=== PATIENT | female | born 1940 | race Caucasian/White ===

== ENCOUNTER 2017-03-13 16:21 | Inpatient (IN) | payer MEDICARE, BC ==
[2017-03-13] MEDS ORDERED: SODIUM CHLORIDE 0.9% 500 ML IV STA (16:31)
[2017-03-13] MEDS ORDERED: RX INFO: IV CONTRAST WAS GIVEN 1 EACH MISC MISCELLANE PRN (16:31)
[2017-03-13] MEDS ORDERED: SODIUM CHLORIDE 0.9% 1,000 ML IV STA (16:31)
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
[2017-03-13 16:36] LABS: Glucose,Whole Blood 175 mg/dL (75-99)
[2017-03-13 16:42] LABS: Basophils % (A) 0 %; CH 30.9; Eosinophils # (A) 0.1 k/uL (0-0.7); Eosinophils % (A) 2 %; HCT 43.1 % (34.0-46.0); HDW 2.54; HGB 14.5 gm/dL (11.4-16.0); Luc % (Auto) 3; Lymphocytes # (A) 1.8 k/uL (1.0-4.8); Lymphocytes % (A) 26 %; MCH 31.7 pg (25.0-35.0); MCHC 33.8 g/dL (31.0-37.0); Mean Platelet Volume 8.7; Monocytes # (A) 0.4 k/uL (0-1.0); Monocytes % (A) 5 %; Neutrophils # (A) 4.5 k/uL (1.3-7.7); Neutrophils % (A) 64 %; RBC 4.59 m/uL (3.80-5.40); RDW 14.1 % (11.5-15.5); WBC 6.9 k/uL (3.8-10.6); WBC (Perox) 7.11
[2017-03-13 16:56] LABS: Calcium 9.4 mg/dL (8.4-10.2); Potassium 4.1 mmol/L (3.5-5.1); Total Bilirubin 0.5 mg/dL (0.2-1.3); Total Protein 7.4 g/dL (6.3-8.2)
--- NOTE | 2017-03-13 16:57 | CT ---
EXAMINATION TYPE: CT brain wo con for TPA DATE OF EXAM: 03/13/2017 HISTORY: Sudden onset confusion today. Neural deficits per order. CT DLP: 1029.9 mGycm. Automated Exposure Control for Dose Reduction was Utilized. TECHNIQUE: CT scan of the head is performed without contrast. COMPARISON: CT brain October 17, 2014. FINDINGS: There is no acute intracranial hemorrhage or midline shift identified. There is diffuse v entricular and sulcal prominence consistent with diffuse age-related cerebral atrophy. There is low- attenuation in the periventricular white matter consistent with chronic small vessel ischemic change. Bilateral basal ganglia calcifications are redemonstrated. Some vascular calcification distal internal medicine doctor al carotid arteries bilaterally is redemonstrated. Soft tissue density left external auditory canal c onsistent with cerumen is again seen. The globes are intact and the visualized sinuses are clear. IMPRESSION: No acute intracranial hemorrhage or midline shift. There is mild to moderate diffuse ag e-related cerebral atrophy and chronic small vessel ischemic change redemonstrated. No significant ch marie from prior study is seen.
[2017-03-13 17:06] LABS: Creatine Kinase 233 U/L (30-135)
[2017-03-13 17:14] LABS: INR 1.8 (<1.2); Partial Thromboplastin Time 30.2 sec (22.0-30.0); Prothrombin Time 17.7 sec (9.0-12.0)
[2017-03-13 17:18] LABS: Troponin I <0.012 ng/mL (0.000-0.034)
[2017-03-13 17:19] LABS: Creatine Kinase MB 3.1 ng/mL (0.0-2.4)
--- NOTE | 2017-03-13 17:19 | CT ---
EXAMINATION TYPE: CT angio head neck DATE OF EXAM: 03/13/2017 HISTORY: sudden onset confusion COMPARISON: NONE CT DLP: 374.6 mGycm. Automated Exposure Control for Dose Reduction was Utilized. TECHNIQUE: CTA scan of the neck is performed with IV Contrast, patient injected with 65 mL of Omnipa que 350, axial images are obtained, coronal and sagittal reformatted images are reviewed. Three-D rec onstructed images are created on an independent workstation and reviewed. FINDINGS: There is mild atheromatous change in the aortic arch. The left carotid artery has origin from the inn ominate artery. There is 50% stenosis at the origin of the left internal carotid artery. This is due to atherosclerot ic plaque formation. There is bilateral plaque formation at the carotid artery bifurcations. There is approximate 30% stenosis origin of the right internal carotid artery. There is bilateral arterial flow in the vertebral arteries. There is patency of the vertebrobasilar artery system. There is arterial flow in the anterior middle and posterior cerebral arteries. The anterior cerebral arteries appear to fill from the right side th rough the anterior communicating artery. There is patency of the left posterior communicating artery. I see no evidence of aneurysm or neovascularity. There is no mass effect. There is normal contrast opacification of the venous sinuses. There is some mucosal thickening in the maxillary sinuses. IMPRESSION: There is atherosclerotic plaque at the carotid artery bifurcations. There is 50% stenosis at the origin left internal carotid artery. There is 30% stenosis origin right internal carotid rajani ry. The anterior cerebral arteries fill from the right side. 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 There is probably 40% stenosis origin of the left external carotid artery.
[2017-03-13] MEDS ORDERED: ASPIRIN 325 MG TAB PO STA (18:01)
[2017-03-13] MEDS: SODIUM CHLORIDE 0.9% 1,000 ML IV SCH (19:59)
--- NOTE | 2017-03-13 20:51 | US ---
EXAMINATION TYPE: US carotid duplex BILAT DATE OF EXAM: 03/13/2017 COMPARISON: CLINICAL HISTORY: Stenosis. Patient states passing out EXAM MEASUREMENTS: RIGHT: Peak Systolic Velocity (PSV) cm/sec ----- Right CCA: 60.1 ----- Right ICA: 64.5 ----- Right ECA: 105.6 ICA/CCA ratio: 1.1 RIGHT: End Diastole cm/sec ----- Right CCA: 19.1 ----- Right ICA: 23.2 ----- Right ECA: 9.8 LEFT: Peak Systolic Velocity (PSV) cm/sec ----- Left CCA: 45.4 ----- Left ICA: 71.4 ----- Left ECA: 106.5 ICA/CCA ratio: 1.6 LEFT: End Diastole cm/sec ----- Left CCA: 11.5 ----- Left ICA: 20.2 ----- Left ECA: 20.2 VERTEBRALS (direction of flow): Right Vertebral: Antegrade Left Vertebral: Antegrade Rhythm: Arrhythmia Bilateral wall thickening. No elevated velocities. No significant stenosis. Plaque seen in bilateral bulbs, with plaque extending into left ICA. IMPRESSION: There is antegrade flow in the vertebral arteries. The images and measurements suggest 2 5% stenosis in both internal carotid arteries. Criteria for Assigning % of Stenosis / Diameter reduction (Estimation based on the indirect measurements of the internal carotid artery velocities (ICA PSV). 1. Normal (no stenosis)=ICA PSV < 125 cm/s: ratio < 2.0: ICA EDV<40 cm/s. 2. Less than 50% stenosis=ICA PSV < 125 cm/s: ratio < 2.0: ICA EDV<40 cm/s. 3. 50 to 69% stenosis=ICA PSV of 125 to 230 cm/s: ration 2.0 ? 4.0: ICA EDV 40-100 cm/s. 4. Greater than 70% stenosis to near occlusion= ICA PSV > 230 cm/s: ratio > 4.0: ICA EDV > 100 cm/s. 5. Near occlusion= ICA PSV velocities may be low or undetectable: variable ratio and ICA EDV. 6. Total occlusion=unable to detect flow.
[2017-03-13] MEDS ORDERED: INFLUENZA VACCINE (6 MOS+) 60 MCG/0.5 ML SYRINGE IM ONE (20:52)
[2017-03-13] MEDS: WARFARIN 7.5 MG TAB PO SCH (22:05)
[2017-03-13] MEDS: METOPROLOL SUCCINATE (ER) 50 MG TAB.ER.24H PO SCH (22:05)
[2017-03-14 04:31] LABS: Cholesterol 214 mg/dL (<200); HDL Cholesterol 36 mg/dL (40-60)
[2017-03-14] MEDS: SODIUM CHLORIDE 0.9% 1,000 ML IV SCH ×2 (06:39→17:03)
[2017-03-14] MEDS: METOPROLOL SUCCINATE (ER) 50 MG TAB.ER.24H PO SCH ×2 (08:50→20:21)
[2017-03-14] MEDS: ASPIRIN 325 MG TAB PO SCH (08:51)
--- NOTE | 2017-03-14 14:20 | ECHOF ---
Referral Reason:Thrombus MEASUREMENTS -------- HEIGHT: 165.1 cm WEIGHT: 81.6 kg BP: 167/79 RVIDd: 3.3 cm (< 3.3) IVSd: 1.3 cm (0.6 - 1.1) LVIDd: 3.9 cm (3.9 - 5.3) LVPWd: 1.2 cm (0.6 - 1.1) IVSs: 1.7 cm LVIDs: 2.7 cm LVPWs: 1.1 cm LA Diam: 4.6 cm (2.7 - 3.8) LAESV Index (A-L): 66.21 ml/m Ao Diam: 3.1 cm (2.0 - 3.7) MV EXCURSION: 22.495 mm (> 18.000) MV EF SLOPE: 125 mm/s (70 - 150) EPSS: 0.3 cm MV E Edd: 1.62 m/s MV DecT: 124 ms MV A Edd: 0.90 m/s MV E/A Ratio: 1.79 AV maxP.89 mmHg AV meanP.60 mmHg RAP: 5.00 mmHg RVSP: 51.98 mmHg FINDINGS -------- Paced rhythm. This was a technically adequate study. The left ventricular size is normal. There is moderate concentric left ventricular hypertrophy. Overall left ventricular systolic function is normal with, an EF between 55 - 60 %. The right ventricle is normal in size. LA is severely dilated >40 ml/m2 The right atrial size is normal. There is moderate aortic valve sclerosis. Moderate aortic stenosis with peak/mean pressure gradient of 40.89mmHg / 24.60mmHg, the aortic valve area by continuity equation is 1.2cm. Peak/mean gradient across the Aortic Valve is 40.89mmHg / 24.60mmHg. Mild mitral annular calcification present. Moderate mitral regurgitation is present. Mild tricuspid regurgitation present. There is moderate pulmonary hypertension. The right ventricular systolic pressure, as measured by Doppler, is 51.98mmHg. Trace/mild (physiologic) pulmonic regurgitation. The aortic root size is normal. There is no pericardial effusion. CONCLUSIONS -------- 1. There is moderate concentric left ventricular hypertrophy. 2. There is moderate pulmonary hypertension. 3. Trace/mild (physiologic) pulmonic regurgitation. 4. The aortic root size is normal. 5. There is no pericardial effusion. 6. Overall left ventricular systolic function is normal with, an EF between 55 - 60 %. 7. LA is severely dilated >40 ml/m2 8. There is moderate aortic valve sclerosis. 9. Moderate aortic stenosis with peak/mean pressure gradient of 40.89mmHg / 24.60mmHg, the aortic valve area by continuity equation is 1.2cm. 10. Peak/mean gradient across the Aortic Valve is 40.89mmHg / 24.60mmHg. 11. Mild mitral annular calcification present. 12. Moderate mitral regurgitation is present. 13. Mild tricuspid regurgitation present. NOUGAT CANDY MAKER HELPER: Kelle Ledezma RDCS
[2017-03-14] MEDS ORDERED: ALPRAZolam 0.25 MG TAB PO PRN (17:00)
[2017-03-14] MEDS ORDERED: HYDROcodone/APAP 5-325MG 1 EACH TAB PO PRN (17:00)
--- NOTE | 2017-03-14 17:27 | XR ---
EXAMINATION TYPE: XR chest 1V portable DATE OF EXAM: 03/14/2017 COMPARISON: October 22, 2014 HISTORY: Chest pain TECHNIQUE: Single frontal view of the chest is obtained. FINDINGS: Single upright portable view the chest was obtained. An implantable cardiac device with 2 leads is again noted. Lungs are clear. No pneumothorax or pleura l effusion is identified. The cardiac silhouette is enlarged and stable. Calcifications are identifie d in the aortic arch. IMPRESSION: No change in appearance of the chest.
[2017-03-14] MEDS ORDERED: WARFARIN 5 MG TAB PO SCH (18:00)
--- NOTE | 2017-03-14 19:46 | HP ---
HISTORY AND PHYSICAL DATE OF SERVICE: 03/14/2017 CHIEF COMPLAINT: Change in mental status. HISTORY OF PRESENT ILLNESS: This 76-year-old woman with a past medical history of multiple medical problems, including syncope, history of pacemaker, hypertension, hyperlipidemia, history of atrial fibrillation, was noted to have a syncopal episode. The patient was weak and the patient is confused and patient also noted to have right-sided weakness. The patient came to [facility], admitted for evaluation and treatment. Currently the patient is still confused, unable to provide any history. Most of the history is from my discussion with staff as well as review of chart at this time. The patient had a neurovascular work up after admission. A CT scan of the brain was done on admission which showed mild to moderate diffuse age-related changes, but no acute changes , and the CT angiography was also done which showed atherosclerotic plaque at the carotid bifurcation, 50% stenosis at the origin of the left internal carotid artery, 30% stenosis in the right internal carotid artery, 40% of the left external carotid artery was also noted and the carotid Doppler was also noted. PAST MEDICAL HISTORY: History of atrial fibrillation, hypertension, hyperlipidemia, history of syncope. MEDICATIONS PRIOR TO ADMISSION: Home medications are: 1. Coumadin 7 5 mg p.o. Thursday, Thursday, Thursday, , Thursday, 5 mg to Thursday, Thursday. 2. Multivitamins 1 p.o. daily. 3. Metoprolol 50 mg daily. 4. Tylenol 650 b.i.d. p.r.n. ALLERGIES: None. FAMILY HISTORY: History of myocardial infarction in the family. SOCIAL HISTORY: No history of smoking. No history of alcohol. REVIEW OF SYSTEMS: ENT: No diminished hearing or diminished vision. CARDIOVASCULAR: No angina. RESPIRATORY: No cough. GI: No nausea. : No dysuria. NERVOUS: As mentioned earlier. ALLERGY/IMMUNOLOGY: No asthma or hay fever. MUSCULOSKELETAL: As mentioned earlier. HEMATOLOGY/ONCOLOGY: No history of anemia. ENDOCRINE: No history of diabetes, hypothyroidism. CONSTITUTIONAL: As mentioned earlier. DERMATOLOGY: Negative. RHEUMATOLOGY: Negative. PSYCHIATRY: As mentioned earlier. PHYSICAL EXAMINATION: Patient is alert, oriented x2. Pulse is 81, blood pressure 170/80, respirations 16, temperature 97.8, pulse ox 97% room air. HEENT: Conjunctivae normal. Oral mucosa moist. NECK: No jugular venous distention. No carotid bruits. No lymph node enlargement. CARDIOVASCULAR: S1, S2 are regular. No S3. No S4. Ejection systolic murmur present. RESPIRATORY: Breath sounds diminished in the bases. A few scattered rhonchi. No crackles. ABDOMEN: Soft, nontender. No mass palpable. LEGS: No edema. No swelling. NERVOUS SYSTEM: Higher functions as mentioned earlier. Moves all 4 limbs. No focal motor or sensory deficits. LYMPHATIC: No lymphadenopathy in neck or axillae. SKIN: No ulcer, rash or bleeding. LAB STUDIES: CBC within normal limits. INR is 1.8. Sodium 140, potassium 4.1 and CK-MB is 3.1. Troponins are negative. Cholesterol level is high. ASSESSMENT: 1. Change in mental status, possible acute transient ischemic attack. 2. Chronic atrial fibrillation, persistent. 3. Increased creatinine with possible chronic kidney disease stage 3. 4. Hyperlipidemia. 5. Hypertension. 6. History of syncope. 7. History of degenerative joint disease. 8. History of dehydration. 9. Moderate aortic stenosis. 10.Moderate mitral regurgitation. We will continue to monitor and prognosis is guarded because of multiple complex medical issues. Further recommendations to follow. Neurology, cardiology consultations. MMODL / IJN: [id number] / MTDCara
[2017-03-14] MEDS: MULTIVITAMINS, THERA 1 EACH TAB PO SCH (20:21)
[2017-03-14] MEDS: MELATONIN 3 MG TABLET PO SCH (20:21)
[2017-03-14] MEDS: ATORVASTATIN 40 MG TAB PO SCH (20:21)
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
[2017-03-15 01:07] LABS: Appearance,Urine Clear (Clear); Bilirubin,Urine Negative (Negative); Glucose,Urine (UA) Negative (Negative); Ketones,Urine Negative (Negative); Leukocyte Esterase,Urine Negative (Negative); Nitrite,Urine Negative (Negative); PH, Urine 5.5 (5.0-8.0); Protein,Urine Negative (Negative); Specific Gravity,Urine 1.011 (1.001-1.035); UA Billing (MACRO vs. MICRO) CHEM; Urobilinogen,Urine <2.0 mg/dL (<2.0)
[2017-03-15] MEDS: SODIUM CHLORIDE 0.9% 1,000 ML IV SCH ×3 (03:33→11:39)
[2017-03-15 06:20] LABS: Basophils % (A) 1 %; CH 32.1; CHCM 33.7; Eosinophils # (A) 0.1 k/uL (0-0.7); Eosinophils % (A) 3 %; HCT 38.9 % (34.0-46.0); HDW 2.58; HGB 12.7 gm/dL (11.4-16.0); Luc # (Auto) 0.14; Luc % (Auto) 3; Lymphocytes # (A) 1.2 k/uL (1.0-4.8); Lymphocytes % (A) 24 %; MCH 31.2 pg (25.0-35.0); MCHC 32.6 g/dL (31.0-37.0); MCV 95.8 fL (80.0-100.0); Mean Platelet Volume 9.1; Monocytes # (A) 0.4 k/uL (0-1.0); Monocytes % (A) 7 %; Neutrophils # (A) 3.2 k/uL (1.3-7.7); Neutrophils % (A) 63 %; RBC 4.06 m/uL (3.80-5.40); RDW 15.1 % (11.5-15.5); WBC 5.1 k/uL (3.8-10.6); WBC (Perox) 5.37
[2017-03-15 06:28] LABS: INR 2.3 (<1.2); Prothrombin Time 22.2 sec (9.0-12.0)
[2017-03-15 06:31] LABS: Anion Gap 7 mmol/L; Blood Urea Nitrogen 14 mg/dL (7-17); Calcium 8.6 mg/dL (8.4-10.2); Carbon Dioxide 25 mmol/L (22-30); Chloride 109 mmol/L (98-107); Glucose 102 mg/dL (74-99); Non-African American GFR(MDRD) >60 (>60 ml/min/1.73 sqM); Potassium 3.9 mmol/L (3.5-5.1); Sodium 141 mmol/L (137-145)
[2017-03-15] MEDS: PANTOPRAZOLE 40 MG TABLET PO SCH (06:38)
[2017-03-15] MEDS: ASPIRIN 325 MG TAB PO SCH (07:53)
[2017-03-15] MEDS: METOPROLOL SUCCINATE (ER) 50 MG TAB.ER.24H PO SCH ×2 (07:53→20:50)
--- NOTE | 2017-03-15 08:36 | CT ---
EXAMINATION TYPE: CT brain wo con DATE OF EXAM: 03/15/2017 COMPARISON: Previous study dated 03/13/2017. HISTORY: Follow up to CVA CT DLP: 945.5 mGycm Automated exposure control for dose reduction was used. FINDINGS: Central structures are midline. There is no evidence of hydrocephalus. No acute focal lesion, mass ef fect or midline shift is seen. I do not see evidence of intracranial blood. There is generalized sulc al prominence and ventriculomegaly compatible with atrophic change. There is diffuse periventricular white matter lucency, compatible with chronic ischemic change. There is mucosal thickening involving the ethmoid air cells bilaterally. There is a very small amount of fluid in the right mastoid air cells. IMPRESSION: 1. NO ACUTE INTRACRANIAL ABNORMALITY. 2. ATROPHIC CHANGE. 3. CHRONIC WHITE MATTER ISCHEMIC CHANGE. 4. CHRONIC SINUS MUCOSAL DISEASE. 5. MINIMAL FLUID IN THE RIGHT MASTOID AIR CELLS MAY REPRESENT ACUTE MASTOIDITIS.
--- NOTE | 2017-03-15 10:29 | CONS ---
CONSULTATION Mrs Keenan is a 76-year-old female with a known history of chronic atrial fibrillation. History of permanent pacemaker implantation. Has been followed on a regular basis by Dr. Craig who presented yesterday with possible syncopal episode, although it is not clear if she had a full syncope or presyncopal. Cardiology consultation was requested. The patient, according to her, was visiting her sister and watching a movie at the [employer] when she thinks she had a syncopal episode. She did not have any associated chest discomfort. No dizziness. No palpitation. No postictal symptoms. No localized weakness. She has no history of PND, orthopnea, or peripheral edema. Her level of activity is relatively stable from the cardiac standpoint. Her echocardiogram in 2014 revealed a preserved left ventricular size and systolic function. She was diagnosed with chronic atrial fibrillation, has a permanent pacemaker implanted. She follows with Dr. Craig on a regular basis. She has been anticoagulated. She has no history of obstructive coronary artery disease according to her and has underwent stress test, although full details of that are not available. The patient had a syncopal episode in October of 2014 and at that time she was in sinus mechanism. It appears that she had paroxysmal atrial fibrillation and episode of ventricular tachyarrhythmia in the past. It was felt at that time should she had sick sinus syndrome on presentation. She had an echocardiogram during this admission done yesterday and that revealed a preserved ventricular size and systolic function with moderate aortic stenosis and dilated left atrium with moderate mitral regurgitation. Her coronary risk factors are positive for hypertension. She is nondiabetic, nonsmoker. She is hyperlipidemic. MEDICATIONS: Her medication at home include: 1. Coumadin. 2. Metoprolol succinate 50 mg twice a day. 3. Vitamins. She was evaluated by Dr. Craig on Thursday of last week and her pacemaker was interrogated and there was no evidence of malignant arrhythmia. REVIEW OF SYSTEMS: RESPIRATORY SYSTEM: She has no recent wheezing. No cough. No history of obstructive lung disease. GI system: No recent GI bleeding. No peptic ulcer disease. system: No dysuria, hematuria. Nervous system: No history of documented stroke or seizure. PHYSICAL EXAMINATION: 76-year-old female, alert, oriented, in no apparent distress. Blood pressure 158/80 with a heart rate in the 70s. Her blood pressure was higher earlier. HEAD: Normocephalic. Eyes sclerae anicteric. Neck no bruit. LUNGS: Clear to auscultation. Heart irregular regular S1, S2. No S3 with systolic murmur heard at the base. No diastolic murmur. ABDOMEN: Soft, nontender. Positive bowel sounds. No organomegaly. Extremities is no edema. Intact pulses. LAB DATA: BUN creatinine 14 and 0.7. On presentation, 23 and 1.3. Her troponin less than 0.012 for 3 samples. Cholesterol 214, LDL of 140, hemoglobin of 12.7. Her INR of 2.38, it was 1.8, on presentation. Her carotid duplex scan revealed no evidence of high-grade stenosis. Her EKG revealed atrial fibrillation with nonspecific ST-T wave changes. On the monitor, there was no evidence of ventricular tachyarrhythmia. IMPRESSION: 1. Possible syncopal episode. No clear evidence to suggest a cerebrovascular accident. 2. Chronic atrial fibrillation, anticoagulated. 3. Status post permanent pacemaker implantation. 4. Hypertension. 5. Hyperlipidemia. 6. Moderate aortic stenosis. RECOMMENDATION: From the cardiac standpoint, the fact that her BUN and creatinine were mildly elevated, may represent a mild dehydration at this time. She is stable hemodynamically. I will stop the aspirin. Since she is on the Coumadin there is no clear indication for aspirin at this point. I will follow her blood pressure. If her blood pressure is elevated, then the amlodipine can be added to her regimen. From the cardiac standpoint, she may be able to be discharged home and followed as an outpatient with Dr. Craig. Thank you for this consult. We will follow with you. MMODL / IJN: [id number] /
--- NOTE | 2017-03-15 15:26 | P.PN ---
Subjective Progress Note Date: 03/15/17 Principal diagnosis: syncope Interval Update: March 15, 2017 Neurology is following on a 76-year-old female for TIA versus syncope. patient is known to have chronic atrial fibrillation. Patient's for CT of the brain was negative for acute process. Patient did have repeat CT of the brain this morning and no new changes were noted. Patient's carotid Doppler was noncontributory. CT angiogram was also performed which was noncontributory. Patient reports being back to baseline with no remaining deficits. today, the patient was alert and oriented 3, high Fowlers in bed, resting in no acute distress. Objective - Vital Signs Vital signs: Vital Signs Temp 97.5 F L 03/15/17 07:45 Pulse 73 03/15/17 11:58 Resp 16 03/15/17 11:58 BP 172/88 03/15/17 11:08 Pulse Ox 95 03/15/17 11:08 Intake & Output 03/14/17 03/15/17 03/15/17 18:59 06:59 18:59 Intake Total 652 720 180 Output Total 400 Balance 652 720 -220 Weight 84.4 kg Intake: Intake, IV Titration 600 Amount Sodium Chloride 0.9% 1, 600 000 ml @ 100 mls/hr IV . Q10H [facility] Rx#:[id number] Oral 652 120 180 Output: Urine 400 Other: Voiding Method Toilet Toilet # Voids 2 1 - Exam Constitutional: AOx3, cooperative HEENT: NC/AT, no facial asymmetry is seen. 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 Neurological: CN II-XII in tact, patient was AOx3, speech and language are normal, no unilateralizing weakness, no seizure activity note on physical exam. Sensation was normal. Integementary: no rash, no erythema Psychiatric: mood and affect appropriate - Labs CBC & Chem 7: 03/15/17 05:55 03/15/17 05:55 Labs: Abnormal Lab Results - Last 24 Hours (Table) 03/15/17 03/15/17 03/15/17 Range/Units 05:55 05:55 05:55 Plt Count 139 L (150-450) k/uL PT 22.2 H (9.0-12.0) sec INR 2.3 H (<1.2) Chloride 109 H (98-107) mmol/L Glucose 102 H (74-99) mg/dL Assessment and Plan (1) Syncope and collapse Status: Acute Plan: At this time the patient's condition appears related to cardiac etiology. Based on patient's repeat CT of the brain and resolution to baseline, patient can be cleared from a neurological standpoint for discharge. Status: neurology will clear the patient for discharge from a neurological standpoint. I discussed the patient's pertinent medical information with Dr. Beck. He agrees with the plan of care as implemented.
--- NOTE | 2017-03-15 16:34 | PN ---
PROGRESS NOTE DATE OF SERVICE: 03/15/2017 This 76-year-old woman who was admitted with syncope had a possible TIA. Patient also had change in mental status. No chest pain. No palpitations. No fever. EXAM: Alert, oriented x3. Pulse is 73, blood pressure 172/92, respiration 16, temperature 97.2, pulse ox 94% room air. HEENT: Conjunctivae normal. NECK: No jugular venous distention. CARDIOVASCULAR: S1, S2. RESPIRATORY: Breath sounds diminished in the bases. No rhonchi, no crackles. ABDOMEN: Soft, nontender. No mass palpable. LEGS: No edema. No swelling. NERVOUS SYSTEM: Higher functions as mentioned. Moves all four limbs. No focal deficits. LYMPHATICS: No lymphadenopathy in the neck, axillae or groin. SKIN: No rash, ulcer or bleeding. LAB STUDIES: At this time shows platelets 139, INR is 2.3, was noted. ASSESSMENT: 1. Syncope and change in mental status, possible acute transient ischemic attack. 2. Chronic atrial fibrillation persistent. 3. Increased creatinine, possibly kidney disease state. 4. Hyperlipidemia. 5. Hypertension. RECOMMENDATIONS AND DISCUSSION: I recommend to continue current management. Continue with antiplatelet agents. Continue with Lipitor. Continue the antihyperlipidemic agents. Closely follow. Neurology and Cardiology. Telemetry. Guarded prognosis. Further recommendations to follow. MMODL / IJN: [id number] / MTDD
[2017-03-15] MEDS: WARFARIN 7.5 MG TAB PO SCH (17:56)
[2017-03-15] MEDS: ATORVASTATIN 40 MG TAB PO SCH (20:50)
[2017-03-15] MEDS: amLODIPine 5 MG TAB PO SCH (20:50)
[2017-03-15] MEDS: MELATONIN 3 MG TABLET PO SCH (20:50)
[2017-03-15] MEDS: MULTIVITAMINS, THERA 1 EACH TAB PO SCH (20:50)
[2017-03-16 06:27] LABS: INR 2.2 (<1.2); Prothrombin Time 21.2 sec (9.0-12.0)
[2017-03-16 06:31] LABS: Basophils % (A) 1 %; CH 31.3; CHCM 33.2; Eosinophils # (A) 0.1 k/uL (0-0.7); Eosinophils % (A) 3 %; HDW 2.57; Luc # (Auto) 0.14; Luc % (Auto) 3; Lymphocytes # (A) 1.1 k/uL (1.0-4.8); Lymphocytes % (A) 24 %; MCH 31.6 pg (25.0-35.0); MCHC 33.4 g/dL (31.0-37.0); MCV 94.7 fL (80.0-100.0); Mean Platelet Volume 8.1; Monocytes # (A) 0.4 k/uL (0-1.0); Monocytes % (A) 8 %; Neutrophils # (A) 2.9 k/uL (1.3-7.7); Neutrophils % (A) 62 %; RBC 4.12 m/uL (3.80-5.40); RDW 13.9 % (11.5-15.5); WBC 4.7 k/uL (3.8-10.6); WBC (Perox) 4.97
[2017-03-16] MEDS: PANTOPRAZOLE 40 MG TABLET PO SCH (06:37)
[2017-03-16 06:39] LABS: Anion Gap 9 mmol/L; Blood Urea Nitrogen 16 mg/dL (7-17); Calcium 8.9 mg/dL (8.4-10.2); Carbon Dioxide 27 mmol/L (22-30); Chloride 106 mmol/L (98-107); Glucose 97 mg/dL (74-99); Non-African American GFR(MDRD) >60 (>60 ml/min/1.73 sqM); Potassium 3.8 mmol/L (3.5-5.1); Sodium 142 mmol/L (137-145)
[2017-03-16] MEDS: amLODIPine 5 MG TAB PO SCH (08:37)
[2017-03-16] MEDS: METOPROLOL SUCCINATE (ER) 50 MG TAB.ER.24H PO SCH (08:37)
[2017-03-16 08:45] VITALS: RESP 18; TEMP 96.7
--- NOTE | 2017-03-16 11:43 | P.DS ---
Providers Date of admission: 03/13/17 18:01 Attending physician: Maximus Ashley Consults: 03/13/17 18:01 Consult Physician Routine Consulting Provider: Sofiya Beck Consult Reason/Comments: cva Do you want consulting provider notified?: Yes 03/14/17 16:59 Consult Physician Routine Consulting Provider: Sam Cevallos Consult Reason/Comments: syncope, as Do you want consulting provider notified?: Yes Primary care physician: Stated None Hospital Course: This 76-year-old woman with a past medical history multiple medical problems was admitted change with the change in mental status as well as syncope. Possible TIA was considered. Patient was monitored closely. Patient also to chronic atrial fibrillation. Patient was seen by neurology. Patient be discharged in a stable condition with guarded prognosis with further plans to follow-up with the primary physician, neurologist, cardiology in the outpatient setting. On exam vitals stable. Cardio S1 and S2 normal. Abdomen soft nontender. No system no focal lucent. Final diagnosis 1. Syncope and change in mental status possible acute TIA. 2. Chronic atrial fibrillation persistent. 3. Increased creatinine possibly chronic kidney disease stage III. 34. Hypertension. 5. Hyperlipidemia. Patient Condition at Discharge: Serious Plan - Discharge Summary New Discharge Prescriptions: New amLODIPine [Norvasc] 5 mg PO BID #60 tab Atorvastatin [Lipitor] 40 mg PO HS #30 tab Continue Multivitamins, Thera [Multivitamin (formulary)] 1 tab PO HS Warfarin [Coumadin] 5 mg PO TUSA Warfarin [Coumadin] 7.5 mg PO SUMOWETHFR Acetaminophen [Tylenol] 650 mg PO BID PRN PRN Reason: Pain Metoprolol Succinate (ER) [Toprol XL] 50 mg PO BID Discharge Medication List Multivitamins, Thera [Multivitamin (formulary)] 1 tab PO HS 10/17/14 [History] Acetaminophen [Tylenol] 650 mg PO BID PRN 03/13/17 [History] Metoprolol Succinate (ER) [Toprol XL] 50 mg PO BID 03/13/17 [History] Warfarin [Coumadin] 5 mg PO TUSA 03/13/17 [History] Warfarin [Coumadin] 7.5 mg PO SUMOWETHFR 03/13/17 [History] Atorvastatin [Lipitor] 40 mg PO HS #30 tab 03/16/17 [Rx] amLODIPine [Norvasc] 5 mg PO BID #60 tab 03/16/17 [Rx] Follow up Appointment(s)/Referral(s): Lonnie Raymundo MD [REFERRING] - 03/24/17 9:30 am () Sofiya Beck MD [STAFF PHYSICIAN] - 2 Weeks (OFFICE WILL CALL WITH APPOINTMENT TIME) Ambulatory/Diagnostic Orders: Prothrombin Time INR [LAB.AMB] Time Frame: 03/19/17, Location: Determined By Patient Activity/Diet/Wound Care/Special Instructions: Confirm Cardiology F/U apts. prior to dc. No aSA as per Cardiology, on coumadin. Diet: Cardiac Activity: Limited TIll F?U
--- NOTE | 2017-03-16 12:14 | P.PN ---
Subjective Progress Note Date: 03/16/17 Principal diagnosis: syncope This is a pleasant 76-year-old female with a history of chronic atrial fibrillation, permanent pacemaker implantation and hypertension. She follows with Dr. Craig in the office. She presented with possible syncopal episode although it is not clear whether she truly had a full syncopal episode. She was watching a movie when she thinks she had a syncopal episode. She did not have any associated chest discomfort, dizziness, palpitations, post ictal symptoms, localized weakness. She's had no complaints of PND, orthopnea or peripheral edema. Neurology has seen the patient and cleared her no significant evidence of CVA. She underwent echocardiogram that showed ejection fraction of 55-60% with reticulocyte stenosis, moderate mitral regurgitation, mild tricuspid regurgitation and moderate pulmonary hypertension. Upon examination this morning, patient is resting comfortably in bed. She denies complaints plate of further syncopal episodes. She's had no chest discomfort, palpitations, shortness of breath or dizziness. Objective - Vital Signs Vital signs: Vital Signs Temp 96.7 F L 03/16/17 08:00 Pulse 71 03/16/17 08:00 Resp 18 03/16/17 08:00 BP 148/71 03/16/17 08:00 Pulse Ox 96 03/16/17 08:00 Intake & Output 03/15/17 03/16/17 03/16/17 18:59 06:59 18:59 Intake Total 400 160 240 Output Total 400 300 Balance 0 160 -60 Weight 82.9 kg Intake: Intake, IV Titration 160 Amount Sodium Chloride 0.9% 1, 160 000 ml @ 20 mls/hr IV . Q24H [facility] Rx#:[id number] Oral 400 240 Output: Urine 400 300 Other: Voiding Method Toilet # Voids 2 1 1 - Exam PHYSICAL EXAMINATION: HEENT: Head is atraumatic, normocephalic. Pupils equal, round. Neck is supple. There is no elevated jugular venous pressure. HEART EXAMINATION: Heart sounds irregularly irregular, S1 and S2 systolic murmur at the base. CHEST EXAMINATION: Lungs are clear to auscultation and precussion. No chest wall tenderness is noted on palpation or with deep breathing. ABDOMEN: Soft, nontender. Bowel sounds are heard. No organomegaly noted. EXTREMITIES: 2+ peripheral pulses with no evidence of peripheral edema and no calf tenderness noted. NEUROLOGIC patient is awake, alert and oriented x3. . - Labs CBC & Chem 7: 03/16/17 06:02 03/16/17 06:02 Labs: Abnormal Lab Results - Last 24 Hours (Table) 03/16/17 03/16/17 Range/Units 06:02 06:02 Plt Count 148 L (150-450) k/uL PT 21.2 H (9.0-12.0) sec INR 2.2 H (<1.2) Assessment and Plan Plan: Assessment and plan 1 possible syncopal episode, no clear evidence to suggest CVA #2 chronic atrial fibrillation, anticoagulated 3 status post permanent pacemaker implantation #4 hypertension #5 hyperlipidemia #6 moderate aortic stenosis From cardiology's perspective, the case was reviewed we will continue the same. Patient's renal function has improved. Her INR is therapeutic. From our perspective, patient may be discharged home and follow-up with Dr. Craig in the office. DIRECTOR FAMILY note has been reviewed, I agree with a documented findings and plan of care. Patient was seen and examined.
[2017-03-16] MEDS: SODIUM CHLORIDE 0.9% 1,000 ML IV SCH (12:23)
[2017-03-16 12:27] VITALS: BP 160/75; PULSE 75
== END 2017-03-16 13:37 | disposition home health service (06) | DRG 69 ==
LOC: EC 16:21 → 6SEL 18:01
PROVIDERS: ADMIT Hospitalist; ATTEND Hospitalist
DX: G45.9 Transient cerebral ischemic attack, unspecified (principal); I48.1 Persistent atrial fibrillation; I27.20 Pulmonary hypertension, unspecified; N18.3 Chronic kidney disease, stage 3 (moderate); I08.3 Combined rheumatic disorders of mitral, aortic and tricuspid valves; E78.5 Hyperlipidemia, unspecified; I48.2 Chronic atrial fibrillation; I65.23 Occlusion and stenosis of bilateral carotid arteries; I83.93 Asymptomatic varicose veins of bilateral lower extremities; M19.90 Unspecified osteoarthritis, unspecified site; I12.9 Hypertensive chronic kidney disease with stage 1 through stage 4 chronic kidney disease, or unspecified chronic kidney disease; Z79.01 Long term (current) use of anticoagulants; Z79.899 Other long term (current) drug therapy; Z96.641 Presence of right artificial hip joint; Z95.0 Presence of cardiac pacemaker; Z82.49 Family history of ischemic heart disease and other diseases of the circulatory system
CPT/HCPCS: 36415; 70450; 70496; 70498; 71010; 80048; 80053; 80061; 80306; 81003; 82550; 82553; 83090; 84484; 85025; 85610; 85730; 90686; 93005; 93306; 93880; 96360; 96361; 99291

== ENCOUNTER 2018-11-03 11:28 | Inpatient (IN) | payer MEDICARE, BC ==
[2018-11-03 11:34] LABS: Glucose,Whole Blood 129 mg/dL (75-99)
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
[2018-11-03 12:00] LABS: Appearance,Urine Cloudy (Clear); Bacteria,Urine Many /hpf; Bilirubin,Urine Negative (Negative); Blood,Urine Negative (Negative); Color,Urine Dark Yellow; Glucose,Urine (UA) Negative (Negative); Hyaline Casts,Urine 29 /lpf (0-2); Ketones,Urine Negative (Negative); Leukocyte Esterase,Urine Trace (Negative); Mucus,Urine Many /hpf; Nitrite,Urine Positive (Negative); Protein,Urine 1+ (Negative); Specific Gravity,Urine 1.023 (1.001-1.035); Squamous Epithelial Cell,Urine 2 /hpf (0-4); Urobilinogen,Urine <2.0 mg/dL (<2.0); WBC,Urine 4 /hpf (0-5)
--- NOTE | 2018-11-03 12:03 | XR ---
EXAMINATION TYPE: XR chest 1V portable DATE OF EXAM: 11/03/2018 COMPARISON: 06/14/2016 INDICATION: Acute mental status change TECHNIQUE: Single frontal view of the chest is obtained. FINDINGS: The heart size is moderately enlarged. The pulmonary vasculature is normal. The lungs are clear. Pacemaker overlies left chest. IMPRESSION: 1. Moderate cardiomegaly
[2018-11-03 12:06] LABS: Basophils % (A) 0 %; Eosinophils # (A) 0.1 k/uL (0-0.7); Eosinophils % (A) 2 %; HCT 42.1 % (34.0-46.0); HGB 13.7 gm/dL (11.4-16.0); Lymphocytes # (A) 1.7 k/uL (1.0-4.8); Lymphocytes % (A) 24 %; MCH 29.1 pg (25.0-35.0); MCHC 32.4 g/dL (31.0-37.0); MCV 89.6 fL (80.0-100.0); Mean Platelet Volume 8.9; Monocytes # (A) 0.5 k/uL (0-1.0); Monocytes % (A) 6 %; Neutrophils # (A) 4.8 k/uL (1.3-7.7); Neutrophils % (A) 66 %; Platelet Count 159 k/uL (150-450); RDW 14.9 % (11.5-15.5); WBC 7.2 k/uL (3.8-10.6)
--- NOTE | 2018-11-03 12:10 | CT ---
EXAMINATION TYPE: CT brain wo con DATE OF EXAM: 11/03/2018 COMPARISON: 03/15/2017 INDICATION: Altered mental status changes DLP: 1099.4 mGycm, Automated exposure control for dose reduction was used. CONTRAST: None CT of the brain is performed utilizing 3 mm thick sections through the posterior fossa and 3 mm thick sections through the remaining calvarium. Study is performed within 24 hours of arrival to the hosp ital. No abnormal hyperdensity is present to suggest an acute intracranial hemorrhage. No mass lesion is evident. Physiologic basal ganglion calcifications present bilaterally No acute infarcts are evident. Periventricular white matter ischemic type changes are present, stable from comparison Ventricles and sulci are appropriate for the patient age. Paranasal sinuses and mastoid air cells within the [id number] are clear. IMPRESSIONS: 1. Chronic appearing periventricular white matter ischemic changes. 2. No acute intracranial process.
[2018-11-03 12:14] LABS: INR 2.6 (<1.2); Partial Thromboplastin Time 31.4 sec (22.0-30.0); Prothrombin Time 25.1 sec (9.0-12.0)
[2018-11-03 12:37] LABS: Albumin 4.2 g/dL (3.5-5.0); Calcium 9.3 mg/dL (8.4-10.2); Potassium 4.6 mmol/L (3.5-5.1); Total Bilirubin 0.6 mg/dL (0.2-1.3); Total Protein 7.2 g/dL (6.3-8.2)
[2018-11-03] MEDS ORDERED: ASPIRIN 325 MG TAB PO STA (13:09)
[2018-11-03] MEDS: SODIUM CHLORIDE 0.9% 1,000 ML IV SCH (14:40)
--- NOTE | 2018-11-03 16:25 | ECHOF ---
Referral Reason:Thrombus MEASUREMENTS -------- HEIGHT: 175.3 cm WEIGHT: 81.6 kg BP: 163/84 RVIDd: 3.6 cm (< 3.3) IVSd: 1.3 cm (0.6 - 1.1) LVIDd: 4.4 cm (3.9 - 5.3) LVPWd: 1.2 cm (0.6 - 1.1) IVSs: 2.0 cm LVIDs: 3.0 cm LVPWs: 2.0 cm LA Diam: 4.0 cm (2.7 - 3.8) LAESV Index (A-L): 53.86 ml/m Ao Diam: 3.6 cm (2.0 - 3.7) AV Cusp: 0.9 cm (1.5 - 2.6) MV EXCURSION: 18.395 mm (> 18.000) MV EF SLOPE: 130 mm/s (70 - 150) EPSS: 0.4 cm AV maxP.54 mmHg AV meanP.65 mmHg RAP: 5.00 mmHg RVSP: 41.78 mmHg FINDINGS -------- Atrial fibrillation. AICD This was a technically adequate study. The left ventricular size is normal. There is mild concentric left ventricular hypertrophy. Overa ll left ventricular systolic function is normal with, an EF between 55 - 60 %. The right ventricle is mildly enlarged. LA is moderately dilated 34-39 ml/m2 The right atrium is normal in size. Interatrial and interventricular septum intact. There is moderate to severe aortic valve sclerosis. Trace to mild aortic regurgitation. There is moderate aortic stenosis present. Peak/mean gradient across the Aortic Valve is 42.54mmHg / 24.65mm Hg. The mitral valve leaflets are moderately thickened. Moderate mitral annular calcification present. There is trace to mild mitral regurgitation. Jqjz-iq-polfuxlu tricuspid regurgitation present. There is mild pulmonary hypertension. The right ventricular systolic pressure, as measured by Doppler, is 41.78mmHg. Trace/mild (physiologic) pulmonic regurgitation. The aortic root size is normal. Normal inferior vena cava with normal inspiratory collapse consistent with estimated right atrial pre ssure of 5 mmHg. There is a small pericardial effusion located near the left ventricle. CONCLUSIONS -------- 1. Atrial fibrillation. 2. AICD 3. This was a technically adequate study. 4. The left ventricular size is normal. 5. There is mild concentric left ventricular hypertrophy. 6. Overall left ventricular systolic function is normal with, an EF between 55 - 60 %. 7. The right ventricle is mildly enlarged. 8. LA is moderately dilated 34-39 ml/m2 9. The right atrium is normal in size. 10. Interatrial and interventricular septum intact. 11. There is moderate to severe aortic valve sclerosis. 12. Trace to mild aortic regurgitation. 13. There is moderate aortic stenosis present. 14. Peak/mean gradient across the Aortic Valve is 42.54mmHg / 24.65mmHg. 15. The mitral valve leaflets are moderately thickened. 16. Moderate mitral annular calcification present. 17. There is trace to mild mitral regurgitation. 18. Qgwx-vl-ybxrqdyi tricuspid regurgitation present. 19. There is mild pulmonary hypertension. 20. The right ventricular systolic pressure, as measured by Doppler, is 41.78mmHg. 21. Trace/mild (physiologic) pulmonic regurgitation. 22. The aortic root size is normal. 23. Normal inferior vena cava with normal inspiratory collapse consistent with estimated right atrial pressure of 5 mmHg. 24. There is a small pericardial effusion located near the left ventricle. L[employer] MANAGER: Aziza Dawkins RDCS
[2018-11-03] MEDS ORDERED: ACETAMINOPHEN TAB 325 MG TAB PO PRN (18:39)
[2018-11-03] MEDS ORDERED: NALOXONE 0.4 MG/ML 1 ML VIAL IV PRN (18:39)
[2018-11-03] MEDS ORDERED: MELATONIN 3 MG TABLET PO PRN (18:39)
[2018-11-03] MEDS ORDERED: HYDROcodone/APAP 5-325MG 1 EACH TAB PO PRN (18:39)
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
[2018-11-03] MEDS: METOPROLOL SUCCINATE (ER) 50 MG TAB.ER.24H PO SCH (21:49)
--- NOTE | 2018-11-03 22:40 | US ---
EXAMINATION TYPE: US carotid duplex BILAT DATE OF EXAM: 11/03/2018 COMPARISON: NONE CLINICAL HISTORY: Stenosis. AMS EXAM MEASUREMENTS: RIGHT: Peak Systolic Velocity (PSV) cm/sec ----- Right CCA: 52.2 ----- Right ICA: 71.1 ----- Right ECA: 91.5 ICA/CCA ratio: 1.4 RIGHT: End Diastole cm/sec ----- Right CCA: 12.9 ----- Right ICA: 26.0 ----- Right ECA: 10.0 LEFT: Peak Systolic Velocity (PSV) cm/sec ----- Left CCA: 76.9 ----- Left ICA: 90.0 ----- Left ECA: 85.6 ICA/CCA ratio: 1.2 LEFT: End Diastole cm/sec ----- Left CCA: 14.4 ----- Left ICA: 17.3 ----- Left ECA: 24.6 VERTEBRALS (direction of flow): Right Vertebral: Antegrade Left Vertebral: Antegrade Rhythm: Normal IMPRESSION: No significant stenosis.
[2018-11-03 23:24] LABS: Amphetamine Screen,Urine Not Detected (NotDetected); Barbiturate Screen,Urine Not Detected (NotDetected); Benzodiazepines Screen,Urine Not Detected (NotDetected); Cocaine Screen,Urine Not Detected (NotDetected); Methadone Screen, Urine Not Detected (NotDetected); Opiate Screen,Urine Not Detected (NotDetected); Oxycodone Screen, Urine Not Detected (NotDetected); Phencyclidine Screen,Urine Not Detected (NotDetected); Tricyclic Antidepressant,Urine Not Detected (NotDetected); Urn Cannabinoid Scrn Not Detected (NotDetected)
[2018-11-04] MEDS: SODIUM CHLORIDE 0.9% 1,000 ML IV SCH ×3 (06:21→17:14)
[2018-11-04 06:58] LABS: INR 2.5 (<1.2); Prothrombin Time 23.9 sec (9.0-12.0)
[2018-11-04 07:17] LABS: Calcium 8.7 mg/dL (8.4-10.2); Potassium 3.9 mmol/L (3.5-5.1)
[2018-11-04] MEDS: METOPROLOL SUCCINATE (ER) 50 MG TAB.ER.24H PO SCH ×2 (08:40→20:48)
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
[2018-11-04] MEDS ORDERED: WARFARIN 7.5 MG TAB PO SCH (09:00)
--- NOTE | 2018-11-04 10:54 | P.PN ---
Subjective Progress Note Date: 11/04/18 Principal diagnosis: unresponsive event Patient is a 78-year-old female past medical history of hypertension, and dyslipidemia, arthritis, A. fib on chronic Coumadin, multiple syncopal episodes-all of which have been determined to be cardiac in etiology, patient has had a pacemaker placed approximately 3 years ago who presented to the ER due to an unresponsive episode. She had been visiting her niece and they noticed she was sleeping in a chair however when they went to wake her, they could not arouse her and she was subsequently brought to the ER. On arrival to the ER she was hypertensive with blood pressure 170/40, her creatinine was slightly elevated at 1, INR therapeutic at 2.6. She underwent a head CT which showed chronic white matter changes but no acute process, chest x-ray showed cardiomegaly, echocardiogram was performed which showed an ejection fraction of 55-60% with moderate aortic stenosis. EKG is reviewed by myself reveals atrial fibrillation rate controlled with no significant ST-T wave changes. She was given a dose of aspirin and started on IV fluids. She became lucid again in the ER and returned back to baseline.seen by neurology. EEG pending. Patient seen and examined at bedside. She denies any chest pain, shortness breath, nausea, vomiting, or diarrhea. States she is feeling back to baseline. Objective - Vital Signs Vital signs: Vital Signs Temp 98.0 F 11/04/18 04:00 Pulse 81 11/04/18 04:00 Resp 18 11/04/18 04:00 BP 146/91 11/04/18 04:00 Pulse Ox 97 11/04/18 04:00 Intake & Output 11/03/18 11/04/18 11/04/18 18:59 06:59 18:59 Intake Total 1480 360 Balance 1480 360 Weight 81.647 kg 84.6 kg Intake: Intake, IV Titration 1000 Amount Sodium Chloride 0.9% 1, 1000 000 ml @ 100 mls/hr IV . Q10H [facility] Rx#:[id number] Oral 480 360 Other: Voiding Method Toilet # Voids 2 - Exam General: non toxic, no distress, appears at stated age Derm:erythema, perioral with scale and crust, warm, dry Head: atraumatic, normocephalic, symmetric Eyes: EOMI, no lid lag, anicteric sclera Mouth: no lip lesion, mucus membranes moist Cardiovascular: S1S2 reg with systoic murmur, positive posterior tibial pulse bilateral, Lungs: CTA bilateral, no rhonchi, no rales , no accessory muscle use Abdominal: soft, nontender to palpation, no guarding, no appreciable organomegaly Ext: no gross muscle atrophy, no edema, no contractures Neuro: CN II-XI grossly intact, no focal neuro deficits Psych: Alert, oriented, appropriate affect - Labs CBC & Chem 7: 11/03/18 11:46 11/04/18 06:17 Labs: Abnormal Lab Results - Last 24 Hours (Table) 11/03/18 11/03/18 11/03/18 Range/Units 11:33 11:40 11:46 PT (9.0-12.0) sec INR (<1.2) APTT (22.0-30.0) sec Chloride (98-107) mmol/L BUN 26 H (7-17) mg/dL Creatinine 1.07 H (0.52-1.04) mg/dL Glucose 121 H (74-99) mg/dL POC Glucose (mg/dL) 129 H (75-99) mg/dL AST 51 H (14-36) U/L Triglycerides (<150) mg/dL LDL Cholesterol, Calc (0-99) mg/dL HDL Cholesterol (40-60) mg/dL Urine Appearance Cloudy H (Clear) Urine Protein 1+ H (Negative) Urine Nitrite Positive H (Negative) Ur Leukocyte Esterase Trace H (Negative) Urine Bacteria Many H (None) /hpf Hyaline Casts 29 H (0-2) /lpf Urine Mucus Many H (None) /hpf 11/03/18 11/04/18 11/04/18 Range/Units 11:46 06:17 06:17 PT 25.1 H 23.9 H (9.0-12.0) sec INR 2.6 H 2.5 H (<1.2) APTT 31.4 H (22.0-30.0) sec Chloride 108 H (98-107) mmol/L BUN 19 H (7-17) mg/dL Creatinine (0.52-1.04) mg/dL Glucose 103 H (74-99) mg/dL POC Glucose (mg/dL) (75-99) mg/dL AST (14-36) U/L Triglycerides 182 H (<150) mg/dL LDL Cholesterol, Calc 125 H (0-99) mg/dL HDL Cholesterol 35 L (40-60) mg/dL Urine Appearance (Clear) Urine Protein (Negative) Urine Nitrite (Negative) Ur Leukocyte Esterase (Negative) Urine Bacteria (None) /hpf Hyaline Casts (0-2) /lpf Urine Mucus (None) /hpf Assessment and Plan Assessment: Unresponsive episode, seizure versus syncope -Neuro checks, seizure precautions, neuro recs appreciated -Telemetry, interrogate pacer, cardio recs -Echocardiogram with moderate aortic stenosis -Carotid Dopplers no significant stenosis -EEG pending -ortho statics pending Aortic stenosis - cardio recs Hypertension, urgency on arrival -Continue toprolol - monitor BP HLD - LDL borderline at 125 dietary modification - recheck in 6 months Restless leg syndrome -Continue Requip Paroxysmal A. fib with therapeutic Coumadin -Telemetry -Continue metoprolol -Continue Coumadin, pharmacy to dose Acute kidney injury likely secondary to dehydration, improved DVT prophylaxis: Coumadin Discussed with: Patient, Cardio, Family Anticipated discharge date: 48-[address]: home with home health A total of 35 minutes was spent on the care of this complex patient more than 50% of the time was spent in counseling and care coordination.
[2018-11-04] MEDS ORDERED: ASPIRIN 325 MG TAB PO SCH (13:10)
--- NOTE | 2018-11-04 14:39 | EEG ---
ELECTROENCEPHALOGRAM REPORT DATE OF SERVICE: 11/04/2018. PREAMBLE: This is a 78-year-old female who had an episode of unresponsiveness while she was taking a nap. This study is performed to evaluate for any epileptiform activity. CURRENT MEDICATIONS: Requip, Coumadin, metoprolol, melatonin, aspirin. EEG FINDINGS: Routine 21 channel awake digital EEG recording was accomplished utilizing the 10/20 international system with bipolar and referential montages. The background consists of well developed, well regulated, moderate amplitude activity in the 10-11 hertz alpha. The background is posterior dominant and reactive to eye opening and closing. Photic driving response was seen in some flash frequencies. Different stages of sleep were not seen. No focal or generalized epileptiform activity was seen. EKG rhythm leads revealed no obvious arrhythmia. IMPRESSION: This is a normal awake EEG. No focal lateralized or epileptiform activity was seen. MMODL / IJN: [id number] /
[2018-11-04] MEDS: WARFARIN 7.5 MG TAB PO SCH (17:15)
[2018-11-05 00:21] LABS: Magnesium 2.1 mg/dL (1.6-2.3); Potassium 4.4 mmol/L (3.5-5.1)
[2018-11-05] MEDS: SODIUM CHLORIDE 0.9% 1,000 ML IV SCH ×2 (04:53→17:06)
[2018-11-05 07:23] LABS: INR 2.5 (<1.2); Prothrombin Time 23.8 sec (9.0-12.0)
[2018-11-05] MEDS ORDERED: fentaNYL (PF) 50 MCG/ML 2 ML AMP ONE (11:23)
[2018-11-05] MEDS ORDERED: IV FLUID CONTINUATION 275 ML IV ONE (11:45)
[2018-11-05] MEDS: BENZOCAINE SPRAY 1 CAN TOPICAL ONE ×2 (11:47→12:01)
[2018-11-05] MEDS ORDERED: MIDAZOLAM (PF) 2 MG/2 ML VIAL IVP ONE (12:02)
[2018-11-05] MEDS ORDERED: fentaNYL (PF) 50 MCG/ML 2 ML AMP IVP ONE (12:02)
[2018-11-05] MEDS: METOPROLOL SUCCINATE (ER) 50 MG TAB.ER.24H PO SCH ×2 (12:55→20:59)
--- NOTE | 2018-11-05 13:09 | ECHOT ---
TRANSESOPHAGEAL ECHOCARDIOGRAM Mrs. Keenan is a 78-year-old female who was admitted with the symptoms of syncope. Patient has an ejection systolic murmur suggestive of severe aortic stenosis. In view of that, the patient was advised transesophageal echocardiogram to assess the severity of the aortic stenosis. The patient was given intravenous sedation with Versed and fentanyl and transesophageal echocardiogram was performed without any complications. Left ventricular chamber is normal in size with evidence of left ventricular hypertrophy and normal left ventricular systolic function. The aortic valve is calcified with a diminished aortic leaflet opening. The aortic valve area calculated is about 0.4 cm2 Left atrium is moderately enlarged. There is evidence of smoke in the left atrium. There is no evidence of thrombus in the left atrial appendage. Tricuspid valve morphology is normal. The left atrium as well as the right atrium are enlarged. Intra-atrial septum is intact. There is evidence of small PFO with minimal fhun-if-lriob shunt saline contrast study did not show any evidence of psjhu-ei-txdy shunt. The descending thoracic aorta has a diffuse arthrosclerotic plaque noted. FINAL IMPRESSION: 1. This study reveals a calcified aortic valve with diminished aortic leaflet opening. Aortic valve area is calculated in the range of 0.4 cm2 suggestive of severe critical aortic stenosis. 2. Left ventricular systolic function is normal. There is only mild mitral regurgitation noted. 3. Biatrial enlargement is noted. There is evidence of smoke in the left atrium without any evidence of thrombus in left atrial appendage. 4. There is a small patent foramen ovale without any exspa-zr-aqwy shunt by saline contrast study. There is diffuse arthrosclerotic plaque noted in the descending thoracic aorta. MMODL / IJN: [id number] /
[2018-11-05] MEDS: WARFARIN 7.5 MG TAB PO SCH (17:22)
--- NOTE | 2018-11-05 18:09 | CONS ---
CONSULTATION This patient is admitted with syncope. Patient has chronic atrial fibrillation and a pacemaker. Patient underwent transesophageal echocardiogram which shows evidence of severe critical stenosis patient's monitor strips reviewed. This appears to be the paced rhythm and not the ventricular tachycardia. We will discuss with the patient regarding further evaluation. Patient possibly will be considered for TAVR and she may need cardiac catheterization. LESLIE / VENESSAN: [id number] /
--- NOTE | 2018-11-05 18:17 | P.PN ---
Subjective Progress Note Date: 11/04/18 Patient offers no new complaints. Denies headache or any new focal symptoms. Objective - Vital Signs Vital signs: Vital Signs Temp 97.8 F 11/04/18 12:00 Pulse 81 11/04/18 15:56 Resp 14 11/04/18 15:56 BP 136/70 11/04/18 15:53 Pulse Ox 96 11/04/18 12:00 Intake & Output 11/03/18 11/04/18 11/04/18 18:59 06:59 18:59 Intake Total 1480 720 Balance 1480 720 Weight 81.647 kg 84.6 kg Intake: Intake, IV Titration 1000 Amount Sodium Chloride 0.9% 1, 1000 000 ml @ 100 mls/hr IV . Q10H MADIHA Rx#:[id number] Oral 480 720 Other: Voiding Method Toilet Toilet # Voids 2 2 - Exam Patient is laying comfortably in the bed. Offers no new complaints. Examination is nonfocal. - Labs CBC & Chem 7: 11/03/18 11:46 11/04/18 23:54 Labs: Abnormal Lab Results - Last 24 Hours (Table) 11/04/18 11/04/18 Range/Units 06:17 06:17 PT 23.9 H (9.0-12.0) sec INR 2.5 H (<1.2) Chloride 108 H (98-107) mmol/L BUN 19 H (7-17) mg/dL Glucose 103 H (74-99) mg/dL Triglycerides 182 H (<150) mg/dL LDL Cholesterol, Calc 125 H (0-99) mg/dL HDL Cholesterol 35 L (40-60) mg/dL Microbiology - Last 24 Hours (Table) 11/03/18 11:40 Urine Culture - Preliminary Urine,Voided Assessment and Plan Assessment: * 78-year-old female with episode of prolonged unresponsiveness during napping in the chair. Exact cause is uncertain. Doubt CVA, as patient is on Coumadin with therapeutic INR. Seizure unlikely, with normal EEG. Rule out cardiac ca use. Patient has atrial fibrillation, pacemaker. Patient takes Requip, therefore sleep attack related to dopamine agonist is also a possibility. * Atrial fibrillation, on anticoagulation. Plan: * EEG was performed today, and is normal. No epileptiform activity seen. * Carotid Doppler showed no significant stenosis. Antegrade flow in both vertebral arteries. * 2-D echo, showed EF 55-60%. Left atrium is moderately dilated. There is moderate aortic stenosis and mild aortic regurgitation. Moderate to severe aortic valve sclerosis. Interatrial septum was intact. Cardiology following for abnormal echo results. May need SOL. * B12, folate levels pending, ammonia level <9, cholesterol is 196, LDL 125. TSH is normal 2.54.
--- NOTE | 2018-11-05 19:45 | P.PN ---
Subjective Progress Note Date: 11/05/18 (delayed charting patient seen at 1530) Principal diagnosis: unresponsive event Patient is a 78-year-old female past medical history of hypertension, and dyslipidemia, arthritis, A. fib on chronic Coumadin, multiple syncopal episodes-all of which have been determined to be cardiac in etiology, patient has had a pacemaker placed approximately 3 years ago who presented to the ER due to an unresponsive episode. She had been visiting her niece and they noticed she was sleeping in a chair however when they went to wake her, they could not arouse her and she was subsequently brought to the ER. On arrival to the ER she was hypertensive with blood pressure 170/40, her creatinine was slightly elevated at 1, INR therapeutic at 2.6. She underwent a head CT which showed chronic white matter changes but no acute process, chest x-ray showed cardiomegaly, echocardiogram was performed which showed an ejection fraction of 55-60% with moderate aortic stenosis. EKG is reviewed by myself reveals atrial fibrillation rate controlled with no significant ST-T wave changes. She was given a dose of aspirin and started on IV fluids. She became lucid again in the ER and returned back to baseline. Neurology was consulted and she underwent an EEG which was normal. Seen by cardio who recommended SOL which was completed on 11/05 and showed critical aortic stenosis with a valve area of 0.4 cm. Patient seen and examined at bedside. Patient denies any chest pain, shortness of breath, nausea, vomiting, diarrhea, or constipation. Had a bowel movement today. Feeling well after SOL. Discussed with patient results of her SOL showing significant valvular disease that may have led to her syncopal episode. She was aware that she had some aortic stenosis prior to this. She states that she has good functional capacity at home. She is independent in all ADLs and helps care for her brother. She would want to continue workup for possible surgical intervention if needed. She is aware that she will talk to cardiology tomorrow along with her niece. Objective - Vital Signs Vital signs: Vital Signs Temp 97.9 F 11/05/18 16:00 Pulse 68 11/05/18 16:00 Resp 16 11/05/18 16:00 BP 185/88 11/05/18 16:00 Pulse Ox 96 11/05/18 16:00 Intake & Output 11/05/18 11/05/18 11/06/18 06:59 18:59 06:59 Intake Total 400 1700 Balance 400 1700 Weight 85 kg Intake: IV 150 Intake, IV Titration 400 350 Amount Sodium Chloride 0.9% 1, 400 350 000 ml @ 100 mls/hr IV . Q10H MADIHA Rx#:[id number] Oral 1200 Other: Voiding Method Toilet Toilet # Voids 1 - Exam General: non toxic, no distress, appears at stated age Derm: perioral erythema with scale and crust, warm, dry Head: atraumatic, normocephalic, symmetric Eyes: EOMI, no lid lag, anicteric sclera Mouth: no lip lesion, mucus membranes moist Cardiovascular: S1S2 reg with systoic murmur, positive posterior tibial pulse bilateral, Lungs: CTA bilateral, no rhonchi, no rales , no accessory muscle use Abdominal: soft, nontender to palpation, no guarding, no appreciable organomegaly Ext: no gross muscle atrophy, no edema, no contractures Neuro: CN II-XI grossly intact, no focal neuro deficits Psych: Alert, oriented, appropriate affect - Labs CBC & Chem 7: 11/03/18 11:46 11/04/18 23:54 Labs: Abnormal Lab Results - Last 24 Hours (Table) 11/05/18 Range/Units 06:49 PT 23.8 H (9.0-12.0) sec INR 2.5 H (<1.2) Microbiology - Last 24 Hours (Table) 11/03/18 11:40 Urine Culture - Preliminary Urine,Voided Gram Neg Bacilli Assessment and Plan Assessment: Syncope -Neuro checks complete, neuro recs appreciated -Telemetry- wide complex noted likely related to pacer - interrogate pacer - cardio recs appreciated - Echocardiogram with moderate aortic stenosis - Carotid Dopplers no significant stenosis - EEG negative -ortho statics negative Critical Aortic stenosis - D/W cardio, Cath on Thursday and then CT surgery evaluation - Valve area 0.4 CM - Cardio to update family in AM - left message for Lilibeth X 1, called back X 2 Hypertension, urgency on arrival -Continue metoprolol - monitor BP HLD - LDL borderline at 125 dietary modification unless CAD noted and then statin - recheck in 6 months Restless leg syndrome -Continue Requip Paroxysmal A. fib with therapeutic Coumadin -Telemetry -Continue metoprolol -Continue Coumadin, pharmacy to dose Acute kidney injury likely secondary to dehydration, improved DVT prophylaxis: Coumadin Discussed with: Patient, Cardio Anticipated discharge date: 4-[address]: home A total of 35 minutes was spent on the care of this complex patient more than 50% of the time was spent in counseling and care coordination.
[2018-11-05 20:05] LABS: Folate, Serum 19.4 ng/mL
[2018-11-05] MEDS ORDERED: amLODIPine 10 MG TAB PO STA (23:10)
[2018-11-06 07:15] LABS: INR 2.4 (<1.2); Prothrombin Time 22.9 sec (9.0-12.0)
[2018-11-06] MEDS: METOPROLOL SUCCINATE (ER) 50 MG TAB.ER.24H PO SCH ×2 (08:08→19:52)
--- NOTE | 2018-11-06 10:13 | P.PN ---
Subjective Progress Note Date: 11/06/18 Principal diagnosis: unresponsive event Patient is a 78-year-old female past medical history of hypertension, and dyslipidemia, arthritis, A. fib on chronic Coumadin, multiple syncopal episodes-all of which have been determined to be cardiac in etiology, patient has had a pacemaker placed approximately 3 years ago who presented to the ER due to an unresponsive episode. She had been visiting her niece and they noticed she was sleeping in a chair however when they went to wake her, they could not arouse her and she was subsequently brought to the ER. On arrival to the ER she was hypertensive with blood pressure 170/40, her creatinine was slightly elevated at 1, INR therapeutic at 2.6. She underwent a head CT which showed chronic white matter changes but no acute process, chest x-ray showed cardiomegaly, echocardiogram was performed which showed an ejection fraction of 55-60% with moderate aortic stenosis. EKG is reviewed by myself reveals atrial fibrillation rate controlled with no significant ST-T wave changes. She was given a dose of aspirin and started on IV fluids. She became lucid again in the ER and returned back to baseline. Neurology was consulted and she underwent an EEG which was normal. Seen by cardio who recommended SOL which was completed on 11/05 and showed critical aortic stenosis with a valve area of 0.4 cm. BP elevating received 1 time dose of norvasc 11/05. Patient seen and examined at bedside. No chest pain, SOB, nausea, or vomiting. Feeling well. e. Objective - Vital Signs Vital signs: Vital Signs Temp 97.8 F 11/06/18 07:38 Pulse 79 11/06/18 07:38 Resp 16 11/06/18 07:38 BP 172/88 11/06/18 07:38 Pulse Ox 96 11/06/18 07:38 Intake & Output 11/05/18 11/06/18 11/06/18 18:59 06:59 18:59 Intake Total 1700 120 240 Balance 1700 120 240 Weight 84.5 kg Intake: IV 150 Intake, IV Titration 350 Amount Sodium Chloride 0.9% 1, 350 000 ml @ 100 mls/hr IV . Q10H MADIHA Rx#:[id number] Oral 1200 120 240 Other: Voiding Method Toilet Toilet # Voids 0 - Exam General: non toxic, no distress, appears at stated age Derm: perioral erythema with scale and crust, warm, dry Head: atraumatic, normocephalic, symmetric Eyes: EOMI, no lid lag, anicteric sclera Mouth: no lip lesion, mucus membranes moist Cardiovascular: S1S2 reg with systoic murmur, positive posterior tibial pulse bilateral, Lungs: CTA bilateral, no rhonchi, no rales , no accessory muscle use Abdominal: soft, nontender to palpation, no guarding, no appreciable organomegaly Ext: no gross muscle atrophy, no edema, no contractures Neuro: CN II-XI grossly intact, no focal neuro deficits Psych: Alert, oriented, appropriate affect - Labs CBC & Chem 7: 11/03/18 11:46 11/04/18 23:54 Labs: Abnormal Lab Results - Last 24 Hours (Table) 11/06/18 Range/Units 06:41 PT 22.9 H (9.0-12.0) sec INR 2.4 H (<1.2) Microbiology - Last 24 Hours (Table) 11/03/18 11:40 Urine Culture - Final Urine,Voided Escherichia coli Assessment and Plan Assessment: Syncope - Neuro checks complete, neuro recs appreciated - Telemetry- wide complex noted likely related to pacer - PPM interrogated - cardio recs appreciated - Carotid Dopplers no significant stenosis - EEG negative - ortho statics negative Critical Aortic stenosis - D/W cardio, Cath on Thursday and then CT surgery evaluation - Valve area 0.4 CM - Cardio to update family Hypertension, urgency on arrival -Continue metoprolol - monitor BP HLD - LDL borderline at 125 dietary modification unless CAD noted and then statin - recheck in 6 months Restless leg syndrome -Continue Requip Paroxysmal A. fib with therapeutic Coumadin -Telemetry -Continue metoprolol -Continue Coumadin, pharmacy to dose Acute kidney injury likely secondary to dehydration, improved DVT prophylaxis: Coumadin Discussed with: Patient, Cardio Anticipated discharge date: 3-[address]: home A total of 35 minutes was spent on the care of this complex patient more than 50% of the time was spent in counseling and care coordination.
--- NOTE | 2018-11-06 14:42 | PN ---
PROGRESS NOTE HISTORY: This patient was admitted with syncope. The patient underwent a transesophageal echocardiogram. The patient had evidence of severe aortic stenosis with aortic valve area in the range of 0.4 to 0.5 sq cm. The patient's pacemaker was interrogated and intermittent episodes of the wide QRS complex tachycardia were noted. I discussed with the rep and it is suggestive of slow ventricular tachycardia. We will request Dr. Craig to see the patient in consultation. Discussed with the family members and advised further evaluation with a cardiac catheterization to rule out any underlying significant coronary artery disease. We will discontinue the Coumadin and patient will undergo tomorrow. MMODL / IJN: [id number] /
--- NOTE | 2018-11-06 19:14 | P.PN ---
Subjective Progress Note Date: 11/06/18 Patient offers no new complaints. Denies headache or any new focal symptoms. Objective - Vital Signs Vital signs: Vital Signs Temp 97.8 F 11/06/18 07:38 Pulse 82 11/06/18 15:30 Resp 16 11/06/18 15:30 BP 139/73 11/06/18 15:30 Pulse Ox 96 11/06/18 15:30 Intake & Output 11/06/18 11/06/18 11/07/18 06:59 18:59 06:59 Intake Total 120 720 Balance 120 720 Weight 84.5 kg Intake: Oral 120 720 Other: Voiding Method Toilet # Voids 0 2 - Exam Patient is laying comfortably in the bed. Offers no new complaints. Examination is nonfocal. - Labs CBC & Chem 7: 11/03/18 11:46 11/04/18 23:54 Labs: Abnormal Lab Results - Last 24 Hours (Table) 11/06/18 Range/Units 06:41 PT 22.9 H (9.0-12.0) sec INR 2.4 H (<1.2) Microbiology - Last 24 Hours (Table) 11/03/18 11:40 Urine Culture - Final Urine,Voided Escherichia coli Assessment and Plan Assessment: * 78-year-old female with episode of prolonged unresponsiveness during napping in the chair. Probable arrhythmia. * Severe aortic valve stenosis * Atrial fibrillation, on anticoagulation. * Pacemaker Plan: * EEG was normal. No epileptiform activity seen. * Carotid Doppler showed no significant stenosis. Antegrade flow in both vertebral arteries. * 2-D echo, showed EF 55-60%. Left atrium is moderately dilated. There is moderate aortic stenosis and mild aortic regurgitation. Moderate to severe aortic valve sclerosis. Interatrial septum was intact. Cardiology following for abnormal echo results. SOL confirmed severe aortic stenosis. * Patient also has arrhythmia documented on pacemaker interrogation. Patient to see Dr. Craig * B12 503, folate 19.4, ammonia level <9, cholesterol is 196, LDL 125. TSH is normal 2.54. * As there is no active neurological issue, we will sign off.
[2018-11-07 07:26] LABS: INR 2.1 (<1.2); Prothrombin Time 20.6 sec (9.0-12.0)
[2018-11-07] MEDS: METOPROLOL SUCCINATE (ER) 50 MG TAB.ER.24H PO SCH ×2 (08:17→20:37)
--- NOTE | 2018-11-07 11:11 | P.PN ---
Subjective Progress Note Date: 11/07/18 Principal diagnosis: unresponsive event Patient is a 78-year-old female past medical history of hypertension, and dyslipidemia, arthritis, A. fib on chronic Coumadin, multiple syncopal episodes-all of which have been determined to be cardiac in etiology, patient has had a pacemaker placed approximately 3 years ago who presented to the ER due to an unresponsive episode. She had been visiting her niece and they noticed she was sleeping in a chair however when they went to wake her, they could not arouse her and she was subsequently brought to the ER. On arrival to the ER she was hypertensive with blood pressure 170/40, her creatinine was slightly elevated at 1, INR therapeutic at 2.6. She underwent a head CT which showed chronic white matter changes but no acute process, chest x-ray showed cardiomegaly, echocardiogram was performed which showed an ejection fraction of 55-60% with moderate aortic stenosis. EKG is reviewed by myself reveals atrial fibrillation rate controlled with no significant ST-T wave changes. She was given a dose of aspirin and started on IV fluids. She became lucid again in the ER and returned back to baseline. Neurology was consulted and she underwent an EEG which was normal. Seen by cardio who recommended SOL which was completed on 11/05 and showed critical aortic stenosis with a valve area of 0.4 cm. BP elevating received 1 time dose of norvasc 11/05. Wide complex tachycardia noted and pacer interrogated, concern for slow VT and EP consulted. Patient seen and examined at bedside. Doing okay, no chest pain, SOB, nausea, or vomiting, feeling slightly anxious. e. Objective - Vital Signs Vital signs: Vital Signs Temp 97.0 F L 11/07/18 07:37 Pulse 74 11/07/18 07:37 Resp 16 11/07/18 07:37 BP 144/75 11/07/18 07:37 Pulse Ox 96 11/07/18 07:37 Intake & Output 11/06/18 11/07/18 11/07/18 18:59 06:59 18:59 Intake Total 720 980 240 Balance 720 980 240 Weight 84.1 kg Intake: IV 20 Invasive Line 3 20 Oral 720 960 240 Other: Voiding Method Toilet # Voids 2 2 - Exam General: non toxic, no distress, appears at stated age Derm: perioral erythema with scale and crust, warm, dry Head: atraumatic, normocephalic, symmetric Eyes: EOMI, no lid lag, anicteric sclera Mouth: no lip lesion, mucus membranes moist Cardiovascular: S1S2 reg with systoic murmur, positive posterior tibial pulse bilateral, Lungs: decreased bs bilateral, no rhonchi, no rales , no accessory muscle use Abdominal: soft, nontender to palpation, no guarding, no appreciable organomegaly Ext: no gross muscle atrophy, no edema, no contractures Neuro: CN II-XI grossly intact, no focal neuro deficits Psych: Alert, oriented, appropriate affect - Labs CBC & Chem 7: 11/03/18 11:46 11/04/18 23:54 Labs: Abnormal Lab Results - Last 24 Hours (Table) 11/07/18 Range/Units 06:30 PT 20.6 H (9.0-12.0) sec INR 2.1 H (<1.2) Microbiology - Last 24 Hours (Table) 11/03/18 11:40 Urine Culture - Final Urine,Voided Escherichia coli Assessment and Plan Assessment: Syncope - Neuro checks complete, neuro recs appreciated - cardio recs appreciated, due to aortic stenosis, plan is for cath 11/08. - Carotid Dopplers no significant stenosis - EEG negative: neuro signed off - ortho statics negative Possible V-tach - awaiting EP evaluation - PPM interrogated Critical Aortic stenosis - D/W cardio, Cath on Thursday and then CT surgery evaluation - Valve area 0.4 CM Hypertension, urgency on arrival -Continue metoprolol - monitor BP HLD - LDL borderline at 125 dietary modification unless CAD noted and then statin - recheck in 6 months Restless leg syndrome -Continue Requip Paroxysmal A. fib with therapeutic Coumadin -Telemetry -Continue metoprolol -Continue Coumadin, pharmacy to dose Acute kidney injury likely secondary to dehydration, improved DVT prophylaxis: Coumadin Discussed with: Patient Anticipated discharge date: 2-[address]: home A total of 25 minutes was spent on the care of this complex patient more than 50% of the time was spent in counseling and care coordination.
--- NOTE | 2018-11-07 12:02 | P.PN ---
Subjective Progress Note Date: 11/07/18 This is a pleasant 78-year-old female with history of chronic atrial fibrillation, hypertension, hyperlipidemia, prior pacemaker implantation who follows regularly with Dr. Craig in the office. She was brought to the hospital by EMS after experiencing a syncopal episode. According to the pat ient, she was visiting with her niece, sitting up in a chair at the table, and she passed out. The niece and her daughter tried to shake the patient to wake her up and were unable to, she apparently was out for more than 10 minutes according to what the niece had told the patient. She did not lose bowel or bladder function, she was alert and oriented on wakening, the niece did state that she was clammy but her color was normal. Patient denies any recent dizziness or lightheadedness, no palpitations, no chest discomfort. She does state that she has had 2 episodes of syncope in the past. The most recent appears to be in 2017, for which she was admitted to the hospital at that time. Her EKG on arrival here showed atrial fibrillation with a controlled ventricular response. CAT scan of the brain showed chronic appearing. Periventricular white matter ischemic changes with no acute intracranial process. Chest x-ray was performed which did not reveal any acute change. Carotid Doppler study was performed which did not reveal any significant stenosis. Echocardiogram with Doppler study was performed which revealed an ejection fraction of 55-60%. Moderate to severe aortic valve sclerosis with moderate aortic stenosis mild to moderate TR. Blood pressure on arrival here 170/40 with a heart rate in the 60s to 70s, afebrile. Blood pressure this morning 140/90 with a heart rate in 80s. White blood cell count 7.2, hemoglobin 13.7, platelet count 159. Pro time 23.9 with an INR of 2.5. Sodium 141, potassium 3.9, BUN 19 and creatinine 0.8. Cholesterol 196, LDL 125, HDL 35, TSH 2.5, triglycerides 182. At the time of my examination this morning, patient is sitting up in bed, she feels well overall with no complaints. 11/07/2018 Patient was admitted with syncope and underwent a transesophageal echocardiogram by Dr. Benson which showed evidence of severe aortic stenosis with aortic valve area measuring 0.4-0.5 cm. Pacemaker was also interrogated and did show intermittent episodes of wide QRS complex tachycardia. The wrap spoke with Dr. VC Benson and suggested that it was possible slow ventricular tachycardia for this reason we have asked Dr. Velarde to see the patient in consultation. Overall the patient is doing well today, scheduled for cardiac catheterization tomorrow with Dr. Benson. I pressure 144/70 with a heart rate in the 70s. Objective - Vital Signs Vital signs: Vital Signs Temp 97.0 F L 11/07/18 07:37 Pulse 40 L 11/07/18 11:56 Resp 16 11/07/18 11:56 BP 166/90 11/07/18 11:56 Pulse Ox 97 11/07/18 11:56 Intake & Output 11/06/18 11/07/18 11/07/18 18:59 06:59 18:59 Intake Total 720 980 240 Balance 720 980 240 Weight 84.1 kg Intake: IV 20 Invasive Line 3 20 Oral 720 960 240 Other: Voiding Method Toilet # Voids 2 2 - Exam PHYSICAL EXAMINATION: GENERAL: 78-year-old female in no acute distress at the time of my examination HEENT: Head is atraumatic, normocephalic. Pupils equal, round. Sclera anicteric. Conjunctiva are clear. Mucous membranes of the mouth are moist. Neck is supple. There is no elevated jugular venous pressure. No carotid brui t is heard. HEART EXAMINATION: Heart S1 and S2 irregularly irregular a systolic murmur is heard CHEST EXAMINATION: Lungs are clear to auscultation and precussion. No chest wall tenderness is noted on palpation or with deep breathing. ABDOMEN: Soft, nontender. Bowel sounds are heard. No organomegaly noted. EXTREMITIES: 2+ peripheral pulses with trace evidence of peripheral edema and no calf tenderness noted. There are evidence of bilateral scratches on her lower extremities. NEUROLOGIC patient is awake, alert and oriented 3. - Labs CBC & Chem 7: 11/03/18 11:46 11/04/18 23:54 Labs: Abnormal Lab Results - Last 24 Hours (Table) 11/07/18 Range/Units 06:30 PT 20.6 H (9.0-12.0) sec INR 2.1 H (<1.2) Microbiology - Last 24 Hours (Table) 11/03/18 11:40 Urine Culture - Final Urine,Voided Escherichia coli Assessment and Plan Plan: Assessment and plan #1 syncope, evidence of severe aortic stenosis by SOL. #2 chronic persistent atrial fibrillation #3 history of prior pacemaker implantation #4 hypertension #5 hyperlipidemia #6 moderate aortic stenosis #7 wide-complex tachycardia Plan Patient is scheduled morning undergo cardiac catheterization with Dr. Benson. The risks and the benefits were explained to her in detail. We also consulted Dr. Craig for wide-complex tachycardia. DNP note has been reviewed, I agree with a documented findings and plan of care. Patient was seen and examined.
[2018-11-08 06:58] LABS: Basophils % (A) 0 %; Eosinophils # (A) 0.1 k/uL (0-0.7); Eosinophils % (A) 2 %; HCT 49.6 % (34.0-46.0); HGB 15.7 gm/dL (11.4-16.0); Lymphocytes # (A) 2.4 k/uL (1.0-4.8); Lymphocytes % (A) 33 %; MCH 28.9 pg (25.0-35.0); MCHC 31.6 g/dL (31.0-37.0); MCV 91.4 fL (80.0-100.0); Mean Platelet Volume 8.4; Monocytes # (A) 0.4 k/uL (0-1.0); Monocytes % (A) 6 %; Neutrophils # (A) 4.1 k/uL (1.3-7.7); Neutrophils % (A) 56 %; Platelet Count 200 k/uL (150-450); RBC 5.43 m/uL (3.80-5.40); RDW 14.1 % (11.5-15.5); WBC 7.2 k/uL (3.8-10.6)
[2018-11-08 07:06] LABS: Calcium 9.4 mg/dL (8.4-10.2); Potassium 4.3 mmol/L (3.5-5.1)
[2018-11-08 07:30] LABS: INR 1.4 (<1.2); Prothrombin Time 14.1 sec (9.0-12.0)
[2018-11-08] MEDS: METOPROLOL SUCCINATE (ER) 50 MG TAB.ER.24H PO SCH ×2 (08:07→19:59)
[2018-11-08] MEDS ORDERED: ATORVASTATIN 80 MG TAB PO STA (08:41)
[2018-11-08] MEDS ORDERED: SODIUM CHLORIDE 0.9% 1,000 ML in EMPTY BAG 1 BAG IV ONE (08:41)
[2018-11-08] MEDS ORDERED: ALPRAZolam 0.25 MG TAB PO PRN (08:41)
[2018-11-08] MEDS ORDERED: NITROGLYCERIN SL TABS 0.4 MG TAB SUBLINGUAL PRN (08:41)
[2018-11-08] MEDS ORDERED: ALPRAZolam 0.5 MG TAB PO PRN (08:41)
[2018-11-08] MEDS ORDERED: ASPIRIN 325 MG TAB PO STA (08:41)
--- NOTE | 2018-11-08 16:26 | P.PN ---
Subjective Progress Note Date: 11/08/18 Principal diagnosis: Patient is a 78-year-old female past medical history of hypertension, and dyslipidemia, arthritis, A. fib on chronic Coumadin, multiple syncopal epis odes-all of which have been determined to be cardiac in etiology, patient has had a pacemaker placed approximately 3 years ago who presented to the ER due to an unresponsive episode. She had been visiting her niece and they noticed she was sleeping in a chair however when they went to wake her, they could not arouse her and she was subsequently brought to the ER. On arrival to the ER she was hypertensive with blood pressure 170/40, her creatinine was slightly elevated at 1, INR therapeutic at 2.6. She underwent a head CT which showed chronic white matter changes but no acute process, chest x-ray showed cardiomegaly, echocardiogram was performed which showed an ejection fraction of 55-60% with moderate aortic stenosis. EKG is reviewed by myself reveals atrial fibrillation rate controlled with no significant ST-T wave changes. She was given a dose of aspirin and started on IV fluids. She became lucid again in the ER and returned back to baseline. Neurology was consulted and she underwent an EEG which was normal. Seen by cardio who recommended SOL which was completed on 11/05 and showed critical aortic stenosis with a valve area of 0.4 cm. BP elevating received 1 time dose of norvasc 11/05. Wide complex tachycardia noted and pacer interrogated, concern for slow VT and EP consulted. The patient seen and examined at bedside is doing well today has no complaints sitting in recliner, denying any chest pain or shortness of breath, denied any syncopal episodes feels slightly anxious today, As noted previous SOL showing severe aortic stenosisaortic valve area measuring 0.4-0.5 cm. Pacemaker interrogated also showing wide complex tachycardia. Less patient scheduled for cardiac catheterization later today with plans for Dr. Craig EP consultation Objective - Vital Signs Vital signs: Vital Signs Temp 97.3 F L 11/08/18 08:41 Pulse 77 11/08/18 16:00 Resp 16 11/08/18 16:00 BP 173/95 11/08/18 16:00 Pulse Ox 97 11/08/18 16:00 Intake & Output 11/07/18 11/08/18 11/08/18 18:59 06:59 18:59 Intake Total 656 180 Balance 656 180 Weight 83.7 kg Intake: IV 10 Invasive Line 4 10 Intake, IV Titration 170 Amount Sodium Chloride 0.9% 1, 170 000 ml In Empty Bag 1 bag @ 1 ML/KG/HR 83.7 mls/hr IV .[id number] ONE Rx#: [id number] Oral 656 Other: Voiding Method Toilet # Voids 1 1 - Exam Constitutional: No acute distress, conversant, pleasant Eyes: Anicteric sclerae, moist conjunctiva, no lid-lag, PERRLA ENMT: NC/AT,Oropharynx clear, no erythema, exudates Neck:Supple, FROM, no masses, or JVD, No carotid bruits; No thyromegaly Lungs: Clear to auscultation, Clear to percussion, Normal respiratory effort, no accessory muscle use Cardiovascular: Heart regular in rate and rhythm, No murmurs, gallops, or rubs no peripheral edema Abdominal: Soft Nontender, nom distended, no guarding, no rebound or rigidity, Normoactive bowel sounds No hepatomegaly, No splenomegaly, No palpable mass No abdominal wall hernia noted Skin: Normal temperature, tone, texture, turgor, No induration No subcutaneous nodules, No rash, lesions, No ulcers Extremities:No digital cyanosis No clubbing, Pedal pulses intact and symmetrical Radial pulses intact and symmetrical Normal gait and station, No calf tenderness Psychiatric: Alert and oriented to person, place and time, Appropriate affect Intact judgement Neuro: Muscles Strength 5/5 in all 4 extremities, Sensation to light touch grossly present throughout, Cranial nerves II-XII grossly intact. No focal sensory deficits - Labs CBC & Chem 7: 11/08/18 06:27 11/08/18 06:27 Labs: Abnormal Lab Results - Last 24 Hours (Table) 11/08/18 11/08/18 11/08/18 Range/Units 06:27 06:27 06:27 RBC 5.43 H (3.80-5.40) m/uL Hct 49.6 H (34.0-46.0) % PT 14.1 H (9.0-12.0) sec INR 1.4 H (<1.2) Carbon Dioxide 32 H (22-30) mmol/L BUN 25 H (7-17) mg/dL Glucose 107 H (74-99) mg/dL Assessment and Plan Plan: Syncope - Neuro checks complete, neuro recs appreciated - cardio recs appreciated, due to aortic stenosis, plan is for cath today - Carotid Dopplers no significant stenosis - EEG negative: neuro signed off - ortho statics negative Possible V-tach - awaiting EP evaluation - PPM interrogated Critical Aortic stenosis - D/W cardio, Cath on Thursday and then CT surgery evaluation - Valve area 0.4 CM Hypertension, urgency on arrival -Continue metoprolol - monitor BP HLD - LDL borderline at 125 dietary modification unless CAD noted and then statin - recheck in 6 months Restless leg syndrome -Continue Requip Paroxysmal A. fib with therapeutic Coumadin -Telemetry -Continue metoprolol -Continue Coumadin, pharmacy to dose Acute kidney injury likely secondary to dehydration, improved DVT prophylaxis: Coumadin Discussed with: Patient Anticipated discharge date: 2-[address]: home A total of 25 minutes was spent on the care of this complex patient more than 50% of the time was spent in counseling and care coordination.
[2018-11-09] MEDS ORDERED: ATORVASTATIN 80 MG TAB PO STA (08:00)
[2018-11-09] MEDS ORDERED: ASPIRIN 325 MG TAB PO STA (08:00)
[2018-11-09] MEDS: METOPROLOL SUCCINATE (ER) 50 MG TAB.ER.24H PO SCH ×2 (08:31→19:50)
--- NOTE | 2018-11-09 11:25 | P.PN ---
Subjective Progress Note Date: 11/09/18 Principal diagnosis: Patient is a 78-year-old female past medical history of hypertension, and dyslipidemia, arthritis, A. fib on chronic Coumadin, multiple syncopal epis odes-all of which have been determined to be cardiac in etiology, patient has had a pacemaker placed approximately 3 years ago who presented to the ER due to an unresponsive episode. She had been visiting her niece and they noticed she was sleeping in a chair however when they went to wake her, they could not arouse her and she was subsequently brought to the ER. On arrival to the ER she was hypertensive with blood pressure 170/40, her creatinine was slightly elevated at 1, INR therapeutic at 2.6. She underwent a head CT which showed chronic white matter changes but no acute process, chest x-ray showed cardiomegaly, echocardiogram was performed which showed an ejection fraction of 55-60% with moderate aortic stenosis. EKG is reviewed by myself reveals atrial fibrillation rate controlled with no significant ST-T wave changes. She was given a dose of aspirin and started on IV fluids. She became lucid again in the ER and returned back to baseline. Neurology was consulted and she underwent an EEG which was normal. Seen by cardio who recommended SOL which was completed on 11/05 and showed critical aortic stenosis with a valve area of 0.4 cm. BP elevating received 1 time dose of norvasc 11/05. Wide complex tachycardia noted and pacer interrogated, concern for slow VT and EP consulted. The patient seen and examined at bedside is doing well today has no complaints sitting in recliner, denying any chest pain or shortness of breath, denied any syncopal episodes feels slightly anxious today, nursing attempting to place IV access. As noted previous SOL showing severe aortic stenosisaortic valve area measuring 0.4-0.5 cm. Pacemaker interrogated also showing wide complex tach ycardia. patient scheduled for cardiac catheterization later today with plans for Dr. Craig EP consultation Objective - Vital Signs Vital signs: Vital Signs Temp 97.6 F 11/09/18 07:55 Pulse 71 11/09/18 07:55 Resp 16 11/09/18 07:55 BP 168/92 11/09/18 07:55 Pulse Ox 99 11/09/18 07:55 Intake & Output 11/08/18 11/09/18 11/09/18 18:59 06:59 18:59 Intake Total 420 680 Balance 420 680 Weight 85 kg Intake: IV 10 Invasive Line 4 10 Intake, IV Titration 170 680 Amount Sodium Chloride 0.9% 1, 170 680 000 ml In Empty Bag 1 bag @ 1 ML/KG/HR 83.7 mls/hr IV .[id number] ONE Rx#: [id number] Oral 240 Other: Voiding Method Toilet # Voids 1 - Exam Constitutional: No acute distress, conversant, pleasant Eyes: Anicteric sclerae, moist conjunctiva, no lid-lag, PERRLA ENMT: NC/AT,Oropharynx clear, no erythema, exudates Neck:Supple, FROM, no masses, or JVD, No carotid bruits; No thyromegaly Lungs: Clear to auscultation, Clear to percussion, Normal respiratory effort, no accessory muscle use Cardiovascular: Heart regular in rate and rhythm, No murmurs, gallops, or rubs no peripheral edema Abdominal: Soft Nontender, nom distended, no guarding, no rebound or rigidity, Normoactive bowel sounds No hepatomegaly, No splenomegaly, No palpable mass No abdominal wall hernia noted Skin: Normal temperature, tone, texture, turgor, No induration No subcutaneous nodules, No rash, lesions, No ulcers Extremities:No digital cyanosis No clubbing, Pedal pulses intact and symmetrical Radial pulses intact and symmetrical Normal gait and station, No calf tenderness Psychiatric: Alert and oriented to person, place and time, Appropriate affect Intact judgement Neuro: Muscles Strength 5/5 in all 4 extremities, Sensation to light touch grossly present throughout, Cranial nerves II-XII grossly intact. No focal sensory deficits - Labs CBC & Chem 7: 11/08/18 06:27 11/08/18 06:27 Assessment and Plan Plan: Syncope - Neuro checks complete, neuro recs appreciated - cardio recs appreciated, due to aortic stenosis, plan is for cath today - Carotid Dopplers no significant stenosis - EEG negative: neuro signed off - ortho statics negative Possible V-tach - awaiting EP evaluation - PPM interrogated Critical Aortic stenosis - D/W cardio, Cath on Thursday and then CT surgery evaluation - Valve area 0.4 CM Hypertension, urgency on arrival -Continue metoprolol - monitor BP HLD - LDL borderline at 125 dietary modification unless CAD noted and then statin - recheck in 6 months Restless leg syndrome -Continue Requip Paroxysmal A. fib with therapeutic Coumadin -Telemetry -Continue metoprolol -Continue Coumadin, pharmacy to dose Acute kidney injury likely secondary to dehydration, improved DVT prophylaxis: Coumadin Discussed with: Patient Anticipated discharge date: 2-[address]: home A total of 25 minutes was spent on the care of this complex patient more than 50% of the time was spent in counseling and care coordination.
[2018-11-09] MEDS ORDERED: LIDOCAINE 1% INJ 10MG/ML (20 ML MDV) ONE (12:04)
[2018-11-09] MEDS ORDERED: VERAPAMIL 2.5 MG/ML 2 ML AMP ONE (12:04)
[2018-11-09] MEDS ORDERED: HEPARIN SODIUM 1,000 UN/ML (10ML VL) ONE (12:04)
[2018-11-09] MEDS ORDERED: MIDAZOLAM (PF) 2 MG/2 ML VIAL IV ONE (12:07)
[2018-11-09] MEDS ORDERED: LIDOCAINE 1% INJ 10MG/ML (20 ML MDV) SQ ONE (12:10)
[2018-11-09] MEDS: VERAPAMIL SYRINGE (5 MG/10 ML) INTRAARTER ONE ×2 (12:11→12:21)
[2018-11-09] MEDS ORDERED: HEPARIN SODIUM 1,000 UN/ML (10ML VL) IV ONE (12:12)
[2018-11-09] MEDS ORDERED: IV FLUID CONTINUATION 1,000 ML IV ONE (12:13)
[2018-11-09] MEDS ORDERED: IOPAMIDOL-370 100ML BTL INJ ONE (12:20)
--- NOTE | 2018-11-09 18:20 | CC ---
CARDIAC CATHETERIZATION REPORT DATE OF SERVICE: 11/09/2018. PROCEDURE: Coronary angiography PERFORMED BY: Dr. Jose Alberto Solorio Moderate conscious sedation time was 15 minutes. CLINICAL INFORMATION: Mrs. Marya Keenan is a 78-year-old lady, a patient of Drs. Craig and Colin Benson. She was admitted to the hospital with episode of shortness of breath. She was found to have significant aortic stenosis. She was advised coronary angiography to rule out obstructive CAD. Cath was originally scheduled for yesterday, but because of emergencies it was postponed to today. I met the patient this morning, reviewed with her the rationale, risks, benefits and options. She understood all details and wished to proceed with the procedure. PROCEDURE NOTE: Under local anesthesia and strict aseptic precautions, a 6-Yi introducer was placed in the right radial artery. Using an Ultimate 1 catheter, I performed selective coronary angiography of both coronary arteries. Using a pigtail, I tried to cross the aortic valve, but it was difficult. Patient has aortic stenosis and chronic atrial fibrillation. So aortic valve was not crossed. The sheath was taken out and TR band applied as per protocol. Saturation in the fingers of the right hand was 96%. The patient tolerated the procedure well without complication. Findings were discussed with the patient and family. No significant CAD was noted. CORONARY ANGIOGRAPHY FINDINGS: RIGHT CORONARY ARTERY: Technically a dominant vessel, it has no significant disease in the proximal and mid portions. Distally it bifurcates into what seems to be a large PDA, a smaller PLV; minor irregularities. No significant disease. LEFT MAIN CORONARY ARTERY: Short, patent, disease-free vessel that bifurcates into LAD and circumflex. LEFT ANTERIOR DESCENDING CORONARY ARTERY: Good-caliber vessel gives off a large diagonal branch, several small septal branches. It runs all the way to the apex and curves over the apex to supply the inferoapical portion of the left ventricle. The LAD and diagonal are free of significant disease. The septal branches also do not have any significant disease. LEFT POSTERIOR CIRCUMFLEX CORONARY ARTERY: Nondominant vessel gives off a single large obtuse marginal that is tortuous, runs laterally, gives 2 additional branches, has no significant disease. The AV groove branch is small in caliber and distribution. No significant disease in the nondominant circumflex. Left ventriculogram was not performed. FINAL IMPRESSION: This patient has no significant obstructive CAD. LV pressures were not obtained. Aortic valve was not crossed. She has a right-dominant system and no significant CAD. Results were discussed with the patient and family. Customer Service Sales Consultant's note: No primary care physician listed in [facility]. MMODL / IJN: [id number] /
[2018-11-10 05:39] VITALS: RESP 16
[2018-11-10 07:08] LABS: Basophils % (A) 0 %; Eosinophils # (A) 0.1 k/uL (0-0.7); Eosinophils % (A) 2 %; HCT 42.8 % (34.0-46.0); HGB 14.1 gm/dL (11.4-16.0); Lymphocytes # (A) 1.1 k/uL (1.0-4.8); Lymphocytes % (A) 19 %; MCH 29.8 pg (25.0-35.0); MCHC 32.9 g/dL (31.0-37.0); MCV 90.7 fL (80.0-100.0); Mean Platelet Volume 8.4; Monocytes # (A) 0.4 k/uL (0-1.0); Monocytes % (A) 7 %; Neutrophils # (A) 3.9 k/uL (1.3-7.7); Neutrophils % (A) 70 %; Platelet Count 164 k/uL (150-450); RBC 4.72 m/uL (3.80-5.40); RDW 14.8 % (11.5-15.5); WBC 5.6 k/uL (3.8-10.6)
[2018-11-10 07:23] LABS: Calcium 9.1 mg/dL (8.4-10.2); Potassium 4.2 mmol/L (3.5-5.1); Total Bilirubin 0.9 mg/dL (0.2-1.3); Total Protein 6.9 g/dL (6.3-8.2)
[2018-11-10] MEDS: METOPROLOL SUCCINATE (ER) 50 MG TAB.ER.24H PO SCH (09:35)
--- NOTE | 2018-11-10 09:58 | P.PN ---
Subjective Progress Note Date: 11/10/18 Principal diagnosis: Patient is a 78-year-old female past medical history of hypertension, and dyslipidemia, arthritis, A. fib on chronic Coumadin, multiple syncopal epis odes-all of which have been determined to be cardiac in etiology, patient has had a pacemaker placed approximately 3 years ago who presented to the ER due to an unresponsive episode. She had been visiting her niece and they noticed she was sleeping in a chair however when they went to wake her, they could not arouse her and she was subsequently brought to the ER. On arrival to the ER she was hypertensive with blood pressure 170/40, her creatinine was slightly elevated at 1, INR therapeutic at 2.6. She underwent a head CT which showed chronic white matter changes but no acute process, chest x-ray showed cardiomegaly, echocardiogram was performed which showed an ejection fraction of 55-60% with moderate aortic stenosis. EKG is reviewed by myself reveals atrial fibrillation rate controlled with no significant ST-T wave changes. She was given a dose of aspirin and started on IV fluids. She became lucid again in the ER and returned back to baseline. Neurology was consulted and she underwent an EEG which was normal. Seen by cardio who recommended SOL which was completed on 11/05 and showed critical aortic stenosis with a valve area of 0.4 cm. BP elevating received 1 time dose of norvasc 11/05. Wide complex tachycardia noted and pacer interrogated, concern for slow VT and EP consulted. 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 As noted previous SOL showing severe aortic stenosisaortic valve area measuring 0.4-0.5 cm. Pacemaker interrogated also showing wide complex tachycardia. Heart cath showing right dominant circulation with nonobstructive coronary disease. No acute events overnight Objective - Vital Signs Vital signs: Vital Signs Temp 98.3 F 11/10/18 04:00 Pulse 62 11/10/18 04:00 Resp 16 11/10/18 04:00 BP 144/75 11/10/18 04:00 Pulse Ox 96 11/10/18 04:00 Intake & Output 11/09/18 11/10/18 11/10/18 18:59 06:59 18:59 Intake Total 512 Output Total 600 Balance -88 Weight 84.5 kg Intake: IV 50 Oral 462 Output: Urine 600 Other: Voiding Method Toilet # Voids 1 - Exam Constitutional: No acute distress, conversant, pleasant Eyes: Anicteric sclerae, moist conjunctiva, no lid-lag, PERRLA ENMT: NC/AT,Oropharynx clear, no erythema, exudates Neck:Supple, FROM, no masses, or JVD, No carotid bruits; No thyromegaly Lungs: Clear to auscultation, Clear to percussion, Normal respiratory effort, no accessory muscle use Cardiovascular: Heart regular in rate and rhythm, systolic ejection murmur, gallops, or rubs no peripheral edema Abdominal: Soft Nontender, nom distended, no guarding, no rebound or rigidity, Normoactive bowel sounds No hepatomegaly, No splenomegaly, No palpable mass No abdominal wall hernia noted Skin: Normal temperature, tone, texture, turgor, No induration No subcutaneous nodules, No rash, lesions, No ulcers Extremities:No digital cyanosis No clubbing, Pedal pulses intact and symmetrical Radial pulses intact and symmetrical Normal gait and station, No calf tenderness Psychiatric: Alert and oriented to person, place and time, Appropriate affect Intact judgement Neuro: Muscles Strength 5/5 in all 4 extremities, Sensation to light touch grossly present throughout, Cranial nerves II-XII grossly intact. No focal sensory deficits - Labs CBC & Chem 7: 11/10/18 06:31 11/10/18 06:31 Labs: Abnormal Lab Results - Last 24 Hours (Table) 11/10/18 Range/Units 06:31 Carbon Dioxide 31 H (22-30) mmol/L BUN 21 H (7-17) mg/dL AST 37 H (14-36) U/L Assessment and Plan Plan: Syncope - Neuro checks complete, neuro recs appreciated - cardio recs appreciated, due to aortic stenosis, plan is for cath today - Carotid Dopplers no significant stenosis - EEG negative: neuro signed off - ortho statics negative Possible V-tach - awaiting EP evaluation - PPM interrogated Critical Aortic stenosis - D/W cardio, left heart cath showing nonobstructive CAD, plan for CT surgery evaluation for possible TAVR procedure - Valve area 0.4 CM Hypertension, urgency on arrival -Continue metoprolol - monitor BP HLD - LDL borderline at 125 dietary modification unless CAD noted and then statin - recheck in 6 months Restless leg syndrome -Continue Requip Paroxysmal A. fib with therapeutic Coumadin -Telemetry -Continue metoprolol -Continue Coumadin, pharmacy to dose Acute kidney injury likely secondary to dehydration, improved DVT prophylaxis: Coumadin Discussed with: Patient Anticipated discharge date: 2-[address]: home A total of 25 minutes was spent on the care of this complex patient more than 50% of the time was spent in counseling and care coordination.
[2018-11-10 10:21] VITALS: BMI 27.5
[2018-11-10 14:10] VITALS: BP 182/84; PULSE 75; TEMP 97.2
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
[2018-11-10 16:42] LABS: INR 1.1 (<1.2); Prothrombin Time 11.7 sec (9.0-12.0)
[2018-11-10] MEDS ORDERED: WARFARIN 7.5 MG TAB PO SCH (18:00)
--- NOTE | 2018-11-10 19:03 | PN ---
PROGRESS NOTE This patient was admitted with syncope. Patient's transesophageal echocardiogram shows evidence of severe degree of aortic stenosis with aortic valve area calculated in the range of 1.5 The patient underwent a cardiac catheterization which did not show any significant coronary artery disease. Patient needs to be further evaluated with a transcutaneous aortic valve replacement. The patient's family member wishes to go to [facility]. The patient will be discharged home and follow up with Dr. Craig as an outpatient and we will try to make arrangements for her to be evaluated at [facility] for possible aortic valve replacement in view of the history of syncope and severe aortic stenosis. MMODL / IJN: [id number] /
== END 2018-11-10 17:57 | disposition home or self-care (01) | DRG 287 ==
LOC: EC 11:28 → 3SCARD 13:10 → INTOOBSV 13:10 → 3SCARD 16:37 → OBSVTOIN 11-04 18:52
PROVIDERS: ADMIT Family Medicine; ATTEND Family Medicine
PROC: B246ZZ4 Ultrasonography of Right and Left Heart, Transesophageal (ICD-10-PCS; 2018-11-05)
PROC: B2111ZZ Fluoroscopy of Multiple Coronary Arteries using Low Osmolar Contrast (ICD-10-PCS; 2018-11-09)
PROC: 4A023N7 Measurement of Cardiac Sampling and Pressure, Left Heart, Percutaneous Approach (ICD-10-PCS; principal; 2018-11-09 11:45)
DX: I35.0 Nonrheumatic aortic (valve) stenosis (principal); I48.1 Persistent atrial fibrillation; N17.9 Acute kidney failure, unspecified; Q21.1 Atrial septal defect; I48.2 Chronic atrial fibrillation; Z66 Do not resuscitate; G25.81 Restless legs syndrome; I10 Essential (primary) hypertension; E86.0 Dehydration; E78.5 Hyperlipidemia, unspecified; Z79.01 Long term (current) use of anticoagulants; Z82.49 Family history of ischemic heart disease and other diseases of the circulatory system; Z95.0 Presence of cardiac pacemaker; Z96.641 Presence of right artificial hip joint; H26.9 Unspecified cataract; R55 Syncope and collapse; I83.93 Asymptomatic varicose veins of bilateral lower extremities; Z79.899 Other long term (current) drug therapy; M19.90 Unspecified osteoarthritis, unspecified site
CPT/HCPCS: 36415; 70450; 71045; 80048; 80053; 80061; 80306; 81001; 82140; 82607; 82746; 83735; 84132; 84443; 84484; 85025; 85610; 85730; 87077; 87086; 87186; 93005; 93306; 93312; 93320; 93325; 93454; 93880; 95819; 99285

== ENCOUNTER 2019-11-06 20:37 | Inpatient (IN) | payer MEDICARE, BC ==
[2019-11-06] MEDS: SODIUM CHLORIDE 0.9% 1,000 ML IV SCH (21:13)
[2019-11-06 21:29] LABS: HCT 37.5 % (34.0-46.0); HGB 12.8 gm/dL (11.4-16.0); MCH 31.6 pg (25.0-35.0); MCV 92.9 fL (80.0-100.0); RBC 4.04 m/uL (3.80-5.40); RDW 14.4 % (11.5-15.5); WBC 19.5 k/uL (3.8-10.6)
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
[2019-11-06 21:35] LABS: ALT 394 U/L (4-34); AST 411 U/L (14-36); Acetaminophen <10.0 ug/mL; African American GFR (CKD) 27 (>60 ml/min/1.73 sqM); Alkaline Phosphatase 232 U/L (38-126); Anion Gap 13 mmol/L; Bilirubin, Conjugated 3.4 mg/dL (0.0-0.3); Bilirubin,Unconjugated 1.6 mg/dL (0.0-1.1); Blood Urea Nitrogen 40 mg/dL (7-17); Calcium 7.3 mg/dL (8.4-10.2); Carbon Dioxide 19 mmol/L (22-30); Chloride 105 mmol/L (98-107); Glucose 132 mg/dL (74-99); Non-African American GFR(CKD) 24 (>60 ml/min/1.73 sqM); Potassium 3.8 mmol/L (3.5-5.1); Salicylate 1.1 mg/dL; Sodium 137 mmol/L (137-145); Total Protein 5.8 g/dL (6.3-8.2)
--- NOTE | 2019-11-06 21:53 | US ---
EXAMINATION TYPE: US abdomen limited DATE OF EXAM: 11/06/2019 COMPARISON: CLINICAL HISTORY: right upper quadrant. Poor historian EXAM MEASUREMENTS: Liver Length: 14.8 cm Gallbladder Wall: 0.5 cm CBD: 0.5 cm Right Kidney: 10.5 x 5.5 x 4.6 cm Pancreas: Echogenic. Tail obscured by overlying bowel gas Liver: wnl Gallbladder: Visual internal echoes visualized. Patient unable to turn LLD for additional imaging. Wall appears thickened. Evidence for sonographic Russell's sign: neg CBD: wnl Right Kidney: No hydronephrosis or masses seen. Prominent pyramids visualized. IMPRESSION: Dilated gallbladder with echogenic bile. dilation consistent with cholecystitis. No dilated ducts.
[2019-11-06 22:03] LABS: Lactic Acid, Venous 3.1 mmol/L (0.7-2.0)
[2019-11-06] MEDS ORDERED: ACETAMINOPHEN TAB 325 MG TAB PO PRN (22:18)
[2019-11-06] MEDS ORDERED: NALOXONE 0.4 MG/ML 1 ML VIAL IV PRN (22:18)
[2019-11-06] MEDS ORDERED: IBUPROFEN 400 MG TAB PO PRN (22:18)
[2019-11-06 22:38] LABS: Band Neutrophils % 10 %; Lymphocytes # (M) 1.17 k/uL (1.0-4.8); Metamyelocytes # (M) 1.17 k/uL (0); Metamyelocytes % 6 %; Monocytes # (M) 0.39 k/uL (0-1.0); Myelocytes # (M) 1.76 k/uL (0); Myelocytes % 9 %; Neutrophils % (M) 69 %; Nucleated Red Blood Cells 0 /100 WBC (0-0); Platelet Count 80 k/uL (150-450); Total Cells Counted 200; Toxic Vacuolation Present
[2019-11-06] MEDS ORDERED: PIPERACILLIN-TAZOBACTAM 3.375 GM in SODIUM CHLORIDE 0.9% 100 ML IVPB ONE (23:00)
[2019-11-07 06:21] LABS: HCT 35.9 % (34.0-46.0); HGB 12.4 gm/dL (11.4-16.0); MCH 32.2 pg (25.0-35.0); MCHC 34.4 g/dL (31.0-37.0); MCV 93.5 fL (80.0-100.0); Mean Platelet Volume 11.4; Platelet Count 75 k/uL (150-450); RBC 3.84 m/uL (3.80-5.40); RDW 14.6 % (11.5-15.5); WBC 17.9 k/uL (3.8-10.6)
[2019-11-07 06:27] LABS: Albumin 2.7 g/dL (3.5-5.0); Total Protein 5.5 g/dL (6.3-8.2)
[2019-11-07 06:43] LABS: Band Neutrophils % 29 %; Lymphocytes # (M) 0.72 k/uL (1.0-4.8); Monocytes # (M) 0.18 k/uL (0-1.0); Neutrophils % (M) 66 %; Nucleated Red Blood Cells 0 /100 WBC (0-0); Total Cells Counted 200; Toxic Granulation Present
[2019-11-07 06:44] LABS: Toxic Vacuolation Present
[2019-11-07] MEDS ORDERED: PIPERACILLIN-TAZOBACTAM 3.375 GM in SODIUM CHLORIDE 0.9% 100 ML IVPB SCH (08:00)
[2019-11-07] MEDS: SODIUM CHLORIDE 0.9% 1,000 ML IV SCH (08:39)
[2019-11-07] MEDS: METOPROLOL SUCCINATE (ER) 100 MG TAB.ER.24H PO SCH (09:05)
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
[2019-11-07] MEDS: LACTATED RINGERS 1,000 ML IV SCH ×2 (14:41→20:59)
[2019-11-07] MEDS: ENOXAPARIN 80 MG/0.8 ML SYRINGE SQ SCH ×2 (14:42→20:58)
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
[2019-11-07] MEDS: ATORVASTATIN 80 MG TAB PO SCH (20:57)
[2019-11-07] MEDS: METOPROLOL SUCCINATE (ER) 50 MG TAB.ER.24H PO SCH (20:57)
[2019-11-07] MEDS: PIPERACILLIN-TAZOBACTAM 3.375 GM in SODIUM CHLORIDE 0.9% 100 ML IVPB SCH (20:58)
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
[2019-11-08] MEDS: LACTATED RINGERS 1,000 ML IV SCH ×2 (05:49→13:02)
[2019-11-08 06:26] LABS: HCT 36.8 % (34.0-46.0); HGB 11.8 gm/dL (11.4-16.0); MCH 29.9 pg (25.0-35.0); MCHC 32.2 g/dL (31.0-37.0); MCV 92.9 fL (80.0-100.0); Mean Platelet Volume 12.2; Platelet Count 82 k/uL (150-450); RBC 3.96 m/uL (3.80-5.40); RDW 14.4 % (11.5-15.5); WBC 15.8 k/uL (3.8-10.6)
[2019-11-08 07:20] LABS: Albumin 2.8 g/dL (3.5-5.0); Calcium 7.4 mg/dL (8.4-10.2); Potassium 3.7 mmol/L (3.5-5.1); Total Bilirubin 2.7 mg/dL (0.2-1.3); Total Protein 5.4 g/dL (6.3-8.2)
--- NOTE | 2019-11-08 08:52 | P.PN ---
Subjective Progress Note Date: 11/08/19 The patient is seen on rounds. She is feeling much better today. Some mild achiness in her abdomen. No nausea or vomiting. Objective - Vital Signs Vital signs: Vital Signs Temp 97.7 F 11/08/19 04:00 Pulse 102 H 11/08/19 04:00 Resp 18 11/08/19 04:00 BP 118/59 11/08/19 04:00 Pulse Ox 93 L 11/08/19 04:00 Intake & Output 11/07/19 11/08/19 11/08/19 18:59 06:59 18:59 Intake Total 600 1000 Balance 600 1000 Weight 66.5 kg Intake: Intake, IV Titration 1000 Amount Lactated Ringers 1,000 ml 1000 @ 125 mls/hr IV .Q8H [facility] Rx#:[id number] Oral 600 Other: Voiding Method Diaper Toilet Incontinent # Voids 1 2 # Bowel Movements 1 2 - Constitutional General appearance: Present: cooperative, no acute distress - Gastrointestinal General gastrointestinal: Present: soft, tenderness (Mild right upper quadrant tenderness) - Labs CBC & Chem 7: 11/08/19 05:55 11/08/19 05:55 Labs: Abnormal Lab Results - Last 24 Hours (Table) 11/08/19 11/08/19 Range/Units 05:55 05:55 WBC 15.8 H (3.8-10.6) k/uL Plt Count 82 L (150-450) k/uL Chloride 108 H (98-107) mmol/L Carbon Dioxide 18 L (22-30) mmol/L BUN 61 H (7-17) mg/dL Creatinine 3.51 H (0.52-1.04) mg/dL Calcium 7.4 L (8.4-10.2) mg/dL Total Bilirubin 2.7 H (0.2-1.3) mg/dL AST 185 H (14-36) U/L ALT 233 H (4-34) U/L Alkaline Phosphatase 233 H (38-126) U/L Total Protein 5.4 L (6.3-8.2) g/dL Albumin 2.8 L (3.5-5.0) g/dL Assessment and Plan (1) STEFANIE (acute kidney injury) Current Visit: Yes Status: Acute Code(s): N17.9 - ACUTE KIDNEY FAILURE, UNS PECIFIED SNOMED Code(s): 14751645 (2) Acute cholecystitis Current Visit: Yes Status: Acute Code(s): K81.0 - ACUTE CHOLECYSTITIS SNOMED Code(s): 61538247 (3) Afib Current Visit: Yes Status: Acute Code(s): I48.91 - UNSPECIFIED ATRIAL FIBRILLATION SNOMED Code(s): 48159623 (4) Syncope and collapse Current Visit: No Status: Acute Code(s): R55 - SYNCOPE AND COLLAPSE SNOMED Code(s): 829843715 Plan: The patient is feeling better today. Her white count is slightly improved. We'll take her for laparoscopic cholecystectomy, possible open tomorrow. The procedure risk and complications were discussed. Questions were encouraged and answered.
[2019-11-08 09:22] LABS: INR 1.1 (<1.2); Partial Thromboplastin Time 36.4 sec (22.0-30.0); Prothrombin Time 11.6 sec (9.0-12.0)
[2019-11-08] MEDS: METOPROLOL SUCCINATE (ER) 100 MG TAB.ER.24H PO SCH (09:23)
[2019-11-08] MEDS: PIPERACILLIN-TAZOBACTAM 3.375 GM in SODIUM CHLORIDE 0.9% 100 ML IVPB SCH ×2 (09:24→20:04)
[2019-11-08] MEDS ORDERED: LIDOCAINE 1% (10MG/ML) FOR IV START INTRADERMA PRN (12:38)
[2019-11-08] MEDS ORDERED: HYDROmorphone 0.5 MG/0.5 ML SYRINGE IVP PRN (12:38)
[2019-11-08] MEDS ORDERED: LACTATED RINGERS 1,000 ML IV SCH (12:38)
[2019-11-08] MEDS ORDERED: DEXAMETHASONE SOD PHOSPHATE 10 MG/ML 1 ML VIAL IV ONE (12:38)
[2019-11-08] MEDS ORDERED: ONDANSETRON 4 MG/2 ML VIAL IVP ONE (12:38)
[2019-11-08] MEDS: ENOXAPARIN 80 MG/0.8 ML SYRINGE SQ SCH (13:03)
--- NOTE | 2019-11-08 17:10 | P.PN ---
Subjective Progress Note Date: 11/08/19 Patient denies any focal symptoms, no further syncopal spells, seizures, headache. Laying comfortably in the bed. Objective - Vital Signs Vital signs: Vital Signs Temp 98.3 F 11/08/19 16:00 Pulse 66 11/08/19 16:00 Resp 20 11/08/19 16:00 BP 165/96 11/08/19 16:00 Pulse Ox 93 L 11/08/19 16:00 Intake & Output 11/07/19 11/08/19 11/08/19 18:59 06:59 18:59 Intake Total 600 1000 240 Balance 600 1000 240 Weight 66.5 kg Intake: Intake, IV Titration 1000 Amount Lactated Ringers 1,000 ml 1000 @ 125 mls/hr IV .Q8H [facility] Rx#:[id number] Oral 600 240 Other: Voiding Method Diaper Toilet Toilet Incontinent # Voids 1 2 2 # Bowel Movements 1 2 1 - Exam Patient is comfortably laying in the bed. Exam nonfocal. - Labs CBC & Chem 7: 11/08/19 05:55 11/08/19 05:55 Labs: Abnormal Lab Results - Last 24 Hours (Table) 11/08/19 11/08/19 11/08/19 Range/Units 05:55 05:55 08:58 WBC 15.8 H (3.8-10.6) k/uL Plt Count 82 L (150-450) k/uL APTT 36.4 H (22.0-30.0) sec Chloride 108 H (98-107) mmol/L Carbon Dioxide 18 L (22-30) mmol/L BUN 61 H (7-17) mg/dL Creatinine 3.51 H (0.52-1.04) mg/dL Calcium 7.4 L (8.4-10.2) mg/dL Total Bilirubin 2.7 H (0.2-1.3) mg/dL AST 185 H (14-36) U/L ALT 233 H (4-34) U/L Alkaline Phosphatase 233 H (38-126) U/L Total Protein 5.4 L (6.3-8.2) g/dL Albumin 2.8 L (3.5-5.0) g/dL Assessment and Plan Assessment: * 79-year-old female admitted with transient encephalopathy, with some focal symptoms (aphasia and right-sided weakness). Patient's altered mentation and focal symptoms have now completely resolved. Rule out TIA, rule out metabolic encephalopathy. * Atrial fibrillation, on anticoagulation with Eliquis 5 mg twice a day * Acute cholecystitis * Acute kidney injury. Plan: * Continue anticoagulation for stroke prevention related to atrial fibrillation. Patient's dose of Lovenox has been decreased to 70 mg daily. Her platelet count is slightly decreased. Apixaban has been held. Surgery has seen the patient has recommending laparoscopic cholecystectomy perhaps tomorrow. * Continue Lipitor 80 mg daily. LFTs improved, with AST 185 and ALT 233 (was 343 and 202 respectively yesterday). Continue to monitor LFTs. * Patient at present is back to baseline. No other neurological workup indicated.
--- NOTE | 2019-11-08 19:43 | P.PN ---
Subjective Progress Note Date: 11/08/19 Principal diagnosis: Acute cholecystitis, elevated liver enzymes Patient is seen lying in bed today denying any abdominal pain. She is tolerating her diet. No nausea or vomiting. Objective - Vital Signs Vital signs: Vital Signs Temp 98.1 F 11/08/19 12:05 Pulse 78 11/08/19 12:05 Resp 17 11/08/19 12:05 BP 135/94 11/08/19 12:05 Pulse Ox 97 11/08/19 12:05 Intake & Output 11/07/19 11/08/19 11/08/19 18:59 06:59 18:59 Intake Total 600 1000 240 Balance 600 1000 240 Weight 66.5 kg Intake: Intake, IV Titration 1000 Amount Lactated Ringers 1,000 ml 1000 @ 125 mls/hr IV .Q8H [facility] Rx#:[id number] Oral 600 240 Other: Voiding Method Diaper Toilet Toilet Incontinent # Voids 1 2 2 # Bowel Movements 1 2 1 - Exam On physical examination, patient appears comfortable in no apparent distress. HEAD: Normocephalic, atraumatic. EYES: No scleral icterus. No conjunctival injection. MOUTH: No lesions, tongue midline. NECK: Trachea midline, no gross abnormalities. ABDOMEN: Soft, obese. Bowel sounds are positive. No organomegaly. No guarding or rigidity. EXTREMITIES: No pedal edema. SKIN: No rashes, no jaundice. NEUROLOGIC: Alert and oriented x3. No focal deficits. - Labs CBC & Chem 7: 11/08/19 05:55 11/08/19 05:55 Labs: Abnormal Lab Results - Last 24 Hours (Table) 11/08/19 11/08/19 11/08/19 Range/Units 05:55 05:55 08:58 WBC 15.8 H (3.8-10.6) k/uL Plt Count 82 L (150-450) k/uL APTT 36.4 H (22.0-30.0) sec Chloride 108 H (98-107) mmol/L Carbon Dioxide 18 L (22-30) mmol/L BUN 61 H (7-17) mg/dL Creatinine 3.51 H (0.52-1.04) mg/dL Calcium 7.4 L (8.4-10.2) mg/dL Total Bilirubin 2.7 H (0.2-1.3) mg/dL AST 185 H (14-36) U/L ALT 233 H (4-34) U/L Alkaline Phosphatase 233 H (38-126) U/L Total Protein 5.4 L (6.3-8.2) g/dL Albumin 2.8 L (3.5-5.0) g/dL Assessment and Plan (1) Acute cholecystitis Narrative/Plan: 79-year-old female with multiple medical comorbidities transferred from outside facility due to altered mental status. Diagnosed with acute cholecystitis with ultrasound significant for dilated gallbladder with a normal CBD and no definitive filling defect noted. Liver enzymes have been elevated in predominantly a cholestatic pattern with total bilirubin 5, upon phosphatase 202, AST 328 and ALTs 343 yesterday, these were improved today trending down. Currently surgical service is following the patient. We'll continue to monitor liver enzymes, with plan for cholecystectomy tomorrow with the surgical service. Current Visit: Yes Status: Acute Code(s): K81.0 - ACUTE CHOLECYSTITIS SNOMED Code(s): 90679427 (2) Altered mental status Current Visit: Yes Status: Acute Code(s): R41.82 - ALTERED MENTAL STATUS, UNSPECIFIED SNOMED Code(s): 654853094 (3) Elevated bilirubin Current Visit: Yes Status: Acute Code(s): R17 - UNSPECIFIED JAUNDICE SNOMED Code(s): 58811953 Plan: Supportive care Okay for diet as tolerated Continue broad-spectrum antibiotic therapy Continue to monitor CBC, BMP, LFTs Liver enzymes improved today, will hold off on MRCP Surgical service following with plan for cholecystectomy tomorrow Thank you for allowing us to participate in the care of the patient
[2019-11-08] MEDS: METOPROLOL SUCCINATE (ER) 50 MG TAB.ER.24H PO SCH (20:03)
[2019-11-08] MEDS: ATORVASTATIN 80 MG TAB PO SCH (20:03)
--- NOTE | 2019-11-08 23:06 | P.PN ---
Progress Note - Text Progress Note Date: 11/08/19 Chief Complaint: Lethargic History of presenting complaint: This is a pleasant 79-year-old patient of Dr. ca. Chronic stable medical conditions include atrial fibrillation, hypertension, hyperlipidemia, arthritis varicose veins restless leg syndrome. Patient was transferred here from [facility]. Patient niece who is also the DP OA went to check on the patient and found her unresponsive on the ground. Patient was last known to be well on Thursday. She put her up in a chair. EMS was called. Workup at [facility] revealed that patient had had sepsis from acute cholecystitis. Patient is given IV Zosyn and IV Flagyl IV fluids and transferred here for further care. Patient's computed tomography scan of the brain showed chronic changes. Patient states that she has been having some abdominal pain for close to about a week. Having nausea and maybe vomited once or twice. Feeling tired and rundown. When I saw the patient this morning she is able to give me and able to communicate to me. EMS at [facility] that stated there was some right-sided weakness. Other the computed tomography scan came back to be negative. Patient currently has no focal symptoms of weakness. No change in speech or vision. Admitted with acute cholecystitis causing sepsis leading to delirium metabolic encephalopathy. Started on IV Zosyn. IV fluids. Today-sitting up in a chair. Some abdominal pain is present. Had been on clear liquids. Review of systems: Was done for constitutional, cardiovascular, GI, pulmonary. relevant finding as above Active Medications Acetaminophen (Tylenol Tab) 650 mg PO Q6HR PRN PRN Reason: Mild Pain or Fever > 100.5 Atorvastatin Calcium (Lipitor) 80 mg PO HS [facility] Last Admin: 11/08/19 20:03 Dose: 80 mg Documented by: Enoxaparin Sodium (Lovenox) 70 mg SQ DAILY [facility] Hydromorphone HCl (Dilaudid) 0.5 mg IVP Q5M PRN PRN Reason: Pain Control Stop: 11/09/19 12:39 Piperacillin Sod/Tazobactam (Sod 3.375 gm/ Sodium Chloride) 100 mls @ 25 mls/hr IVPB Q12HR [facility] Last Admin: 11/08/19 20:04 Dose: 25 mls/hr Documented by: Lactated Ringer's (Lactated Ringers) 1,000 mls @ 125 mls/hr IV .Q8H [facility] Last Admin: 11/08/19 13:02 Dose: Not Given Documented by: Lactated Ringer's (Lactated Ringers) 1,000 mls @ 20 mls/hr IV .Q24H [facility] Ibuprofen (Motrin) 400 mg PO Q6HR PRN PRN Reason: Mild Pain or Fever > 100.5 Lidocaine HCl (.Xylocaine 1% Inj (10mg/Ml) For Iv Start) 0.1 ml INTRADERMA PER PROTOCOL PRN PRN Reason: IV Start Metoprolol Succinate (Toprol Xl) 50 mg PO HS [facility] Last Admin: 11/08/19 20:03 Dose: 50 mg Documented by: Metoprolol Succinate (Toprol Xl) 100 mg PO DAILY [facility] Last Admin: 11/08/19 09:23 Dose: 100 mg Documented by: Naloxone HCl (Narcan) 0.2 mg IV Q2M PRN PRN Reason: Opioid Reversal Physical examination: VITAL SIGNS: 98.1, 78, 17, 135/94, 97% on room air GENERAL: BMI 28.3, sitting on a chair, not in distress EYES: Pupils equal. Conjunctiva normal. HEENT: External appearance of nose and ears normal, oral cavity dry. NECK: JVD not raised; masses not palpable. HEART: First and second heart sounds are normal; no edema. LUNGS: Respiratory rate normal; clear to auscultation. ABDOMEN: Soft, upper right quadrant tenderness no guarding or rigidity, liver spleen not palpable, no masses palpable. PSYCH: Patient is able to answer questionsl. MUSCULOSKELETAL: Evidence of OA especially in the hands INVESTIGATIONS, reviewed in the clinical context: White count 15.8 hemoglobin 11.8 potassium 3.7 bun 61 creatinine 3.51 AST 185 ALT 233 Labs on presentation: White count 19.5 hemoglobin 12.8 potassium 3.8 bun 40 creatinine 2.60 lactic acid 3.1 albumin 3 Investigations from [facility]: White count 27 hemoglobin 13.2 L 11 potassium 3.7 bun 37 creatinine 2.3 glucose 140 serum acetaminophen less than 10 UA negative lactic acid 6.6 AST 446 ALT 402 alkaline phosphatase 310 INR 1.55 pro calcitonin 169 EKG shows atrial fibrillation Computed tomography scan of the brain showed atrophic and chronic changes, chest x-ray showed cardiomegaly no infiltrates, computed tomography scan of the abdomen showed dilated gallbladder fecal impaction and colonic diverticulosis Assessment: -Acute cholecystitis causing sepsis, POA -Acute metabolic encephalopathy with delirium from sepsis, causing patient's initial presentation at [facility] -Persistent atrial fibrillation -Hyperlipidemia -Essential hypertension -Primary osteoarthritis -Acute kidney injury a combination of prerenal and ATN.-Worsening -Possibly Ischemic hepatitis, Plan: Continue with IV fluids. Repeat labs in the morning. Get a nephrology consultation. Dr. Mejia planning for a cholecystectomy tomorrow.
[2019-11-09 06:45] LABS: HCT 37.8 % (34.0-46.0); HGB 12.2 gm/dL (11.4-16.0); MCH 31.2 pg (25.0-35.0); MCHC 32.2 g/dL (31.0-37.0); MCV 96.8 fL (80.0-100.0); Mean Platelet Volume 12.1; Platelet Count 94 k/uL (150-450); RBC 3.91 m/uL (3.80-5.40); RDW 14.9 % (11.5-15.5); WBC 10.4 k/uL (3.8-10.6)
[2019-11-09] MEDS: LACTATED RINGERS 1,000 ML IV SCH ×4 (06:45→08:08)
[2019-11-09 06:55] LABS: Albumin 2.8 g/dL (3.5-5.0); Calcium 7.6 mg/dL (8.4-10.2); Potassium 3.6 mmol/L (3.5-5.1); Total Bilirubin 1.8 mg/dL (0.2-1.3); Total Protein 5.6 g/dL (6.3-8.2)
[2019-11-09] MEDS ORDERED: PROPOFOL 10 MG/ML 20 ML VIAL IV ONE (08:03)
[2019-11-09] MEDS ORDERED: NEOSTIGMINE 1 MG/ML 10 ML VIAL ONE (08:03)
[2019-11-09] MEDS ORDERED: PHENYLEPHRINE-0.9% NACL SYG 1 MG/10 ML SYRINGE ONE (08:03)
[2019-11-09] MEDS ORDERED: fentaNYL (PF) 50 MCG/ML 2 ML AMP ONE (08:03)
[2019-11-09] MEDS ORDERED: LIDOCAINE 1% INJ 10MG/ML (20 ML MDV) ONE (08:03)
[2019-11-09] MEDS ORDERED: GLYCOPYRROLATE 0.2 MG/ML 2 ML VIAL ONE (08:03)
[2019-11-09] MEDS ORDERED: SUCCINYLCHOLINE CHLORIDE 100 MG/5 ML SYR IV ONE (08:03)
[2019-11-09] MEDS ORDERED: ONDANSETRON 4 MG/2 ML VIAL IVP ONE (08:03)
[2019-11-09] MEDS ORDERED: ONDANSETRON 4 MG/2 ML VIAL ONE (08:03)
[2019-11-09] MEDS ORDERED: ROCURONIUM BROMIDE 10 MG/ML 5 ML VIAL IV ONE (08:03)
--- NOTE | 2019-11-09 08:10 | P.PN ---
Progress Note - Text Progress Note Date: 11/09/19 The patient feels a little better today. Wants to proceed with surgery. No questions. No CODE STATUS will be changed for the operative procedure only and then return back afterwards.
[2019-11-09] MEDS ORDERED: LIDOCAINE 1%-EPI 1:100,000 20 ML VIAL SQ ONE ×2 (08:16→08:26)
--- NOTE | 2019-11-09 09:11 | P.OP ---
Date of Procedure: 11/09/19 Preoperative Diagnosis: Acute cholecystitis Postoperative Diagnosis: Acute cholecystitis Procedure(s) Performed: Laparoscopic appendectomy Anesthesia: ROBERT Surgeon: Tracey Mejia Estimated Blood Loss (ml): 10 Pathology: other Condition: stable Disposition: PACU Indications for Procedure: The patient presented with acute sepsis and findings of acute cholecystitis Description of Procedure: The patient is taken to the operative suite where she is prepped and draped in the usual sterile manner under a general endotracheal anesthetic. An infraumbilical incision was made. A Veress needle was placed into the abdominal cavity and pneumoperitoneum was established with CO2 gas. Sites are chosen for accessory trochars and these are placed through small skin incisions. The gallbladder is edematous and enlarged. There are filmy adhesions which are taken down either bluntly or sharply. The fundus of the gallbladder is then retracted severely. Smith's pouch is then identified, its grasped and retracted laterally. The cystic artery and cystic duct are dissected free. The cystic duct is fairly short so after it was triply clipped and cut, it was secured with 0 PDS Endoloop. The gallbladder is then dissected free from the liver bed using cautery. The gallbladder is removed through the umbilical port site. The liver bed is reexamined and noted to be hemostatic. The excess irrigant is suctioned out. The pneumoperitoneum was released. The trochars were removed. The fascia at the umbilicus was closed with 0 Vicryl. The skin incisions were closed with 4-0 Vicryl in a subcuticular manner. Steri-Strips and dressings were applied. She tolerated the procedure without difficulty and was taken recovery room in satisfactory condition. According to or personnel, all counts were correct.
[2019-11-09] MEDS ORDERED: LABETALOL SYRINGE 5 MG/ML IVP ONE (09:35)
[2019-11-09] MEDS: ENOXAPARIN 80 MG/0.8 ML SYRINGE SQ SCH (11:09)
[2019-11-09] MEDS: METOPROLOL SUCCINATE (ER) 100 MG TAB.ER.24H PO SCH (11:09)
[2019-11-09] MEDS: PIPERACILLIN-TAZOBACTAM 3.375 GM in SODIUM CHLORIDE 0.9% 100 ML IVPB SCH ×2 (11:11→20:27)
[2019-11-09] MEDS: traMADol 50 MG TAB PO PRN ×2 (13:12→18:43)
--- NOTE | 2019-11-09 16:44 | P.PN ---
Subjective Progress Note Date: 11/09/19 Patient denies any focal symptoms, no further syncopal spells, seizures, headache. Laying comfortably in the bed. Patient had undergone laparoscopic cholecystectomy today. Objective - Vital Signs Vital signs: Vital Signs Temp 98.0 F 11/09/19 11:15 Pulse 72 11/09/19 13:00 Resp 24 11/09/19 13:00 BP 144/86 11/09/19 13:00 Pulse Ox 96 11/09/19 13:00 Intake & Output 11/08/19 11/09/19 11/09/19 18:59 06:59 18:59 Intake Total 820 700 Output Total 251 255 Balance 820 -251 445 Weight 80.5 kg Intake: IV 700 Oral 820 0 Output: Urine 251 250 Estimated Blood Loss 5 Other: Voiding Method Toilet Toilet Toilet # Voids 2 1 1 # Bowel Movements 1 1 1 - Exam Patient is comfortably laying in the bed. Patient's mental status, speech and language functions are normal. Patient can name and repeat well. Visual ann are full. Face is symmetric. Muscle strength appears normal. - Labs CBC & Chem 7: 11/09/19 06:15 11/09/19 06:15 Labs: Abnormal Lab Results - Last 24 Hours (Table) 11/09/19 11/09/19 Range/Units 06:15 06:15 Plt Count 94 L (150-450) k/uL Chloride 108 H (98-107) mmol/L Carbon Dioxide 18 L (22-30) mmol/L BUN 61 H (7-17) mg/dL Creatinine 3.84 H (0.52-1.04) mg/dL Glucose 105 H (74-99) mg/dL Calcium 7.6 L (8.4-10.2) mg/dL Total Bilirubin 1.8 H (0.2-1.3) mg/dL AST 123 H (14-36) U/L ALT 177 H (4-34) U/L Alkaline Phosphatase 273 H (38-126) U/L Total Protein 5.6 L (6.3-8.2) g/dL Albumin 2.8 L (3.5-5.0) g/dL Assessment and Plan Assessment: * 79-year-old female admitted with transient encephalopathy, with some focal symptoms (aphasia and right-sided weakness). Patient's altered mentation and focal symptoms have now completely resolved. Rule out TIA, rule out metabolic encephalopathy. * Atrial fibrillation, on anticoagulation with Eliquis 5 mg twice a day * Acute cholecystitis * Acute kidney injury. Plan: * Continue anticoagulation for stroke prevention related to atrial fibrillation. Patient's dose of Lovenox has been decreased to 70 mg daily. Her platelet count is slightly decreased. Apixaban has been held. Patient is status post laparoscopic cholecystectomy. Resume Apixaban, when medically and surgically cleared. * Continue Lipitor 80 mg daily. LFTs improved, with AST 123 and ALT 177 (was 343 and 202 respectively yesterday). Continue to monitor LFTs. * Patient at present is back to baseline. No other neurological workup indicated. * Neurology will sign off. Please call neurology if any other concerns.
--- NOTE | 2019-11-09 17:09 | P.PN ---
Progress Note - Text Progress Note Date: 11/09/19 Chief Complaint: Lethargic History of presenting complaint: This is a pleasant 79-year-old patient of Dr. ca. Chronic stable medical conditions include atrial fibrillation, hypertension, hyperlipidemia, arthritis varicose veins restless leg syndrome. Patient was transferred here from [facility]. Patient niece who is also the DP OA went to check on the patient and found her unresponsive on the ground. Patient was last known to be well on Thursday. She put her up in a chair. EMS was called. Workup at [place] revealed that patient had had sepsis from acute cholecystitis. Patient is given IV Zosyn and IV Flagyl IV fluids and transferred here for further care. Patient's computed tomography scan of the brain showed chronic changes. Patient states that she has been having some abdominal pain for close to about a week. Having nausea and maybe vomited once or twice. Feeling tired and rundown. When I saw the patient this morning she is able to give me and able to communicate to me. EMS at [facility] that stated there was some right-sided weakness. Other the computed tomography scan came back to be negative. Patient currently has no focal symptoms of weakness. No change in speech or vision. Admitted with acute cholecystitis causing sepsis leading to delirium metabolic encephalopathy. Started on IV Zosyn. IV fluids. Today-underwent cholecystectomy earlier today. Pain control. No nausea vomiting. Laying in bed. Review of systems: Was done for constitutional, cardiovascular, GI, pulmonary. relevant finding as above Active Medications Acetaminophen (Tylenol Tab) 650 mg PO Q6HR PRN PRN Reason: Mild Pain or Fever > 100.5 Atorvastatin Calcium (Lipitor) 80 mg PO HS [facility] Last Admin: 11/08/19 20:03 Dose: 80 mg Documented by: Enoxaparin Sodium (Lovenox) 70 mg SQ DAILY [facility] Last Admin: 11/09/19 11:09 Dose: 70 mg Documented by: Piperacillin Sod/Tazobactam (Sod 3.375 gm/ Sodium Chloride) 100 mls @ 25 mls/hr IVPB Q12HR [facility] Last Admin: 11/09/19 11:11 Dose: 25 mls/hr Documented by: Lactated Ringer's (Lactated Ringers) 1,000 mls @ 125 mls/hr IV .Q8H [facility] Last Admin: 11/09/19 08:08 Dose: 600 mls Documented by: Lidocaine HCl (.Xylocaine 1% Inj (10mg/Ml) For Iv Start) 0.1 ml INTRADERMA PER PROTOCOL PRN PRN Reason: IV Start Metoprolol Succinate (Toprol Xl) 50 mg PO HS [facility] Last Admin: 11/08/19 20:03 Dose: 50 mg Documented by: Metoprolol Succinate (Toprol Xl) 100 mg PO DAILY [facility] Last Admin: 11/09/19 11:09 Dose: 100 mg Documented by: Naloxone HCl (Narcan) 0.2 mg IV Q2M PRN PRN Reason: Opioid Reversal Tramadol HCl (Ultram) 50 mg PO Q6H PRN PRN Reason: Mild to Moderate Pain Last Admin: 11/09/19 13:12 Dose: 50 mg Documented by: Physical examination: VITAL SIGNS: 98, 88, 20, 159/90, 99% room air GENERAL: Laying in bed, but in distress EYES: Pupils equal. Conjunctiva normal. HEENT: External appearance of nose and ears normal, oral cavity dry. NECK: JVD not raised; masses not palpable. HEART: First and second heart sounds are normal; no edema. LUNGS: Respiratory rate normal; clear to auscultation. ABDOMEN: Soft, mild tenderness, no guarding or rigidity, liver spleen not palpable, no masses palpable. Dressing over the incision site PSYCH: Patient is able to answer questionsl. MUSCULOSKELETAL: Evidence of OA especially in the hands INVESTIGATIONS, reviewed in the clinical context: White count 10.4 hemoglobin 12.2 potassium 3.6 crit and 3.84 AST 123 ALT 177 albumin 2.8 Labs on presentation: White count 19.5 hemoglobin 12.8 potassium 3.8 bun 40 creatinine 2.60 lactic acid 3.1 albumin 3 Investigations from [facility]: White count 27 hemoglobin 13.2 L 11 potassium 3.7 bun 37 creatinine 2.3 glucose 140 serum acetaminophen less than 10 UA negative lactic acid 6.6 AST 446 ALT 402 alkaline phosphatase 310 INR 1.55 pro calcitonin 169 EKG shows atrial fibrillation Computed tomography scan of the brain showed atrophic and chronic changes, chest x-ray showed cardiomegaly no infiltrates, computed tomography scan of the a bdomen showed dilated gallbladder fecal impaction and colonic diverticulosis Assessment: -Acute cholecystitis causing sepsis, POA-with laparoscopic cholecystectomy on November 08 -Acute metabolic encephalopathy with delirium from sepsis, causing patient's initial presentation at [facility] -Persistent atrial fibrillation -Hyperlipidemia -Essential hypertension -Primary osteoarthritis -Acute kidney injury a combination of prerenal and ATN.-Continues to worsen. -Possibly Ischemic hepatitis, Plan: Continue with IV fluids. Kidney function is worsening. Status post cholecystectomy today. Remains on IV Zosyn. We'll do strict I's and O's. Follow with nephrology.
[2019-11-09 19:07] LABS: Appearance,Urine Cloudy (Clear); Bilirubin,Urine Negative (Negative); Blood,Urine Small (Negative); Budding Yeast,Urine Few /hpf; Color,Urine Yellow; Glucose,Urine (UA) Negative (Negative); Hyaline Casts,Urine 3 /lpf (0-2); Ketones,Urine Negative (Negative); Leukocyte Esterase,Urine Negative (Negative); Nitrite,Urine Negative (Negative); PH, Urine 5.5 (5.0-8.0); Protein,Urine 1+ (Negative); RBC,Urine 3 /hpf (0-5); Specific Gravity,Urine 1.017 (1.001-1.035); Squamous Epithelial Cell,Urine 8 /hpf (0-4); Urobilinogen,Urine <2.0 mg/dL (<2.0); WBC,Urine 5 /hpf (0-5)
[2019-11-09] MEDS: ATORVASTATIN 80 MG TAB PO SCH (20:27)
[2019-11-09] MEDS: METOPROLOL SUCCINATE (ER) 50 MG TAB.ER.24H PO SCH (20:27)
--- NOTE | 2019-11-09 21:18 | P.PN ---
Subjective Progress Note Date: 11/09/19 Principal diagnosis: Acute cholecystitis, elevated liver enzymes Patient is seen lying in bed today denying any abdominal pain. She is tolerating her diet. No nausea or vomiting. Patient is seen lying in bed status post laparoscopic cholecystectomy. No acute complaints. Objective - Vital Signs Vital signs: Vital Signs Temp 97.0 F L 11/09/19 09:18 Pulse 99 11/09/19 10:30 Resp 22 11/09/19 10:30 BP 133/74 11/09/19 10:30 Pulse Ox 91 L 11/09/19 10:30 Intake & Output 11/08/19 11/09/19 11/09/19 18:59 06:59 18:59 Intake Total 820 700 Output Total 251 255 Balance 820 -251 445 Weight 80.5 kg Intake: IV 700 Oral 820 0 Output: Urine 251 250 Estimated Blood Loss 5 Other: Voiding Method Toilet Toilet Toilet # Voids 2 1 0 # Bowel Movements 1 1 0 - Exam On physical examination, patient appears comfortable in no apparent distress. HEAD: Normocephalic, atraumatic. EYES: No scleral icterus. No conjunctival injection. MOUTH: No lesions, tongue midline. NECK: Trachea midline, no gross abnormalities. ABDOMEN: Soft, appropriately tender. Bowel sounds are positive. No organomegaly. No guarding or rigidity. EXTREMITIES: No pedal edema. SKIN: No rashes, no jaundice. NEUROLOGIC: Alert and oriented. No focal deficits. - Labs CBC & Chem 7: 11/09/19 06:15 11/09/19 06:15 Labs: Abnormal Lab Results - Last 24 Hours (Table) 11/09/19 11/09/19 Range/Units 06:15 06:15 Plt Count 94 L (150-450) k/uL Chloride 108 H (98-107) mmol/L Carbon Dioxide 18 L (22-30) mmol/L BUN 61 H (7-17) mg/dL Creatinine 3.84 H (0.52-1.04) mg/dL Glucose 105 H (74-99) mg/dL Calcium 7.6 L (8.4-10.2) mg/dL Total Bilirubin 1.8 H (0.2-1.3) mg/dL AST 123 H (14-36) U/L ALT 177 H (4-34) U/L Alkaline Phosphatase 273 H (38-126) U/L Total Protein 5.6 L (6.3-8.2) g/dL Albumin 2.8 L (3.5-5.0) g/dL Assessment and Plan (1) Acute cholecystitis Narrative/Plan: 79-year-old female with multiple medical comorbidities transferred from outside facility due to altered mental status. Diagnosed with acute cholecystitis with ultrasound significant for dilated gallbladder with a normal CBD and no definitive filling defect noted. Liver enzymes have been elevated in predominantly a cholestatic pattern with total bilirubin 5, upon phosphatase 202, AST 328 and ALTs 343 yesterday, these were improved today trending down. Currently surgical service is following the patient who underwent laparoscopic cholecystectomy today. Current Visit: Yes Status: Acute Code(s): K81.0 - ACUTE CHOLECYSTITIS SNOMED Code(s): 14311234 (2) Altered mental status Current Visit: Yes Status: Acute Code(s): R41.82 - ALTERED MENTAL STATUS, UNSPECIFIED SNOMED Code(s): 119415054 (3) Elevated bilirubin Current Visit: Yes Status: Acute Code(s): R17 - UNSPECIFIED JAUNDICE SNOMED Code(s): 67754169 Plan: Supportive care Okay for diet as per surgical service Continue broad-spectrum antibiotic therapy Continue to monitor CBC, BMP, LFTs Liver enzymes improved, will hold off on MRCP Thank you for allowing us to participate in the care of the patient
[2019-11-10] MEDS: traMADol 50 MG TAB PO PRN ×2 (00:43→12:19)
[2019-11-10 07:57] LABS: Calcium 7.7 mg/dL (8.4-10.2); Potassium 4.4 mmol/L (3.5-5.1)
[2019-11-10] MEDS: PIPERACILLIN-TAZOBACTAM 3.375 GM in SODIUM CHLORIDE 0.9% 100 ML IVPB SCH ×2 (09:17→20:21)
[2019-11-10] MEDS: METOPROLOL SUCCINATE (ER) 100 MG TAB.ER.24H PO SCH (09:18)
--- NOTE | 2019-11-10 11:07 | CONS ---
CONSULTATION REASON FOR CONSULT: Renal failure. HISTORY OF PRESENT ILLNESS: The patient is an 79-year-old female who was initially admitted to the hospital on 11/06/2019 with complaints of weakness, not feeling well. Patient was actually transferred from [facility]. She was found unresponsive at home. CT of the brain was negative for any acute event. Patient was found to have acute cholecystitis and did have laparoscopic appendectomy on 11/09/2019. Patient's serum creatinine was 1.96 on admission and has progressively increased to 4.01 today. Prior creatinine was 0.92 on 11/10/2018. Patient denies any prior history of kidney diseases. UA shows 1+ protein, small blood. Patient has not received any IV contrast. Ultrasound of the abdomen done initially did not show any evidence of hydronephrosis in the right kidney as it was an ultrasound for the liver. No comment on the left kidney. Patient's blood pressure has been on the lower side, only recently. Otherwise, not significantly low. We did have a systolic of 91 on 11/06/2019. At home, patient was not on any MELODY inhibitors or nonsteroidal anti-inflammatory agents. PAST MEDICAL HISTORY: Significant for hypertension, atrial fibrillation, previous history of syncope, hyperlipidemia. PAST SURGICAL HISTORY: Breast surgery, breast biopsies, carpal tunnel release, hip arthroplasty. SOCIAL HISTORY: Negative for smoking, drug abuse or alcohol abuse. MEDICATIONS: At home prior to admission included Toprol, Lipitor, Eliquis. ALLERGIES: None. PHYSICAL EXAMINATION: Patient is comfortable, awake, not in any acute distress. Alert, oriented x3. Blood pressure was 98/64, heart rate 94 per minute, patient is afebrile. Examination of the heart S1, S2. Examination of the lungs, bilateral breath sounds are heard. Abdomen is soft, nontender. Minimal tenderness noted in the lower abdomen. INSULATION CUPOLA CHARGER exam grossly intact. LABS: Show sodium 137, potassium 4.4, chloride 107, CO2 is 21, BUN 64, creatinine 4.01. UA shows 1+ protein, blood small. ASSESSMENT: 1. Acute kidney injury appears to be ATN, currently nonoliguric. Need to rule out urine retention. I will continue with IV fluids. Patient has not received any nephrotoxic agents. Her blood pressure has been on the lower side, most likely contributed to the ATN. I will obtain an ultrasound of the kidneys. Right kidney did not show any hydronephrosis on the abdominal ultrasound. No comment on the left kidney or the bladder. We need to avoid hypotension and check accurate Is and Os. 2. Metabolic acidosis associated with renal failure, currently improved. 3. Appendicitis status post laparoscopic appendectomy. 4. Metabolic encephalopathy, most likely from sepsis, now improved. 5. Chronic persistent atrial fibrillation. PLAN: Continue IV fluids, check postvoid residual. Check ultrasound of the kidneys. Check accurate Is and Os . Avoid hypotension. Repeat labs in a.m. Thank you for this consultation. Will continue to follow the patient with you during her hospitalization. MMODL / IJN: [id number] /
[2019-11-10 11:29] LABS: Total Bilirubin 1.4 mg/dL (0.2-1.3)
[2019-11-10] MEDS: LACTATED RINGERS 1,000 ML IV SCH ×2 (12:06→20:13)
[2019-11-10] MEDS: ENOXAPARIN 80 MG/0.8 ML SYRINGE SQ SCH (12:11)
--- NOTE | 2019-11-10 13:17 | P.PN ---
Subjective Progress Note Date: 11/10/19 Principal diagnosis: Acute cholecystitis with sepsis The patient is seen on rounds. She is postoperative day 1 laparoscopic cholecystectomy. Doing well. Denies any pain, nausea or vomiting. Tolerating a diet. Objective - Vital Signs Vital signs: Vital Signs Temp 98.7 F 11/10/19 08:00 Pulse 98 11/10/19 12:00 Resp 18 11/10/19 12:00 BP 143/77 11/10/19 12:00 Pulse Ox 96 11/10/19 12:00 Intake & Output 11/09/19 11/10/19 11/10/19 18:59 06:59 18:59 Intake Total 820 590 Output Total 505 500 245 Balance 315 -500 345 Weight 82.5 kg Intake: IV 700 Oral 120 590 Output: Urine 500 500 200 Post Void Residual 45 Estimated Blood Loss 5 Other: Voiding Method Toilet Toilet Toilet # Voids 0 1 # Bowel Movements 0 - Constitutional General appearance: Present: cooperative, no acute distress - Respiratory Respiratory: bilateral: CTA - Gastrointestinal General gastrointestinal: Present: soft - Labs CBC & Chem 7: 11/09/19 06:15 11/10/19 07:16 Labs: Abnormal Lab Results - Last 24 Hours (Table) 11/09/19 11/10/19 11/10/19 Range/Units 18:30 07:16 07:16 Carbon Dioxide 21 L (22-30) mmol/L BUN 64 H (7-17) mg/dL Creatinine 4.01 H (0.52-1.04) mg/dL Glucose 113 H (74-99) mg/dL Calcium 7.7 L (8.4-10.2) mg/dL Total Bilirubin 1.4 H (0.2-1.3) mg/dL AST 99 H (14-36) U/L ALT 144 H (4-34) U/L Alkaline Phosphatase 284 H (38-126) U/L Urine Appearance Cloudy H (Clear) Urine Protein 1+ H (Negative) Urine Blood Small H (Negative) Ur Squamous Epith Cells 8 H (0-4) /hpf Hyaline Casts 3 H (0-2) /lpf Urine Yeast (Budding) Few H (None) /hpf Microbiology - Last 24 Hours (Table) 11/08/19 19:21 Blood Culture - Preliminary Blood No Growth after 24 hours Assessment and Plan (1) STEFANIE (acute kidney injury) Current Visit: Yes Status: Acute Code(s): N17.9 - ACUTE KIDNEY FAILURE, UNSP ECIFIED SNOMED Code(s): 06910439 (2) Acute cholecystitis Current Visit: Yes Status: Acute Code(s): K81.0 - ACUTE CHOLECYSTITIS SNOMED Code(s): 65315925 (3) Afib Current Visit: Yes Status: Acute Code(s): I48.91 - UNSPECIFIED ATRIAL FIBRILLATION SNOMED Code(s): 55891436 (4) Syncope and collapse Current Visit: No Status: Acute Code(s): R55 - SYNCOPE AND COLLAPSE SNOMED Code(s): 005980379 Plan: The patient is doing well from a surgical standpoint. Discharge when medically stable with follow-up in the office in 2 weeks.
--- NOTE | 2019-11-10 14:44 | US ---
EXAMINATION TYPE: US kidneys/renal and bladder DATE OF EXAM: 11/10/2019 COMPARISON: 11/06/2019 CLINICAL HISTORY: rf. Renal failure EXAM MEASUREMENTS: Right Kidney: 11.3 x 4.9 x 4.5 cm Left Kidney: 11.9 x 5.4 x 5.7 cm Right Kidney: no hydronephrosis or masses seen Left Kidney: no hydronephrosis or masses seen Bladder: wnl Bilateral Jets seen: no There is no evidence for hydronephrosis at this point in time. No nephrolithiasis is seen. No nadia s are identified. The urinary bladder is anechoic. Bilateral ureteral jets are seen. IMPRESSION: No hydronephrosis or nephrolithiasis.
[2019-11-10 16:47] LABS: Appearance,Urine Cloudy (Clear); Bilirubin,Urine Negative (Negative); Blood,Urine Trace (Negative); Color,Urine Yellow; Glucose,Urine (UA) Negative (Negative); Ketones,Urine Negative (Negative); Leukocyte Esterase,Urine Negative (Negative); Nitrite,Urine Negative (Negative); PH, Urine 5.5 (5.0-8.0); Protein,Urine 1+ (Negative); RBC,Urine 2 /hpf (0-5); Specific Gravity,Urine 1.017 (1.001-1.035); Squamous Epithelial Cell,Urine 2 /hpf (0-4); Urobilinogen,Urine <2.0 mg/dL (<2.0); WBC,Urine 2 /hpf (0-5)
--- NOTE | 2019-11-10 20:05 | P.PN ---
Progress Note - Text Progress Note Date: 11/10/19 Chief Complaint: Lethargic History of presenting complaint: This is a pleasant 79-year-old patient of Dr. ca. Chronic stable medical conditions include atrial fibrillation, hypertension, hyperlipidemia, arthritis varicose veins restless leg syndrome. Patient was transferred here from [facility]. Patient niece who is also the DP OA went to check on the patient and found her unresponsive on the ground. Patient was last known to be well on Thursday. She put her up in a chair. EMS was called. Workup at [place] revealed that patient had had sepsis from acute cholecystitis. Patient is given IV Zosyn and IV Flagyl IV fluids and transferred here for further care. Patient's computed tomography scan of the brain showed chronic changes. Patient states that she has been having some abdominal pain for close to about a week. Having nausea and maybe vomited once or twice. Feeling tired and rundown. When I saw the patient this morning she is able to give me and able to communicate to me. EMS at [facility] that stated there was some right-sided weakness. Other the computed tomography scan came back to be negative. Patient currently has no focal symptoms of weakness. No change in speech or vision. Admitted with acute cholecystitis causing sepsis leading to delirium metabolic encephalopathy. Started on IV Zosyn. IV fluids. Laparoscopic cholecystectomy on November 08. Patient's renal function is gradually been worsening. Today-patient getting IV fluids. Renal function has been worsening. Abdominal pain well controlled. No nausea vomiting. Review of systems: Was done for constitutional, cardiovascular, GI, pulmonary. relevant finding as above Active Medications Acetaminophen (Tylenol Tab) 650 mg PO Q6HR PRN PRN Reason: Mild Pain or Fever > 100.5 Atorvastatin Calcium (Lipitor) 80 mg PO HS [facility] Last Admin: 11/09/19 20:27 Dose: 80 mg Documented by: Enoxaparin Sodium (Lovenox) 80 mg SQ DAILY [facility] Piperacillin Sod/Tazobactam (Sod 3.375 gm/ Sodium Chloride) 100 mls @ 25 mls/hr IVPB Q12HR [facility] Last Admin: 11/10/19 09:17 Dose: 25 mls/hr Documented by: Lactated Ringer's (Lactated Ringers) 1,000 mls @ 100 mls/hr IV .Q10H [facility] Last Admin: 11/10/19 12:06 Dose: 100 mls/hr Documented by: Lidocaine HCl (.Xylocaine 1% Inj (10mg/Ml) For Iv Start) 0.1 ml INTRADERMA PER PROTOCOL PRN PRN Reason: IV Start Metoprolol Succinate (Toprol Xl) 50 mg PO HS [facility] Last Admin: 11/09/19 20:27 Dose: 50 mg Documented by: Metoprolol Succinate (Toprol Xl) 100 mg PO DAILY [facility] Last Admin: 11/10/19 09:18 Dose: 100 mg Documented by: Naloxone HCl (Narcan) 0.2 mg IV Q2M PRN PRN Reason: Opioid Reversal Tramadol HCl (Ultram) 50 mg PO Q6H PRN PRN Reason: Mild to Moderate Pain Last Admin: 11/10/19 12:19 Dose: 50 mg Documented by: Physical examination: VITAL SIGNS: 98.7, 94, 16, 98/64, 94% room air GENERAL: Sitting up in a chair, comfortable EYES: Pupils equal. Conjunctiva normal. HEENT: External appearance of nose and ears normal, oral cavity dry. NECK: JVD not raised; masses not palpable. HEART: First and second heart sounds are normal; no edema. LUNGS: Respiratory rate normal; clear to auscultation. ABDOMEN: Soft, mild tenderness, no guarding or rigidity, liver spleen not palpable, no masses palpable. Dressing over the incision site PSYCH: Patient is able to answer questionsl. MUSCULOSKELETAL: Evidence of OA especially in the hands INVESTIGATIONS, reviewed in the clinical context: Potassium 4.4 bun 64 creatinine 4.01 AST 99 ALT 284 total bilirubins 1.4 Labs on presentation: White count 19.5 hemoglobin 12.8 potassium 3.8 bun 40 creatinine 2.60 lactic acid 3.1 albumin 3 Investigations from [facility]: White count 27 hemoglobin 13.2 L 11 potassium 3.7 bun 37 creatinine 2.3 glucose 140 serum acetaminophen less than 10 UA negative lactic acid 6.6 AST 446 ALT 402 alkaline phosphatase 310 INR 1.55 pro calcitonin 169 EKG shows atrial fibrillation Computed tomography scan of the brain showed atrophic and chronic changes, chest x-ray showed cardiomegaly no infiltrates, computed tomography scan of the abdomen showed dilated gallbladder fecal impaction and colonic diverticulosis Assessment: -Acute cholecystitis causing sepsis, POA-with laparoscopic cholecystectomy on November 08 -Acute metabolic encephalopathy with delirium from sepsis, causing patient's initial presentation at [facility]-improved -Persistent atrial fibrillation -Hyperlipidemia -Essential hypertension -Primary osteoarthritis -Acute kidney injury a combination of prerenal and ATN.-Worsening. -Possibly Ischemic hepatitis, Plan: Continue with IV fluids. IV antibiotics. Follow renal function. Discussed with the patient.
[2019-11-10] MEDS: METOPROLOL SUCCINATE (ER) 50 MG TAB.ER.24H PO SCH (20:21)
[2019-11-10] MEDS: ATORVASTATIN 80 MG TAB PO SCH (20:21)
[2019-11-11] MEDS: LACTATED RINGERS 1,000 ML IV SCH ×2 (00:47→16:46)
[2019-11-11] MEDS: METOPROLOL SUCCINATE (ER) 100 MG TAB.ER.24H PO SCH (08:23)
[2019-11-11] MEDS: ENOXAPARIN 80 MG/0.8 ML SYRINGE SQ SCH (08:24)
[2019-11-11] MEDS: PIPERACILLIN-TAZOBACTAM 3.375 GM in SODIUM CHLORIDE 0.9% 100 ML IVPB SCH ×2 (08:24→20:32)
[2019-11-11 10:04] LABS: Potassium 4.5 mmol/L (3.5-5.1)
[2019-11-11] MEDS: traMADol 50 MG TAB PO PRN (13:27)
--- NOTE | 2019-11-11 16:11 | PN ---
PROGRESS NOTE Patient is seen for followup for acute kidney injury. The patient is status post laparoscopic appendectomy on 11/09/2019. She was admitted with abdominal pain. Patient's serum creatinine increased progressively from 1.9 to 4.0 yesterday. Blood pressure was noted to be low yesterday. However, mostly it was above 100 mmHg systolic. Patient had been on MELODY inhibitors, which are now discontinued. She was also started on IV fluids, and her serum creatinine is slightly better at 3.9 from 4.0 yesterday. Patient has had good urine output. Overall, she states she is feeling better. PHYSICAL EXAMINATION: On examination today, blood pressure was 139/94, heart rate 85 per minute. She is afebrile. EXAMINATION OF THE HEART: S1 and S2. EXAMINATION OF LUNGS: Decreased breath sounds at bases. ABDOMEN: Soft. Mild tenderness noted. Examination of lower extremities shows no evidence of edema. [employer] exam is grossly intact. LABS: Labs show sodium 135, potassium 4.5, chloride 106, BUN 64, serum creatinine 3.97. UA shows 1+ protein. No cells are seen. Trace blood noted. ASSESSMENT: 1. Acute kidney injury, acute tubular necrosis, associated with volume depletion and perhaps some degree of hypoperfusion. Seems to be improving. Currently nonoliguric. UA shows small amount of proteinuria. This will need to be followed again as outpatient. 2. Status post laparoscopic appendectomy. 3. Metabolic acidosis associated with renal failure, now improving. 4. Chronic persistent atrial fibrillation. 5. Possible chronic kidney disease; however, previous creatinine has been ranging between 1.0 and 0.8 mg/dL. Etiology likely nephrosclerosis. No history of diabetes. Patient will need workup and quantification of proteinuria if persistent. PLAN: Continue with IV fluids. Avoid hypotension. Repeat labs in a.m. MMODL / IJN: [id number] /
--- NOTE | 2019-11-11 16:50 | P.PN ---
Progress Note - Text Progress Note Date: 11/11/19 Chief Complaint: Lethargic History of presenting complaint: This is a pleasant 79-year-old patient of Dr. ca. Chronic stable medical conditions include atrial fibrillation, hypertension, hyperlipidemia, arthritis varicose veins restless leg syndrome. Patient was transferred here from [facility]. Patient niece who is also the DP OA went to check on the patient and found her unresponsive on the ground. Patient was last known to be well on Thursday. She put her up in a chair. EMS was called. Workup at [place] revealed that patient had had sepsis from acute cholecystitis. Patient is given IV Zosyn and IV Flagyl IV fluids and transferred here for further care. Patient's computed tomography scan of the brain showed chronic changes. Patient states that she has been having some abdominal pain for close to about a week. Having nausea and maybe vomited once or twice. Feeling tired and rundown. When I saw the patient this morning she is able to give me and able to communicate to me. EMS at [facility] that stated there was some right-sided weakness. Other the computed tomography scan came back to be negative. Patient currently has no focal symptoms of weakness. No change in speech or vision. Admitted with acute cholecystitis causing sepsis leading to delirium metabolic encephalopathy. Started on IV Zosyn. IV fluids. Laparoscopic cholecystectomy on November 08. Patient's renal function is gradually been worsening.-[place] to be from hypoperfusion. Today-getting IV fluids. Eating some. Not much of an appetite. Sitting up in the chair. Review of systems: Was done for constitutional, cardiovascular, GI, pulmonary. relevant finding as above Physical examination: VITAL SIGNS: 97, 85, 18, 139/94, 96% GENERAL: Sitting up in a chair, comfortable EYES: Pupils equal. Conjunctiva normal. HEENT: External appearance of nose and ears normal, oral cavity dry. NECK: JVD not raised; masses not palpable. HEART: First and second heart sounds are normal; no edema. LUNGS: Respiratory rate normal; clear to auscultation. ABDOMEN: Soft, mild tenderness, no guarding or rigidity, liver spleen not palpable, no masses palpable. Dressing over the incision site PSYCH: Patient is able to answer questionsl. MUSCULOSKELETAL: Evidence of OA especially in the hands INVESTIGATIONS, reviewed in the clinical context: Potassium 4.5 bun 64 creatinine 3.97 Labs on presentation: White count 19.5 hemoglobin 12.8 potassium 3.8 bun 40 creatinine 2.60 lactic acid 3.1 albumin 3 Investigations from [facility]: White count 27 hemoglobin 13.2 L 11 potassium 3.7 bun 37 creatinine 2.3 glucose 140 serum acetaminophen less than 10 UA negative lactic acid 6.6 AST 446 ALT 402 alkaline phosphatase 310 INR 1.55 pro calcitonin 169 EKG shows atrial fibrillation Computed tomography scan of the brain showed atrophic and chronic changes, chest x-ray showed cardiomegaly no infiltrates, computed tomography scan of the abdomen showed dilated gallbladder fecal impaction and colonic diverticulosis Assessment: -Acute cholecystitis causing sepsis, POA-with laparoscopic cholecystectomy on November 08 -Acute metabolic encephalopathy with delirium from sepsis, causing patient's initial presentation at [facility]-improved -Persistent atrial fibrillation -Hyperlipidemia -Essential hypertension -Primary osteoarthritis -Acute kidney injury a combination of prerenal and ATN.-Possibly from hypoperfusion. Renal function now leveling off -Possibly Ischemic hepatitis, -Anticoagulation with Lovenox therapeutic dose Plan: -Patient continues to get IV Zosyn. Dilaudid 100 mL an hour. Other medications to continue. Follow labs closely. Discussed with the patient.
[2019-11-11] MEDS: METOPROLOL SUCCINATE (ER) 50 MG TAB.ER.24H PO SCH (20:31)
[2019-11-11] MEDS: ATORVASTATIN 80 MG TAB PO SCH (20:32)
[2019-11-12] MEDS: LACTATED RINGERS 1,000 ML IV SCH ×3 (03:14→15:28)
[2019-11-12 07:27] LABS: Calcium 8.1 mg/dL (8.4-10.2); Potassium 4.6 mmol/L (3.5-5.1); Total Bilirubin 1.4 mg/dL (0.2-1.3)
[2019-11-12] MEDS: ENOXAPARIN 80 MG/0.8 ML SYRINGE SQ SCH (09:43)
[2019-11-12] MEDS: PIPERACILLIN-TAZOBACTAM 3.375 GM in SODIUM CHLORIDE 0.9% 100 ML IVPB SCH ×2 (09:43→21:21)
[2019-11-12] MEDS: METOPROLOL SUCCINATE (ER) 100 MG TAB.ER.24H PO SCH (09:43)
--- NOTE | 2019-11-12 14:25 | P.PN ---
Subjective Progress Note Date: 11/12/19 Principal diagnosis: Visit 79-year-old female followed up with acute kidney injury status post laparoscopic appendectomy on 11/09/2019 Continues to have some abdominal discomfort. The nausea vomiting fair appetite no chest pain shortness of breath fever chills. She does complain of some pain in her right hand fingers which is a chronic problem Moving her bowels with no diarrhea and nausea vomiting. Her creatinine has peaked at 4 as of 11/10/2019 and is at 4.03 as of this morning Objective - Vital Signs Vital signs: Vital Signs Temp 97.6 F 11/12/19 08:00 Pulse 90 11/12/19 12:05 Resp 19 11/12/19 12:05 BP 190/104 11/12/19 12:05 Pulse Ox 96 11/12/19 12:05 Intake & Output 11/11/19 11/12/19 11/12/19 18:59 06:59 18:59 Intake Total 590 300 480 Output Total 800 800 800 Balance -210 -500 -320 Weight 82.1 kg Intake: Intake, IV Titration 300 Amount Lactated Ringers 1,000 ml 300 @ 100 mls/hr IV .Q10H [facility] Rx#:[id number] Oral 590 480 Output: Urine 800 800 800 Other: Voiding Method Toilet Toilet # Voids 1 1 Exam general awake alert oriented. HEENT exam no JVP neck is supple no facial asymmetry Lungs are clear to auscultation with good air entry bilaterally Heart sounds are unremarkable for any murmur or gallop Abdomen slightly tender as there is some suprapubic fullness Some bruising over the abdominal wall from surgery Extremity exam was trace edema Neurologically awake alert oriented - Labs CBC & Chem 7: 11/09/19 06:15 11/12/19 06:36 Labs: Abnormal Lab Results - Last 24 Hours (Table) 11/12/19 Range/Units 06:36 Carbon Dioxide 20 L (22-30) mmol/L BUN 64 H (7-17) mg/dL Creatinine 4.03 H (0.52-1.04) mg/dL Glucose 122 H (74-99) mg/dL Calcium 8.1 L (8.4-10.2) mg/dL Total Bilirubin 1.4 H (0.2-1.3) mg/dL AST 80 H (14-36) U/L ALT 115 H (4-34) U/L Alkaline Phosphatase 270 H (38-126) U/L Total Protein 6.0 L (6.3-8.2) g/dL Albumin 3.0 L (3.5-5.0) g/dL Microbiology - Last 24 Hours (Table) 11/08/19 19:21 Blood Culture - Preliminary Blood No Growth after 72 hours Assessment and Plan Assessment: Impression 1 acute kidney injury from postop laparoscopic appendectomy. ATN is stable. Creatinine at 4 for the last 3 days. 2. Chronic kidney disease stage III with creatinine clearance of 60 mL pulmonary 252 mL per minute as of November 2018 creatinine baseline is about 1.03-0.9 dated 11/10/1989 year ago. UA this admission shows 1+ proteinuria 3 mild degree of non-gap acidosis from acute kidney injury bicarb is 20 4. Status post laparoscopic appendectomy 11/09/2019 5. Pressure slightly about target Recommendation 1. Check postvoid residual 2. Because the high blood pressure will add amlodipine 2.5 mg daily 3. Expect ATN to improve
[2019-11-12] MEDS ORDERED: amLODIPine 2.5 MG TAB PO SCH (14:30)
--- NOTE | 2019-11-12 19:19 | P.PN ---
Progress Note - Text Progress Note Date: 11/12/19 Chief Complaint: Lethargic History of presenting complaint: This is a pleasant 79-year-old patient of Dr. ca. Chronic stable medical conditions include atrial fibrillation, hypertension, hyperlipidemia, arthritis varicose veins restless leg syndrome. Patient was transferred here from [facility]. Patient niece who is also the DP OA went to check on the patient and found her unresponsive on the ground. Patient was last known to be well on Thursday. She put her up in a chair. EMS was called. Workup at [place] revealed that patient had had sepsis from acute cholecystitis. Patient is given IV Zosyn and IV Flagyl IV fluids and transferred here for further care. Patient's computed tomography scan of the brain showed chronic changes. Patient states that she has been having some abdominal pain for close to about a week. Having nausea and maybe vomited once or twice. Feeling tired and rundown. When I saw the patient this morning she is able to give me and able to communicate to me. EMS at [facility] that stated there was some right-sided weakness. Other the computed tomography scan came back to be negative. Patient currently has no focal symptoms of weakness. No change in speech or vision. Admitted with acute cholecystitis causing sepsis leading to delirium metabolic encephalopathy. Started on IV Zosyn. IV fluids. Laparoscopic cholecystectomy on November 08. Patient's renal function is gradually been worsening.-[place] to be from hypoperfusion. Today-oral intake very well. Getting IV fluids. No abdominal pain. Sitting up in a chair. Review of systems: Was done for constitutional, cardiovascular, GI, pulmonary. relevant finding as above Active Medications Acetaminophen (Tylenol Tab) 650 mg PO Q6HR PRN PRN Reason: Mild Pain or Fever > 100.5 Amlodipine Besylate (Norvasc) 2.5 mg PO DAILY [facility] Last Admin: 11/12/19 15:26 Dose: 2.5 mg Documented by: Atorvastatin Calcium (Lipitor) 80 mg PO HS [facility] Last Admin: 11/11/19 20:32 Dose: 80 mg Documented by: Enoxaparin Sodium (Lovenox) 80 mg SQ DAILY [facility] Last Admin: 11/12/19 09:43 Dose: 80 mg Documented by: Piperacillin Sod/Tazobactam (Sod 3.375 gm/ Sodium Chloride) 100 mls @ 25 mls/hr IVPB Q12HR [facility] Last Admin: 11/12/19 09:43 Dose: 25 mls/hr Documented by: Lactated Ringer's (Lactated Ringers) 1,000 mls @ 100 mls/hr IV .Q10H [facility] Last Admin: 11/12/19 15:28 Dose: 100 mls/hr Documented by: Lidocaine HCl (.Xylocaine 1% Inj (10mg/Ml) For Iv Start) 0.1 ml INTRADERMA PER PROTOCOL PRN PRN Reason: IV Start Metoprolol Succinate (Toprol Xl) 50 mg PO HS [facility] Last Admin: 11/11/19 20:31 Dose: 50 mg Documented by: Metoprolol Succinate (Toprol Xl) 100 mg PO DAILY [facility] Last Admin: 11/12/19 09:43 Dose: 100 mg Documented by: Naloxone HCl (Narcan) 0.2 mg IV Q2M PRN PRN Reason: Opioid Reversal Tramadol HCl (Ultram) 50 mg PO Q6H PRN PRN Reason: Mild to Moderate Pain Last Admin: 11/11/19 13:27 Dose: 50 mg Documented by: Physical examination: VITAL SIGNS: 97.8, 87, 17, 170-108, 97% on room air GENERAL: Sitting up in a chair, comfortable EYES: Pupils equal. Conjunctiva normal. HEENT: External appearance of nose and ears normal, oral cavity dry. NECK: JVD not raised; masses not palpable. HEART: First and second heart sounds are normal; no edema. LUNGS: Respiratory rate normal; clear to auscultation. ABDOMEN: Soft, mild tenderness, no guarding or rigidity, liver spleen not palpable, no masses palpable. Dressing over the incision site PSYCH: Patient is able to answer questionsl. MUSCULOSKELETAL: Evidence of OA especially in the hands INVESTIGATIONS, reviewed in the clinical context: Potassium 4.6 creatinine 4.03 AST 18 ALT 115 albumin 3 Labs on presentation: White count 19.5 hemoglobin 12.8 potassium 3.8 bun 40 creatinine 2.60 lactic acid 3.1 albumin 3 Investigations from [facility]: White count 27 hemoglobin 13.2 L 11 potassium 3.7 bun 37 creatinine 2.3 glucose 140 serum acetaminophen less than 10 UA negative lactic acid 6.6 AST 446 ALT 402 alkaline phosphatase 310 INR 1.55 pro calcitonin 169 EKG shows atrial fibrillation Computed tomography scan of the brain showed atrophic and chronic changes, chest x-ray showed cardiomegaly no infiltrates, computed tomography scan of the abdomen showed dilated gallbladder fecal impaction and colonic diverticulosis Assessment: -Acute cholecystitis causing sepsis, POA-with laparoscopic cholecystectomy on November 08 -Acute metabolic encephalopathy with delirium from sepsis, causing patient's initial presentation at [facility]-improved -Persistent atrial fibrillation -Hyperlipidemia -Essential hypertension-uncontrolled -Primary osteoarthritis -Acute kidney injury a combination of prerenal and ATN.-Possibly from hypoperfusion. Renal function-not improving -Possibly Ischemic hepatitis, -Anticoagulation with Lovenox therapeutic dose Plan: -On IV Zosyn. Amlodipine 2.5 mg added for blood pressure. Cut back on IV fluids to 50 mL an hour.. Discussed with patient follow with nephrology.
[2019-11-12] MEDS ORDERED: LACTATED RINGERS 1,000 ML IV SCH (19:30)
[2019-11-12] MEDS: SODIUM BICARBONATE TAB 650 MG TAB PO SCH (21:21)
[2019-11-12] MEDS: METOPROLOL SUCCINATE (ER) 50 MG TAB.ER.24H PO SCH (21:21)
[2019-11-12] MEDS: ATORVASTATIN 80 MG TAB PO SCH (21:22)
[2019-11-12] MEDS ORDERED: amLODIPine 5 MG TAB PO STA (22:20)
[2019-11-12] MEDS ORDERED: cloNIDine HCL 0.1 MG TAB PO STA (22:21)
[2019-11-12] MEDS: traMADol 50 MG TAB PO PRN (22:56)
[2019-11-13] MEDS: ENOXAPARIN 80 MG/0.8 ML SYRINGE SQ SCH (09:37)
[2019-11-13] MEDS: SODIUM BICARBONATE TAB 650 MG TAB PO SCH ×3 (09:37→20:03)
[2019-11-13] MEDS: METOPROLOL SUCCINATE (ER) 100 MG TAB.ER.24H PO SCH (09:37)
[2019-11-13] MEDS: amLODIPine 5 MG TAB PO SCH (09:38)
[2019-11-13] MEDS: PIPERACILLIN-TAZOBACTAM 3.375 GM in SODIUM CHLORIDE 0.9% 100 ML IVPB SCH ×3 (09:38→20:56)
--- NOTE | 2019-11-13 12:52 | P.PN ---
Subjective Progress Note Date: 11/13/19 Principal diagnosis: This is a 79-year-old female followed up with acute kidney injury status post laparoscopic cholecystectomy on 11/09/2019 Her urine output is 4850 with an intake of 1800 mL for the last 2-4 hours. Blood pressure is slightly higher than target at 165 systolic to 196/106, heart rate in the 80s to 90s Her abdominal pain has resolved this morning she is eating fairly well denies any cough fevers chills shortness of breath No diarrhea. Labs show no improvement in her creatinine yet creatinine was 4, then 3.97 and then 4 She is known with atrial fibrillation, hyperlipidemia and hypertension. She was admitted with syncopal episode and found to have cholecystitis Objective - Vital Signs Vital signs: Vital Signs Temp 98.2 F 11/13/19 07:00 Pulse 87 11/13/19 11:48 Resp 18 11/13/19 11:48 BP 165/89 11/13/19 11:48 Pulse Ox 98 11/13/19 11:48 Intake & Output 11/12/19 11/13/19 11/13/19 18:59 06:59 18:59 Intake Total 720 1080 240 Output Total 1400 3450 Balance -680 -2370 240 Weight 80.9 kg Intake: Oral 720 1080 240 Output: Urine 1400 3450 Other: Voiding Method Toilet # Voids 1 1 # Bowel Movements 1 On examination she is awake alert oriented comfortable not in any pain HEENT exam no JVP neck is supple no facial asymmetry Lungs clear to auscultation good air entry bilaterally Heart sounds unremarkable for any murmur rub gallop Abdomen soft nontender Extremity exam was cold extremities and some bluish discoloration with mild edema Neurologically awake alert oriented. - Labs CBC & Chem 7: 11/09/19 06:15 11/12/19 06:36 Labs: Microbiology - Last 24 Hours (Table) 11/08/19 19:21 Blood Culture - Preliminary Blood No Growth after 96 hours Assessment and Plan Assessment: Impression 1 acute kidney injury from postop laparoscopic cholecystectomy ( there is an error in the or report as it states appendectomy under procedure performed but in the body of the report is his cholecystectomy). ATN is stable. Creatinine at 4 for the last 3 days. 2. Chronic kidney disease stage III with creatinine clearance of 60 mL pulmonary 252 mL per minute as of November 2018 creatinine baseline is about 1.03-0.9 dated 11/10/1989 year ago. UA this admission shows 1+ proteinuria 3 mild degree of non-gap acidosis from acute kidney injury bicarb is 20 4. Status post laparoscopic appendectomy 11/09/2019 5. Pressure slightly about target Recommendation 1. As her blood pressure is somewhat high and she has edema will discontinue IV fluids. Watch I's and O's and O's closely 2. Amlodipine 5 mg a day 3. Give her 1 dose of Lasix 20 4. Watch blood pressure and call me if necessary 5. Expect ATN to improve
[2019-11-13] MEDS ORDERED: FUROSEMIDE 20 MG TAB PO STA (12:53)
[2019-11-13 15:21] VITALS: BMI 28.8
[2019-11-13] MEDS: METOPROLOL SUCCINATE (ER) 50 MG TAB.ER.24H PO SCH (20:03)
[2019-11-13] MEDS: ATORVASTATIN 80 MG TAB PO SCH (20:03)
--- NOTE | 2019-11-13 20:33 | P.PN ---
Progress Note - Text Progress Note Date: 11/13/19 Chief Complaint: Lethargic History of presenting complaint: This is a pleasant 79-year-old patient of Dr. ca. Chronic stable medical conditions include atrial fibrillation, hypertension, hyperlipidemia, arthritis varicose veins restless leg syndrome. Patient was transferred here from [facility]. Patient niece who is also the DP OA went to check on the patient and found her unresponsive on the ground. Patient was last known to be well on Thursday. She put her up in a chair. EMS was called. Workup at [place] revealed that patient had had sepsis from acute cholecystitis. Patient is given IV Zosyn and IV Flagyl IV fluids and transferred here for further care. Patient's computed tomography scan of the brain showed chronic changes. Patient states that she has been having some abdominal pain for close to about a week. Having nausea and maybe vomited once or twice. Feeling tired and rundown. When I saw the patient this morning she is able to give me and able to communicate to me. EMS at [facility] that stated there was some right-sided weakness. Other the computed tomography scan came back to be negative. Patient currently has no focal symptoms of weakness. No change in speech or vision. Admitted with acute cholecystitis causing sepsis leading to delirium metabolic encephalopathy. Started on IV Zosyn. IV fluids. Laparoscopic cholecystectomy on November 08. Patient's renal function is gradually been worsening.-[place] to be from hypoperfusion. Today-eating well. Had a bowel movement. No abdominal pain. Overall feeling better. Blood pressure had been running high. Amlodipine was added by nephrology.. Review of systems: Was done for constitutional, cardiovascular, GI, pulmonary. relevant finding as above Active Medications Acetaminophen (Tylenol Tab) 650 mg PO Q6HR PRN PRN Reason: Mild Pain or Fever > 100.5 Amlodipine Besylate (Norvasc) 5 mg PO DAILY [facility] Last Admin: 11/13/19 09:38 Dose: 5 mg Documented by: Atorvastatin Calcium (Lipitor) 80 mg PO HS [facility] Last Admin: 11/13/19 20:03 Dose: 80 mg Documented by: Enoxaparin Sodium (Lovenox) 80 mg SQ DAILY [facility] Last Admin: 11/13/19 09:37 Dose: 80 mg Documented by: Piperacillin Sod/Tazobactam (Sod 3.375 gm/ Sodium Chloride) 100 mls @ 25 mls/hr IVPB Q12HR [facility] Last Admin: 11/13/19 09:38 Dose: 25 mls/hr Documented by: Lidocaine HCl (.Xylocaine 1% Inj (10mg/Ml) For Iv Start) 0.1 ml INTRADERMA PER PROTOCOL PRN PRN Reason: IV Start Metoprolol Succinate (Toprol Xl) 50 mg PO HS [facility] Last Admin: 11/13/19 20:03 Dose: 50 mg Documented by: Metoprolol Succinate (Toprol Xl) 100 mg PO DAILY [facility] Last Admin: 11/13/19 09:37 Dose: 100 mg Documented by: Naloxone HCl (Narcan) 0.2 mg IV Q2M PRN PRN Reason: Opioid Reversal Sodium Bicarbonate (Sodium Bicarbonate Tab) 650 mg PO TID [facility] Last Admin: 11/13/19 20:03 Dose: 650 mg Documented by: Tramadol HCl (Ultram) 50 mg PO Q6H PRN PRN Reason: Mild to Moderate Pain Last Admin: 11/12/19 22:56 Dose: 50 mg Documented by: Physical examination: VITAL SIGNS: 97.7, 109, 18, 152/84, 98% room air GENERAL: Sitting up in a chair, comfortable EYES: Pupils equal. Conjunctiva normal. HEENT: External appearance of nose and ears normal, oral cavity dry. NECK: JVD not raised; masses not palpable. HEART: First and second heart sounds are normal; no edema. LUNGS: Respiratory rate normal; clear to auscultation. ABDOMEN: Soft, no tenderness, no guarding or rigidity, liver spleen not palpable, no masses palpable. Dressing over the incision site PSYCH: Patient is able to answer questionsl. MUSCULOSKELETAL: Evidence of OA especially in the hands INVESTIGATIONS, reviewed in the clinical context: Potassium 4.6 creatinine 4.03 total bilirubin 1.4 AST 18 ALT 115 albumin 3 Labs on presentation: White count 19.5 hemoglobin 12.8 potassium 3.8 bun 40 creatinine 2.60 lactic acid 3.1 albumin 3 Investigations from [facility]: White count 27 hemoglobin 13.2 L 11 potassium 3.7 bun 37 creatinine 2.3 glucose 140 serum acetaminophen less than 10 UA negative lactic acid 6.6 AST 446 ALT 402 alkaline phosphatase 310 INR 1.55 pro calcitonin 169 EKG shows atrial fibrillation Computed tomography scan of the brain showed atrophic and chronic changes, chest x-ray showed cardiomegaly no infiltrates, computed tomography scan of the abdomen showed dilated gallbladder fecal impaction and colonic diverticulosis Assessment: -Acute cholecystitis causing sepsis, POA-with laparoscopic cholecystectomy on November 08 -Acute metabolic encephalopathy with delirium from sepsis, causing patient's initial presentation at [facility]-improved -Persistent atrial fibrillation -Hyperlipidemia -Essential better controlled -Primary osteoarthritis -Acute kidney injury a combination of prerenal and ATN.-Possibly from hypoperfusion. Renal function-not improving -Possibly Ischemic hepatitis, -Anticoagulation with Lovenox therapeutic dose Plan: -On IV Zosyn. Amlodipine increased to 5 mg daily. IV fluids to be discontinued. Given a small dose of Lasix by nephrology. Repeat labs in the morning..
[2019-11-14 06:33] LABS: Calcium 8.7 mg/dL (8.4-10.2)
[2019-11-14] MEDS: amLODIPine 5 MG TAB PO SCH (08:59)
[2019-11-14] MEDS: METOPROLOL SUCCINATE (ER) 100 MG TAB.ER.24H PO SCH (08:59)
[2019-11-14] MEDS: SODIUM BICARBONATE TAB 650 MG TAB PO SCH (08:59)
[2019-11-14] MEDS: PIPERACILLIN-TAZOBACTAM 3.375 GM in SODIUM CHLORIDE 0.9% 100 ML IVPB SCH ×2 (09:00→23:12)
[2019-11-14] MEDS: ENOXAPARIN 80 MG/0.8 ML SYRINGE SQ SCH (09:00)
--- NOTE | 2019-11-14 10:25 | P.PN ---
Subjective Patient seen in follow-up for acute kidney injury. Creatinine peaked at 4.03 this admission and is 3.32 today. She admits to good urine output. Oral intake is good. No vomiting or diarrhea. Vital signs are stable. General: The patient appeared well nourished and normally developed. HEENT: Head exam is unremarkable. Neck is without jugular venous distension. LUNGS: Lungs are clear to auscultation and percussion. Breath sounds decreased. HEART: Rate and Rhythm are regular. ABDOMEN: Soft, nontender. EXTREMITITES: No edema. Objective - Vital Signs Vital signs: Vital Signs Temp 97.7 F 11/13/19 23:00 Pulse 85 11/14/19 08:00 Resp 18 11/14/19 08:00 BP 121/94 11/13/19 23:00 Pulse Ox 98 11/13/19 23:00 Intake & Output 11/13/19 11/14/19 11/14/19 18:59 06:59 18:59 Intake Total 720 200 240 Output Total 600 750 400 Balance 120 -550 -160 Weight 80.9 kg 79.6 kg Intake: Oral 720 200 240 Output: Urine 600 750 400 Other: Voiding Method Toilet # Voids 1 1 1 # Bowel Movements 1 - Labs CBC & Chem 7: 11/09/19 06:15 11/14/19 05:39 Labs: Abnormal Lab Results - Last 24 Hours (Table) 11/14/19 Range/Units 05:39 BUN 60 H (7-17) mg/dL Creatinine 3.32 H (0.52-1.04) mg/dL Glucose 105 H (74-99) mg/dL Microbiology - Last 24 Hours (Table) 11/08/19 19:21 Blood Culture - Preliminary Blood No Growth after 120 hours Assessment and Plan Plan: Assessment: 1. Acute kidney injury secondary to ATN. Creatinine peaked at 4.03 this a dmission. It is 3.32 today. Baseline creatinine near 1 in November 2018. No hydronephrosis noted on kidney ultrasound. 2. Chronic kidney disease stage II with baseline creatinine near 1 from November 2018. 3. Metabolic acidosis secondary to acute kidney injury and IV fluids. Resolved. 4. Status post laparoscopic cholecystectomy on 11/09/2019. 5. Hypertension with chronic kidney disease. Stable. Plan: Encouraged oral intake. Avoid nephrotoxins. Status post 1 dose of Lasix on November 12. Hold off today. Strict I's and O's. Continue to monitor renal function and urine output. Discontinue oral bicarb.
[2019-11-14] MEDS: traMADol 50 MG TAB PO PRN (15:15)
--- NOTE | 2019-11-14 16:36 | P.PN ---
Progress Note - Text Progress Note Date: 11/14/19 Chief Complaint: Lethargic History of presenting complaint: This is a pleasant 79-year-old patient of Dr. ca. Chronic stable medical conditions include atrial fibrillation, hypertension, hyperlipidemia, arthritis varicose veins restless leg syndrome. Patient was transferred here from [facility]. Patient niece who is also the DP OA went to check on the patient and found her unresponsive on the ground. Patient was last known to be well on Thursday. She put her up in a chair. EMS was called. Workup at [place] revealed that patient had had sepsis from acute cholecystitis. Patient is given IV Zosyn and IV Flagyl IV fluids and transferred here for further care. Patient's computed tomography scan of the brain showed chronic changes. Patient states that she has been having some abdominal pain for close to about a week. Having nausea and maybe vomited once or twice. Feeling tired and rundown. When I saw the patient this morning she is able to give me and able to communicate to me. EMS at [facility] that stated there was some right-sided weakness. Other the computed tomography scan came back to be negative. Patient currently has no focal symptoms of weakness. No change in speech or vision. Admitted with acute cholecystitis causing sepsis leading to delirium metabolic encephalopathy. Started on IV Zosyn. IV fluids. Laparoscopic cholecystectomy on November 08. Patient's renal function is gradually been worsening.-[place] to be from hypoperfusion. Today-eating fairly well. No abdominal pain. Did have a bowel movement. No nausea vomiting. Review of systems: Was done for constitutional, cardiovascular, GI, pulmonary. relevant finding as above Active Medications Acetaminophen (Tylenol Tab) 650 mg PO Q6HR PRN PRN Reason: Mild Pain or Fever > 100.5 Amlodipine Besylate (Norvasc) 5 mg PO DAILY [facility] Last Admin: 11/14/19 08:59 Dose: 5 mg Documented by: Atorvastatin Calcium (Lipitor) 80 mg PO HS [facility] Last Admin: 11/13/19 20:03 Dose: 80 mg Documented by: Enoxaparin Sodium (Lovenox) 80 mg SQ DAILY [facility] Last Admin: 11/14/19 09:00 Dose: 80 mg Documented by: Piperacillin Sod/Tazobactam (Sod 3.375 gm/ Sodium Chloride) 100 mls @ 25 mls/hr IVPB Q12HR [facility] Last Admin: 11/14/19 09:00 Dose: 25 mls/hr Documented by: Lidocaine HCl (.Xylocaine 1% Inj (10mg/Ml) For Iv Start) 0.1 ml INTRADERMA PER PROTOCOL PRN PRN Reason: IV Start Metoprolol Succinate (Toprol Xl) 50 mg PO HS [facility] Last Admin: 11/13/19 20:03 Dose: 50 mg Documented by: Metoprolol Succinate (Toprol Xl) 100 mg PO DAILY [facility] Last Admin: 11/14/19 08:59 Dose: 100 mg Documented by: Naloxone HCl (Narcan) 0.2 mg IV Q2M PRN PRN Reason: Opioid Reversal Tramadol HCl (Ultram) 50 mg PO Q6H PRN PRN Reason: Mild to Moderate Pain Last Admin: 11/14/19 15:15 Dose: 50 mg Documented by: Physical examination: VITAL SIGNS: 97.7, 85, 18, 121/94, 98% room air GENERAL: Sitting up in a chair, comfortable EYES: Pupils equal. Conjunctiva normal. HEENT: External appearance of nose and ears normal, oral cavity dry. NECK: JVD not raised; masses not palpable. HEART: First and second heart sounds are normal; no edema. LUNGS: Respiratory rate normal; clear to auscultation. ABDOMEN: Soft, no tenderness, no guarding or rigidity, liver spleen not palpable, no masses palpable. Dressing over the incision site PSYCH: Patient is able to answer questionsl. MUSCULOSKELETAL: Evidence of OA especially in the hands INVESTIGATIONS, reviewed in the clinical context: Potassium 4 bun 60 creatinine 3.3 to Labs on presentation: White count 19.5 hemoglobin 12.8 potassium 3.8 bun 40 creatinine 2.60 lactic acid 3.1 albumin 3 Investigations from [facility]: White count 27 hemoglobin 13.2 L 11 potassium 3.7 bun 37 creatinine 2.3 glucose 140 serum acetaminophen less than 10 UA negative lactic acid 6.6 AST 446 ALT 402 alkaline phosphatase 310 INR 1.55 pro calcitonin 169 EKG shows atrial fibrillation Computed tomography scan of the brain showed atrophic and chronic changes, chest x-ray showed cardiomegaly no infiltrates, computed tomography scan of the abdomen showed dilated gallbladder fecal impaction and colonic diverticulosis Assessment: -Acute cholecystitis causing sepsis, POA-with laparoscopic cholecystectomy on November 08 -Acute metabolic encephalopathy with delirium from sepsis, causing patient's initial presentation at [facility]-improved -Persistent atrial fibrillation -Hyperlipidemia -Essential better controlled -Primary osteoarthritis -Acute kidney injury a combination of prerenal and ATN.-Possibly from hypoperfusion. Renal function slowly improving -Possibly Ischemic hepatitis, -Anticoagulation with Lovenox therapeutic dose Plan: -On IV Zosyn. Blood pressure better controlled. Creatinine started to come down. Discussed with the patient. Follow with nephrology.
[2019-11-14] MEDS: METOPROLOL SUCCINATE (ER) 50 MG TAB.ER.24H PO SCH (21:16)
[2019-11-14] MEDS: ATORVASTATIN 80 MG TAB PO SCH (21:16)
[2019-11-15] MEDS: ENOXAPARIN 80 MG/0.8 ML SYRINGE SQ SCH (07:46)
[2019-11-15] MEDS: METOPROLOL SUCCINATE (ER) 100 MG TAB.ER.24H PO SCH (07:47)
[2019-11-15] MEDS: amLODIPine 5 MG TAB PO SCH (07:47)
[2019-11-15 08:30] VITALS: BP 135/82; PULSE 92; RESP 16; TEMP 98.3
[2019-11-15 08:53] LABS: Magnesium 1.7 mg/dL (1.6-2.3); Potassium 3.7 mmol/L (3.5-5.1)
[2019-11-15] MEDS ORDERED: FUROSEMIDE 10 MG/ML 2 ML VIAL IV ONE (11:11)
--- NOTE | 2019-11-15 11:12 | P.PN ---
Subjective Patient seen in follow-up for acute kidney injury. Creatinine peaked at 4.03 this admission and is 2.76 today. She admits to good urine output. Oral intake is good. No vomiting or diarrhea. Vital signs are stable. General: The patient appeared well nourished and normally developed. HEENT: Head exam is unremarkable. Neck is without jugular venous distension. LUNGS: Lungs are clear to auscultation and percussion. Breath sounds decreased. HEART: Rate and Rhythm are regular. ABDOMEN: Soft, nontender. EXTREMITITES: Trace edema. Objective - Vital Signs Vital signs: Vital Signs Temp 98.3 F 11/15/19 07:00 Pulse 92 11/15/19 07:46 Resp 16 11/15/19 07:46 BP 135/82 11/15/19 07:00 Pulse Ox 97 11/15/19 07:00 Intake & Output 11/14/19 11/15/19 11/15/19 18:59 06:59 18:59 Intake Total 720 120 Output Total 900 Balance -180 120 Intake: Intake, IV Titration 100 Amount Piperacillin-Tazobactam 3 100 .375 gm In Sodium Chloride 0.9% 100 ml @ 25 mls/hr IVPB Q12HR [facility] Rx #:[id number] Oral 720 20 Output: Urine 900 Other: Voiding Method Toilet Toilet # Voids 1 - Labs CBC & Chem 7: 11/09/19 06:15 11/15/19 08:07 Labs: Abnormal Lab Results - Last 24 Hours (Table) 11/15/19 Range/Units 08:07 BUN 50 H (7-17) mg/dL Creatinine 2.76 H (0.52-1.04) mg/dL Glucose 156 H (74-99) mg/dL Calcium 8.0 L (8.4-10.2) mg/dL Microbiology - Last 24 Hours (Table) 11/08/19 19:21 Blood Culture - Final Blood No Growth after 144 hours Assessment and Plan Plan: Assessment: 1. Acute kidney injury secondary to ATN. Creatinine peaked at 4.03 this admission. It is 2.76 today. Baseline creatinine near 1 in November 2018. No hydronephrosis noted on kidney ultrasound. 2. Chronic kidney disease stage II with baseline creatinine near 1 from November 2018. 3. Metabolic acidosis secondary to acute kidney injury and IV fluids. Resolved. 4. Status post laparoscopic cholecystectomy on 11/09/2019. 5. Hypertension with chronic kidney disease. Stable. 6. Lower extremity edema. Plan: Encouraged oral intake. Avoid nephrotoxins. Lasix 20 mg IV once today. Strict I's and O's. Continue to monitor renal function and urine output. Discontinued oral bicarb. Anticipate discharge soon. Repeat BMP and magnesium level 2-3 days postdischarge. Follow up outpatient in 1-2 weeks.
--- NOTE | 2019-11-15 22:18 | P.DS ---
Providers Date of admission: 11/06/19 22:18 Expected date of discharge: 11/15/19 Attending physician: Arvin Travis Consults: 11/06/19 22:20 Consult Physician Urgent Consulting Provider: Tracey Mejia Consult Reason/Comments: acute cholecystitis Do you want consulting provider notified?: Already Contacted 11/07/19 12:31 Consult Physician Routine Consulting Provider: Rafi Hernandez Consult Reason/Comments: decrese responsiveness on prersentation Do you want consulting provider notified?: Yes 11/08/19 23:01 Consult Physician Routine Consulting Provider: Angie Oro Consult Reason/Comments: Renal failure Do you want consulting provider notified?: Yes [facility] care [facility]: Chief Complaint: Lethargic History of presenting complaint: This is a pleasant 79-year-old patient of Dr. jacques. Chronic stable medical conditions include atrial fibrillation, hypertension, hyperlipidemia, arthritis varicose veins restless leg syndrome. Patient was transferred here from [facility]. Patient niece who is also the DP OA went to check on the patient and found her unresponsive on the ground. Patient was last known to be well on Thursday. She put her up in a chair. EMS was called. Workup at [facility] revealed that patient had had sepsis from acute cholecystitis. Patient is given IV Zosyn and IV Flagyl IV fluids and transferred here for further care. Patient's computed tomography scan of the brain showed chronic changes. Patient states that she has been having some abdominal pain for close to about a week. Having nausea and maybe vomited once or twice. Feeling tired and rundown. When I saw the patient this morning she is able to give me and able to communicate to me. EMS at [facility] that stated there was some right-sided weakness. Other the computed tomography scan came back to be negative. Patient currently has no focal symptoms of weakness. No change in speech or vision. Admitted with acute cholecystitis causing sepsis leading to delirium metabolic encephalopathy. Started on IV Zosyn. IV fluids. Laparoscopic cholecystectomy on November 08. Patient's renal function is gradually been worsening.-[place] to be from hypoperfusion. Creatinine went up from 1.96 up to 4.01. With hydration did come down to 2.76. Switched back from Lovenox to eliquis. Today-eating fairly well. No abdominal pain. Discussed with Dr. Olvera from nephrology. Okay to DC the patient. We'll follow up with renal function as an outpatient. Discussed with the patient. Surgical orders. Discussion and discharge planning more than 35 minutes Consultation: Dr. Olvera in particular from nephrology Dr. Mejia from general surgery Dr. Briseno from neurology Physical examination: VITAL SIGNS: 97.7, 85, 18, 121/94, 98% room air GENERAL: Sitting up in a chair, comfortable EYES: Pupils equal. Conjunctiva normal. HEENT: External appearance of nose and ears normal, oral cavity dry. NECK: JVD not raised; masses not palpable. HEART: First and second heart sounds are normal; no edema. LUNGS: Respiratory rate normal; clear to auscultation. ABDOMEN: Soft, no tenderness, no guarding or rigidity, liver spleen not palpable, no masses palpable. Dressing over the incision site PSYCH: Patient is able to answer questionsl. MUSCULOSKELETAL: Evidence of OA especially in the hands INVESTIGATIONS, reviewed in the clinical context: Potassium 4 bun 60 creatinine 3.3 to Labs on presentation: White count 19.5 hemoglobin 12.8 potassium 3.8 bun 40 creatinine 2.60 lactic acid 3.1 albumin 3 Investigations from [facility]: White count 27 hemoglobin 13.2 L 11 potassium 3.7 bun 37 creatinine 2.3 glucose 140 serum acetaminophen less than 10 UA negative lactic acid 6.6 AST 446 ALT 402 alkaline phosphatase 310 INR 1.55 pro calcitonin 169 EKG shows atrial fibrillation Computed tomography scan of the brain showed atrophic and chronic changes, chest x-ray showed cardiomegaly no infiltrates, computed tomography scan of the abdomen showed dilated gallbladder fecal impaction and colonic diverticulosis Assessment: -Acute cholecystitis causing sepsis, POA-with laparoscopic cholecystectomy on November 08 -Acute metabolic encephalopathy with delirium from sepsis, causing patient's initial presentation at [facility]-improved -Persistent atrial fibrillation -Hyperlipidemia -Essential better controlled -Primary osteoarthritis -Acute kidney injury a combination of prerenal and ATN.-Possibly from hypoperfusion. Renal function slowly improving -Possibly Ischemic hepatitis, - Disposition: Home Patient Condition at Discharge: Stable Plan - Discharge Summary Discharge Rx Participant: No New Discharge Prescriptions: New amLODIPine [Norvasc] 5 mg PO DAILY tab Acetaminophen Tab [Tylenol] 650 mg PO Q6HR PRN tab PRN Reason: Mild Pain Or Fever > 100.5 Continue Metoprolol Succinate [Toprol XL] 50 mg PO HS Atorvastatin [Lipitor] 80 mg PO DAILY Apixaban [Eliquis] 5 mg PO BID Metoprolol Succinate [Toprol XL] 100 mg PO DAILY Discharge Medication List Apixaban [Eliquis] 5 mg PO BID 11/06/19 [History] Atorvastatin [Lipitor] 80 mg PO DAILY 11/06/19 [History] Metoprolol Succinate [Toprol XL] 50 mg PO HS 11/06/19 [History] Metoprolol Succinate [Toprol XL] 100 mg PO DAILY 11/06/19 [History] Acetaminophen Tab [Tylenol] 650 mg PO Q6HR PRN tab 11/15/19 [Rx] amLODIPine [Norvasc] 5 mg PO DAILY tab 11/15/19 [Rx] Follow up Appointment(s)/Referral(s): Tracey Mejia DO [Doctor of Osteopathic Medicine] - 12/01/19 9:30 am [facility], [NON-STAFF] - Alejandro Jacques MD [Primary Care Provider] - 11/17/19 10:45 am () Vijay Olvera DO [STAFF PHYSICIAN] - 11/22/19 8:00 am (THis will be telephone call) Patient Instructions/Handouts: Acute Kidney Injury (DC), Low Fat Diet (DC), Laparoscopic Cholecystectomy (DC) Activity/Diet/Wound Care/Special Instructions: Please make sure PCP appt is made. Home care cannot see patient until pat ient is seen by Dr. Jacques (Per Dr. Jacques). -May shower starting Thursday. No tub baths for 1 week. Expect some bruising by the belly button incision. Follow a low-fat diet. Call if you develop fever, chills, nausea or vomiting, concerns of wound infection - [place] on [phone] [facility] 1-B: [phone] Meals on Wheels: [phone] bmp - 5 days Discharge Disposition: HOME WITH HOME HEALTH SERVICES
== END 2019-11-15 17:32 | disposition home health service (06) | DRG 853 ==
LOC: EC 20:37 → 3SCARD 22:18 → 4SSUR 11-14 19:40
PROVIDERS: ADMIT Hospitalist; ATTEND Hospitalist
PROC: 0DTJ4ZZ Resection of Appendix, Percutaneous Endoscopic Approach (ICD-10-PCS; principal; 2019-11-09 08:00)
DX: A41.9 Sepsis, unspecified organism (principal); G93.41 Metabolic encephalopathy; N17.0 Acute kidney failure with tubular necrosis; I48.19 Other persistent atrial fibrillation; F05 Delirium due to known physiological condition; K81.0 Acute cholecystitis; E87.2 Acidosis; D69.6 Thrombocytopenia, unspecified; K75.89 Other specified inflammatory liver diseases; N18.3 Chronic kidney disease, stage 3 (moderate); I12.9 Hypertensive chronic kidney disease with stage 1 through stage 4 chronic kidney disease, or unspecified chronic kidney disease; Z66 Do not resuscitate; R65.20 Severe sepsis without septic shock; Z11.59 Encounter for screening for other viral diseases; I35.2 Nonrheumatic aortic (valve) stenosis with insufficiency; E78.5 Hyperlipidemia, unspecified; I83.90 Asymptomatic varicose veins of unspecified lower extremity; I83.93 Asymptomatic varicose veins of bilateral lower extremities; J32.9 Chronic sinusitis, unspecified; M79.641 Pain in right hand; E86.9 Volume depletion, unspecified; R32 Unspecified urinary incontinence; G25.81 Restless legs syndrome; H26.9 Unspecified cataract; Z79.01 Long term (current) use of anticoagulants; Z79.899 Other long term (current) drug therapy; Z96.641 Presence of right artificial hip joint; M19.91 Primary osteoarthritis, unspecified site; Z87.81 Personal history of (healed) traumatic fracture; Z82.49 Family history of ischemic heart disease and other diseases of the circulatory system; Z83.79 Family history of other diseases of the digestive system
CPT/HCPCS: 36415; 76705; 76770; 80048; 80053; 80329; 81001; 82140; 82247; 82248; 83520; 83605; 83690; 83735; 84075; 84300; 84450; 84460; 85025; 85027; 85610; 85730; 87040; 87205; 87324; 88304; 93005; 96365; 99285

== ENCOUNTER 2019-11-17 18:43 | Inpatient (IN) | payer MEDICARE, BC ==
[2019-11-17] MEDS ORDERED: SODIUM CHLORIDE 0.9% 1,000 ML IV ONE (19:27)
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
[2019-11-17] MEDS: METOPROLOL SUCCINATE (ER) 50 MG TAB.ER.24H PO SCH (22:13)
--- NOTE | 2019-11-18 00:21 | CT ---
EXAMINATION TYPE: CT abdomen pelvis wo con DATE OF EXAM: 11/17/2019 COMPARISON: 11/06/2019 HISTORY: ABDOMINAL PAIN, R/O INTRA-ABDOMINAL BLEED CT DLP: 584.8 mGycm Automated exposure control for dose reduction was used. Images were obtained from the diaphragm to the floor the pelvis without contrast. There is pre-existi ng IV contrast in the kidneys. Heart is enlarged. There is no pericardial effusion. There is small left pleural effusion. There are clips from cholecystectomy. Bile ducts are not dilated. Spleen is intact. There are calcified small g ranulomata in the liver and spleen. There is no evidence of pancreatic mass. Stomach has normal size. There is moderate amount of free fluid in the abdomen. The density is 47 which suggests hemorrhagic f luid. Source of the apparent bleeding is not identified. There is no adrenal mass. Kidneys have normal size and contour. There is no hydronephrosis. Ureters a re not dilated. There is no retroperitoneal adenopathy. There is contrast in the urinary bladder. The re is right hip prosthesis. I see no bony destructive process. There is no lumbar compression fracture. There is mild lumbar levo scoliosis. The bony pelvis is intact. There is multilevel lumbar hypertrophic facet arthropathy. There is no evidence of free air. There is no evidence of a bowel obstruction. The right colon is dif ficult to evaluate because of the high attenuation ascites fluid and the lack of any contrast. There is lack of any significant air in the right colon. Therefore right colonic mass is possible.: There i s 6 cm area of increased density right side of the abdomen that could be potential large bowel mass. Impression There is moderate amount of high attenuation ascites fluid in the abdomen and pelvis that is consiste nt with hemorrhagic ascites. There is potential hemorrhagic mass in the right side of the abdomen yvonne t could be involving large bowel. These abnormalities are a change compared to recent exam of 11/06/19 20. No free air. No bowel obstruction. Moderate cardiomegaly. Old granulomatous disease. Exam limited by lack of any oral contrast.
[2019-11-18 03:01] LABS: Anisocytosis Slight; Basophils % (A) 0 %; Eosinophils % (A) 0 %; HCT 21.1 % (34.0-46.0); Hypochromasia Slight; Lymphocytes # (A) 1.1 k/uL (1.0-4.8); Lymphocytes % (A) 10 %; MCH 31.8 pg (25.0-35.0); MCHC 33.2 g/dL (31.0-37.0); MCV 95.8 fL (80.0-100.0); Mean Platelet Volume 10.3; Monocytes # (A) 0.6 k/uL (0-1.0); Monocytes % (A) 5 %; Neutrophils # (A) 9.7 k/uL (1.3-7.7); Neutrophils % (A) 83 %; RDW 16.4 % (11.5-15.5); WBC 11.8 k/uL (3.8-10.6)
[2019-11-18 03:36] LABS: Platelet Count 183 k/uL (150-450)
[2019-11-18 07:25] LABS: Glucose,Whole Blood 108 mg/dL (75-99)
[2019-11-18 08:28] LABS: Anisocytosis Slight; Basophils % (A) 0 %; Eosinophils # (A) 0.1 k/uL (0-0.7); Eosinophils % (A) 1 %; HCT 20.4 % (34.0-46.0); Hypochromasia Slight; Lymphocytes # (A) 1.1 k/uL (1.0-4.8); Lymphocytes % (A) 10 %; MCH 32.2 pg (25.0-35.0); MCHC 33.5 g/dL (31.0-37.0); Macrocytosis Slight; Mean Platelet Volume 9.3; Monocytes # (A) 0.5 k/uL (0-1.0); Monocytes % (A) 5 %; Neutrophils # (A) 9.4 k/uL (1.3-7.7); Neutrophils % (A) 83 %; Platelet Count 182 k/uL (150-450); RBC 2.13 m/uL (3.80-5.40); RDW 16.9 % (11.5-15.5); WBC 11.3 k/uL (3.8-10.6)
[2019-11-18 08:36] LABS: Calcium 7.7 mg/dL (8.4-10.2); INR 1.2 (<1.2); Potassium 3.7 mmol/L (3.5-5.1); Prothrombin Time 11.7 sec (9.0-12.0); Total Bilirubin 1.1 mg/dL (0.2-1.3); Total Protein 6.1 g/dL (6.3-8.2)
[2019-11-18 08:43] LABS: HGB 6.8 gm/dL (11.4-16.0)
[2019-11-18] MEDS: ATORVASTATIN 80 MG TAB PO SCH (09:07)
[2019-11-18] MEDS: METOPROLOL SUCCINATE (ER) 100 MG TAB.ER.24H PO SCH (09:07)
[2019-11-18 11:40] LABS: Glucose,Whole Blood 102 mg/dL (75-99)
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
[2019-11-18 18:48] LABS: Anisocytosis Slight; HCT 26.1 % (34.0-46.0); Hypochromasia Slight; MCHC 33.6 g/dL (31.0-37.0); MCV 95.1 fL (80.0-100.0); Mean Platelet Volume 9.5; Platelet Count 208 k/uL (150-450); RBC 2.74 m/uL (3.80-5.40); RDW 16.4 % (11.5-15.5); WBC 12.5 k/uL (3.8-10.6)
[2019-11-18 19:02] LABS: HGB 8.8 gm/dL (11.4-16.0)
[2019-11-18] MEDS: METOPROLOL SUCCINATE (ER) 50 MG TAB.ER.24H PO SCH (21:08)
--- NOTE | 2019-11-18 22:14 | CONS ---
CONSULTATION DATE OF DICTATION: 11/18/2019 REASON FOR CONSULTATION: Anemia, questionable GI bleed. HISTORY OF PRESENT ILLNESS: The patient is an 79-year-old pleasant white female who underwent laparoscopic cholecystectomy for acute cholecystitis 10 days ago. She was just discharged home 5 days ago. Apparently she went to the emergency room at [facility] yesterday because of her abdominal pain, weakness and dark-colored stool. She was noted to have anemia with a hemoglobin of 7 g/dL and hence was transferred to [facility] for possible GI bleed. After arrival in the emergency room here, she did have a CT of the abdomen and pelvis done that showed a moderate amount of ascites, moderate amount of free fluid in the abdomen with a high density suggestive hemorrhagic ascites. Also questionable right colonic mass was mentioned, but the study was done without any contrast. The patient was evaluated by Dr. Mejia and the plan was to observe her closely. Since being in the hospital, as per the nursing staff, there was no evidence of active bleeding. She had one dark-colored stool this morning but no melena. She reports no abdominal pain. No nausea, vomiting. PAST MEDICAL HISTORY: Her past medical history is significant for hypertension, atrial fibrillation, on Eliquis, degenerative joint disease, restless legs syndrome, varicose veins. PAST SURGICAL HISTORY: Recent cholecystectomy 10 days ago, bilateral cataract surgery. SOCIAL HISTORY: No smoking. No alcohol use. FAMILY HISTORY: Unremarkable. MEDICATIONS: Medications at home include Eliquis, Lipitor, Toprol. ALLERGIES: NONE. REVIEW OF SYSTEMS: CARDIOPULMONARY: No chest pain or shortness of breath. GENITOURINARY: No dysuria or hematuria. MUSCULOSKELETAL: Unremarkable. SKIN: Unremarkable. ENDOCRINE: Unremarkable. PSYCHIATRIC: Unremarkable. NEUROLOGY: Unremarkable. ENT/VISION: Unremarkable. CONSTITUTIONAL: No recent weight loss. No fever, chills, night sweats. PHYSICAL EXAMINATION: Blood pressure 148/78, pulse rate 102, temperature 98.4. HEENT examination unremarkable. Conjunctivae pink. Sclerae anicteric. Oral cavity no lesions. NECK: No JVD or lymph node enlargement. CHEST: Clear to auscultation. HEART: Regular rate and rhythm. ABDOMEN: Soft. It was slightly distended but it was benign. Bowel sounds are positive. No organomegaly. EXTREMITIES: No pedal edema. Right wrist: Significant swelling noted. SKIN: No rashes. NEUROLOGIC: Alert and oriented x3. No focal deficits. LABS: Labs from today: Hemoglobin was 7, dropped to 6.8; receiving one unit of blood transfusion. WBC 11.3, platelets normal. Basic metabolic panel: INR is 1.2. AST and ALT are 71 and 68, respectively. Alkaline phosphatase is 137. IMPRESSION: 1. Severe symptomatic anemia and recent CT scan showing hemorrhagic ascites. Dr. Mejia has been consulted, who recommended observation at this time. 2. Hemoccult-positive stool, but clinically no evidence of active gastrointestinal bleed. 3. Acute kidney injury. 4. Atrial fibrillation, on anticoagulation with Eliquis, currently on hold. RECOMMENDATIONS: 1. No need for any endoscopic intervention at the present time. 2. Monitor CBC on a daily basis and transfuse if the hemoglobin is less than 7. 3. Continue with Protonix 40 mg daily. 4. Repeat labs in the morning, and will follow with you closely. Thank you for this consultation. LESLIE / VENESSAN: [id number] /
[2019-11-19 07:55] LABS: Anisocytosis Slight; Basophils % (A) 0 %; Eosinophils # (A) 0.1 k/uL (0-0.7); Eosinophils % (A) 1 %; HCT 25.6 % (34.0-46.0); HGB 8.5 gm/dL (11.4-16.0); Hypochromasia Slight; Lymphocytes % (A) 9 %; MCH 32.1 pg (25.0-35.0); MCHC 33.2 g/dL (31.0-37.0); MCV 96.8 fL (80.0-100.0); Macrocytosis Slight; Mean Platelet Volume 8.9; Monocytes # (A) 0.5 k/uL (0-1.0); Monocytes % (A) 5 %; Neutrophils % (A) 84 %; Platelet Count 214 k/uL (150-450); RBC 2.64 m/uL (3.80-5.40); RDW 16.4 % (11.5-15.5); WBC 10.8 k/uL (3.8-10.6)
[2019-11-19] MEDS: METOPROLOL SUCCINATE (ER) 100 MG TAB.ER.24H PO SCH (08:56)
[2019-11-19] MEDS: ATORVASTATIN 80 MG TAB PO SCH (08:56)
--- NOTE | 2019-11-19 09:17 | P.PN ---
Subjective Progress Note Date: 11/19/19 Principal diagnosis: GI bleeding The patient says she feels better. She would like to go home. Denies any abdominal pain, nausea or vomiting. She doesn't think she's had any bloody bowel movements. Nursing reports a normal bowel movement this morning with no blood Objective - Vital Signs Vital signs: Vital Signs Temp 97.5 F L 11/19/19 07:00 Pulse 87 11/19/19 07:00 Resp 16 11/19/19 07:00 BP 163/78 11/19/19 07:00 Pulse Ox 98 11/19/19 07:00 Intake & Output 11/18/19 11/19/19 11/19/19 18:59 06:59 18:59 Intake Total 1390 600 Balance 1390 600 Intake: Intake, IV Titration 600 Amount Sodium Chloride 0.9% 1, 600 000 ml @ 75 mls/hr IV . [id number] ONE Rx#:[id number] Oral 1080 Blood Product 310 Rc As-1 Unit 310 [id number] Other: Voiding Method Toilet Toilet Bedpan Bedpan # Voids 3 1 # Bowel Movements 1 1 - Constitutional General appearance: Present: cooperative, no acute distress - Gastrointestinal General gastrointestinal: Present: normal bowel sounds, soft. Absent: tenderness Localized gastrointestinal: surgical scar: diffuse (Incisions healing without cellulitis. Some mild bruising) - Labs CBC & Chem 7: 11/19/19 07:27 11/18/19 08:07 Labs: Abnormal Lab Results - Last 24 Hours (Table) 11/18/19 11/18/19 11/18/19 Range/Units 09:14 11:38 17:57 WBC 12.5 H (3.8-10.6) k/uL RBC 2.74 L (3.80-5.40) m/uL Hgb 8.8 L D (11.4-16.0) gm/dL Hct 26.1 L (34.0-46.0) % RDW 16.4 H (11.5-15.5) % Neutrophils # (1.3-7.7) k/uL POC Glucose (mg/dL) 102 H (75-99) mg/dL Crossmatch See Detail 11/19/19 Range/Units 07:27 WBC 10.8 H (3.8-10.6) k/uL RBC 2.64 L (3.80-5.40) m/uL Hgb 8.5 L (11.4-16.0) gm/dL Hct 25.6 L (34.0-46.0) % RDW 16.4 H (11.5-15.5) % Neutrophils # 9.0 H (1.3-7.7) k/uL POC Glucose (mg/dL) (75-99) mg/dL Crossmatch Assessment and Plan (1) Anemia Current Visit: Yes Status: Acute Code(s): D64.9 - ANEMIA, UNSPECIFIED SNOMED Code(s): 876508325 (2) GI bleed Current Visit: Yes Status: Acute Code(s): K92.2 - GASTROINTESTINAL HEMORRHAGE, UNSPECIFIED SNOMED Code(s): 64551657 (3) STEFANIE (acute kidney injury) Current Visit: No Status: Acute Code(s): N17.9 - ACUTE KIDNEY FAILURE, UNSPECIFIED SNOMED Code(s): 22544555 Plan: Patient is surgically stable with no signs of ongoing bleeding. Recommend holding Eliquis.Follow-up as needed
[2019-11-19 10:44] LABS: Poikilocytosis (M) Present; Polychromasia Present
--- NOTE | 2019-11-19 16:37 | PN ---
PROGRESS NOTE DATE OF SERVICE: 11/19/2019 Patient is an 79-year-old pleasant white female admitted to the hospital with fatigue and weakness. She is status post laparoscopic cholecystectomy 10 days ago, currently on Eliquis. She was admitted to the hospital with abdominal distention and severe anemia. CT showed ( ) ascites. Patient is doing well today. She reports no abdominal pain. No nausea, vomiting. Overall she feels much better. Had one bowel movement yesterday that was brown in color. PHYSICAL EXAMINATION: Appears comfortable. VITAL SIGNS: Stable. Blood pressure 163/78, pulse rate 87, temperature 97.5. HEENT examination unremarkable. Conjunctivae pink. Sclerae anicteric. Oral cavity, no lesions. NECK: No JVD or lymph node enlargement. CHEST: Clear to auscultation. HEART: Regular rate and rhythm. ABDOMEN: Soft. It was slightly distended but it was nontender. Bowel sounds are positive. No organomegaly. EXTREMITIES: No pedal edema. SKIN; No rashes. NEUROLOGIC: Alert and oriented x3. No focal deficits. LABS: From today hemoglobin 8.5, WBC 10.8, platelets normal. IMPRESSION: 1. Symptomatic anemia status post 2 units of PRBC transfusion. Presently hemoglobin stable at 8.5 g/dL. 2. Abdominal distention, possible hemorrhagic ascites on CT scan of the abdomen. However, she remains clinically stable. Dr. Mejia following the patient closely. She is status post laparoscopic cholecystectomy 10 days ago for acute cholecystitis. 3. Acute kidney injury, improving BUN and creatinine. 4. Atrial fibrillation on Eliquis, currently on hold. RECOMMENDATIONS: 1. Continue to hold Eliquis. 2. Monitor CBC daily. 3. Clinically no evidence of active GI bleed and hence no endoscopic intervention. 4. We will follow with you closely. Thank you for this consultation. MMODL / IJN: [id number] /
--- NOTE | 2019-11-19 17:46 | P.PN ---
Progress Note - Text Progress Note Date: 11/19/19 Chief Complaint: Decreased hemoglobin History of presenting complaint: This is a pleasant 79-year-old patient of Dr. ca. Chronic stable medical conditions include atrial fibrillation, hypertension, hyperlipidemia, arthritis varicose veins restless leg syndrome. Patient was just in hospital from November 05 through November 14.Admitted with acute cholecystitis causing sepsis leading to delirium metabolic encephalopathy. Started on IV Zosyn. IV fluids. Laparoscopic cholecystectomy on November 08. ATN/AKA.-[place] to be from hypoperfusion. Creatinine went up from 1.96 up to 4.01. With hydration did come down to 2.76 before discharge.. Switched back from Lovenox to eliquis. Patient's hemoglobin was 12.2 on November 08. Patient presented to the ER. From [facility]. She had gone there for decreased responsiveness according to family. Patient is found to [facility] that was severely anemic and she was therefore transferred here. Dr. Mejia was consulted from the ER . Computed tomography scan of the abdomen did show a possible intra-abdominal bleed. Patient has been on eliquis. Patient only does describe slight abdominal discomfort no pain. Patient's stool was noted to be guaiac positive with no overt signs of bleeding otherwise. Blood was ordered this morning. patient admitted with acute intra-abdominal bleed following cholecystectomy that was done on November 08. Patient received a unit of blood. Today-laying bed. That was discussed by surgery. Abdominal pain. Had a bowel movement. No nausea vomiting. Review of systems: Was done for constitutional, cardiovascular, GI, pulmonary. relevant finding as above Active Medications Atorvastatin Calcium (Lipitor) 80 mg PO DAILY [facility] Last Admin: 11/19/19 08:56 Dose: 80 mg Documented by: Metoprolol Succinate (Toprol Xl) 50 mg PO HS [facility] Last Admin: 11/18/19 21:08 Dose: 50 mg Documented by: Metoprolol Succinate (Toprol Xl) 100 mg PO DAILY [facility] Last Admin: 11/19/19 08:56 Dose: 100 mg Documented by: Physical examination: VITAL SIGNS:97.5, 87, 16, 160s to 78, 98% room air GENERAL:negative but, comfortable EYES: Pupils equal. Conjunctiva pale HEENT: External appearance of nose and ears normal, oral cavity dry. NECK: JVD not raised; masses not palpable. HEART: First and second heart sounds are normal; no edema. LUNGS: Respiratory rate normal; clear to auscultation. ABDOMEN: Soft,no tenderness no guarding or rigidity, liver spleen not palpable, no masses palpable. PSYCH: Patient is able to answer questionsl. MUSCULOSKELETAL: Evidence of OA especially in the hands INVESTIGATIONS, reviewed in the clinical context: White count 10.8 hemoglobin 8.5 Previous testing White count 11.8 hemoglobin 7 potassium 3.7 bun 51 creatinine 2.66 Computed tomography scan of the abdomen-moderate amount of free fluid in the abdomen. Density suggestive of hemorrhagic fluid. Question about a hemorrhagic mass on the right of the abdomen about 6 cm reported. No free air. Assessment: -Patient on November 08 underwent laparoscopic cholecystectomy by Dr. Mejia. Patient's hemoglobin was 10 around 12. Has talked 5 units of blood. Computed tomography scan of the abdomen does confirm what appears to be hemorrhagic fluid. Possibly leaking from that area. Patient has some abdominal discomfort but no pain as such. May be noted that patient also had been on eliquis. -Acute kidney injury from ATN from hypoperfusion from recent admission. Crit wa s 2.76 -Persistent atrial fibrillation -Hyperlipidemia -Essential better controlled -Primary osteoarthritis -Acute intra-abdominal blood loss anemia. Patient received a unit of blood. - Plan: patient is feeling better. No abdominal pain. Hemoglobinstable,. Diet was advanced by surgery. Patient keen to go home.repeat hemoglobin in the morning.
[2019-11-19] MEDS: METOPROLOL SUCCINATE (ER) 50 MG TAB.ER.24H PO SCH (21:39)
[2019-11-20 07:47] VITALS: RESP 18; TEMP 97.6
[2019-11-20] MEDS: METOPROLOL SUCCINATE (ER) 100 MG TAB.ER.24H PO SCH (07:50)
[2019-11-20] MEDS: ATORVASTATIN 80 MG TAB PO SCH (07:50)
[2019-11-20 08:24] LABS: Anisocytosis Slight; HCT 29.4 % (34.0-46.0); HGB 9.3 gm/dL (11.4-16.0); Hypochromasia Slight; MCH 30.6 pg (25.0-35.0); MCHC 31.6 g/dL (31.0-37.0); MCV 96.9 fL (80.0-100.0); Macrocytosis Slight; Mean Platelet Volume 9.3; Platelet Count 218 k/uL (150-450); RBC 3.04 m/uL (3.80-5.40); RDW 16.5 % (11.5-15.5); WBC 12.3 k/uL (3.8-10.6)
[2019-11-20 09:02] VITALS: BP 165/82; PULSE 90
--- NOTE | 2019-11-20 13:35 | P.PN ---
Progress Note - Text Progress Note Date: 11/20/19 Hemoglobin 9.3. No sign of ongoing bleeding. Will follow up as needed
--- NOTE | 2019-11-20 16:09 | PN ---
PROGRESS NOTE The patient is an 79-year-old pleasant white female who underwent laparoscopic cholecystectomy 10 days ago and presented to the hospital with severe anemia and abdominal distention. CT showed hemorrhagic ascites. She was on Eliquis, which is on hold. She is doing well. She has no nausea, vomiting. No abdominal pain. Had one bowel movement this morning, was brown in color. Overall feeling well. She received 2 units of PRBC transfusion since being in the hospital. PHYSICAL EXAMINATION: Appears comfortable in no apparent distress. Vital signs stable. Blood pressure 195/88, pulse rate 88. Temperature 97.6. HEENT examination unremarkable. Conjunctivae pink. Sclerae anicteric. Oral cavity no lesions. NECK no JVD or lymph node enlargement. CHEST: Clear to auscultation. HEART: Regular rate and rhythm. ABDOMEN: Soft, bowel sounds are positive. No organomegaly. EXTREMITIES: No pedal edema. SKIN no rashes. NEUROLOGIC: Alert and oriented x3. No focal deficits. LABS: Today hemoglobin is 9.3, WBC and platelets are within normal limits. IMPRESSION: 1. Severe anemia with a hemoglobin of 6.8, but no evidence of active gastrointestinal bleed. She was on Eliquis which is currently on hold. Hemoglobin stable. 2. Possible hemorrhagic ascites as per the CT scan of the abdomen. Patient status post lap aaron [address] Mejia for acute cholecystitis. Denies any abdominal pain. RECOMMENDATIONS: 1. Advance diet as tolerated. 2. Monitor hemoglobin closely. 3. She can be discharged home today. 4. Follow up in office as needed. Thank you for this consultation. MMODL / IJN: [id number] /
--- NOTE | 2019-11-20 18:14 | P.DS ---
Providers Date of admission: 11/17/19 19:27 Expected date of discharge: 11/20/19 Attending physician: Arvin Travis Consults: 11/17/19 19:27 Consult Physician Urgent Consulting Provider: Marizol Mayen Consult Reason/Comments: GI bleed Do you want consulting provider notified?: Yes 11/17/19 20:53 Consult Physician Urgent Consulting Provider: Tracey Farley Consult Reason/Comments: Postop Do you want consulting provider notified?: Yes Primary care physician: [facility] Course: Chief Complaint: Decreased hemoglobin History of presenting complaint: This is a pleasant 79-year-old patient of Dr. ca. Chronic stable medical conditions include atrial fibrillation, hypertension, hyperlipidemia, arthritis varicose veins restless leg syndrome. Patient was just in hospital from November 05 through November 14.Admitted with acute cholecystitis causing sepsis leading to delirium metabolic encephalopathy. Started on IV Zosyn. IV fluids. [place] roscopic cholecystectomy on November 08. ATN/AKA.-[place] to be from hypoperfusion. Creatinine went up from 1.96 up to 4.01. With hydration did come down to 2.76 before discharge.. Switched back from Lovenox to eliquis. Patient's hemoglobin was 12.2 on November 08. Patient presented to the ER. From [facility]. She had gone there for decreased responsiveness according to family. Patient is found to hemoglobin that was severely anemic and she was therefore transferred here. Dr. Farley was consulted from the ER . Computed tomography scan of the abdomen did show a possible intra-abdominal bleed. Patient has been on eliquis. Patient only does describe slight abdominal discomfort no pain. Patient's stool was noted to be guaiac positive with no overt signs of bleeding otherwise. Blood was ordered this morning. patient admitted with acute intra-abdominal bleed following cholecystectomy that was done on November 08. Patient received a unit of blood. Eliquis was discontinued. Hemoglobin remained stable. Today-. Doing well, cheerful. Excited to go home. No abdominal pain. Did tolerate her diet. Did have a bowel movement. Eliquis will be resumed when okay with Dr. Farley. It will be at a reduced dose of 2.5 twice a day because of renal function. Cleared by surgery Consultation: Dr. Farley from surgery Physical examination: VITAL SIGNS: 97.6, 88, 18, 165/82, 99% room air GENERAL: Sitting upon a chair, comfortable EYES: Pupils equal. Conjunctiva pale HEENT: External appearance of nose and ears normal, oral cavity dry. NECK: JVD not raised; masses not palpable. HEART: First and second heart sounds are normal; no edema. LUNGS: Respiratory rate normal; clear to auscultation. ABDOMEN: Soft,no tenderness no guarding or rigidity, liver spleen not palpable, no masses palpable. PSYCH: Patient is able to answer questionsl. MUSCULOSKELETAL: Evidence of OA especially in the hands INVESTIGATIONS, reviewed in the clinical context: Hemoglobin 9.3 Previous testing White count 11.8 hemoglobin 7 potassium 3.7 bun 51 creatinine 2.66 Computed tomography scan of the abdomen-moderate amount of free fluid in the abdomen. Density suggestive of hemorrhagic fluid. Question about a hemorrhagic mass on the right of the abdomen about 6 cm reported. No free air. Assessment: -Patient on November 08 underwent laparoscopic cholecystectomy by Dr. Farley. Patient's hemoglobin was 10 around 12. Has talked 5 units of blood. Computed tomography scan of the abdomen does confirm what appears to be hemorrhagic fluid. Possibly leaking from that area. Patient has some abdominal discomfort but no pain as such. May be noted that patient also had been on eliquis. -Acute kidney injury from ATN from hypoperfusion from recent admission. Crit was 2.76 -Persistent atrial fibrillation -Hyperlipidemia -Essential better controlled -Primary osteoarthritis -Acute intra-abdominal blood loss anemia. Patient received a unit of blood. - Disposition: Home Patient Condition at Discharge: Stable Plan - Discharge Summary Discharge Rx Participant: No New Discharge Prescriptions: Continue Metoprolol Succinate [Toprol XL] 50 mg PO HS Atorvastatin [Lipitor] 80 mg PO DAILY Metoprolol Succinate [Toprol XL] 100 mg PO DAILY Changed Apixaban [Eliquis] 2.5 mg PO BID #0 Discharge Medication List Atorvastatin [Lipitor] 80 mg PO DAILY 11/06/19 [History] Metoprolol Succinate [Toprol XL] 50 mg PO HS 11/06/19 [History] Metoprolol Succinate [Toprol XL] 100 mg PO DAILY 11/06/19 [History] Apixaban [Eliquis] 2.5 mg PO BID #0 11/20/19 [Rx] Follow up Appointment(s)/Referral(s): Tracey Farley DO [Doctor of Osteopathic Medicine] - 3 Days [facility], [NON-STAFF] - Bao Griggs MD [Primary Care Provider] - 1-2 Days Patient Instructions/Handouts: Gastrointestinal Bleeding (DC), Anemia (DC) Activity/Diet/Wound Care/Special Instructions: resume eliquis at 2.5 mg po bid when ok with dr farley cbc - 5 days
== END 2019-11-20 15:05 | disposition home health service (06) | DRG 919 ==
LOC: EC 18:43 → 4SSUR 19:27
PROVIDERS: ADMIT Hospitalist; ATTEND Hospitalist
PROC: 30233N1 Transfusion of Nonautologous Red Blood Cells into Peripheral Vein, Percutaneous Approach (ICD-10-PCS; principal; 2019-11-18)
DX: K91.840 Postprocedural hemorrhage of a digestive system organ or structure following a digestive system procedure (principal); N17.0 Acute kidney failure with tubular necrosis; R18.8 Other ascites; I48.19 Other persistent atrial fibrillation; D62 Acute posthemorrhagic anemia; E78.5 Hyperlipidemia, unspecified; G25.81 Restless legs syndrome; Z11.59 Encounter for screening for other viral diseases; I10 Essential (primary) hypertension; J32.9 Chronic sinusitis, unspecified; I83.93 Asymptomatic varicose veins of bilateral lower extremities; M19.91 Primary osteoarthritis, unspecified site; R19.5 Other fecal abnormalities; H26.9 Unspecified cataract; Z79.01 Long term (current) use of anticoagulants; Z79.899 Other long term (current) drug therapy; Z96.641 Presence of right artificial hip joint; Z87.81 Personal history of (healed) traumatic fracture; Z98.890 Other specified postprocedural states; Z90.49 Acquired absence of other specified parts of digestive tract; Y83.6 Removal of other organ (partial) (total) as the cause of abnormal reaction of the patient, or of later complication, without mention of misadventure at the time of the procedure; Z82.49 Family history of ischemic heart disease and other diseases of the circulatory system; Z83.79 Family history of other diseases of the digestive system
CPT/HCPCS: 74176; 80053; 85025; 85027; 85610; 86850; 86900; 86901; 86920; 99285

== ENCOUNTER 2020-05-19 15:39 | Emergency (ER) | payer MEDICARE, BC ==
[2020-05-19 15:48] VITALS: RESP 16
[2020-05-19] MEDS ORDERED: SODIUM CHLORIDE 0.9% 500 ML 500 ML IV STA (15:59)
[2020-05-19 16:08] LABS: Glucose,Whole Blood 142 mg/dL (75-99)
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
[2020-05-19 16:25] LABS: HCT 40.5 % (34.0-46.0); HGB 13.9 gm/dL (11.4-16.0); MCH 31.6 pg (25.0-35.0); MCHC 34.3 g/dL (31.0-37.0); MCV 92.2 fL (80.0-100.0); Platelet Count 117 k/uL (150-450); RBC 4.39 m/uL (3.80-5.40); RDW 13.4 % (11.5-15.5); WBC 12.1 k/uL (3.8-10.6)
--- NOTE | 2020-05-19 16:35 | CT ---
EXAMINATION TYPE: CT brain wo con for TPA DATE OF EXAM: 05/19/2020 COMPARISON: 11/06/2019. HISTORY: Syncope episode, witnessed TIA by EMS. No hx of stroke. CT DLP: 1102.8 mGycm Automated exposure control for dose reduction was used. FINDINGS: There is no acute intracranial hemorrhage, midline shift or hydrocephalus. There is stable mild white matter disease. The paranasal sinuses and mastoid air cells are adequately aerated. Calvarium is int act. IMPRESSION: NO ACUTE INTRACRANIAL ABNORMALITY.
[2020-05-19 16:44] LABS: Band Neutrophils % 10 %; Lymphocytes # (M) 0.24 k/uL (1.0-4.8); Monocytes # (M) 0.12 k/uL (0-1.0); Neutrophils % (M) 87 %; Nucleated Red Blood Cells 0 /100 WBC (0-0); Total Cells Counted 100
[2020-05-19 16:45] LABS: Toxic Granulation Present
[2020-05-19 16:49] LABS: INR 1.3 (<1.2); Partial Thromboplastin Time 25.8 sec (22.0-30.0); Prothrombin Time 12.7 sec (9.0-12.0)
--- NOTE | 2020-05-19 16:52 | CT ---
EXAMINATION TYPE: CT angio head neck DATE OF EXAM: 05/19/2020 HISTORY: Syncope episode, witnessed TIA by EMS. No hx of stroke. COMPARISON: 03/13/2017. CT DLP: 440.9 mGycm. Automated Exposure Control for Dose Reduction was Utilized. TECHNIQUE: CTA scan of the neck is performed with IV Contrast, patient injected with 65 mL of Isovue 370, axial images are obtained, coronal and sagittal reformatted images are reviewed. Three-D recons tructed images are created on an independent workstation and reviewed. FINDINGS: Carotid/Vascular Structures: There is moderate 50-60% stenosis of the right proximal ICA and greater than 70% stenosis of the left proximal ICA. Otherwise the carotid arteries patent elsewhere. The vert ebral and cerebral arteries are grossly patent without significant stenosis. No evidence of aneurysm or dissection. The visualized major dural sinuses are patent. Other: Aortic valve replacement noted. IMPRESSION: No acute abnormality of the CTA head/neck. Severe left and moderate right proximal ICA stenosis.
--- NOTE | 2020-05-19 16:53 | XR ---
EXAMINATION TYPE: XR chest 1V portable DATE OF EXAM: 05/19/2020 COMPARISON: 11/06/2019. HISTORY: Syncope. TECHNIQUE: Single frontal view of the chest is obtained. FINDINGS: There is no focal air space opacity, pleural effusion, or pneumothorax seen. Cardiomegaly and aortic valve replacement noted. The osseous structures are intact. IMPRESSION: No acute process.
[2020-05-19 17:08] LABS: Albumin 3.7 g/dL (3.5-5.0); Calcium 9.3 mg/dL (8.4-10.2); Magnesium 1.7 mg/dL (1.6-2.3); Potassium 3.1 mmol/L (3.5-5.1); Total Bilirubin 5.9 mg/dL (0.2-1.3); Total Protein 6.9 g/dL (6.3-8.2)
[2020-05-19] MEDS ORDERED: ASPIRIN 81 MG PO STA (17:11)
[2020-05-19] MEDS ORDERED: SODIUM CHLORIDE 0.9% 1,000 ML IV ONE (17:22)
--- NOTE | 2020-05-19 18:29 | US ---
EXAMINATION TYPE: US gallbladder DATE OF EXAM: 05/19/2020 COMPARISON: CT & US 2019 CLINICAL HISTORY: elevated LFT's. Elevated LFT's EXAM MEASUREMENTS: Liver Length: 18.0 cm CBD: 1.0 cm Right Kidney: 10.6 x 4.3 x 4.7 cm Pancreas: visualized portions wnl, limited by overlying midline bowel gas Liver: Mildly enlarged without focal lesion seen. Gallbladder: surgically absent Evidence for sonographic Russell's sign: no CBD: Dilated and may represent postsurgical change. Right Kidney: wnl IMPRESSION: No sonographic evidence for acute abnormality. Chronic findings as above.
[2020-05-19] MEDS ORDERED: PIPERACILLIN-TAZOBACTAM 3.375 GM in SODIUM CHLORIDE 0.9% 100 ML IVPB STA (18:36)
[2020-05-19 19:33] LABS: Acetaminophen <10.0 ug/mL; Alcohol <10 mg/dL
[2020-05-19 20:06] VITALS: BP 113/59; PULSE 83; TEMP 97.9
[2020-05-19 20:06] LABS: Amorphous Sediment,Urine Rare /hpf; Appearance,Urine Turbid (Clear); Bacteria,Urine Rare /hpf; Bilirubin,Urine 2+ (Negative); Blood,Urine Large (Negative); Color,Urine Dark Yellow; Glucose,Urine (UA) Negative (Negative); Ketones,Urine Negative (Negative); Leukocyte Esterase,Urine Negative (Negative); Mucus,Urine Occasional /hpf; Nitrite,Urine Negative (Negative); Protein,Urine 3+ (Negative); RBC,Urine 14 /hpf (0-5); Specific Gravity,Urine 1.044 (1.001-1.035); Squamous Epithelial Cell,Urine 1 /hpf (0-4); WBC,Urine 13 /hpf (0-5)
[2020-05-20 11:18] LABS: Hepatitis A Antibody IgM Non-Reactive (Non-Reactive); Hepatitis B Core IgM Non-Reactive (Non-Reactive); Hepatitis B Surface Antigen Non-Reactive (Non-Reactive); Hepatitis C IgG Antibody Non-Reactive (Non-Reactive)
== END 2020-05-19 20:05 | disposition other institution (70) ==
LOC: EC 15:39
DX: Z03.818 Encounter for observation for suspected exposure to other biological agents ruled out (principal); R55 Syncope and collapse; I48.91 Unspecified atrial fibrillation; R41.82 Altered mental status, unspecified; R77.8 Other specified abnormalities of plasma proteins; R79.89 Other specified abnormal findings of blood chemistry; G81.94 Hemiplegia, unspecified affecting left nondominant side; I10 Essential (primary) hypertension; E78.5 Hyperlipidemia, unspecified; R74.02 Elevation of levels of lactic acid dehydrogenase [LDH]; Z79.899 Other long term (current) drug therapy; Z96.641 Presence of right artificial hip joint; Z86.73 Personal history of transient ischemic attack (TIA), and cerebral infarction without residual deficits; Z66 Do not resuscitate
CPT/HCPCS: 99285; 96365; 96361 ×4; 36415; 83880; 80053; 80074; 82140; 82550; 83605; 83735; 84484; 85025; 85610; 85730; 81001; 87040; 87086; 87077; 87186; 71045; 76705; 70496; 70450; 70498; G0480 ×2; U0003; J2543; Q9967; 80320; 80329; 93005

== ENCOUNTER 2020-11-27 12:21 | Inpatient (IN) | payer MEDICARE, BC ==
[2020-11-27] MEDS ORDERED: NALOXONE 0.4 MG/ML 1 ML VIAL IV PRN (12:34)
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
[2020-11-27] MEDS ORDERED: ACETAMINOPHEN TAB 325 MG TAB PO PRN (13:57)
[2020-11-27] MEDS ORDERED: DILTIAZEM 5 MG/ML 5 ML VIAL IVP PRN (13:57)
[2020-11-27] MEDS ORDERED: MELATONIN 3 MG TABLET PO PRN (13:57)
[2020-11-27] MEDS: MAGNESIUM SULFATE-D5W PMX 1 GM in DEXTROSE/WATER 1 100ML.BAG IVPB SCH ×2 (14:25→15:45)
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
--- NOTE | 2020-11-27 14:54 | XR ---
EXAMINATION TYPE: XR chest 1V portable DATE OF EXAM: 11/27/2020 COMPARISON: Chest x-ray 05/27/2020, 11/27/2020 HISTORY: Palpitations, Patient A. fib RVR presenting with weakness TECHNIQUE: Single frontal view of the chest is obtained. FINDINGS: The heart is enlarged as on prior exams. Aorta is dense. There is no evident pneumothorax or pleural effusion. Difficult to exclude retrocardiac density. Generators present in left pectoral r egion, there are leads in the right atrium and ventricle, patient is status post TAVR procedure. IMPRESSION: Stable cardiomegaly. Difficult to exclude abnormal retrocardiac density, follow-up as in dicated
[2020-11-27] MEDS: SODIUM CHLORIDE 0.9% 1,000 ML IV SCH (15:45)
[2020-11-27] MEDS: APIXABAN 2.5 MG TABLET PO SCH (15:47)
[2020-11-27] MEDS: FERROUS SULFATE 325 MG TAB PO SCH (15:47)
[2020-11-27] MEDS: polyethylene glycoL 3350 17 GM POWD.PACK PO SCH (15:47)
[2020-11-27] MEDS: ATORVASTATIN 80 MG TAB PO SCH (21:56)
[2020-11-27] MEDS: PANTOPRAZOLE 40 MG TABLET PO SCH (21:56)
[2020-11-28] MEDS ORDERED: METOPROLOL SUCCINATE (ER) 50 MG TAB.ER.24H PO SCH (07:00)
--- NOTE | 2020-11-28 07:48 | ECHOF ---
Referral Reason:A. fib RVR MEASUREMENTS -------- HEIGHT: 172.7 cm WEIGHT: 84.4 kg BP: RVIDd: 2.8 cm (< 3.3) IVSd: 1.4 cm (0.6 - 1.1) LVIDd: 3.2 cm (3.9 - 5.3) LVPWd: 1.4 cm (0.6 - 1.1) IVSs: 1.9 cm LVIDs: 2.1 cm LVPWs: 1.9 cm LAESV Index (A-L): 94.47 ml/m Ao Diam: 2.5 cm (2.0 - 3.7) AV Cusp: 1.2 cm (1.5 - 2.6) LA Diam: 4.6 cm (2.7 - 3.8) MV EXCURSION: 12.973 mm (> 18.000) MV EF SLOPE: 137 mm/s (70 - 150) EPSS: 1.1 cm AV maxP.10 mmHg AV meanP.15 mmHg RAP: 5.00 mmHg RVSP: 45.40 mmHg FINDINGS -------- Atrial fibrillation. Paced rhythm. Pacerwire seen in RV and RA. This was a technically good study. The left ventricular size is normal. There is moderate concentric left ventricular hypertrophy. O verall left ventricular systolic function is normal with, an EF between 55 - 60 %. Left ventricular fillimg pressure cannot be estimated due to Atrial fibrillation. The right ventricle is normal in size. LA is severely dilated >40 ml/m2 The right atrial size is normal. There is mild aortic stenosis present. Peak/mean gradient across the Aortic Valve is 19.10mmHg / 10 .15mmHg. TAVR The mitral valve is normal. The mitral valve leaflets are moderately thickened. Mild mitral annul ar calcification present. Moderate mitral regurgitation is present. The tricuspid valve appears structurally normal. Moderate to severe tricuspid regurgitation present . There is mild pulmonary hypertension. The right ventricular systolic pressure, as measured by Cara flaherty, is 45.40mmHg. Trace/mild (physiologic) pulmonic regurgitation. The aortic root size is normal. Normal inferior vena cava with normal inspiratory collapse consistent with estimated right atrial pre ssure of 5 mmHg. There is a trivial pericardial effusion present. CONCLUSIONS -------- 1. Atrial fibrillation. 2. Paced rhythm. 3. Pacerwire seen in RV and RA. 4. The left ventricular size is normal. 5. There is moderate concentric left ventricular hypertrophy. 6. Overall left ventricular systolic function is normal with, an EF between 55 - 60 %. 7. Left ventricular fillimg pressure cannot be estimated due to Atrial fibrillation. 8. LA is severely dilated >40 ml/m2 9. There is mild aortic stenosis present. 10. Peak/mean gradient across the Aortic Valve is 19.10mmHg / 10.15mmHg. 11. TAVR 12. The mitral valve leaflets are moderately thickened. 13. Mild mitral annular calcification present. 14. Moderate mitral regurgitation is present. 15. Moderate to severe tricuspid regurgitation present. 16. There is mild pulmonary hypertension. 17. The right ventricular systolic pressure, as measured by Doppler, is 45.40mmHg. 18. Trace/mild (physiologic) pulmonic regurgitation. 19. There is a trivial pericardial effusion present. SUSTAINABLE AGRICULTURE SPECIALIST: Tiffanie Hammer RDCS
[2020-11-28] MEDS: METOPROLOL SUCCINATE (ER) 50 MG TAB.ER.24H PO SCH (08:40)
[2020-11-28] MEDS: ASPIRIN 81 MG PO SCH (08:41)
[2020-11-28] MEDS: FERROUS SULFATE 325 MG TAB PO SCH ×3 (08:42→16:24)
[2020-11-28] MEDS: FUROSEMIDE 20 MG TAB PO SCH (08:42)
[2020-11-28] MEDS: LOSARTAN 25 MG TAB PO SCH (08:42)
[2020-11-28] MEDS: APIXABAN 2.5 MG TABLET PO SCH ×2 (08:42→16:24)
[2020-11-28 09:18] LABS: Basophils # (A) 0.03 X 10*3/uL (0.00-0.10); Basophils % (A) 0.3 %; Eosinophils % (A) 1.2 %; HCT 29.9 % (37.2-46.3); HGB 9.4 g/dL (12.0-15.0); Lymphocytes # (A) 1.31 X 10*3/uL (0.90-5.00); Lymphocytes % (A) 15.1 %; MCH 28.6 pg (27.0-32.0); MCHC 31.4 g/dL (32.0-37.0); MCV 90.9 fL (80.0-97.0); Mean Platelet Volume 11.1 fL (9.5-12.2); Monocytes # (A) 0.69 X 10*3/uL (0.20-1.00); Neutrophils # (A) 6.43 X 10*3/uL (1.80-7.70); Neutrophils % (A) 74.4 %; Platelet Count 262 X 10*3/uL (140-440); RBC 3.29 X 10*6/uL (4.10-5.20); RDW 16.5 % (11.5-14.5); WBC 8.65 X 10*3/uL (4.50-10.00)
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
[2020-11-28] MEDS: SODIUM CHLORIDE 0.9% 1,000 ML IV SCH (12:18)
--- NOTE | 2020-11-28 13:02 | P.PN ---
Subjective Progress Note Date: 11/28/20 Patient is doing fairly well today. She does not have any complaint or concerns. Heart rate better controlled. Dose of metoprolol has been increased. Objective - Vital Signs Vital signs: Vital Signs Temp 97.4 F L 11/28/20 07:00 Pulse 76 11/28/20 07:00 Resp 17 11/28/20 07:00 BP 157/81 11/28/20 07:00 Pulse Ox 99 11/28/20 07:00 Intake & Output 11/27/20 11/28/20 11/28/20 18:59 06:59 18:59 Intake Total 240 450 Output Total 1200 450 Balance 240 -1200 0 Weight 84.368 kg Intake: Oral 240 450 Output: Urine 1200 450 Other: Voiding Method External Catheter External Catheter External Catheter - Exam General: The patient is awake and alert, in no distress Eye: there is normal conjunctiva bilaterally. Neck: The neck is supple, there is no JVD. Cardiovascular: Normal S1-S2, no S3-S4, no murmurs. Respiratory: Lungs clear to auscultation bilaterally Gastrointestinal: Abdomen is soft, nontender Musculoskeletal: There is no pedal edema. Neurological:. Speech is normal. Skin: Skin is warm and dry - Labs CBC & Chem 7: 11/28/20 04:48 Labs: Abnormal Lab Results - Last 24 Hours (Table) 11/28/20 Range/Units 04:48 RBC 3.29 L (4.10-5.20) X 10*6/uL Hgb 9.4 L (12.0-15.0) g/dL Hct 29.9 L (37.2-46.3) % MCHC 31.4 L (32.0-37.0) g/dL RDW 16.5 H (11.5-14.5) % Immature Gran # 0.09 H (0.00-0.04) X 10*3/uL Assessment and Plan Assessment: This is a 80-year-old female with past medical history noted below who presented to the emergency room as a transfer from [facility]. Patient was evaluated in the ER and admitted to the hospital for further management of her medical problems noted below. 1. Atrial fibrillation with rapid ventricular response, heart rate better controlled. Home dose of metoprolol XL increased to 75 mg daily. On a nticoagulation with Eliquis twice daily. Cardiology consulted for further evaluation. Echocardiogram showed preserved ejection fraction with no significant valvular abnormalities. Stable TAVR 2. Urinary tract infection, started on IV ceftriaxone. Culture results requested from [facility]. We will transition to oral antibiotic tomorrow. 3. Hypomagnesemia, replaced. Awaiting repeat lab work 4. Chronic medical problems: Essential hypertension, hyperlipidemia
[2020-11-28 13:58] LABS: African American GFR (CKD) 94.2 (60.0-200.0); Albumin 2.8 g/dL (3.80-4.90); Albumin/Globulin Ratio 0.9 (1.60-3.17); Anion Gap 7.6 mmol/L (4.00-12.00); BUN/Creat Ratio 22.86 Ratio (12.00-20.00); Calcium 8.2 mg/dL (8.7-10.3); Carbon Dioxide 24.4 mmol/L (21.6-31.8); Globulin 3.1 g/dL (1.6-3.3); Non-African American GFR(CKD) 81.3 (60.0-200.0); Potassium 4.6 mmol/L (3.5-5.5); Total Bilirubin 0.6 mg/dL (0.2-1.2); Total Protein 5.9 g/dL (6.2-8.2)
[2020-11-28] MEDS: polyethylene glycoL 3350 17 GM POWD.PACK PO SCH (16:24)
[2020-11-28] MEDS: PANTOPRAZOLE 40 MG TABLET PO SCH (20:10)
[2020-11-28] MEDS: ATORVASTATIN 80 MG TAB PO SCH (20:10)
[2020-11-29] MEDS: FERROUS SULFATE 325 MG TAB PO SCH ×3 (08:42→17:51)
[2020-11-29] MEDS: ASPIRIN 81 MG PO SCH (08:42)
[2020-11-29] MEDS: FUROSEMIDE 20 MG TAB PO SCH (08:43)
[2020-11-29] MEDS: METOPROLOL SUCCINATE (ER) 50 MG TAB.ER.24H PO SCH (08:43)
[2020-11-29] MEDS: LOSARTAN 25 MG TAB PO SCH (08:45)
[2020-11-29] MEDS: APIXABAN 2.5 MG TABLET PO SCH ×2 (08:45→17:51)
--- NOTE | 2020-11-29 10:08 | CDI ---
Documentation Clarification Form Date: 11/29/2020 09:51:45 AM From: Blanca Blum RN CCDS Admit Date: 11/28/2020 01:26:00 PM Patient Name: Marya Keenan Visit Number: [id number] Discharge Date: ATTENTION: The Clinical Documentation Specialists (CDI) and [facility] Coding Staff appreciate your assistance in clarifying documentation. Please respond to the clarification below the line at the bottom and electronically sign. The CDI & [facility] Coding staff will review the response and follow-up if needed. Please note: Queries are made part of the Legal Health Record. If you have any questions, please contact the author of this message via ITS. Dr. Talha Alva Your patient has the documented diagnosis of unspecified CHF 11/27, H&P. Additional information regarding the type of CHF is requested. History/Risk Factors: 80-year-old female presents to the ED via EMS as a transfer from [facility] with Atrial Fibrillation RVR and UTI. Medical History: Atrial Fibrillation; HTN; and CHF. 11/27 H&P Clinical Indicators: Congestive heart failure Patient with chronic CHF on daily medication regimen with Lasix 20mg daily. 11/27 H&P. VS/Pulse OX: B/P 118/64; HR 112; Temp 98.8 F Oral; RR 20; SpO2 96% ra BNP: ProBNP 2620. H&P 11/27 Echocardiogram Results: 11/27: EF 55-60%. Moderate mitral regurgitation. Moderate to severe tricuspid regurgitation. Mild pulmonary HTN. Trace/mild Pulmonic regurgitation. Chest X Ray: 11/27: Stable cardiomegaly. Treatment: 11/28 Lasix 20mg PO Daily to current; 11/28 Toprol XL 75mg PO Daily to current. In your professional opinion, can you please clarify the [acuity and type] of CHF if known? [ X ] Chronic Diastolic Heart Failure (preserved EF) [ ] Other, please specify [ ] Unable to determine (Template Last Revised: July 2020) MTDD
--- NOTE | 2020-11-29 10:27 | P.PN ---
Subjective This is a pleasant 80-year-old female past medical history significant for chronic persistent atrial fibrillation on long-term anticoagulation with Eliquis, permanent pacemaker implantation, TAVR 2019, dyslipidemia and hypertension. She follows in the office with Dr. Craig. She is seen and examined sitting up in no acute distress. She denies symptoms of chest pain, shortness of breath, dizziness or palpitations. Telemetry tracings reviewed, heart rate has been maintained in the 80-90s, blood pressure 174/75. Currently maintained on Toprol 75 mg daily, Eliquis 2.5 mg twice a day, aspirin 81 mg daily, atorvastatin 80 mg daily, Lasix 20 mg daily and losartan 25 mg daily. Echocardiogram obtained on this admission reveals preserved LV systolic function with ejection fraction 55-60%, severely dilated left atrium, mild aortic stenosis with a mean gradient of 10 mmHg, moderate MR, moderate to severe TR and mild pulmonary pretension with an RVSP of 45 mmHg. GENERAL: Well-appearing, well-nourished and in no acute distress. NECK: Supple without JVD or thyromegaly. LUNGS: Breath sounds clear to auscultation bilaterally. Respiration equal and unlabored. No wheezes, rales or rhonchi. HEART: Irregular rate and rhythm with systolic ejection murmur at the base with radiation to the neck bilaterally, no rubs or gallops. S1 and S2 heard. EXTREMITIES: Normal range of motion, no edema. No clubbing or cyanosis. Peripheral pulses intact. ASSESSMENT Urinary tract infection Chronic persistent atrial fibrillation with rapid ventricular rate, improved Valvular heart disease status post TAVR Permanent pacemaker implantation Hypertension Dyslipidemia PLAN Stable on current medical regimen. Follow up with Dr. Craig upon discharge. We will follow along as needed, please call with further questions or concerns. Nurse Practitioner note has been reviewed, I agree with a documented findings and plan of care. Patient was seen and examined. Objective - Vital Signs Vital signs: Vital Signs Temp 97.5 F L 11/29/20 07:00 Pulse 90 11/29/20 07:00 Resp 17 11/29/20 07:00 BP 174/75 11/29/20 07:00 Pulse Ox 98 11/29/20 07:00 Intake & Output 11/28/20 11/29/20 11/29/20 18:59 06:59 18:59 Intake Total 450 198 Output Total 1200 500 Balance -750 -500 198 Intake: Oral 450 198 Output: Urine 1200 500 Other: Voiding Method External Catheter External Catheter External Catheter # Voids 2 # Bowel Movements 1 1 - Labs CBC & Chem 7: 11/28/20 04:48 11/28/20 04:48 Labs: Abnormal Lab Results - Last 24 Hours (Table) 11/28/20 Range/Units 04:48 BUN/Creatinine Ratio 22.86 H (12.00-20.00) Ratio Calcium 8.2 L (8.7-10.3) mg/dL AST 36 H (13-35) U/L Alkaline Phosphatase 147 H (41-126) U/L Total Protein 5.9 L (6.2-8.2) g/dL Albumin 2.80 L (3.80-4.90) g/dL Albumin/Globulin Ratio 0.90 L (1.60-3.17) g/dL
--- NOTE | 2020-11-29 10:50 | CDI ---
Documentation Clarification Form Date: 11/29/2020 10:10:08 AM From: Blanca Blum RN CCDS Admit Date: 11/28/2020 01:26:00 PM Patient Name: Marya Keenan Visit Number: [id number] Discharge Date: ATTENTION: The Clinical Documentation Specialists (CDI) and [facility] Coding Staff appreciate your assistance in clarifying documentation. Please respond to the clarification below the line at the bottom and electronically sign. The CDI & [facility] Coding staff will review the response and follow-up if needed. Please note: Queries are made part of the Legal Health Record. If you have any questions, please contact the author of this message via ITS. Dr. Talha Alva There is documentation of gram-negative bacteremia documented 11/28, in Medicine Progress Note. Bacteremia is considered a lab finding. Additional clarification regarding bacteremia is requested. History/Risk Factors: 80-year-old female presents to the ED via EMS as a transfer from [facility] with Atrial Fibrillation RVR and UTI. Medical History: Atrial Fibrillation; HTN; and CHF. 11/27 H&P Clinical Indicators: VSS: B/P 118/64; HR 112; Temp 98.8 Oral F; RR 20; SpO2 96% ra. 11/27, Bari Florian. Gram-negative bacteremia. 11/28 Medicine Progress Note. CBC revealed leukocytosis with a WBC count of 16.33 with left shift as well as normocytic normochromic anemia with Hemoglobin of 10.5. 11/27 H&P Blood Culture: [facility] Gram negative bacteremia. 11/28 Medicine Progress Note. Treatment: 11/28 Repeat blood culture pending. Antibiotics: 11/28 Ceftriaxone Sodium 1gm IVPB Q24HR changed 11/28 to 2gm IVPB Q24HR to current. Please provide additional clarification regarding the etiology/cause and/or clinical significance of the bacteremia: [ X ] Bacteremia is related to sepsis [ ] Bacteremia is not clinically significant [ ] Other, please specify [ ] Unable to determine (Template Last Revised: August 2020) MTDD
--- NOTE | 2020-11-29 12:58 | P.PN ---
Subjective Progress Note Date: 11/29/20 Patient is doing fairly well today. She does not have any complaint or concerns. Heart rate better controlled. Objective - Vital Signs Vital signs: Vital Signs Temp 97.5 F L 11/29/20 07:00 Pulse 90 11/29/20 07:00 Resp 17 11/29/20 07:00 BP 174/75 11/29/20 07:00 Pulse Ox 98 11/29/20 07:00 Intake & Output 11/28/20 11/29/20 11/29/20 18:59 06:59 18:59 Intake Total 450 198 Output Total 1200 500 Balance -750 -500 198 Intake: Oral 450 198 Output: Urine 1200 500 Other: Voiding Method External Catheter External Catheter External Catheter # Voids 2 # Bowel Movements 1 1 - Exam General: The patient is awake and alert, in no distress Eye: there is normal conjunctiva bilaterally. Neck: The neck is supple, there is no JVD. Cardiovascular: Normal S1-S2, no S3-S4, no murmurs. Respiratory: Lungs clear to auscultation bilaterally Gastrointestinal: Abdomen is soft, nontender Musculoskeletal: There is no pedal edema. Neurological:. Speech is normal. Skin: Skin is warm and dry - Labs CBC & Chem 7: 11/28/20 04:48 11/28/20 04:48 Labs: Abnormal Lab Results - Last 24 Hours (Table) 11/28/20 Range/Units 04:48 BUN/Creatinine Ratio 22.86 H (12.00-20.00) Ratio Calcium 8.2 L (8.7-10.3) mg/dL AST 36 H (13-35) U/L Alkaline Phosphatase 147 H (41-126) U/L Total Protein 5.9 L (6.2-8.2) g/dL Albumin 2.80 L (3.80-4.90) g/dL Albumin/Globulin Ratio 0.90 L (1.60-3.17) g/dL Assessment and Plan Assessment: This is a 80-year-old female with past medical history noted below who presented to the emergency room as a transfer from [facility]. Patient was evaluated in the ER and admitted to the hospital for further management of her medical problems noted below. 1. Atrial fibrillation with rapid ventricular response, heart rate better controlled. Home dose of metoprolol XL increased to 75 mg daily. On anticoagulation with Eliquis twice daily. Cardiology consulted for further evaluation. Echocardiogram showed preserved ejection fraction with no significant valvular abnormalities. Stable TAVR 2. Gram-negative bacteremia with sepsis on presentation secondary to underlying Urinary tract infection, started on IV ceftriaxone. Awaiting final culture report from [facility]. Repeat blood culture yesterday pending 3. Hypomagnesemia, replaced. 4. Chronic medical problems: Essential hypertension, hyperlipidemia Anticipate discharge back to [facility] tomorrow
[2020-11-29] MEDS: polyethylene glycoL 3350 17 GM POWD.PACK PO SCH (17:54)
[2020-11-29] MEDS: ATORVASTATIN 80 MG TAB PO SCH (19:29)
[2020-11-29] MEDS: PANTOPRAZOLE 40 MG TABLET PO SCH (19:30)
[2020-11-29] MEDS: SODIUM CHLORIDE 0.9% 1,000 ML IV SCH (19:30)
[2020-11-30 07:17] VITALS: RESP 18
[2020-11-30] MEDS: FERROUS SULFATE 325 MG TAB PO SCH ×2 (08:20→13:39)
[2020-11-30] MEDS: ASPIRIN 81 MG PO SCH (08:20)
[2020-11-30] MEDS: FUROSEMIDE 20 MG TAB PO SCH (08:20)
[2020-11-30] MEDS: APIXABAN 2.5 MG TABLET PO SCH (08:21)
[2020-11-30] MEDS: METOPROLOL SUCCINATE (ER) 50 MG TAB.ER.24H PO SCH (08:21)
[2020-11-30] MEDS: LOSARTAN 25 MG TAB PO SCH (08:21)
--- NOTE | 2020-11-30 13:22 | P.DS ---
Providers Date of admission: 11/28/20 13:26 Expected date of discharge: 11/30/20 Attending physician: Talha Alva Consults: 11/27/20 12:36 Consult Physician Routine Consulting Provider: Neto Craig Consult Reason/Comments: afib rvr Do you want consulting provider notified?: Yes Primary care physician: Alejandro Jacques MD Hospital Course: This is a 80-year-old female with past medical history noted below who presented to the emergency room as a transfer from [facility]. Patient was evaluated in the ER and admitted to the hospital for further management of her medical problems noted below. 1. Atrial fibrillation with rapid ventricular response, heart rate better controlled. Home dose of metoprolol XL increased to 75 mg daily. On anticoagulation with Eliquis twice daily. Cardiology consulted for further evaluation. Echocardiogram showed preserved ejection fraction with no significant valvular abnormalities. Stable TAVR 2. Klebsiella pneumonia bacteremia with sepsis on presentation secondary to underlying Urinary tract infection, started on IV ceftriaxone. Blood culture from outside hospital reviewed and susceptibility. No evidence of ESBL. He'll finish 10 days course of Keflex 500 mg every 6 hours. Repeat blood culture here in the hospital negative 3. Hypomagnesemia, replaced. 4. Chronic medical problems: Essential hypertension, hyperlipidemia Patient will be discharged back to [facility] in a stable condition. For further details about this hospitalization please refer to the electronic chart. Patient Condition at Discharge: Fair Plan - Discharge Summary Discharge Rx Participant: No New Discharge Prescriptions: New Cephalexin [Keflex] 500 mg PO Q6HR 10 Days #40 cap Melatonin 3 mg PO HS PRN tablet PRN Reason: Insomnia Metoprolol Succinate (ER) [Toprol XL] 75 mg PO DAILY@0700 tab.er.24h Continue Atorvastatin [Lipitor] 80 mg PO HS Ferrous Sulfate [Iron (65 MG Elemental)] 325 mg PO TID@0700,1200,1700 Acetaminophen [Tylenol 8 Hour] 650 mg PO Q4H PRN PRN Reason: General Discomfort Apixaban [Eliquis] 2.5 mg PO BID@0700,1700 Aspirin EC [Ecotrin Low Dose] 81 mg PO DAILY@0700 Magnesium Hydroxide [Milk of Magnesia] 2,400 mg PO Q48H PRN PRN Reason: Constipation Omeprazole Magnesium [PriLOSEC OTC] 20 mg PO HS Furosemide [Lasix] 20 mg PO DAILY@0700 Losartan [Cozaar] 25 mg PO DAILY@0700 polyethylene glycoL 3350 [Miralax] 17 gm PO DAILY@1700 Discontinued bisacodyL [Bisacodyl] 10 mg RECTAL Q72H PRN PRN Reason: Constipation Metoprolol Succinate (ER) [Toprol Xl] 50 mg PO DAILY@0700 Discharge Medication List Atorvastatin [Lipitor] 80 mg PO HS 11/06/19 [History] Ferrous Sulfate [Iron (65 MG Elemental)] 325 mg PO TID@0700,1200,1700 05/19/20 [History] Acetaminophen [Tylenol 8 Hour] 650 mg PO Q4H PRN 11/27/20 [History] Apixaban [Eliquis] 2.5 mg PO BID@0700,1700 11/27/20 [History] Aspirin EC [Ecotrin Low Dose] 81 mg PO DAILY@0700 11/27/20 [History] Furosemide [Lasix] 20 mg PO DAILY@0700 11/27/20 [History] Losartan [Cozaar] 25 mg PO DAILY@0700 11/27/20 [History] Magnesium Hydroxide [Milk of Magnesia] 2,400 mg PO Q48H PRN 11/27/20 [History] Omeprazole Magnesium [PriLOSEC OTC] 20 mg PO HS 11/27/20 [History] polyethylene glycoL 3350 [Miralax] 17 gm PO DAILY@1700 11/27/20 [History] Cephalexin [Keflex] 500 mg PO Q6HR 10 Days #40 cap 11/30/20 [Rx] Melatonin 3 mg PO HS PRN tablet 11/30/20 [Rx] Metoprolol Succinate (ER) [Toprol XL] 75 mg PO DAILY@0700 tab.er.24h 11/30/20 [Rx] Follow up Appointment(s)/Referral(s): Neto Craig MD [STAFF PHYSICIAN] - 2 Weeks Alejandro Jacques MD [Primary Care Provider] - 1-2 days Discharge Disposition: TRANSFER TO SNF/ECF
[2020-11-30] MEDS: SODIUM CHLORIDE 0.9% 1,000 ML IV SCH (13:39)
[2020-11-30 14:43] VITALS: BP 138/69; PULSE 82; TEMP 98.3
== END 2020-11-30 16:10 | DRG 872 ==
LOC: EC 12:21 → 6NMEDSUR 12:49 → OBSVTOIN 11-28 13:26
PROVIDERS: ADMIT Internal Medicine; ATTEND Internal Medicine
DX: A41.59 Other Gram-negative sepsis (principal); I48.21 Permanent atrial fibrillation; N39.0 Urinary tract infection, site not specified; I50.32 Chronic diastolic (congestive) heart failure; D64.9 Anemia, unspecified; I11.0 Hypertensive heart disease with heart failure; E78.5 Hyperlipidemia, unspecified; E83.42 Hypomagnesemia; R00.0 Tachycardia, unspecified; G25.81 Restless legs syndrome; R39.15 Urgency of urination; R35.0 Frequency of micturition; I27.20 Pulmonary hypertension, unspecified; M19.90 Unspecified osteoarthritis, unspecified site; I83.93 Asymptomatic varicose veins of bilateral lower extremities; I08.3 Combined rheumatic disorders of mitral, aortic and tricuspid valves; R53.1 Weakness; Z79.01 Long term (current) use of anticoagulants; Z20.822 Contact with and (suspected) exposure to COVID-19; Z79.82 Long term (current) use of aspirin; Z79.899 Other long term (current) drug therapy; Z86.73 Personal history of transient ischemic attack (TIA), and cerebral infarction without residual deficits; Z95.0 Presence of cardiac pacemaker; Z95.2 Presence of prosthetic heart valve; Z98.42 Cataract extraction status, left eye; Z98.41 Cataract extraction status, right eye; Z86.79 Personal history of other diseases of the circulatory system
CPT/HCPCS: 71045; 80053; 83735; 85025; 87040; 93306; 99285

== ENCOUNTER → 2023-04-16 | Day surgery (SDC) | payer MEDICARE, BC ==
[~2023-04-16] MED LIST: SIMETHICONE 40 MG/0.6 ML DROPS 2,000 MG/30 ML BOTTLE PO ONE
== END ==
LOC: ORWHC2ENDO 06:29
PROVIDERS: ATTEND Internal Medicine Gastroenterology
DX: D64.9 Anemia, unspecified (principal)
CPT/HCPCS: 91110

== ENCOUNTER 2023-07-01 13:55 | Inpatient (IN) | payer MEDICARE, BC ==
[2023-07-01] MEDS ORDERED: SODIUM CHLORIDE 0.9% 1,000 ML IV ONE (15:29)
--- NOTE | 2023-07-01 15:39 | ED ---
General Adult HPI - General Chief complaint: Recheck/Abnormal Lab/Rx Stated complaint: Abd Pain, AMS Time Seen by Provider: 07/01/23 15:20 Source: patient, EMS, RN notes reviewed, old records reviewed Mode of arrival: EMS - History of Present Illness Initial comments: Patient is a 82-year-old female who presents emergency department complaining of increased altered mental status over weeks. A recent CT showed right-sided hydronephrosis. Per PCP at the nursing facility, patient apparently was having right-sided eye gaze and eye twitching. Has a history of CVA and stroke. Patient is DNR. Has a history of A-fib. Patient has baseline dementia. Patient appears to be on blood thinners. Has no other acute complaints at this time. Currently is alert and oriented only to person. Appears to be her baseline but we will attempt to confirm. - Related Data Home Medications Medication Instructions Recorded Confirmed Atorvastatin [Lipitor] 80 mg PO HS 11/06/19 07/01/23 Ferrous Sulfate [Iron (65 MG 325 mg PO DAILY 05/19/20 07/01/23 Elemental)] Apixaban [Eliquis] 5 mg PO BID 11/27/20 07/01/23 Omeprazole Magnesium [PriLOSEC OTC] 20 mg PO DAILY 11/27/20 07/01/23 polyethylene glycoL 3350 [Miralax] 17 gm PO DAILY 11/27/20 07/01/23 Cholecalciferol [Vitamin D3 (25 25 mcg PO DAILY 04/15/23 07/01/23 Mcg = 1000 Iu)] Mag Hydrox/Aluminum Hyd/Simeth 30 ml PO Q4H PRN 04/15/23 07/01/23 [Mylanta Maximum Strength Liq] Metoprolol Tartrate [Lopressor] 50 mg PO BID 04/15/23 07/01/23 Vit C/E/Zn/Coppr/Lutein/Zeaxan 1 cap PO DAILY 04/15/23 07/01/23 [Preservision Areds 2 Softgel] hydroCHLOROthiazide [Hydrodiuril] 25 mg PO DAILY 04/15/23 07/01/23 Acetaminophen [Tylenol] 650 mg PO Q4H PRN 07/01/23 07/01/23 Acetaminophen [Tylenol] 650 mg PO TID 07/01/23 07/01/23 Estradiol Cream [Estrace Cream 1 mg VAGINAL DIRECTED 07/01/23 07/01/23 0.01%] Estradiol Cream [Estrace Cream 2 mg VAGINAL HS 07/01/23 07/01/23 0.01%] Losartan Potassium [Cozaar] 100 mg PO DAILY 07/01/23 07/01/23 Magnesium Hydroxide [Milk of 7,200 mg PO DAILY PRN 07/01/23 07/01/23 Magnesia Concentrate] Melatonin 5 mg PO HS 07/01/23 07/01/23 Muscle Rub Ultra Strength Cream 1 applic TOPICAL Q8H PRN 07/01/23 07/01/23 4-10-30% Na Phos,M-B/Na Phos,Di-Ba [Fleet 133 ml RECTAL Q72H PRN 07/01/23 07/01/23 Adult] Ondansetron [Zofran] 4 mg PO Q6H PRN 07/01/23 07/01/23 Simethicone [Gas-X] 125 mg PO PCHS 07/01/23 07/01/23 Allergies Allergy/AdvReac Type Severity Reaction Status Date / Time acetaminophen [From [place]] Allergy Itching Verified 07/01/23 15:55 hydrocodone [From [place]] Allergy Itching Verified 07/01/23 15:55 hydromorphone [From Dilaudid] Allergy Itching Verified 07/01/23 15:55 Review of Systems ROS Statement: Those systems with pertinent positive or pertinent negative responses have been documented in the HPI. ROS Other: All systems not noted in ROS Statement are negative. Past Medical History Past Medical History: Atrial Fibrillation, CVA/TIA, Dementia, Hyperlipidemia, Hypertension, Renal Disease, Syncope Additional Past Medical History / Comment(s): anemia, w/c but able to stand with 1 asst to transfer,continent,hx DJD, arthiritis, varicose veins bilateral legs, bilateral cataracts, chronic sinusitis, restless leg syndrome,jonathan macular degeneration,mild vascular dementia,stg 4 kidney disease,history of falls History of Any Multi-Drug Resistant Organisms: None Reported Past Surgical History: Breast Surgery, Cholecystectomy, Joint Replacement, Orthopedic Surgery, Pacemaker Additional Past Surgical History / Comment(s): R breast biopsies x 5 all benign, 2007 R hip replacement due to fx, carpal tunnel release R wrist, R hand surgery with metal plate and screws 2006. Past Anesthesia/Blood Transfusion Reactions: Postoperative Nausea & Vomiting (PONV) Additional Past Anesthesia/Blood Transfusion Reaction / Comment(s): Pt has never recieved blood. Type of Cardiac Device: Unknown Device Placement Date:: unkown Past Psychological History: No Psychological Hx Reported Smoking Status: Never smoker - Past Family History Father Family Medical History: Myocardial Infarction (ND) Additional Family Medical History / Comment(s): Father lived to be 79yrs old. Mother Family Medical History: Coronary Artery Disease (CAD) Additional Family Medical History / Comment(s): Mother at age 70 yrs. She had a ruptured appendix and surgery. Sr. History Unknown: Yes Additional Family Medical History / Comment(s): Heart disease General Exam - General Exam Comments Initial Comments: General: Appears in no acute distress. HEAD: Normal with no signs of head trauma. EYES: PERRLA, EOMI, conjunctiva normal, no discharge. Pupils are 3 mm and equal bilaterally. ENT: Hearing grossly intact, normal oropharynx. RESPIRATORY: Clear breath sounds bilaterally. No wheezes, rales, or rhonchi. C/V: Regular rate and rhythm. S1 and S2 auscultated, no edema, peripheral pulses 2+ and intact throughout ABD: Abd is soft, nontender, nondistended EXT: Normal range of motion, no obvious deformity SKIN: No rashes or lesions observed on exposed skin. Appears to have feces over her left hand. Patient is covered in feces on her back and bottom. Appears to be dark, somewhat tarry appearing. Occult sent. NEURO: Alert and oriented x 1. Cranial nerves II-XII intact. No focal sensory or strength deficits. NIH appears to be 0 at this time. No evidence of the eye twitching or deviated gaze that has been seen at the nursing facility for the last few weeks. Course Vital Signs 07/01/23 07/01/23 07/01/23 13:57 16:55 18:15 Temperature 97.6 F 98.0 F Pulse Rate 55 L 96 102 H Respiratory 17 17 17 Rate Blood Pressure 130/77 136/71 143/93 O2 Sat by Pulse 95 97 100 Oximetry 07/01/23 19:45 Temperature Pulse Rate 89 Respiratory 18 Rate Blood Pressure 147/64 O2 Sat by Pulse 98 Oximetry Medical Decision Making - Medical Decision Making Was pt. sent in by a medical professional or institution (DEMAR Mccall, SPEECH AND LANGUAGE SPECIALIST, urgent care, hospital, or alf...) When possible be specific @ -[facility] facility sent the patient for further evaluation. Did you speak to anyone other than the patient for history (EMS, parent, family, police, friend...)? What history was obtained from this source @ -Spoke with patient's neice who is her guardian who provided patient's history. Did you review nursing and triage notes (agree or disagree)? Why? @ -I reviewed and agree with nursing and triage notes Were old charts reviewed (outside hosp., previous admission, EMS record, old EKG, old radiological studies, urgent care reports/EKG's, alf records)? Report findings @ -Old charts reviewed Differential Diagnosis (chest pain, altered mental status, abdominal pain women, abdominal pain men, vaginal bleeding, weakness, fever, dyspnea, syncope, headache, dizziness, GI bleed, back pain, seizure, CVA, palpatations, mental health, musculoskeletal)? @ -Differential Altered Mental Status: Hypoglycemia, DKA, hypercapnia, ETOH, overdose, CO poisoning, trauma, myxedema coma, HTN encephalopathy, infection, encephalitis, psychosis, intercranial hemorrhage, hepatic encephalopathy, meningitis, CVA, this is not meant to be an all-inclusive list EKG interpreted by me (3pts min.). @ -As above X-rays interpreted by me (1pt min.). @ -Chest x-ray shows no obvious acute cardiopulmonary process. CT interpreted by me (1pt min.). @ -CT brain shows a age-indeterminate left temporal lobe injury. Patient CT abdomen pelvis reveals right-sided hydronephrosis with no obvious calculi. U/S interpreted by me (1pt. min.). @ -None done What testing was considered but not performed or refused? (CT, X-rays, U/S, labs)? Why? @ -None What meds were considered but not given or refused? Why? @ -None Did you discuss the management of the patient with other professionals (professionals i.e. DEMAR Mccall, SPEECH AND LANGUAGE SPECIALIST, lab, RT, psych nurse, social media marketing manager, chemist water purification, teacher, targeting acquisition officer, immigration case manager)? Give summary @ -I spoke with the admitting team, ALEX Lowry of [facility] who accepted the admission. Was smoking cessation discussed for >3mins.? @ -No Was critical care preformed (if so, how long)? @ -No Were there social determinants of health that impacted care today? How? (Homelessness, low income, unemployed, alcoholism, drug addiction, transportation, low edu. Level, literacy, decrease access to med. care, half-way, rehab)? @ -No Was there de-escalation of care discussed even if they declined (Discuss DNR or withdrawal of care, Hospice)? DNR status @ -Paperwork from [facility] states that patient is a DNR. Confirmed with POA What co-morbidities impacted this encounter? (DM, HTN, Smoking, COPD, CAD, Cancer, CVA, ARF, Chemo, Hep., AIDS, mental health diagnosis, sleep apnea, morbid obesity)? @ -None Was patient admitted / discharged? Hospital course, mention meds given and route, prescriptions, significant lab abnormalities, going to OR and other pertinent info. @ -Based on the patient's presentation and physical exam, was transferred from her nursing facility, [facility], for reevaluation. Apparently patient has been having increased altered mental status over the last few weeks but has a history of dementia as well as prior strokes. Is still on blood thinners. They also found possible hydronephrosis on CT imaging from last week. Patient currently has no acute complaints at this time with no obvious neurological deficits other than decreased orientation. This appears to be her baseline. Will reach out to her power of employee benefits attorney, however obtain basic altered mental status workup. They were in agreement this plan. Vital signs are within acceptable limits. Patient's laboratory studies remarkable for a what appears to be stable h emoglobin for the patient at 10.1. Occult blood is positive. Patient has an STEFANIE with a BUN of 67 and creatinine of 2.17. Lactic acid within normal limits. Troponin determinate. Urinalysis remarkable for bloody urine with an elevated white blood cell count and many bacteria. Patient's CT brain shows a age- indeterminate left temporal lobe injury. Patient CT abdomen pelvis reveals right-sided hydronephrosis with no obvious calculi. Chest x-ray shows no obvious acute cardiopulmonary process. EKG shows no signs of acute ischemia. On reevaluation, patient remains unchanged. Remains hemodynamically stable. I contacted the guardian over the phone. She confirms that the patient is no cod e. We discussed her workup. Patient apparently has a chronic somewhat GI bleed symptoms for which no intervention has been done in the past. I will hold her blood thinner at this time but hemoglobin appears to be stable and will be monitored. Patient's guardian, her niece is in agreement to admit the patient for urology evaluation as well as neurology evaluation for findings on CT. Patient was started on Rocephin for UTI. Urine culture sent. Neurology and urology consulted. I spoke with the admitting team, ALEX Lowry of [facility] who accepted the admission. Undiagnosed new problem with uncertain prognosis? @ -No Drug Therapy requiring intensive monitoring for toxicity (Heparin, Nitro, In sulin, Cardizem)? @ -No Were any procedures done? @ -No Diagnosis/symptom? @ -Hydronephrosis, confusion, chronic anemia, UTI, STEFANIE Acute, or Chronic, or Acute on Chronic? @ -Acute Uncomplicated (without systemic symptoms) or Complicated (systemic symptoms)? @ -Complicated Side effects of treatment? @ -None Exacerbation, Progression, or Severe Exacerbation] @ -No Poses a threat to life or bodily function? @ -Yes - Lab Data Result diagrams: 07/01/23 16:39 07/01/23 16:39 Lab Results 07/01/23 07/01/23 07/01/23 Range/Units 15:38 15:38 16:17 WBC (3.8-10.6) k/uL RBC (3.80-5.40) m/uL Hgb (11.4-16.0) gm/dL Hct (34.0-46.0) % MCV (80.0-100.0) fL MCH (25.0-35.0) pg MCHC (31.0-37.0) g/dL RDW (11.5-15.5) % Plt Count (150-450) k/uL MPV Neutrophils % % Lymphocytes % % Monocytes % % Eosinophils % % Basophils % % Neutrophils # (1.3-7.7) k/uL Lymphocytes # (1.0-4.8) k/uL Monocytes # (0-1.0) k/uL Eosinophils # (0-0.7) k/uL Basophils # (0-0.2) k/uL Hypochromasia Anisocytosis PT (10.0-12.5) sec INR (<1.2) APTT (22.0-30.0) sec Sodium (137-145) mmol/L Potassium (3.5-5.1) mmol/L Chloride (98-107) mmol/L Carbon Dioxide (22-30) mmol/L Anion Gap mmol/L BUN (7-17) mg/dL Creatinine (0.52-1.04) mg/dL Est GFR (CKD-EPI)AfAm (>60 ml/min/1.73 sqM) Est GFR (CKD-EPI)NonAf (>60 ml/min/1.73 sqM) Glucose (74-99) mg/dL Plasma Lactic Acid Mayo (0.7-2.0) mmol/L Calcium (8.4-10.2) mg/dL Total Bilirubin (0.2-1.3) mg/dL AST (14-36) U/L ALT (4-34) U/L Alkaline Phosphatase (38-126) U/L Ammonia (<30) umol/L Troponin I (0.000-0.034) ng/mL Total Protein (6.3-8.2) g/dL Albumin (3.5-5.0) g/dL Urine Color Red Urine Appearance Bloody H (Clear) Urine RBC >182 H (0-5) /hpf Urine WBC >182 H (0-5) /hpf Urine Bacteria Many H (None) /hpf Urine Mucus Few H (None) /hpf Stool Occult Blood Positive H (Negative) Urine Opiates Screen Not Detected (NotDetected) Ur Oxycodone Screen Not Detected (NotDetected) Urine Methadone Screen Not Detected (NotDetected) Ur Barbiturates Screen Not Detected (NotDetected) U Tricyclic Antidepress Not Detected (NotDetected) Ur Phencyclidine Scrn Not Detected (NotDetected) Ur Amphetamines Screen Not Detected (NotDetected) U Methamphetamines Scrn Not Detected (NotDetected) U Benzodiazepines Scrn Not Detected (NotDetected) Urine Cocaine Screen Not Detected (NotDetected) U Marijuana (THC) Screen Not Detected (NotDetected) Serum Alcohol mg/dL Influenza Type A (PCR) Not Detected (Not Detectd) Influenza Type B (PCR) Not Detected (Not Detectd) RSV (PCR) Not Detected (Not Detectd) SARS-CoV-2 (PCR) Not Detected (Not Detectd) 07/01/23 07/01/23 07/01/23 Range/Units 16:39 16:39 16:39 WBC 9.9 (3.8-10.6) k/uL RBC 3.60 L (3.80-5.40) m/uL Hgb 10.1 L (11.4-16.0) gm/dL Hct 32.8 L (34.0-46.0) % MCV 91.1 (80.0-100.0) fL MCH 28.1 (25.0-35.0) pg MCHC 30.8 L (31.0-37.0) g/dL RDW 17.9 H (11.5-15.5) % Plt Count 228 (150-450) k/uL MPV 8.7 Neutrophils % 83 % Lymphocytes % 11 % Monocytes % 4 % Eosinophils % 0 % Basophils % 0 % Neutrophils # 8.2 H (1.3-7.7) k/uL Lymphocytes # 1.1 (1.0-4.8) k/uL Monocytes # 0.4 (0-1.0) k/uL Eosinophils # 0.0 (0-0.7) k/uL Basophils # 0.0 (0-0.2) k/uL Hypochromasia Marked Anisocytosis Slight PT 11.9 (10.0-12.5) sec INR 1.1 (<1.2) APTT 28.9 (22.0-30.0) sec Sodium 143 (137-145) mmol/L Potassium 5.0 (3.5-5.1) mmol/L Chloride 110 H (98-107) mmol/L Carbon Dioxide 23 (22-30) mmol/L Anion Gap 10 mmol/L BUN 67 H (7-17) mg/dL Creatinine 2.17 H (0.52-1.04) mg/dL Est GFR (CKD-EPI)AfAm 24 (>60 ml/min/1.73 sqM) Est GFR (CKD-EPI)NonAf 20 (>60 ml/min/1.73 sqM) Glucose 109 H (74-99) mg/dL Plasma Lactic Acid Mayo (0.7-2.0) mmol/L Calcium 8.7 (8.4-10.2) mg/dL Total Bilirubin 0.9 (0.2-1.3) mg/dL AST 32 (14-36) U/L ALT 19 (4-34) U/L Alkaline Phosphatase 141 H (38-126) U/L Ammonia (<30) umol/L Troponin I (0.000-0.034) ng/mL Total Protein 7.0 (6.3-8.2) g/dL Albumin 3.7 (3.5-5.0) g/dL Urine Color Urine Appearance (Clear) Urine RBC (0-5) /hpf Urine WBC (0-5) /hpf Urine Bacteria (None) /hpf Urine Mucus (None) /hpf Stool Occult Blood (Negative) Urine Opiates Screen (NotDetected) Ur Oxycodone Screen (NotDetected) Urine Methadone Screen (NotDetected) Ur Barbiturates Screen (NotDetected) U Tricyclic Antidepress (NotDetected) Ur Phencyclidine Scrn (NotDetected) Ur Amphetamines Screen (NotDetected) U Methamphetamines Scrn (NotDetected) U Benzodiazepines Scrn (NotDetected) Urine Cocaine Screen (NotDetected) U Marijuana (THC) Screen (NotDetected) Serum Alcohol <10 mg/dL Influenza Type A (PCR) (Not Detectd) Influenza Type B (PCR) (Not Detectd) RSV (PCR) (Not Detectd) SARS-CoV-2 (PCR) (Not Detectd) 07/01/23 07/01/23 Range/Units 16:39 16:39 WBC (3.8-10.6) k/uL RBC (3.80-5.40) m/uL Hgb (11.4-16.0) gm/dL Hct (34.0-46.0) % MCV (80.0-100.0) fL MCH (25.0-35.0) pg MCHC (31.0-37.0) g/dL RDW (11.5-15.5) % Plt Count (150-450) k/uL MPV Neutrophils % % Lymphocytes % % Monocytes % % Eosinophils % % Basophils % % Neutrophils # (1.3-7.7) k/uL Lymphocytes # (1.0-4.8) k/uL Monocytes # (0-1.0) k/uL Eosinophils # (0-0.7) k/uL Basophils # (0-0.2) k/uL Hypochromasia Anisocytosis PT (10.0-12.5) sec INR (<1.2) APTT (22.0-30.0) sec Sodium (137-145) mmol/L Potassium (3.5-5.1) mmol/L Chloride (98-107) mmol/L Carbon Dioxide (22-30) mmol/L Anion Gap mmol/L BUN (7-17) mg/dL Creatinine (0.52-1.04) mg/dL Est GFR (CKD-EPI)AfAm (>60 ml/min/1.73 sqM) Est GFR (CKD-EPI)NonAf (>60 ml/min/1.73 sqM) Glucose (74-99) mg/dL Plasma Lactic Acid Mayo 1.4 (0.7-2.0) mmol/L Calcium (8.4-10.2) mg/dL Total Bilirubin (0.2-1.3) mg/dL AST (14-36) U/L ALT (4-34) U/L Alkaline Phosphatase (38-126) U/L Ammonia <9 (<30) umol/L Troponin I 0.021 (0.000-0.034) ng/mL Total Protein (6.3-8.2) g/dL Albumin (3.5-5.0) g/dL Urine Color Urine Appearance (Clear) Urine RBC (0-5) /hpf Urine WBC (0-5) /hpf Urine Bacteria (None) /hpf Urine Mucus (None) /hpf Stool Occult Blood (Negative) Urine Opiates Screen (NotDetected) Ur Oxycodone Screen (NotDetected) Urine Methadone Screen (NotDetected) Ur Barbiturates Screen (NotDetected) U Tricyclic Antidepress (NotDetected) Ur Phencyclidine Scrn (NotDetected) Ur Amphetamines Screen (NotDetected) U Methamphetamines Scrn (NotDetected) U Benzodiazepines Scrn (NotDetected) Urine Cocaine Screen (NotDetected) U Marijuana (THC) Screen (NotDetected) Serum Alcohol mg/dL Influenza Type A (PCR) (Not Detectd) Influenza Type B (PCR) (Not Detectd) RSV (PCR) (Not Detectd) SARS-CoV-2 (PCR) (Not Detectd) - EKG Data -: EKG Interpreted by Me EKG Comments: 12-lead Electrocardiogram Interpretation Note EKG was reviewed and interpreted by myself. 12-lead ECG performed at 1615 is interpreted by me as revealing atrial fibrillation at a rate of default value beats per minute. [place] is normal. QRS duration is 95 ms, QTc is 394 ms.. There were no ST or T wave abnormalities to suggest myocardial ischemia or injury. R wave progression across the precordium was satisfactory. By my interpretation this EKG is non-diagnostic for acute ischemia. Disposition Clinical Impression: UTI (urinary tract infection), Hydronephrosis, Confusion, STEFANIE (acute kidney injury), Chronic anemia Disposition: ADMITTED IP TO THIS HOSP Condition: Stable Time of Disposition: 19:00
[2023-07-01 16:36] LABS: Bacteria,Urine Many /hpf; Mucus,Urine Few /hpf; RBC,Urine >182 /hpf (0-5); WBC,Urine >182 /hpf (0-5)
[2023-07-01 16:37] LABS: Appearance,Urine Bloody (Clear)
[2023-07-01 16:38] LABS: Color,Urine Red
[2023-07-01 16:58] LABS: Anisocytosis Slight; Basophils % (A) 0 %; Eosinophils % (A) 0 %; HCT 32.8 % (34.0-46.0); HGB 10.1 gm/dL (11.4-16.0); Hypochromasia Marked; Lymphocytes # (A) 1.1 k/uL (1.0-4.8); Lymphocytes % (A) 11 %; MCH 28.1 pg (25.0-35.0); MCHC 30.8 g/dL (31.0-37.0); MCV 91.1 fL (80.0-100.0); Mean Platelet Volume 8.7; Monocytes # (A) 0.4 k/uL (0-1.0); Monocytes % (A) 4 %; Neutrophils # (A) 8.2 k/uL (1.3-7.7); Neutrophils % (A) 83 %; Platelet Count 228 k/uL (150-450); RDW 17.9 % (11.5-15.5); WBC 9.9 k/uL (3.8-10.6)
[2023-07-01 17:03] LABS: Amphetamine Screen,Urine Not Detected (NotDetected); Barbiturate Screen,Urine Not Detected (NotDetected); Benzodiazepines Screen,Urine Not Detected (NotDetected); Cocaine Screen,Urine Not Detected (NotDetected); Methadone Screen, Urine Not Detected (NotDetected); Opiate Screen,Urine Not Detected (NotDetected); Oxycodone Screen, Urine Not Detected (NotDetected); Phencyclidine Screen,Urine Not Detected (NotDetected); Tricyclic Antidepressant,Urine Not Detected (NotDetected); Urn Cannabinoid Scrn Not Detected (NotDetected)
[2023-07-01 17:04] LABS: ALT 19 U/L (4-34); African American GFR (CKD) 24 (>60 ml/min/1.73 sqM); Albumin 3.7 g/dL (3.5-5.0); Alcohol <10 mg/dL; Anion Gap 10 mmol/L; Blood Urea Nitrogen 67 mg/dL (7-17); Calcium 8.7 mg/dL (8.4-10.2); Carbon Dioxide 23 mmol/L (22-30); Chloride 110 mmol/L (98-107); Glucose 109 mg/dL (74-99); Non-African American GFR(CKD) 20 (>60 ml/min/1.73 sqM); Sodium 143 mmol/L (137-145); Total Bilirubin 0.9 mg/dL (0.2-1.3)
[2023-07-01 17:06] LABS: Lactic Acid, Venous 1.4 mmol/L (0.7-2.0)
--- NOTE | 2023-07-01 17:10 | XR ---
EXAMINATION TYPE: XR chest 2V DATE OF EXAM: 07/01/2023 5:03 PM CLINICAL INDICATION:Female, 82 years old with history of altered mental status; [facility] COMPARISON: Chest radiographs from 11/27/2020. TECHNIQUE: XR chest 2V Frontal and lateral views of the chest. FINDINGS: Lungs/Pleura: There is no evidence of pleural effusion, focal consolidation, or pneumothorax. Pulmonary vascularity: Unremarkable. Heart/mediastinum: Cardiomediastinal silhouette is enlarged and stable. Post aortic valve repair robbin nges. Two lead cardiac conduction device overlying the left hemithorax with lead tips projecting over the right ventricle and right atrium. Musculoskeletal: No acute osseous pathology. IMPRESSION: 1. No acute cardiopulmonary disease/process. 2. Mild cardiomegaly.
[2023-07-01 17:16] LABS: AST 32 U/L (14-36); Alkaline Phosphatase 141 U/L (38-126); INR 1.1 (<1.2); Partial Thromboplastin Time 28.9 sec (22.0-30.0); Prothrombin Time 11.9 sec (10.0-12.5)
--- NOTE | 2023-07-01 18:18 | CT ---
EXAMINATION TYPE: CT brain wo con CT DLP: 1212.4 mGycm, Automated exposure control for dose reduction was used. DATE OF EXAM: 07/01/2023 5:47 PM COMPARISON: 05/19/2020. CLINICAL INDICATION:Female, 82 years old with history of Altered mental status, AMS TECHNIQUE: Brain: Axial CT images of the brain were obtained with coronal and sagittal reformats created and rev iewed. Contrast used: None. Oral contrast used: None. FINDINGS: Brain: Extra-axial spaces: No abnormal extra-axial fluid collections. Ventricular system: Dilatation in proportion to cerebral atrophy. Cerebral parenchyma: Cerebral atrophy. Mineralization of the basal ganglia similar prior. Age-indeter minate but new from 05/19/2020 left temporal lobe injury. No acute intraparenchymal hemorrhage or mas s effect. The calvin-white junction is well differentiated. Scattered hypoattenuating areas are seen w ithin the white matter. Cerebellum: Unremarkable. Mass effect: No evidence of midline shift. Intracranial vasculature: Atherosclerotic calcifications of the intracranial vessels. Soft tissues: Normal. Calvarium/osseous structures: No depressed skull fracture. Paranasal sinuses and mastoid air cells: Mild scattered paranasal sinus disease. Visualized orbits: Bilateral aphakia IMPRESSION: 1. Age-indeterminate injury to the left temporal lobe new from 05/19/2020. Further evaluation MRI rec ommended. 2. Nonspecific white matter changes, likely secondary to chronic small vessel ischemic disease.
--- NOTE | 2023-07-01 18:24 | CT ---
EXAMINATION TYPE: CT abdomen pelvis wo con CT DLP: 973.9 mGycm, Automated exposure control for dose reduction was used. DATE OF EXAM: 07/01/2023 5:47 PM COMPARISON: CT abdomen pelvis most recent from 11/17/2019 CLINICAL INDICATION:Female, 82 years old with history of abd pain; abdominal pain, hydro nephrosis TECHNIQUE: Axial CT abdomen pelvis wo con;Sagittal and coronal reformats were created on a separate workstation. Contrast used: mL of , (none if empty) Oral contrast used: without Oral Contrast (none if empty) FINDINGS: LOWER CHEST: Clinically with aortic valvular repair changes. Cardiac conduction leads terminating in the right atrium and right ventricle. ABDOMEN LIVER: Unremarkable GALLBLADDER AND BILE DUCTS: The gallbladder is surgically absent. PANCREAS: Unremarkable. SPLEEN: Scattered calcified granulomas. ADRENAL GLANDS: Unremarkable. KIDNEYS AND URETERS: Moderate right hydronephrosis. Evaluation of distal ureter is limited secondary to right hip prosthesis. No left posterior renal contrast. PELVIS evaluation due to streak artifact. BLADDER: Poorly visualized REPRODUCTIVE: Visualized portions within normal limits. ABDOMEN & PELVIS STOMACH AND BOWEL: No evidence of bowel obstruction. Scattered colonic diverticula present. Second po rtion duodenal diverticulum. PERITONEUM/RETROPERITONEUM: No evidence of pneumoperitoneum or free fluid. VASCULATURE: Mild atherosclerotic calcifications are present throughout the abdominal aorta and its b ranches. No evidence of aortic aneurysm. MUSCULOSKELETAL: No acute osseous abnormalities. M moderate to severe ild disc degeneration changes a re present throughout the thoracolumbar spine. Right hip arthroplasty changes with streak artifact li miting some the pelvis. Hardware appears intact. LYMPH NODES: No gross evidence for lymphadenopathy. SOFT TISSUE/ABDOMINAL WALL: Unremarkable IMPRESSION: 1. Moderate right hydroureteronephrosis, no obstructing calculus visualized. Distal ureter is select ively evaluated due to streak artifact from hip prostheses. Findings are new from prior exam. Conside r cystoscopy with evaluation of the right ureter orifice 2. Left adrenal 22 mm nodule which is new from prior. Correlate for history of malignancy. 3. Colonic diverticulosis. 4. Mild cardiomegaly.
[2023-07-01] MEDS ORDERED: SODIUM CHLORIDE 0.9% 1,000 ML IV STA (18:35)
[2023-07-01] MEDS ORDERED: ASPIRIN 325 MG TAB PO STA (18:35)
[2023-07-01] MEDS ORDERED: ONDANSETRON 4 MG/2 ML VIAL IVP PRN (19:19)
[2023-07-01] MEDS ORDERED: NALOXONE 0.4 MG/ML 1 ML VIAL IV PRN (19:19)
[2023-07-01] MEDS ORDERED: ONDANSETRON 4 MG TAB PO PRN (19:21)
[2023-07-01] MEDS ORDERED: ACETAMINOPHEN TAB 325 MG TAB PO PRN (19:21)
[2023-07-01] MEDS: METOPROLOL TARTRATE 50 MG TAB PO SCH (20:30)
[2023-07-01] MEDS: ACETAMINOPHEN TAB 325 MG TAB PO SCH (20:30)
[2023-07-01] MEDS: ATORVASTATIN 80 MG TAB PO SCH (20:30)
[2023-07-01] MEDS: MELATONIN 5 MG TABLET PO SCH (20:30)
[2023-07-01] MEDS: SODIUM CHLORIDE 0.9% 1,000 ML IV SCH (21:19)
[2023-07-01] MEDS: SIMETHICONE 80 MG CHEWABLE PO SCH (22:01)
[2023-07-02] MEDS: PANTOPRAZOLE 40 MG TABLET PO SCH (08:08)
[2023-07-02] MEDS: METOPROLOL TARTRATE 50 MG TAB PO SCH ×2 (08:08→20:18)
[2023-07-02] MEDS: FERROUS SULFATE 325 MG TAB PO SCH (08:08)
[2023-07-02] MEDS: ACETAMINOPHEN TAB 325 MG TAB PO SCH ×3 (08:09→20:19)
[2023-07-02] MEDS: SODIUM CHLORIDE 0.9% 1,000 ML IV SCH (08:10)
[2023-07-02] MEDS: SIMETHICONE 80 MG CHEWABLE PO SCH ×4 (08:21→20:19)
[2023-07-02] MEDS: NYSTATIN 100,000 UNIT/GM POWD 15 GM TOPICAL SCH ×2 (08:21→20:19)
[2023-07-02] MEDS ORDERED: hydroCHLOROthiazide 25 MG TAB PO SCH (09:00)
[2023-07-02] MEDS ORDERED: LOSARTAN 50 MG TAB PO SCH (09:00)
[2023-07-02 11:18] LABS: Basophils # (A) 0.02 X 10*3/uL (0.00-0.10); Basophils % (A) 0.2 %; Eosinophils # (A) 0.11 X 10*3/uL (0.04-0.35); Eosinophils % (A) 1.2 %; HCT 29.5 % (37.2-46.3); HGB 8.7 g/dL (12.0-15.0); Lymphocytes # (A) 0.96 X 10*3/uL (0.90-5.00); Lymphocytes % (A) 10.2 %; MCH 27.4 pg (27.0-32.0); MCHC 29.5 g/dL (32.0-37.0); MCV 92.8 FL (80.0-97.0); Mean Platelet Volume 11.1 FL (9.5-12.2); Monocytes # (A) 0.53 X 10*3/uL (0.20-1.00); Monocytes % (A) 5.6 %; NRBC Per 100 WBC 0 X 10*3/uL (0.00-0.01); Neutrophils # (A) 7.76 X 10*3/uL (1.80-7.70); Neutrophils % (A) 82.5 %; Platelet Count 225 X 10*3/uL (140-440); RBC 3.18 X 10*6/uL (4.10-5.20); WBC 9.41 X 10*3/uL (4.50-10.00)
--- NOTE | 2023-07-02 11:40 | US ---
EXAMINATION TYPE: US carotid duplex BILAT DATE OF EXAM: 07/02/2023 COMPARISON: US CLINICAL INDICATION: Female, 82 years old with history of Right-sided eye twitching; AMS TECHNIQUE: Carotid duplex ultrasound examination. Indirect Doppler criteria was utilized. FINDINGS: EXAM MEASUREMENTS: RIGHT: Peak Systolic Velocity (PSV) cm/sec ----- Right CCA: 39.9 ----- Right ICA: 62.7 ----- Right ECA: 80.1 ICA/CCA ratio: 1.6 RIGHT: End Diastole cm/sec ----- Right CCA: 9.3 ----- Right ICA: 19.1 ----- Right ECA: 4.3 LEFT: Peak Systolic Velocity (PSV) cm/sec ----- Left CCA: 29.5 ----- Left ICA: 87.8 ----- Left ECA: 68.0 ICA/CCA ratio: 3.0 LEFT: End Diastole cm/sec ----- Left CCA: 6.0 ----- Left ICA: 15.3 ----- Left ECA: 0.0 VERTEBRALS (direction of flow): Right Vertebral: Antegrade Left Vertebral: Antegrade Rhythm: Arrhythmia INSTRUMENTATION ENGINEER NOTES: Pt altered mental status, difficult to scan Heterogeneous plaque bilaterally, more on left side causing abnormal ratios on left IMPRESSION: Less than 50% stenosis of the bilateral carotid bifurcations. Criteria for Assigning % of Stenosis / Diameter reduction (Estimation based on the indirect measurements of the internal carotid artery velocities (ICA PSV). 1. Normal (no stenosis)=ICA PSV < 125 cm/s: ratio < 2.0: ICA EDV<40 cm/s. 2. Less than 50% stenosis=ICA PSV < 125 cm/s: ratio < 2.0: ICA EDV<40 cm/s. 3. 50 to 69% stenosis=ICA PSV of 125 to 230 cm/s: ration 2.0 ? 4.0: ICA EDV 40-100 cm/s. 4. Greater than 70% stenosis to near occlusion= ICA PSV > 230 cm/s: ratio > 4.0: ICA EDV > 100 cm/s. 5. Near occlusion= ICA PSV velocities may be low or undetectable: variable ratio and ICA EDV. 6. Total occlusion=unable to detect flow.
[2023-07-02 12:08] LABS: BUN/Creat Ratio 32.53 Ratio (12.00-20.00); Blood Urea Nitrogen 55.3 mg/dL (9.0-27.0); Calcium 8.6 mg/dL (8.7-10.3); Chloride 111 mmol/L (96-109); Glucose 101 mg/dL (70-110); Potassium 4.1 mmol/L (3.5-5.5); Sodium 148 mmol/L (135-145)
--- NOTE | 2023-07-02 13:14 | P.HPIM ---
History of Present Illness H&P Date: 07/02/23 History of present illness; patient is 82-year-old lady with past medical histor y significant for dementia, CVA, hypertension who presented to the ER for change in mental status from [facility]. Patient history of baseline dementia. Nursing staff has noted the patient was having a right-sided eye gaze and twitching. No complaint of jerking movements of any extremity. No complain of slurred speech or facial droop. There was no complain of recent fall. Patient history of A. fib and on blood thinners. Because of altered mental status, patient was brought to ER Initial lab work done in the ER showed WBC 9.9, hemoglobin 10.1, platelet count 228, sodium 143, potassium 5, BUN 67, creatinine 2.17, glucose 109, alk phos 141 Urine drug screen not detected UA done showed hematuria WBC is 182, urine WBC 182 Influenza A not detected Influenza B not detected RSV not detected COVID-19 not detected EKG done in the ER showed heart rate of 96, irregular in rhythm, no P wave, no ST segment elevation or depression seen, no T-wave inversions seen. Chest x-ray done in the ER showed no acute cardiopulmonary process CT head done showed age indeterminate injury to left temporal lobe new from 05/19/20 CT abdominal and showed right hydroureteronephrosis, no obstructing calculus generalized. Left adrenal nodule Patient admitted to internal medicine service REVIEW OF SYSTEMS: Review of systems cannot be obtained as patient has baseline dementia, not answering questions Physical examination Alert and oriented to self HEENT: Pupils are round and equally reacting to light. EOMI. No scleral icterus. No conjunctival pallor. Normocephalic, atraumatic. No pharyngeal erythema. No thyromegaly. CARDIOVASCULAR: S1 and S2 present. No murmurs, rubs, or gallops. PULMONARY: Chest is clear to auscultation, no wheezing or crackles. ABDOMEN: Soft, nontender, nondistended, normoactive bowel sounds. No palpable organomegaly. MUSCULOSKELETAL: No joint swelling or deformity. EXTREMITIES: No cyanosis, clubbing, or pedal edema. NEUROLOGICAL: Gross neurological examination did not reveal any focal deficits. Moving all extremities, cranial nerves II through XII intact SKIN: No rashes. Assessment and plan Acute metabolic encephalopathy Strokelike symptoms Acute kidney injury Hematuria UTI Right hydroureteronephrosis Left adrenal nodule Hypertension Hyperlipidemia History of chronic atrial fibrillation Monitor vital signs Monitor CBC Monitor CMP Continue telemetry monitoring Avoid nephrotoxic agents Continue IV fluids Continue IV Rocephin Ordered ultrasound of carotids Ordered EEG Ordered 2-D echo Consult neurology Application Consultant nephrology Consult urology Labs and medication were reviewed.. Continue same treatment. Continue with symptomatic treatment. Resume home medication. Monitor labs and vitals. DVT and GI prophylaxis. Further recommendations as per clinical course of the patient Dictation was produced using [employer] dictation software. please excuse any grammatical, word or spelling errors. Past Medical History Past Medical History: Atrial Fibrillation, CVA/TIA, Dementia, Hyperlipidemia, Hypertension, Renal Disease, Syncope Additional Past Medical History / Comment(s): anemia, w/c but able to stand with 1 asst to transfer,continent,hx DJD, arthiritis, varicose veins bilateral legs, bilateral cataracts, chronic sinusitis, restless leg syndrome,jonathan macular degeneration,mild vascular dementia,stg 4 kidney disease,history of falls History of Any Multi-Drug Resistant Organisms: None Reported Past Surgical History: Breast Surgery, Cholecystectomy, Joint Replacement, Orthopedic Surgery, Pacemaker Additional Past Surgical History / Comment(s): R breast biopsies x 5 all benign, 2007 R hip replacement due to fx, carpal tunnel release R wrist, R hand surgery with metal plate and screws 2006. Past Anesthesia/Blood Transfusion Reactions: Postoperative Nausea & Vomiting (PONV) Additional Past Anesthesia/Blood Transfusion Reaction / Comment(s): Pt has never recieved blood. Type of Cardiac Device: Unknown Device Placement Date:: unkown Smoking Status: Never smoker - Past Family History Father Family Medical History: Myocardial Infarction ([place]) Additional Family Medical History / Comment(s): Father lived to be 79yrs old. Mother Family Medical History: Coronary Artery Disease (CAD) Additional Family Medical History / Comment(s): Mother at age 70 yrs. She had a ruptured appendix and surgery. Sr. History Unknown: Yes Additional Family Medical History / Comment(s): Heart disease Medications and Allergies Home Medications Medication Instructions Recorded Confirmed Type Atorvastatin [Lipitor] 80 mg PO HS 11/06/19 07/01/23 History Ferrous Sulfate [Iron (65 MG 325 mg PO DAILY 05/19/20 07/01/23 History Elemental)] Apixaban [Eliquis] 5 mg PO BID 11/27/20 07/01/23 History Omeprazole Magnesium [PriLOSEC OTC] 20 mg PO DAILY 11/27/20 07/01/23 History polyethylene glycoL 3350 [Miralax] 17 gm PO DAILY 11/27/20 07/01/23 History Cholecalciferol [Vitamin D3 (25 25 mcg PO DAILY 04/15/23 07/01/23 History Mcg = 1000 Iu)] Mag Hydrox/Aluminum Hyd/Simeth 30 ml PO Q4H PRN 04/15/23 07/01/23 History [Mylanta Maximum Strength Liq] Metoprolol Tartrate [Lopressor] 50 mg PO BID 04/15/23 07/01/23 History Vit C/E/Zn/Coppr/Lutein/Zeaxan 1 cap PO DAILY 04/15/23 07/01/23 History [Preservision Areds 2 Softgel] hydroCHLOROthiazide [Hydrodiuril] 25 mg PO DAILY 04/15/23 07/01/23 History Acetaminophen [Tylenol] 650 mg PO Q4H PRN 07/01/23 07/01/23 History Acetaminophen [Tylenol] 650 mg PO TID 07/01/23 07/01/23 History Estradiol Cream [Estrace Cream 1 mg VAGINAL DIRECTED 07/01/23 07/01/23 History 0.01%] Estradiol Cream [Estrace Cream 2 mg VAGINAL HS 07/01/23 07/01/23 History 0.01%] Losartan Potassium [Cozaar] 100 mg PO DAILY 07/01/23 07/01/23 History Magnesium Hydroxide [Milk of 7,200 mg PO DAILY PRN 07/01/23 07/01/23 History Magnesia Concentrate] Melatonin 5 mg PO HS 07/01/23 07/01/23 History Muscle Rub Ultra Strength Cream 1 applic TOPICAL Q8H PRN 07/01/23 07/01/23 History 4-10-30% Na Phos,M-B/Na Phos,Di-Ba [Fleet 133 ml RECTAL Q72H PRN 07/01/23 07/01/23 History Adult] Ondansetron [Zofran] 4 mg PO Q6H PRN 07/01/23 07/01/23 History Simethicone [Gas-X] 125 mg PO PCHS 07/01/23 07/01/23 History Allergies Allergy/AdvReac Type Severity Reaction Status Date / Time acetaminophen [From [place]] Allergy Itching Verified 07/01/23 15:55 hydrocodone [From [place]] Allergy Itching Verified 07/01/23 15:55 hydromorphone [From Dilaud[place]] Allergy Itching Verified 07/01/23 15:55 Physical Exam Vitals: Vital Signs Temp Pulse Resp BP BP Pulse Ox 07/02/23 02:00 98.1 F 18 135/70 96 07/01/23 22:08 78 16 134/75 98 07/01/23 19:45 89 18 147/64 98 07/01/23 18:15 98.0 F 102 H 17 143/93 100 07/01/23 16:55 96 17 136/71 97 07/01/23 13:57 97.6 F 55 L 17 130/77 95 Intake and Output 07/01/23 07/02/23 07/02/23 22:59 06:59 14:59 Other: # Voids 3 Weight 90.718 kg Results CBC & Chem 7: 07/02/23 07:49 07/02/23 07:49 Labs: Abnormal Lab Results - Last 24 Hours (Table) 07/01/23 07/01/23 07/01/23 Range/Units 15:38 16:17 16:39 RBC 3.60 L (3.80-5.40) m/uL Hgb 10.1 L (11.4-16.0) gm/dL Hct 32.8 L (34.0-46.0) % MCHC 30.8 L (31.0-37.0) g/dL RDW 17.9 H (11.5-15.5) % Neutrophils # 8.2 H (1.3-7.7) k/uL Chloride (98-107) mmol/L BUN (7-17) mg/dL Creatinine (0.52-1.04) mg/dL Glucose (74-99) mg/dL Alkaline Phosphatase (38-126) U/L Urine Appearance Bloody H (Clear) Urine RBC >182 H (0-5) /hpf Urine WBC >182 H (0-5) /hpf Urine Bacteria Many H (None) /hpf Urine Mucus Few H (None) /hpf Stool Occult Blood Positive H (Negative) 07/01/23 Range/Units 16:39 RBC (3.80-5.40) m/uL Hgb (11.4-16.0) gm/dL Hct (34.0-46.0) % MCHC (31.0-37.0) g/dL RDW (11.5-15.5) % Neutrophils # (1.3-7.7) k/uL Chloride 110 H (98-107) mmol/L BUN 67 H (7-17) mg/dL Creatinine 2.17 H (0.52-1.04) mg/dL Glucose 109 H (74-99) mg/dL Alkaline Phosphatase 141 H (38-126) U/L Urine Appearance (Clear) Urine RBC (0-5) /hpf Urine WBC (0-5) /hpf Urine Bacteria (None) /hpf Urine Mucus (None) /hpf Stool Occult Blood (Negative)
[2023-07-02] MEDS: SODIUM CHLORIDE 0.45% 1,000 ML IV SCH (13:38)
--- NOTE | 2023-07-02 17:53 | P.GSCN ---
History of Present Illness Consult date: 07/02/23 Reason for Consult: Gross hematuria, right hydronephrosis History of present illness: This is an 82-year-old female presented to the hospital with acute kidney injury and altered mental status. Urologist consulted for right-sided hydronephrosis and gross hematuria. Patient is a poor historian but it was noticed that she has had any gross hematuria. She is also experiencing back and flank pain according to the patient guardian Renae. Her creatinine on presentation was 2.17, which subsequently improved this morning to 1.7. Underwent a CT abdomen/pelvis that showed evidence of right-sided hydronephrosis with dilated ureter down to the bladder, but there was poor evaluation of the distal ureter and the bladder secondary to streak artifact Review of Systems ROS unobtainable: due to mental status Past Medical History Past Medical History: Atrial Fibrillation, CVA/TIA, Dementia, Hyperlipidemia, Hypertension, Renal Disease, Syncope Additional Past Medical History / Comment(s): anemia, w/c but able to stand with 1 asst to transfer,continent,hx DJD, arthiritis, varicose veins bilateral legs, bilateral cataracts, chronic sinusitis, restless leg syndrome,jonathan macular degeneration,mild vascular dementia,stg 4 kidney disease,history of falls History of Any Multi-Drug Resistant Organisms: None Reported Past Surgical History: Breast Surgery, Cholecystectomy, Joint Replacement, Orthopedic Surgery, Pacemaker Additional Past Surgical History / Comment(s): R breast biopsies x 5 all benign, 2007 R hip replacement due to fx, carpal tunnel release R wrist, R hand surgery with metal plate and screws 2006. Past Anesthesia/Blood Transfusion Reactions: Postoperative Nausea & Vomiting (PONV) Additional Past Anesthesia/Blood Transfusion Reaction / Comm: Pt has never recieved blood. Type of Cardiac Device: Unknown Device Placement Date:: unkown Smoking Status: Never smoker - Past Family History Father Family Medical History: Myocardial Infarction ([place]) Additional Family Medical History / Comment(s): Father lived to be 79yrs old. Mother Family Medical History: Coronary Artery Disease (CAD) Additional Family Medical History / Comment(s): Mother at age 70 yrs. She had a ruptured appendix and surgery. Sr. History Unknown: Yes Additional Family Medical History / Comment(s): Heart disease Medications and Allergies Home Medications Medication Instructions Recorded Confirmed Type Atorvastatin [Lipitor] 80 mg PO HS 11/06/19 07/01/23 History Ferrous Sulfate [Iron (65 MG 325 mg PO DAILY 05/19/20 07/01/23 History Elemental)] Apixaban [Eliquis] 5 mg PO BID 11/27/20 07/01/23 History Omeprazole Magnesium [PriLOSEC OTC] 20 mg PO DAILY 11/27/20 07/01/23 History polyethylene glycoL 3350 [Miralax] 17 gm PO DAILY 11/27/20 07/01/23 History Cholecalciferol [Vitamin D3 (25 25 mcg PO DAILY 04/15/23 07/01/23 History Mcg = 1000 Iu)] Mag Hydrox/Aluminum Hyd/Simeth 30 ml PO Q4H PRN 04/15/23 07/01/23 History [Mylanta Maximum Strength Liq] Metoprolol Tartrate [Lopressor] 50 mg PO BID 04/15/23 07/01/23 History Vit C/E/Zn/Coppr/Lutein/Zeaxan 1 cap PO DAILY 04/15/23 07/01/23 History [Preservision Areds 2 Softgel] hydroCHLOROthiazide [Hydrodiuril] 25 mg PO DAILY 04/15/23 07/01/23 History Acetaminophen [Tylenol] 650 mg PO Q4H PRN 07/01/23 07/01/23 History Acetaminophen [Tylenol] 650 mg PO TID 07/01/23 07/01/23 History Estradiol Cream [Estrace Cream 1 mg VAGINAL DIRECTED 07/01/23 07/01/23 History 0.01%] Estradiol Cream [Estrace Cream 2 mg VAGINAL HS 07/01/23 07/01/23 History 0.01%] Losartan Potassium [Cozaar] 100 mg PO DAILY 07/01/23 07/01/23 History Magnesium Hydroxide [Milk of 7,200 mg PO DAILY PRN 07/01/23 07/01/23 History Magnesia Concentrate] Melatonin 5 mg PO HS 07/01/23 07/01/23 History Muscle Rub Ultra Strength Cream 1 applic TOPICAL Q8H PRN 07/01/23 07/01/23 History 4-10-30% Na Phos,M-B/Na Phos,Di-Ba [Fleet 133 ml RECTAL Q72H PRN 07/01/23 07/01/23 History Adult] Ondansetron [Zofran] 4 mg PO Q6H PRN 07/01/23 07/01/23 History Simethicone [Gas-X] 125 mg PO PCHS 07/01/23 07/01/23 History Allergies Allergy/AdvReac Type Severity Reaction Status Date / Time acetaminophen [From [place]] Allergy Itching Verified 07/01/23 15:55 hydrocodone [From [place]] Allergy Itching Verified 07/01/23 15:55 hydromorphone [From Dilaudid] Allergy Itching Verified 07/01/23 15:55 Surgical - Exam Vital Signs Temp Pulse Resp BP Pulse Ox 97.6 F 55 L 17 130/77 95 07/01/23 13:57 07/01/23 13:57 07/01/23 13:57 07/01/23 13:57 07/01/23 13:57 - General no distress, moderate pain - Eyes normal ocular movement, no pale - ENT normal nares, normal mucosa - Respiratory normal expansion, normal respiratory effort - Abdomen Abdomen: soft, non tender, no distended Results - Labs 07/02/23 07:49 07/02/23 07:49 Abnormal Lab Results - Last 24 Hours (Table) 07/02/23 07/02/23 Range/Units 07:49 07:49 RBC 3.18 L (4.10-5.20) X 10*6/uL Hgb 8.7 L (12.0-15.0) g/dL Hct 29.5 L (37.2-46.3) % MCHC 29.5 L (32.0-37.0) g/dL RDW 19.0 H (11.5-14.5) % Neutrophils # 7.76 H (1.80-7.70) X 10*3/uL Sodium 148 H (135-145) mmol/L Chloride 111 H (96-109) mmol/L Anion Gap 14.00 H (4.00-12.00) mmol/L BUN 55.3 H (9.0-27.0) mg/dL Creatinine 1.7 H (0.6-1.5) mg/dL Est GFR (CKD-EPI) 30 L (>=60) BUN/Creatinine Ratio 32.53 H (12.00-20.00) Ratio Calcium 8.6 L (8.7-10.3) mg/dL Diabetes panel 07/02/23 Range/Units 07:49 Sodium 148 H (135-145) mmol/L Potassium 4.1 (3.5-5.5) mmol/L Chloride 111 H (96-109) mmol/L Carbon Dioxide 23.0 (21.6-31.8) mmol/L BUN 55.3 H (9.0-27.0) mg/dL Creatinine 1.7 H (0.6-1.5) mg/dL Glucose 101 (70-110) mg/dL Calcium 8.6 L (8.7-10.3) mg/dL Calcium panel 07/02/23 Range/Units 07:49 Calcium 8.6 L (8.7-10.3) mg/dL Pituitary panel 07/02/23 Range/Units 07:49 Sodium 148 H (135-145) mmol/L Potassium 4.1 (3.5-5.5) mmol/L Chloride 111 H (96-109) mmol/L Carbon Dioxide 23.0 (21.6-31.8) mmol/L BUN 55.3 H (9.0-27.0) mg/dL Creatinine 1.7 H (0.6-1.5) mg/dL Glucose 101 (70-110) mg/dL Calcium 8.6 L (8.7-10.3) mg/dL Adrenal panel 07/02/23 Range/Units 07:49 Sodium 148 H (135-145) mmol/L Potassium 4.1 (3.5-5.5) mmol/L Chloride 111 H (96-109) mmol/L Carbon Dioxide 23.0 (21.6-31.8) mmol/L BUN 55.3 H (9.0-27.0) mg/dL Creatinine 1.7 H (0.6-1.5) mg/dL Glucose 101 (70-110) mg/dL Calcium 8.6 L (8.7-10.3) mg/dL Assessment and Plan Assessment: 82-year-old female with history of gross hematuria and right-sided hydronephrosis, had prolonged discussion with her guardian Renae which indicated patient has been having flank/back pain. Discussed with this potential the hydronephrosis could be contributing to that. At this point she does not wish to proceed with aggressive measures but given the patient's symptoms she indicated if she continues to have pain she was agreeable to proceed with a stent. Risk benefit and rationale of surgery was discussed with her. -Will keep n.p.o. past midnight, will reevaluate tomorrow, if having pain then we will proceed with cystoscopy and right stent insertion
[2023-07-02] MEDS: ATORVASTATIN 80 MG TAB PO SCH (20:18)
[2023-07-02] MEDS: MELATONIN 5 MG TABLET PO SCH (20:18)
--- NOTE | 2023-07-02 21:41 | P.CNNES ---
History of Present Illness Consult date: 07/02/23 Requesting physician: Yoan Fan Reason for Consult: age indeterminate finding on ct, no obvious deficits History of Present Illness: Patient is a 82-year-old female, currently lives in the longterm for last 2 years, was brought to the hospital by ambulance yesterday at 1:55 PM for altered mental status. Patient not able to provide any history. I spoke to patient's niece, who is patient's power of employment law attorney as well. She mentions patient has hypertension, atrial fibrillation, denies diabetes. She has never smoked, never drink alcohol. Patient tells me that she lives by herself and does not use any assistive device. On speaking to patient's niece, mentions that patient has never been , has no children. She has been living in the longterm for last 2 years because she was having bouts of "passing out". She would be unresponsive, cold. Because her brother is also in the longterm, therefore she was placed as well. She has been doing okay, until end of April or early May 2023, when she started having some GI bleed. She already had undergone upper GI, and colonoscopy about 3 years ago. She had small bowel testing and was found to have tiny bleeding spot. She was also seen by hand compositor, and was found to have a polyp. Her symptoms have got further worse about 2 weeks ago, when she started having back pain for which she was placed on [place]. It made her itchy all over. She has developed memory problems. Patient's niece mentions that patient had undergone pacemaker interrogation and they did not find any obvious abnormality. Patient has stopped using walker about 2 weeks ago and is lately relying on the wheelchair. As per EMS flowsheet, they were called for possible strokelike symptoms. Staff member at the longterm mentions that patient has a change in her mental status with an overall decline in her health over the past 2 weeks. Yesterday morning at 8 AM, one of the PA was assessing her and found a new onset of right- sided facial twitch with the right side fixed gaze. [place] assessed her again this morning and found her to have the same right-sided facial twitch and right- sided fixed gaze. Over the past 2 weeks, her mental status has changed and she seems to be less engaged with conversation. She has been confused at times and has been complaining of both abdominal pain and back pain. On 06/26/[address] scan of abdomen, which showed right-sided hydronephrosis from kidney stones. It was noticed by the paramedics that patient was sleeping and is awakened easily by calling her name. She is able to follow all commands. She has normal speech, symmetrical smile, equal sheetrock applicator, negative arm drift and was able to move her legs independently. There was no fixed gaze, nor any facial twitch. She was noted to be in atrial fibrillation. Her oxygen saturation was between 46% to 100% due to her cold hands and poor peripheral perfusion. She was suspected to be dehydrated. Patient became somewhat agitated after IV line was being attempted. She had no neurological deficits noted by the cemetery warden. Her vitals at the scene was blood pressure 132/78, pulse rate 68, saturation 100%, respiration 20, blood glucose 134 up and temperature 37.1. Her blood test shows normal WBC count, with hemoglobin 10.1, platelets 228. PT PTT is normal, electrolytes are normal, BUN 67, creatinine 2.17. Hepatic panel is normal, ammonia negative, urine drug screen negative, influenza screen, RSV and coronavirus PCR negative. Blood alcohol level negative. Stool occult blood is positive. EKG shows atrial fibrillation. Chest x-ray showed no acute cardiopulmonary disease process, mild cardiomegaly. CT head revealed age- indeterminate injury to the left temporal lobe, new from 05/19/2020. Further evaluation MRI recommended. Nonspecific white matter changes, likely secondary to chronic small vessel ischemic disease. Patient admits to having headache, pointing to the frontal region. She then repeats over and over "I got a headache" Patient's niece denies patient having any history of dementia. She has not noticed any slurred speech, facial droop, focal numbness tingling or weakness. Patient's niece mentions that she see her every Thursday and calls her on the phone every Thursday. Review of Systems Review of systems as per description from patient's niece. Patient not cooperating with the review of systems. Constitutional: Denies chills, Denies fever Eyes: denies blurred vision, denies diplopia, denies pain Ears: deny: decreased hearing, earache Ears, nose, mouth and throat: Denies headache, Denies nasal discharge, Denies sore throat Cardiovascular: Denies chest pain, Denies shortness of breath Respiratory: Denies cough, Denies excessive sputum Gastrointestinal: Reports nausea, Denies abdominal pain, Denies diarrhea, Denies vomiting Genitourinary: Reports dysuria, Reports hematuria (last week), Reports mixed incontinence Musculoskeletal: Reports low back pain (severe), Denies myalgias, Denies neck pain Integumentary: Denies pruritus, Denies rash Neurological: Reports as per HPI Psychiatric: Reports depression, Denies anxiety Endocrine: Reports fatigue, Denies weight change Hematologic/Lymphatic: Reports easy bleeding, Reports easy bruising Past Medical History Past Medical History: Atrial Fibrillation, CVA/TIA, Dementia, Hyperlipidemia, Hypertension, Renal Disease, Syncope Additional Past Medical History / Comment(s): anemia, w/c but able to stand with 1 asst to transfer,continent,hx DJD, arthiritis, varicose veins bilateral legs, bilateral cataracts, chronic sinusitis, restless leg syndrome,jonathan macular degeneration,mild vascular dementia,stg 4 kidney disease,history of falls History of Any Multi-Drug Resistant Organisms: None Reported Past Surgical History: Breast Surgery, Cholecystectomy, Joint Replacement, Orthopedic Surgery, Pacemaker Additional Past Surgical History / Comment(s): R breast biopsies x 5 all benign, 2007 R hip replacement due to fx, carpal tunnel release R wrist, R hand surgery with metal plate and screws 2006. Past Anesthesia/Blood Transfusion Reactions: Postoperative Nausea & Vomiting (PONV) Additional Past Anesthesia/Blood Transfusion Reaction / Comment(s): Pt has never recieved blood. Type of Cardiac Device: Unknown Device Placement Date:: unkown Smoking Status: Never smoker - Past Family History Father Family Medical History: Myocardial Infarction ([place]) Additional Family Medical History / Comment(s): Father lived to be 79yrs old. Mother Family Medical History: Coronary Artery Disease (CAD) Additional Family Medical History / Comment(s): Mother at age 70 yrs. She had a ruptured appendix and surgery. Sr. History Unknown: Yes Additional Family Medical History / Comment(s): Heart disease Medications and Allergies Home Medications Medication Instructions Recorded Confirmed Type Atorvastatin [Lipitor] 80 mg PO HS 11/06/19 07/01/23 History Ferrous Sulfate [Iron (65 MG 325 mg PO DAILY 05/19/20 07/01/23 History Elemental)] Apixaban [Eliquis] 5 mg PO BID 11/27/20 07/01/23 History Omeprazole Magnesium [PriLOSEC OTC] 20 mg PO DAILY 11/27/20 07/01/23 History polyethylene glycoL 3350 [Miralax] 17 gm PO DAILY 11/27/20 07/01/23 History Cholecalciferol [Vitamin D3 (25 25 mcg PO DAILY 04/15/23 07/01/23 History Mcg = 1000 Iu)] Mag Hydrox/Aluminum Hyd/Simeth 30 ml PO Q4H PRN 04/15/23 07/01/23 History [Mylanta Maximum Strength Liq] Metoprolol Tartrate [Lopressor] 50 mg PO BID 04/15/23 07/01/23 History Vit C/E/Zn/Coppr/Lutein/Zeaxan 1 cap PO DAILY 04/15/23 07/01/23 History [Preservision Areds 2 Softgel] hydroCHLOROthiazide [Hydrodiuril] 25 mg PO DAILY 04/15/23 07/01/23 History Acetaminophen [Tylenol] 650 mg PO Q4H PRN 07/01/23 07/01/23 History Acetaminophen [Tylenol] 650 mg PO TID 07/01/23 07/01/23 History Estradiol Cream [Estrace Cream 1 mg VAGINAL DIRECTED 07/01/23 07/01/23 History 0.01%] Estradiol Cream [Estrace Cream 2 mg VAGINAL HS 07/01/23 07/01/23 History 0.01%] Losartan Potassium [Cozaar] 100 mg PO DAILY 07/01/23 07/01/23 History Magnesium Hydroxide [Milk of 7,200 mg PO DAILY PRN 07/01/23 07/01/23 History Magnesia Concentrate] Melatonin 5 mg PO HS 07/01/23 07/01/23 History Muscle Rub Ultra Strength Cream 1 applic TOPICAL Q8H PRN 07/01/23 07/01/23 History 4-10-30% Na Phos,M-B/Na Phos,Di-Ba [Fleet 133 ml RECTAL Q72H PRN 07/01/23 07/01/23 History Adult] Ondansetron [Zofran] 4 mg PO Q6H PRN 07/01/23 07/01/23 History Simethicone [Gas-X] 125 mg PO PCHS 07/01/23 07/01/23 History Allergies Allergy/AdvReac Type Severity Reaction Status Date / Time acetaminophen [From [place]] Allergy Itching Verified 07/01/23 15:55 hydrocodone [From [place]] Allergy Itching Verified 07/01/23 15:55 hydromorphone [From Dilaudid] Allergy Itching Verified 07/01/23 15:55 Physical Examination - Vital Signs Vital Signs: Vital Signs Temp Pulse Pulse Resp BP BP Pulse Ox 07/02/23 14:28 97.6 F 70 18 150/76 94 L 07/02/23 08:00 97.7 F 88 20 142/91 91 L 07/02/23 02:00 98.1 F 18 135/70 96 07/01/23 22:08 78 16 134/75 98 07/01/23 19:45 89 18 147/64 98 07/01/23 18:15 98.0 F 102 H 17 143/93 100 Intake and Output 07/02/23 07/02/23 07/02/23 06:59 14:59 22:59 Intake Total 1125 Balance 1125 Intake: Intake, IV Titration 775 Amount Sodium Chloride 0.45% 1, 225 000 ml @ 75 mls/hr IV . [id number] MADIHA Rx#:[id number] Sodium Chloride 0.9% 1, 450 000 ml @ 75 mls/hr IV . [id number] MADIHA Rx#:[id number] cefTRIAXone 2 gm In 100 Sodium Chloride 0.9% 50 ml @ 100 mls/hr IVPB Q24HR MADIHA Rx#:[id number] Oral 350 Other: Voiding Method Diaper Incontinent # Voids 3 2 # Bowel Movements 0 Weight 90.718 kg Patient is an elderly female, who was laying in the bed, was asleep. Patient on waking up appears somewhat confused, keeps her eyes closed. While examination, she does open her eyes fully widely briefly, then prefers keeping it closed. Patient knows her name, and that she states is 79 years old. Cannot tell her date of . Patient knows that she lives in [place] in [place]. She knows that she is in the hospital but does not know the name of the city of the hospital. She could not tell what month or year, although said it was probably January. Patient speech is clear, with no dysarthria. She is able to repeat very well. She can name certain objects like pencil, but for eyeglasses, patient keeps on saying bracelett, or earring. Patient at times speaks more sensible, sometimes goes tangential. For the cell phone, patient says it is "tube ", and then she said for cell phone "you keep your eggs in". Attention, concentration is diminished and fund of knowledge is very limited. On cranial nerve examination, pupils are equal, round and reacting to light, visual ann are full on confrontation, with no neglect on double simultaneous stimulation. Extraocular muscles are intact with no nystagmus. Face is sym metric, tongue protrudes to the midline. Palatal elevation and sensation normal, hearing and shoulder shrug normal, facial sensation normal. On muscle strength testing, there is no pronator drift and the strength is normal in arms and legs distally and proximally, except deltoid, which is about 5-bilaterally. Deep tendon reflexes are symmetric (right/left) very hypoactive, and plantars are flat. Sensory to touch is equal with no neglect on double simultaneous stimulation. Cerebellar function showed no ataxia for uxqcnd-om-ibup testing. Tone and bulk of muscles normal. Gait deferred.. On general examination, there is no carotid bruit or murmur, S1-S2 audible. Chest is clear on consultation. Abdomen is soft nontender. No organomegaly, bowel sounds present. Peripheral pulses are present. No peripheral edema. Results - Laboratory Findings CBC and BMP: 07/02/23 07:49 07/02/23 07:49 Abnormal Lab Findings: Abnormal Labs 07/01/23 07/01/23 07/01/23 15:38 16:17 16:39 RBC 3.60 L Hgb 10.1 L Hct 32.8 L MCHC 30.8 L RDW 17.9 H Neutrophils # 8.2 H Sodium Chloride Anion Gap BUN Creatinine Est GFR (CKD-EPI) BUN/Creatinine Ratio Glucose Calcium Alkaline Phosphatase Urine Appearance Bloody H Urine RBC >182 H Urine WBC >182 H Urine Bacteria Many H Urine Mucus Few H Stool Occult Blood Positive H 07/01/23 07/02/23 07/02/23 16:39 07:49 07:49 RBC 3.18 L Hgb 8.7 L Hct 29.5 L MCHC 29.5 L RDW 19.0 H Neutrophils # 7.76 H Sodium 148 H Chloride 110 H 111 H Anion Gap 14.00 H BUN 67 H 55.3 H Creatinine 2.17 H 1.7 H Est GFR (CKD-EPI) 30 L BUN/Creatinine Ratio 32.53 H Glucose 109 H Calcium 8.6 L Alkaline Phosphatase 141 H Urine Appearance Urine RBC Urine WBC Urine Bacteria Urine Mucus Stool Occult Blood Assessment and Plan Assessment: * Altered mental status, probably due to metabolic encephalopathy. Reasons multifactorial as mentioned below. * Abnormal CT head, with evidence of encephalomalacia in the left temporal lobe, which is new since the CT head from 05/19/2020. It is possible subacute CVA. * Acute kidney injury, improving * Abnormal UA, rule out UTI. Cultures pending. * Acute hydronephrosis, right side with hematuria. This is probably the cause of low back pain. * Anemia * Recent history of GI bleed * History of atrial fibrillation, on Eliquis 5 mg twice daily. * Hyperlipidemia * Hypertension * Pacemaker Plan: Patient has abnormal brain CT head, with abnormal signal in the left temporal lobe. Suspect subacute to chronic stroke. Patient cannot have MRI of the brain because of presence of pacemaker. 2-D echo has been completed, results pending. Carotid Doppler, revealed less than 50% stenosis of bilateral carotid bifurcations. Antegrade flow in both vertebral arteries. Fasting a.m. lipid panel. Continue Lipitor 80 mg daily. Hemoglobin A1c Optimize control of blood pressure. Resume Eliquis 5 mg twice daily, when medically cleared. Currently Eliquis on h old because of GI bleed and anemia, and patient placed on aspirin instead. Neuro checks every 4 hours. Telemetry monitoring rule out any arrhythmia Nephrology and urology on case for hydronephrosis, possible UTI, acute kidney injury. Patient on ceftriaxone. PT, OT, speech therapy Check B12, folate, TSH, RPR. Ammonia is <9 EEG was performed, will review the results. DVT prophylaxis: Heparin 5000 units subcu every 8 hours Neurology will continue to follow. Thank you for the consult. Time with Patient: Greater than 30
--- NOTE | 2023-07-03 02:34 | EEG ---
DATE OF SERVICE: 07/02/2023 ELECTROENCEPHALOGRAM REPORT PREAMBLE: This is an 82-year-old female with right eye twitching. This study is performed to evaluate for any epileptiform activity. EEG FINDINGS: This is a 21-channel digital EEG recorded with video component, utilizing 10/20 international system with referential and bipolar montages. Background consists of well developed, well regulated moderate voltage activity in 8 to 9 hertz alpha. Background is posterior dominant and reactive to eye opening and closing. Photic stimulation was not performed. The patient was drowsy during most of the study with presence of bilaterally symmetric intermittent theta frequency rhythm. Deeper stages of sleep were not seen. No focal or generalized epileptiform activity was seen. IMPRESSION: This is a normal awake and drowsy EEG. No focal, lateralized or epileptiform activity was seen. MMODL / IJN: [id number] / [facility]
[2023-07-03] MEDS: SODIUM CHLORIDE 0.45% 1,000 ML IV SCH ×2 (04:00→20:41)
[2023-07-03] MEDS: PANTOPRAZOLE 40 MG TABLET PO SCH (08:47)
[2023-07-03] MEDS: SIMETHICONE 80 MG CHEWABLE PO SCH ×4 (08:47→21:34)
[2023-07-03] MEDS: ACETAMINOPHEN TAB 325 MG TAB PO SCH ×3 (08:47→20:36)
[2023-07-03] MEDS: NYSTATIN 100,000 UNIT/GM POWD 15 GM TOPICAL SCH ×2 (08:48→20:34)
[2023-07-03] MEDS: METOPROLOL TARTRATE 50 MG TAB PO SCH ×2 (08:48→20:35)
[2023-07-03] MEDS: FERROUS SULFATE 325 MG TAB PO SCH (08:48)
[2023-07-03 08:54] LABS: Anisocytosis Slight; Basophils % (A) 0 %; Eosinophils # (A) 0.1 k/uL (0-0.7); Eosinophils % (A) 1 %; HGB 8.8 gm/dL (11.4-16.0); Hypochromasia Marked; Lymphocytes % (A) 11 %; MCHC 31.6 g/dL (31.0-37.0); MCV 91.7 fL (80.0-100.0); Mean Platelet Volume 8.4; Monocytes # (A) 0.4 k/uL (0-1.0); Monocytes % (A) 5 %; Neutrophils # (A) 7.4 k/uL (1.3-7.7); Neutrophils % (A) 82 %; Platelet Count 210 k/uL (150-450); RBC 3.05 m/uL (3.80-5.40); RDW 17.9 % (11.5-15.5); WBC 9.1 k/uL (3.8-10.6)
[2023-07-03 09:22] LABS: ALT 14 U/L (4-34); AST 25 U/L (14-36); African American GFR (CKD) 54 (>60 ml/min/1.73 sqM); Albumin 2.7 g/dL (3.5-5.0); Alkaline Phosphatase 116 U/L (38-126); Anion Gap 5 mmol/L; Blood Urea Nitrogen 40 mg/dL (7-17); Calcium 8.1 mg/dL (8.4-10.2); Carbon Dioxide 23 mmol/L (22-30); Chloride 111 mmol/L (98-107); Glucose 100 mg/dL (74-99); Non-African American GFR(CKD) 47 (>60 ml/min/1.73 sqM); Potassium 3.9 mmol/L (3.5-5.1); Sodium 139 mmol/L (137-145); Total Bilirubin 0.4 mg/dL (0.2-1.3); Total Protein 5.5 g/dL (6.3-8.2)
--- NOTE | 2023-07-03 09:45 | CA ---
Transthoracic Echo Report Name: Marya Keenan Age: 82 Gender: F : 1940 Exam Date: 07/02/2023 11:05 Exam Location: [facility] Ht (in): 68 Wt (lb): 200 Ordering Physician: Arsenio Austin MD Attending/Referring Phys: Supervisor [employer] Hope Velasquez RDCS Procedure CPT: Indications: Right-sided eye twitching, strokelike symptoms Cardiac Hx: Technical Quality: Fair Contrast 1: Total Dose (mL): Contrast 2: Total Dose (mL): MEASUREMENTS (Male / Female) Normal Values 2D ECHO LV Diastolic Diameter PLAX 3.6 cm 4.2 - 5.9 / 3.9 - 5.3 cm LV Systolic Diameter PLAX 2.3 cm IVS Diastolic Thickness 1.7 cm 0.6 - 1.0 / 0.6 - 0.9 cm LVPW Diastolic Thickness 1.5 cm 0.6 - 1.0 / 0.6 - 0.9 cm LV Relative Wall Thickness 0.9 RV Internal Dim ED PLAX 3.4 cm LVOT Diameter 1.5 cm LA Volume 138.1 cm??? 18 - 58 / 22 - 52 cm??? LA Volume Index 65.4 cm???/m??? 16 - 28 cm???/m??? M-MODE Aortic Root Diameter MM 2.3 cm LA Systolic Diameter MM 5.2 cm LA Ao Ratio MM 2.3 DOPPLER AV Peak Velocity 336.9 cm/s AV Peak Gradient 45.4 mmHg AV Mean Velocity 248.3 cm/s AV Mean Gradient 27.4 mmHg AV Velocity Time Integral 76.3 cm LVOT Peak Velocity 64.2 cm/s LVOT Peak Gradient 1.6 mmHg LVOT Velocity Time Integral 14.9 cm LVOT Stroke Volume 24.8 cm??? LVOT Stroke Volume Index 12.1 ml/m??? LVOT Cardiac Index 928.1 cm???/min???m??? AV Area Cont Eq vti 0.3 cm??? AV Area Cont Eq pk 0.3 cm??? MV Peak Velocity 169.5 cm/s MV Peak Gradient 11.5 mmHg MV Mean Velocity 86.4 cm/s MV Mean Gradient 3.8 mmHg MV Velocity Time Integral 28.9 cm MV E' Velocity 6.7 cm/s TR Peak Velocity 374.3 cm/s TR Peak Gradient 56.1 mmHg Right Ventricular Systolic Press 58.9 mmHg FINDINGS Left Ventricle Severely increased left ventricular wall thickness. Left ventricular cavity size normal. Normal left ventricular systolic function with no obvious regional wall motion abnormalities. Left ventricular ejection fraction is estimated at 55-60 %. Right Ventricle Normal right ventricular size and function. Moderate to severe pulmonary hypertension. Right Atrium Normal right atrial size. Catheter/pacemaker wire in the right atrial cavity. Left Atrium Severely increased left atrial volume. Moderately increased left atrial area. Mitral Valve Structurally normal mitral valve. Mitral valve thickened. Severe mitral annular calcification. Moderate mitral regurgitation. Aortic Valve S/P TAVR, bioprosthetic aortic valve with increased velocity noted, with a peak velocity of 3.4 m/s, peak gradient 45 mmHg, mean gradient 27 mmHg, and estimated aortic valve area of .3 cm???. Tricuspid Valve Structurally normal tricuspid valve. Moderate tricuspid regurgitation. Pulmonic Valve Structurally normal pulmonic valve. Pericardium No pericardial effusion. Aorta Normal size aortic root and proximal ascending aorta. CONCLUSIONS Normal LV systolic function Transcatheter aortic valve with a mean gradient of 27 mmHg and peak gradient of 45 mmHg Moderate mitral and tricuspid regurgitation Moderate to severe pulmonary hypertension Previewed by: Dr. Garry Torres MD (Electronically Signed) Final Date: 03 July 2023 09:44
--- NOTE | 2023-07-03 10:46 | P.NPCON ---
History of Present Illness - Reason for Consult acute renal failure - History of Present Illness Patient is a 82-year-old female with history of dementia and previous CVA and hypertension. Patient denies at [facility]. She is admitted to the hospital history of jerking movements and weakness. There was also a change in mentation. Patient was noted to have a serum creatinine of 2.1. There was some complaint of abdominal pain as well and therefore CT of the abdomen was done which showed right hydronephrosis. Patient was also noted to have new onset of hematuria. Blood pressure is not low. Patient is maintained on IV fluids. Serum creatinine decreased from 2.1-1.1. Hemoglobin 8.8 g/dL. Stool for occult blood was positive. Review of Systems As per HPI Past Medical History Past Medical History: Atrial Fibrillation, CVA/TIA, Dementia, Hyperlipidemia, Hypertension, Renal Disease, Syncope Additional Past Medical History / Comment(s): anemia, w/c but able to stand with 1 asst to transfer,continent,hx DJD, arthiritis, varicose veins bilateral legs, bilateral cataracts, chronic sinusitis, restless leg syndrome,jonathan macular degeneration,mild vascular dementia,stg 4 kidney disease,history of falls History of Any Multi-Drug Resistant Organisms: None Reported Past Surgical History: Breast Surgery, Cholecystectomy, Joint Replacement, Orthopedic Surgery, Pacemaker Additional Past Surgical History / Comment(s): R breast biopsies x 5 all benign, 2007 R hip replacement due to fx, carpal tunnel release R wrist, R hand surgery with metal plate and screws 2006. Past Anesthesia/Blood Transfusion Reactions: Postoperative Nausea & Vomiting (PONV) Additional Past Anesthesia/Blood Transfusion Reaction / Comment(s): Pt has never recieved blood. Type of Cardiac Device: Unknown Device Placement Date:: unkown Smoking Status: Never smoker - Past Family History Father Family Medical History: Myocardial Infarction (PA) Additional Family Medical History / Comment(s): Father lived to be 79yrs old. Mother Family Medical History: Coronary Artery Disease (CAD) Additional Family Medical History / Comment(s): Mother at age 70 yrs. She had a ruptured appendix and surgery. Sr. History Unknown: Yes Additional Family Medical History / Comment(s): Heart disease Medications and Allergies Home Medications Medication Instructions Recorded Confirmed Type Atorvastatin [Lipitor] 80 mg PO HS 11/06/19 07/01/23 History Ferrous Sulfate [Iron (65 MG 325 mg PO DAILY 05/19/20 07/01/23 History Elemental)] Apixaban [Eliquis] 5 mg PO BID 11/27/20 07/01/23 History Omeprazole Magnesium [PriLOSEC OTC] 20 mg PO DAILY 11/27/20 07/01/23 History polyethylene glycoL 3350 [Miralax] 17 gm PO DAILY 11/27/20 07/01/23 History Cholecalciferol [Vitamin D3 (25 25 mcg PO DAILY 04/15/23 07/01/23 History Mcg = 1000 Iu)] Mag Hydrox/Aluminum Hyd/Simeth 30 ml PO Q4H PRN 04/15/23 07/01/23 History [Mylanta Maximum Strength Liq] Metoprolol Tartrate [Lopressor] 50 mg PO BID 04/15/23 07/01/23 History Vit C/E/Zn/Coppr/Lutein/Zeaxan 1 cap PO DAILY 04/15/23 07/01/23 History [Preservision Areds 2 Softgel] hydroCHLOROthiazide [Hydrodiuril] 25 mg PO DAILY 04/15/23 07/01/23 History Acetaminophen [Tylenol] 650 mg PO Q4H PRN 07/01/23 07/01/23 History Acetaminophen [Tylenol] 650 mg PO TID 07/01/23 07/01/23 History Estradiol Cream [Estrace Cream 1 mg VAGINAL DIRECTED 07/01/23 07/01/23 History 0.01%] Estradiol Cream [Estrace Cream 2 mg VAGINAL HS 07/01/23 07/01/23 History 0.01%] Losartan Potassium [Cozaar] 100 mg PO DAILY 07/01/23 07/01/23 History Magnesium Hydroxide [Milk of 7,200 mg PO DAILY PRN 07/01/23 07/01/23 History Magnesia Concentrate] Melatonin 5 mg PO HS 07/01/23 07/01/23 History Muscle Rub Ultra Strength Cream 1 applic TOPICAL Q8H PRN 07/01/23 07/01/23 History 4-10-30% Na Phos,M-B/Na Phos,Di-Ba [Fleet 133 ml RECTAL Q72H PRN 07/01/23 07/01/23 History Adult] Ondansetron [Zofran] 4 mg PO Q6H PRN 07/01/23 07/01/23 History Simethicone [Gas-X] 125 mg PO PCHS 07/01/23 07/01/23 History Allergies Allergy/AdvReac Type Severity Reaction Status Date / Time acetaminophen [From [place]] Allergy Itching Verified 07/01/23 15:55 hydrocodone [From [place]] Allergy Itching Verified 07/01/23 15:55 hydromorphone [From [place]] Allergy Itching Verified 07/01/23 15:55 Physical Exam Vitals: Vital Signs Temp Pulse Resp BP BP Pulse Ox 07/03/23 08:00 98.0 F 96 17 135/64 99 07/03/23 02:00 97.4 F L 85 18 150/74 97 07/02/23 19:59 97.8 F 80 16 122/60 98 07/02/23 14:28 97.6 F 70 18 150/76 94 L Intake and Output 07/02/23 07/03/23 07/03/23 22:59 06:59 14:59 Intake Total 1275 Balance 1275 Intake: Intake, IV Titration 775 Amount Sodium Chloride 0.45% 1, 225 000 ml @ 75 mls/hr IV . [id number] [facility] Rx#:[id number] Sodium Chloride 0.9% 1, 450 000 ml @ 75 mls/hr IV . [id number] [facility] Rx#:[id number] cefTRIAXone 2 gm In 100 Sodium Chloride 0.9% 50 ml @ 100 mls/hr IVPB Q24HR [facility] Rx#:[id number] Oral 500 Other: Voiding Method Diaper Diaper Incontinent Incontinent # Voids 1 3 # Bowel Movements 1 Patient is comfortable. She is not in any acute distress. Patient does not communicate much. Answers to simple questions. Examination of the heart S1 and S2 Examination of the lungs decreased breath sounds at the bases no crackles or whe ezing is heard Abdomen is soft nontender Examination of lower extremities showed no evidence of edema Results - Lab Results Most recent lab results Calcium 8.1 mg/dL (8.4-10.2) L 07/03/23 08:34 07/03/23 08:34 07/03/23 08:34 Assessment and Plan Assessment: 1. Acute kidney injury, prerenal with possible component of obstructive uropathy as well. Renal function has improved with IV hydration. Diuretics and angiotensin receptor blockers currently on hold. Urine micro shows WBCs and RBCs more than 182 urine analysis was otherwise not available. CT of the abdomen shows moderate right hydronephrosis with no obstructive calculus. 2. Mental status changes possibly related to underlying UTI 3. Pyuria rule out UTI 4. Right hydronephrosis status post evaluation by urology with no plans for intervention as patient was reluctant and would like to monitor for now. 5. History of CVA 6. Hypertension, controlled. Cozaar on hold. 7. Hypernatremia associated with free water deficit currently improved post change of IV fluids to half-normal saline. 8. Anemia rule out iron deficiency. Stool for occult blood was positive. Plan: Check UA Check iron profile Continue with IV fluids Repeat labs in a.m. Thank you for the consultation. Will continue to follow the patient with you during her hospitalization.
--- NOTE | 2023-07-03 12:05 | P.PN ---
Subjective Progress Note Date: 07/03/23 No acute overnight event, continues to have gross hematuria this morning with clot. Hemoglobin stable, creatinine down to 1.1 Objective - Vital Signs Vital signs: Vital Signs Temp 98.0 F 07/03/23 08:00 Pulse 96 07/03/23 08:00 Resp 17 07/03/23 08:00 BP 135/64 07/03/23 08:00 Pulse Ox 99 07/03/23 08:00 FiO2 Intake & Output 07/02/23 07/03/23 07/03/23 18:59 06:59 18:59 Intake Total 1275 Balance 1275 Intake: Intake, IV Titration 775 Amount Sodium Chloride 0.45% 1, 225 000 ml @ 75 mls/hr IV . [id number] [facility] Rx#:[id number] Sodium Chloride 0.9% 1, 450 000 ml @ 75 mls/hr IV . [id number] [facility] Rx#:[id number] cefTRIAXone 2 gm In 100 Sodium Chloride 0.9% 50 ml @ 100 mls/hr IVPB Q24HR [facility] Rx#:[id number] Oral 500 Other: Voiding Method Diaper Diaper Diaper Incontinent Incontinent Incontinent # Voids 1 3 # Bowel Movements 0 1 - Constitutional General appearance: Present: no acute distress - Gastrointestinal General gastrointestinal: Present: soft. Absent: distended, tenderness - Labs CBC & Chem 7: 07/03/23 08:34 07/03/23 08:34 Labs: Abnormal Lab Results - Last 24 Hours (Table) 07/02/23 07/03/23 07/03/23 Range/Units 07:49 08:34 08:34 RBC 3.05 L (3.80-5.40) m/uL Hgb 8.8 L (11.4-16.0) gm/dL Hct 28.0 L (34.0-46.0) % RDW 17.9 H (11.5-15.5) % Sodium 148 H (135-145) mmol/L Chloride 111 H 111 H (96-109) mmol/L Anion Gap 14.00 H (4.00-12.00) mmol/L BUN 55.3 H 40 H (9.0-27.0) mg/dL Creatinine 1.7 H 1.10 H (0.6-1.5) mg/dL Est GFR (CKD-EPI) 30 L (>=60) BUN/Creatinine Ratio 32.53 H (12.00-20.00) Ratio Glucose 100 H (74-99) mg/dL Calcium 8.6 L 8.1 L (8.7-10.3) mg/dL Total Protein 5.5 L (6.3-8.2) g/dL Albumin 2.7 L (3.5-5.0) g/dL Assessment and Plan Assessment: 82-year-old female with history of gross hematuria and right-sided hydronephrosis, had prolonged discussion with her guardian Renae which indicated patient has been having flank/back pain. Discussed with this potential the hydronephrosis could be contributing to that. At this point she does not wish to proceed with aggressive measures but given the patient's symptoms she indicated if she continues to have pain she was agreeable to proceed with a stent. Risk benefit and rationale of surgery was discussed with her. This morning also is having gross hematuria with clots. -Will keep n.p.o. -OR for cystoscopy and right stent insertion
--- NOTE | 2023-07-03 12:27 | P.PN ---
Subjective Progress Note Date: 07/03/23 patient is 82-year-old lady with past medical history significant for dementia, CVA, hypertension who presented to the ER for change in mental status from [facility]. Patient history of baseline dementia. Nursing staff has noted the patient was having a right-sided eye gaze and twitching. No complaint of jerking movements of any extremity. No complain of slurred speech or facial droop. There was no complain of recent fall. Patient history of A. fib and on blood thinners. Because of altered mental status, patient was brought to ER Initial lab work done in the ER showed WBC 9.9, hemoglobin 10.1, platelet count 228, sodium 143, potassium 5, BUN 67, creatinine 2.17, glucose 109, alk phos 141 Urine drug screen not detected UA done showed hematuria WBC is 182, urine WBC 182 Influenza A not detected Influenza B not detected RSV not detected COVID-19 not detected EKG done in the ER showed heart rate of 96, irregular in rhythm, no P wave, no ST segment elevation or depression seen, no T-wave inversions seen. Chest x-ray done in the ER showed no acute cardiopulmonary process CT head done showed age indeterminate injury to left temporal lobe new from 05/19/20 CT abdominal and showed right hydroureteronephrosis, no obstructing calculus generalized. Left adrenal nodule Patient admitted to internal medicine service 07/03. Patient seen and examined. Does not look in acute distress. Still having hematuria denies abdominal pain. No nausea or vomiting. REVIEW OF SYSTEMS: CONSTITUTIONAL: No fever, no malaise,. CARDIOVASCULAR: No chest pain, no palpitations, no syncope. PULMONARY: No shortness of breath, no cough, GASTROINTESTINAL: No diarrhea,, no abdominal pain. NEUROLOGICAL: No headaches, no weakness, PHYSICAL EXAMINATION: Alert and oriented to self HEENT: Pupils are round and equally reacting to light. EOMI. No scleral icterus. No conjunctival pallor. Normocephalic, atraumatic. No pharyngeal erythema. No thyromegaly. CARDIOVASCULAR: S1 and S2 present. No murmurs, rubs, or gallops. PULMONARY: Chest is clear to auscultation, no wheezing or crackles. ABDOMEN: Soft, nontender, nondistended, normoactive bowel sounds. No palpable organomegaly. MUSCULOSKELETAL: No joint swelling or deformity. EXTREMITIES: No cyanosis, clubbing, or pedal edema. NEUROLOGICAL: Gross neurological examination did not reveal any focal deficits. Moving all extremities, cranial nerves II through XII intact SKIN: No rashes. Assessment and plan Acute metabolic encephalopathy Strokelike symptoms Acute kidney injury Hematuria UTI Right hydroureteronephrosis Left adrenal nodule Hypertension Hyperlipidemia History of chronic atrial fibrillation Monitor vital signs Monitor CBC Monitor CMP Continue telemetry monitoring Avoid nephrotoxic agents Continue IV fluids Continue IV Rocephin ultrasound of carotids less than 50% stenosis bilateral carotid arteries EEG negative for seizure like activity Ordered 2-D echo Neurology following Urology planning cystoscopy Nephrology following Labs and medication were reviewed.. Continue same treatment. Continue with symptomatic treatment. Resume home medication. Monitor labs and vitals. DVT and GI prophylaxis. Further recommendations as per clinical course of the patient Dictation was produced using [employer] dictation software. please excuse any grammatical, word or spelling errors. Objective - Vital Signs Vital signs: Vital Signs Temp 98.0 F 07/03/23 08:00 Pulse 96 07/03/23 08:00 Resp 17 07/03/23 08:00 BP 135/64 07/03/23 08:00 Pulse Ox 99 07/03/23 08:00 FiO2 Intake & Output 07/02/23 07/03/23 07/03/23 18:59 06:59 18:59 Intake Total 1275 Balance 1275 Intake: Intake, IV Titration 775 Amount Sodium Chloride 0.45% 1, 225 000 ml @ 75 mls/hr IV . [id number] [facility] Rx#:[id number] Sodium Chloride 0.9% 1, 450 000 ml @ 75 mls/hr IV . [id number] [facility] Rx#:[id number] cefTRIAXone 2 gm In 100 Sodium Chloride 0.9% 50 ml @ 100 mls/hr IVPB Q24HR [facility] Rx#:[id number] Oral 500 Other: Voiding Method Diaper Diaper Incontinent Incontinent # Voids 1 3 # Bowel Movements 0 1 - Labs CBC & Chem 7: 07/03/23 08:34 07/03/23 08:34 Labs: Abnormal Lab Results - Last 24 Hours (Table) 07/02/23 07/02/23 07/03/23 Range/Units 07:49 07:49 08:34 RBC 3.18 L 3.05 L (4.10-5.20) X 10*6/uL Hgb 8.7 L 8.8 L (12.0-15.0) g/dL Hct 29.5 L 28.0 L (37.2-46.3) % MCHC 29.5 L (32.0-37.0) g/dL RDW 19.0 H 17.9 H (11.5-14.5) % Neutrophils # 7.76 H (1.80-7.70) X 10*3/uL Sodium 148 H (135-145) mmol/L Chloride 111 H (96-109) mmol/L Anion Gap 14.00 H (4.00-12.00) mmol/L BUN 55.3 H (9.0-27.0) mg/dL Creatinine 1.7 H (0.6-1.5) mg/dL Est GFR (CKD-EPI) 30 L (>=60) BUN/Creatinine Ratio 32.53 H (12.00-20.00) Ratio Calcium 8.6 L (8.7-10.3) mg/dL
[2023-07-03] MEDS ORDERED: LACTATED RINGERS 1,000 ML IV ONE ×3 (14:53→19:59)
[2023-07-03] MEDS ORDERED: ONDANSETRON 4 MG/2 ML VIAL IVP ONE (15:17)
[2023-07-03] MEDS ORDERED: DEXAMETHASONE SOD PHOSPHATE 4 MG/ML 1 ML VIAL IVP ONE (15:17)
[2023-07-03] MEDS ORDERED: fentaNYL (PF) 50 MCG/ML 2 ML AMP ONE (15:57)
[2023-07-03] MEDS ORDERED: PROPOFOL 10 MG/ML 20 ML VIAL IV ONE (15:57)
[2023-07-03] MEDS ORDERED: ceFAZolin 1,000 MG VIAL ONE (15:57)
[2023-07-03] MEDS ORDERED: SODIUM CHLORIDE 0.9% 100 ML BAG ONE (15:57)
[2023-07-03] MEDS ORDERED: PHENYLEPHRINE-0.9% NACL SYG 1,000 MCG/10 ML SYRINGE ONE (15:57)
[2023-07-03] MEDS ORDERED: LIDOCAINE 1% INJ 10MG/ML (20 ML MDV) ONE (15:57)
[2023-07-03] MEDS ORDERED: SODIUM CHLORIDE 0.9% 50 ML with ceFAZolin 2,000 MG IV ONE ×2 (16:25)
[2023-07-03] MEDS ORDERED: IOPAMIDOL-370 100ML BTL MISCELLANE ONE (16:29)
[2023-07-03 16:40] LABS: Chol/HDL Ratio 2.49 Ratio; LDL Cholesterol,Calculated 24.5 mg/dL (0.0-131.0)
--- NOTE | 2023-07-03 16:41 | P.PN ---
Progress Note - Text Progress Note Date: 07/03/23 Came to see patient, patient in cystoscopy. We will see in the morning.
[2023-07-03 16:54] LABS: % Iron Saturation 11.62 (12.00-45.00)
--- NOTE | 2023-07-03 19:09 | P.OP ---
Date of Procedure: 07/03/23 Preoperative Diagnosis: Gross hematuria, hydronephrosis Postoperative Diagnosis: Gross hematuria, hydronephrosis, bladder mass Procedure(s) Performed: Cystoscopy, clot evacuation, TURBT Implants: none Anesthesia: ROBERT Surgeon: Vignesh Frye Estimated Blood Loss (ml): 150 Pathology: other (bladder mass) Condition: stable Disposition: PACU Indications for Procedure: This is an 82-year-old female that is been having intermittent gross hematuria, with clots and also having right-sided flank pain. Underwent a CT abdomen pelvis that showed evidence of right-sided hydronephrosis. Had a prolonged discussion with the patient's guardian option of a cystoscopy with a right retrograde pyelogram to evaluate the bladder and the hydronephrosis. Discussed with her the risk the rationale and the benefit of the procedure in detail. 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 She was prepped and draped in sterile fashion placed in dorsolithotomy position. Cystoscopy through the [place] sheath was inserted per urethra, cystoscopy was performed which showed a large friable mass involving the right trigone extending into the lateral wall, I was able to visualize the left ureteral orifice, with the right ureter which was not visualized, there was also significant clot burden in the bladder. Next using the Ellik evacuator the clots were evacuated out. At this time the tumor did appear to be actively bleeding. Given this finding decision was made to proceed with a TURBT to control the bleeding. Using the bipolar resectoscope fitted with 22 Fr sheath the tumor was resected down, of note the tumor area of resection measured greater than 8 cm, I was unable to visualize the right ureteral orifice during the resection. The tumor did appear to be extending deep within the bladder with highly suspicion that it is extended beyond the bladder. Resection was not completed due to concern of bladder perforation if I continued with the resection as the tumor appears to be extending extravesical. But following the resection there was no evidence of bleeding, the urine was clear, there was no evidence of bladder perforation. A [employer] [place] Jonas was placed with return of clear urine it was irrigated without any difficulty. The patient abdomen was soft at the end of resection. Patient tolerated procedure well taken to recovery in stable condition
[2023-07-03] MEDS ORDERED: MIDAZOLAM 2 MG/2 ML VIAL IVP ONE (19:35)
[2023-07-03] MEDS: ATORVASTATIN 80 MG TAB PO SCH (20:35)
[2023-07-03] MEDS: MELATONIN 5 MG TABLET PO SCH (20:35)
[2023-07-04 05:58] LABS: Appearance,Urine Turbid (Clear); Bilirubin,Urine Negative (Negative); Blood,Urine Large (Negative); Color,Urine Dark Red; Glucose,Urine (UA) Negative (Negative); Ketones,Urine 1+ (Negative); Leukocyte Esterase,Urine Large (Negative); Nitrite,Urine Negative (Negative); Protein,Urine 2+ (Negative); Urobilinogen,Urine <2.0 mg/dL (<2.0); WBC,Urine >182 /hpf (0-5)
[2023-07-04 05:59] LABS: Bacteria,Urine Many /hpf; RBC,Urine >182 /hpf (0-5)
[2023-07-04 06:03] LABS: Specific Gravity,Urine 1.016 (1.001-1.035)
[2023-07-04] MEDS: SODIUM CHLORIDE 0.45% 1,000 ML IV SCH ×2 (06:19→21:00)
[2023-07-04] MEDS: SIMETHICONE 80 MG CHEWABLE PO SCH ×4 (09:17→21:39)
[2023-07-04] MEDS: FERROUS SULFATE 325 MG TAB PO SCH (09:18)
[2023-07-04] MEDS: METOPROLOL TARTRATE 50 MG TAB PO SCH ×2 (09:18→21:36)
[2023-07-04] MEDS: ACETAMINOPHEN TAB 325 MG TAB PO SCH ×3 (09:18→21:37)
[2023-07-04] MEDS: PANTOPRAZOLE 40 MG TABLET PO SCH (09:18)
[2023-07-04] MEDS: NYSTATIN 100,000 UNIT/GM POWD 15 GM TOPICAL SCH ×2 (09:19→21:39)
--- NOTE | 2023-07-04 10:08 | P.PN ---
Subjective Underwent TURBT yesterday, doing well this morning urine is light red. No issues with catheter clogging this morning Objective - Vital Signs Vital signs: Vital Signs Temp 97.9 F 07/04/23 07:05 Pulse 84 07/04/23 07:05 Resp 16 07/04/23 07:05 BP 139/75 07/04/23 07:05 Pulse Ox 100 07/04/23 07:05 FiO2 Intake & Output 07/03/23 07/04/23 07/04/23 18:59 06:59 18:59 Intake Total 2050 1000 Output Total 150 450 Balance 1900 550 Intake: IV 2049 Intake, IV Titration 800 Amount Sodium Chloride 0.45% 1, 800 000 ml @ 75 mls/hr IV . [id number] [facility] Rx#:[id number] Oral 200 Output: Urine 450 Estimated Blood Loss 150 Other: Voiding Method Diaper Indwelling Catheter Indwelling Catheter Incontinent - Constitutional General appearance: Present: no acute distress - Gastrointestinal General gastrointestinal: Present: soft. Absent: distended, tenderness - Labs CBC & Chem 7: 07/03/23 08:34 07/03/23 08:34 Labs: Abnormal Lab Results - Last 24 Hours (Table) 07/03/23 07/03/23 07/04/23 Range/Units 08:34 08:34 05:10 Iron 33 L (50-170) UG/DL % Saturation 11.62 L (12.00-45.00) Transferrin 203.0 L (204.0-354.0) mg/dL Triglycerides 150.00 H (0.00-149.00) mg/dL HDL Cholesterol 36.50 L (40.00-60.00) mg/dL Urine Appearance Turbid H (Clear) Urine Protein 2+ H (Negative) Urine Ketones 1+ H (Negative) Urine Blood Large H (Negative) Ur Leukocyte Esterase Large H (Negative) Urine RBC >182 H (0-5) /hpf Urine WBC >182 H (0-5) /hpf Urine WBC Clumps Many H (None) /hpf Urine Bacteria Many H (None) /hpf Microbiology - Last 24 Hours (Table) 07/01/23 20:10 Urine Culture - Final Urine,Catheterized Assessment and Plan Assessment: 82-year-old female with history of gross hematuria and right-sided hydronephrosis, underwent TURBT yesterday. Urine is light red this morning.. -catheter can be irrigated as needed -Will need to keep Jonas catheter for 10 days
[2023-07-04 11:21] LABS: Anisocytosis Slight; HCT 27.3 % (34.0-46.0); HGB 8.4 gm/dL (11.4-16.0); Hypochromasia Marked; MCH 28.9 pg (25.0-35.0); MCHC 30.8 g/dL (31.0-37.0); MCV 93.9 fL (80.0-100.0); Mean Platelet Volume 8.8; Platelet Count 211 k/uL (150-450); RBC 2.91 m/uL (3.80-5.40); RDW 17.9 % (11.5-15.5); WBC 9.1 k/uL (3.8-10.6)
--- NOTE | 2023-07-04 11:45 | P.PN ---
Subjective Patient is seen for follow-up for acute kidney injury. Maintained on IV fluids. Renal function has improved. Serum creatinine decreased to 1.1 from peak of 2.1. No significant complaints today. Objective - Vital Signs Vital signs: Vital Signs Temp 97.9 F 07/04/23 07:05 Pulse 84 07/04/23 07:05 Resp 16 07/04/23 07:05 BP 139/75 07/04/23 07:05 Pulse Ox 100 07/04/23 07:05 FiO2 Intake & Output 07/03/23 07/04/23 07/04/23 18:59 06:59 18:59 Intake Total 2049 1000 Output Total 150 450 Balance 1900 550 Intake: IV 2049 Intake, IV Titration 800 Amount Sodium Chloride 0.45% 1, 800 000 ml @ 75 mls/hr IV . [id number] [facility] Rx#:[id number] Oral 200 Output: Urine 450 Estimated Blood Loss 150 Other: Voiding Method Diaper Indwelling Catheter Indwelling Catheter Incontinent - Exam Patient is comfortable. She is not in any acute distress. Patient does not communicate much. Answers to simple questions. Examination of the heart S1 and S2 Examination of the lungs decreased breath sounds at the bases no crackles or wheezing is heard Abdomen is soft nontender Examination of lower extremities showed no evidence of edema - Labs CBC & Chem 7: 07/04/23 10:56 07/03/23 08:34 Labs: Abnormal Lab Results - Last 24 Hours (Table) 07/03/23 07/03/23 07/04/23 Range/Units 08:34 08:34 05:10 RBC (3.80-5.40) m/uL Hgb (11.4-16.0) gm/dL Hct (34.0-46.0) % MCHC (31.0-37.0) g/dL RDW (11.5-15.5) % Iron 33 L (50-170) UG/DL % Saturation 11.62 L (12.00-45.00) Transferrin 203.0 L (204.0-354.0) mg/dL Triglycerides 150.00 H (0.00-149.00) mg/dL HDL Cholesterol 36.50 L (40.00-60.00) mg/dL Urine Appearance Turbid H (Clear) Urine Protein 2+ H (Negative) Urine Ketones 1+ H (Negative) Urine Blood Large H (Negative) Ur Leukocyte Esterase Large H (Negative) Urine RBC >182 H (0-5) /hpf Urine WBC >182 H (0-5) /hpf Urine WBC Clumps Many H (None) /hpf Urine Bacteria Many H (None) /hpf 07/04/23 Range/Units 10:56 RBC 2.91 L (3.80-5.40) m/uL Hgb 8.4 L (11.4-16.0) gm/dL Hct 27.3 L (34.0-46.0) % MCHC 30.8 L (31.0-37.0) g/dL RDW 17.9 H (11.5-15.5) % Iron (50-170) UG/DL % Saturation (12.00-45.00) Transferrin (204.0-354.0) mg/dL Triglycerides (0.00-149.00) mg/dL HDL Cholesterol (40.00-60.00) mg/dL Urine Appearance (Clear) Urine Protein (Negative) Urine Ketones (Negative) Urine Blood (Negative) Ur Leukocyte Esterase (Negative) Urine RBC (0-5) /hpf Urine WBC (0-5) /hpf Urine WBC Clumps (None) /hpf Urine Bacteria (None) /hpf Microbiology - Last 24 Hours (Table) 07/01/23 20:10 Urine Culture - Final Urine,Catheterized Assessment and Plan Assessment: 1. Acute kidney injury, prerenal with possible component of obstructive uropathy as well. Renal function has improved with IV hydration. Diuretics and angiotensin receptor blockers currently on hold. Urine micro shows WBCs and RBCs more than 182 urine analysis was otherwise not available. CT of the abdomen shows moderate right hydronephrosis with no obstructive calculus. 2. Mental status changes possibly related to underlying UTI 3. Pyuria rule out UTI 4. Right hydronephrosis status post evaluation by urology with no plans for intervention as patient was reluctant and would like to monitor for now. 5. History of CVA 6. Hypertension, controlled. Cozaar on hold. 7. Hypernatremia associated with free water deficit currently improved post change of IV fluids to half-normal saline. 8. Anemia rule out iron deficiency. Stool for occult blood was positive. Plan: Continue IV fluids Repeat labs in a.m. Add IV iron Encourage increase oral intake.
[2023-07-04 11:46] LABS: ALT 14 U/L (4-34); AST 23 U/L (14-36); Albumin 2.6 g/dL (3.5-5.0); Alkaline Phosphatase 104 U/L (38-126); Anion Gap 7 mmol/L; Blood Urea Nitrogen 38 mg/dL (7-17); Calcium 7.8 mg/dL (8.4-10.2); Carbon Dioxide 20 mmol/L (22-30); Chloride 111 mmol/L (98-107); Globulin 2.7 g/dL; Glucose 106 mg/dL (74-99); Potassium 5.1 mmol/L (3.5-5.1); Sodium 138 mmol/L (137-145); Total Bilirubin 0.3 mg/dL (0.2-1.3); Total Protein 5.3 g/dL (6.3-8.2)
[2023-07-04 12:03] LABS: African American GFR (CKD) 45 (>60 ml/min/1.73 sqM); Non-African American GFR(CKD) 39 (>60 ml/min/1.73 sqM)
--- NOTE | 2023-07-04 12:52 | P.PN ---
Subjective Progress Note Date: 07/04/23 patient is 82-year-old lady with past medical history significant for dementia, CVA, hypertension who presented to the ER for change in mental status from halfway. Patient history of baseline dementia. Nursing staff has noted the patient was having a right-sided eye gaze and twitching. No complaint of jerking movements of any extremity. No complain of slurred speech or facial droop. There was no complain of recent fall. Patient history of A. fib and on blood thinners. Because of altered mental status, patient was brought to ER Initial lab work done in the ER showed WBC 9.9, hemoglobin 10.1, platelet count 228, sodium 143, potassium 5, BUN 67, creatinine 2.17, glucose 109, alk phos 141 Urine drug screen not detected UA done showed hematuria WBC is 182, urine WBC 182 Influenza A not detected Influenza B not detected RSV not detected COVID-19 not detected EKG done in the ER showed heart rate of 96, irregular in rhythm, no P wave, no ST segment elevation or depression seen, no T-wave inversions seen. Chest x-ray done in the ER showed no acute cardiopulmonary process CT head done showed age indeterminate injury to left temporal lobe new from 05/19/20 CT abdominal and showed right hydroureteronephrosis, no obstructing calculus generalized. Left adrenal nodule Patient admitted to internal medicine service 07/03. Patient seen and examined. Does not look in acute distress. Still having hematuria denies abdominal pain. No nausea or vomiting. 07/04. Patient seen and examined. Patient underwent Cystoscopy, clot evacuation, TURBT on 07/03. Hematuria has improved. Denies any abdominal pain. REVIEW OF SYSTEMS: CONSTITUTIONAL: No fever, no malaise,. CARDIOVASCULAR: No chest pain, no palpitations, no syncope. PULMONARY: No shortness of breath, no cough, GASTROINTESTINAL: No diarrhea,, no abdominal pain. NEUROLOGICAL: No headaches, no weakness, PHYSICAL EXAMINATION: Alert and oriented to self HEENT: Pupils are round and equally reacting to light. EOMI. No scleral icterus. No conjunctival pallor. Normocephalic, atraumatic. No pharyngeal erythema. No thyromegaly. CARDIOVASCULAR: S1 and S2 present. No murmurs, rubs, or gallops. PULMONARY: Chest is clear to auscultation, no wheezing or crackles. ABDOMEN: Soft, nontender, nondistended, normoactive bowel sounds. No palpable organomegaly. MUSCULOSKELETAL: No joint swelling or deformity. EXTREMITIES: No cyanosis, clubbing, or pedal edema. NEUROLOGICAL: Gross neurological examination did not reveal any focal deficits. Moving all extremities, cranial nerves II through XII intact SKIN: No rashes. Assessment and plan Acute metabolic encephalopathy Strokelike symptoms Acute kidney injury Hematuria Bladder mass UTI Right hydroureteronephrosis Left adrenal nodule Hypertension Hyperlipidemia History of chronic atrial fibrillation Monitor vital signs Monitor CBC Monitor CMP Continue telemetry monitoring Avoid nephrotoxic agents S/p Cystoscopy, clot evacuation, TURBT on 07/03 Continue IV fluids Continue IV Rocephin ultrasound of carotids less than 50% stenosis bilateral carotid arteries EEG negative for seizure like activity 2-D echo showed normal LV function, moderate mitral and tricuspid regurg, moderate to severe pulmonary hypertension Neurology following Urology following Nephrology following Labs and medication were reviewed.. Continue same treatment. Continue with symptomatic treatment. Resume home medication. Monitor labs and vitals. DVT and GI prophylaxis. Further recommendations as per clinical course of the patient Dictation was produced using [employer] dictation software. please excuse any grammatical, word or spelling errors. Objective - Vital Signs Vital signs: Vital Signs Temp 97.9 F 07/04/23 07:05 Pulse 84 07/04/23 07:05 Resp 16 07/04/23 07:05 BP 139/75 07/04/23 07:05 Pulse Ox 100 07/04/23 07:05 FiO2 Intake & Output 07/03/23 07/04/23 07/04/23 18:59 06:59 18:59 Intake Total 0 1000 Output Total 150 450 Balance 1900 550 Intake: IV 0 Intake, IV Titration 800 Amount Sodium Chloride 0.45% 1, 800 000 ml @ 75 mls/hr IV . [id number] [facility] Rx#:[id number] Oral 200 Output: Urine 450 Estimated Blood Loss 150 Other: Voiding Method Diaper Indwelling Catheter Indwelling Catheter Incontinent - Labs CBC & Chem 7: 07/04/23 10:56 07/04/23 10:56 Labs: Abnormal Lab Results - Last 24 Hours (Table) 07/03/23 07/03/23 07/04/23 Range/Units 08:34 08:34 05:10 Iron 33 L (50-170) UG/DL % Saturation 11.62 L (12.00-45.00) Transferrin 203.0 L (204.0-354.0) mg/dL Triglycerides 150.00 H (0.00-149.00) mg/dL HDL Cholesterol 36.50 L (40.00-60.00) mg/dL Urine Appearance Turbid H (Clear) Urine Protein 2+ H (Negative) Urine Ketones 1+ H (Negative) Urine Blood Large H (Negative) Ur Leukocyte Esterase Large H (Negative) Urine RBC >182 H (0-5) /hpf Urine WBC >182 H (0-5) /hpf Urine WBC Clumps Many H (None) /hpf Urine Bacteria Many H (None) /hpf Microbiology - Last 24 Hours (Table) 07/01/23 20:10 Urine Culture - Final Urine,Catheterized
--- NOTE | 2023-07-04 14:48 | CT ---
EXAMINATION TYPE: CT brain wo con DATE OF EXAM: 07/04/2023 COMPARISON: 07/01/2023 INDICATION: Follow up- prior abnormal CT. DLP: 1107.7 mGycm, Automated exposure control for dose reduction was used. CONTRAST: None CT of the brain is performed utilizing 3 mm thick sections through the posterior fossa and 3 mm thick sections through the remaining calvarium. Study is performed within 24 hours of arrival to the hosp ital. No abnormal hyperdensity is present to suggest an acute intracranial hemorrhage. No mass lesion is evident. Periventricular white matter hypodensity is present, likely on the basis of chronic white matter isch emic changes. Hypodensity within the left temporal lobe remains present. Some more central increased density may be present above the petrous ridge and temporal horn of the lateral ventricle. Some hemor rhage may be present. Appears to be effacement of the left temporal lobe sulci and effacement of the temporal horn of the lateral ventricle suggesting left temporal findings are more likely acute. Ventricles and sulci are prominent for the patient age. Paranasal sinuses and mastoid air cells within the [id number] are clear. IMPRESSION: 1. Hypodensity with slight hyperintensity centrally may be some hemorrhage within the white matter changes left temporal lobe. This appears to be acute. 2. Additional chronic appearing periventricular white matter ischemic changes. A Red level critical message alert has been initiated for Maximus Ashley MD via the [employer] System on 07/04/2023 2:44 PM. This message alert has been sent to Maximus Ashley MD via the preferences provided by the clinician for the receipt of Radiology Critical Findings. Message ID [id number]. A Red level critical message alert has been initiated for Maximus Ashley MD via the [employer] System on 07/04/2023 2:45 PM. This message alert has been sent to Maximus Ashley MD via the preferences provided by the clinician for the receipt of Radiology Critical Findings. Message ID [id number].
[2023-07-04] MEDS: SODIUM FERRIC GLUCONAT-SUCROSE 125 MG in SODIUM CHLORIDE 0.9% 100 ML IVPB SCH (15:02)
[2023-07-04] MEDS: MELATONIN 5 MG TABLET PO SCH (21:36)
[2023-07-04] MEDS: ATORVASTATIN 80 MG TAB PO SCH (21:36)
[2023-07-05] MEDS ORDERED: traMADol 50 MG TAB PO PRN (03:11)
[2023-07-05] MEDS: PANTOPRAZOLE 40 MG TABLET PO SCH (06:27)
[2023-07-05 08:23] LABS: Anisocytosis Slight; HCT 23.1 % (34.0-46.0); HGB 7.4 gm/dL (11.4-16.0); Hypochromasia Marked; MCH 29.7 pg (25.0-35.0); MCHC 32.1 g/dL (31.0-37.0); MCV 92.7 fL (80.0-100.0); Mean Platelet Volume 9.1; Platelet Count 217 k/uL (150-450); RBC 2.49 m/uL (3.80-5.40); RDW 18.6 % (11.5-15.5); WBC 12.7 k/uL (3.8-10.6)
[2023-07-05 08:53] LABS: ALT 14 U/L (4-34); AST 22 U/L (14-36); African American GFR (CKD) 34 (>60 ml/min/1.73 sqM); Albumin 2.4 g/dL (3.5-5.0); Alkaline Phosphatase 104 U/L (38-126); Blood Urea Nitrogen 37 mg/dL (7-17); Calcium 7.5 mg/dL (8.4-10.2); Carbon Dioxide 21 mmol/L (22-30); Chloride 107 mmol/L (98-107); Glucose 89 mg/dL (74-99); Non-African American GFR(CKD) 29 (>60 ml/min/1.73 sqM); Sodium 135 mmol/L (137-145); Total Bilirubin 0.3 mg/dL (0.2-1.3)
[2023-07-05] MEDS: SODIUM CHLORIDE 0.45% 1,000 ML IV SCH ×2 (09:13→20:40)
[2023-07-05] MEDS: ACETAMINOPHEN TAB 325 MG TAB PO SCH ×3 (09:14→20:40)
[2023-07-05] MEDS: FERROUS SULFATE 325 MG TAB PO SCH (09:14)
[2023-07-05] MEDS: METOPROLOL TARTRATE 50 MG TAB PO SCH ×2 (09:14→20:41)
[2023-07-05] MEDS: NYSTATIN 100,000 UNIT/GM POWD 15 GM TOPICAL SCH ×2 (09:19→20:41)
[2023-07-05 09:32] LABS: Potassium 3.7 mmol/L (3.5-5.1)
[2023-07-05] MEDS: SIMETHICONE 80 MG CHEWABLE PO SCH ×4 (09:59→20:41)
[2023-07-05] MEDS: SODIUM FERRIC GLUCONAT-SUCROSE 125 MG in SODIUM CHLORIDE 0.9% 100 ML IVPB SCH (09:59)
--- NOTE | 2023-07-05 10:30 | CT ---
EXAMINATION TYPE: CT brain wo con DATE OF EXAM: 07/05/2023 COMPARISON: 07/04/2023 INDICATION: f/u from yesterdays abnormal CT DLP: 1089.4 mGycm, Automated exposure control for dose reduction was used. CONTRAST: None CT of the brain is performed utilizing 3 mm thick sections through the posterior fossa and 3 mm thick sections through the remaining calvarium. Study is performed within 24 hours of arrival to the hosp ital. Hyperintensity within the left temporal lobe is again. Hypodensity adjacent to the temporal horn left lateral ventricle is again evident and appear stable. No increasing hemorrhage evident. White matter changes appear stable Physiologic basal ganglia calcification is unchanged. Chronic appearing periventricular white matter changes likewise appears stable. No acute infarcts are evident. Ventricles and sulci are prominent for the patient age. Paranasal sinuses and mastoid air cells within the [id number] are clear. IMPRESSION: 1. Small area of stable appearing acute hemorrhage left temporal lobe with adjacent ischemic type c hanges. 2. Chronic appearing periventricular deep white matter ischemic type changes. 3. Stable atrophy. 4. No significant interval change.
[2023-07-05 10:38] LABS: Anion Gap 7 mmol/L
--- NOTE | 2023-07-05 10:40 | P.PN ---
Subjective Progress Note Date: 07/04/23 Patient was seen for a follow-up. Patient's niece was also present today. Patient states she feels "good". Patient's niece mentions that when she came, she did not know the name of the knees although she knew who she is. Patient also was found to have a fairly large mass in the bladder, suspicious for malignancy. Patient's niece mentions that patient has been getting downhill for the last 2 to 3 weeks. She has slowed down, sleeping a lot. 1 day patient believes that she lives in [facility], where she grew up and has not been living there anymore. Patient has been off Eliquis because of hematuria. Patient continues to be aphasic. She is however more alert and awake. Objective - Vital Signs Vital signs: Vital Signs Temp 97.3 F L 07/04/23 12:01 Pulse 79 07/04/23 12:01 Resp 16 07/04/23 12:01 BP 98/61 07/04/23 12:01 Pulse Ox 95 07/04/23 12:01 FiO2 Intake & Output 07/03/23 07/04/23 07/04/23 18:59 06:59 18:59 Intake Total 2050 1000 Output Total 150 450 Balance 1900 550 Intake: IV 0 Intake, IV Titration 800 Amount Sodium Chloride 0.45% 1, 800 000 ml @ 75 mls/hr IV . [id number] [facility] Rx#:[id number] Oral 200 Output: Urine 450 Estimated Blood Loss 150 Other: Voiding Method Diaper Indwelling Catheter Indwelling Catheter Incontinent - Exam Patient is alert and awake, but very disoriented, aphasic. Patient cannot name any objects presented. For the pen, patient said "fourth", could not name eyeglasses and then she said "with the cloud". Patient however able to repeat without much difficulty. Patient believes it is the month of October, could not tell the year. She cannot tell what city or state she is in, or even what city and states she lives in. Patient has severe expressive aphasia. Patient would not cooperate for checking pronator drift. Her face is symmetric. She would not cooperate for muscle strength testing. - Labs CBC & Chem 7: 07/05/23 06:56 07/05/23 06:56 Labs: Abnormal Lab Results - Last 24 Hours (Table) 07/03/23 07/03/23 07/04/23 Range/Units 08:34 08:34 05:10 RBC (3.80-5.40) m/uL Hgb (11.4-16.0) gm/dL Hct (34.0-46.0) % MCHC (31.0-37.0) g/dL RDW (11.5-15.5) % Chloride (98-107) mmol/L Carbon Dioxide (22-30) mmol/L BUN (7-17) mg/dL Creatinine (0.52-1.04) mg/dL Glucose (74-99) mg/dL Calcium (8.4-10.2) mg/dL Iron 33 L (50-170) UG/DL % Saturation 11.62 L (12.00-45.00) Transferrin 203.0 L (204.0-354.0) mg/dL Total Protein (6.3-8.2) g/dL Albumin (3.5-5.0) g/dL Triglycerides 150.00 H (0.00-149.00) mg/dL HDL Cholesterol 36.50 L (40.00-60.00) mg/dL Urine Appearance Turbid H (Clear) Urine Protein 2+ H (Negative) Urine Ketones 1+ H (Negative) Urine Blood Large H (Negative) Ur Leukocyte Esterase Large H (Negative) Urine RBC >182 H (0-5) /hpf Urine WBC >182 H (0-5) /hpf Urine WBC Clumps Many H (None) /hpf Urine Bacteria Many H (None) /hpf 07/04/23 07/04/23 Range/Units 10:56 10:56 RBC 2.91 L (3.80-5.40) m/uL Hgb 8.4 L (11.4-16.0) gm/dL Hct 27.3 L (34.0-46.0) % MCHC 30.8 L (31.0-37.0) g/dL RDW 17.9 H (11.5-15.5) % Chloride 111 H (98-107) mmol/L Carbon Dioxide 20 L (22-30) mmol/L BUN 38 H (7-17) mg/dL Creatinine 1.28 H (0.52-1.04) mg/dL Glucose 106 H (74-99) mg/dL Calcium 7.8 L (8.4-10.2) mg/dL Iron (50-170) UG/DL % Saturation (12.00-45.00) Transferrin (204.0-354.0) mg/dL Total Protein 5.3 L (6.3-8.2) g/dL Albumin 2.6 L (3.5-5.0) g/dL Triglycerides (0.00-149.00) mg/dL HDL Cholesterol (40.00-60.00) mg/dL Urine Appearance (Clear) Urine Protein (Negative) Urine Ketones (Negative) Urine Blood (Negative) Ur Leukocyte Esterase (Negative) Urine RBC (0-5) /hpf Urine WBC (0-5) /hpf Urine WBC Clumps (None) /hpf Urine Bacteria (None) /hpf Microbiology - Last 24 Hours (Table) 07/01/23 20:10 Urine Culture - Final Urine,Catheterized Assessment and Plan Assessment: * Severe expressive aphasia, probable subacute CVA. Patient's symptoms started about 2 or [address] of the head revealed an area of subacute to chronic ischemic infarction in the left temporal lobe. I suspect this is the cause of patient's current aphasia. Her aphasia seems to have got worse. Need to recheck CT head. * Abnormal CT head, with evidence of encephalomalacia in the left temporal lobe, which is new since the CT head from 05/19/2020. It is possible subacute CVA. * Acute kidney injury, improving * Abnormal UA, rule out UTI. Cultures pending. * Acute hydronephrosis, right side with hematuria. This is probably the cause of low back pain. 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 * Hyperlipidemia * Hypertension * Pacemaker Plan: CT head with and without contrast was considered, but because of renal dysfunction, we will check CT head without contrast. It revealed hypodensity with slight hyperintensity centrally may be some hemorrhage within the white matter changes left temporal lobe. This appears to be acute. Additional chr onic appearing periventricular white matter ischemic changes. I personally reviewed CT head, agree with the findings. Patient to be transferred to stepdown unit. Informed patient's niece, and also discussed with primary physician. We will repeat CT head in the morning to evaluate for any interval change. Initial CT head 07/01/2023 was abnormal with evidence of abnormal signal in the left temporal lobe. Suspect subacute to chronic stroke. Patient cannot have MRI of the brain because of presence of pacemaker. 2-D echo revealed normal left ventricular systolic function. Transcatheter ao rtic valve with a mean gradient of 45 mmHg. Moderate mitral and tricuspid regurgitation. Moderate to severe pulmonary hypertension. Severely increased left atrial volume. Carotid Doppler, revealed less than 50% stenosis of bilateral carotid bifurcations. Antegrade flow in both vertebral arteries. Fasting a.m. lipid panel. Continue Lipitor 80 mg daily. Hemoglobin A1c 5.6 Optimize control of blood pressure. Resume Eliquis 5 mg twice daily, when medically cleared. Currently Eliquis on hold because of GI bleed, hematuria and anemia. Stop aspirin because of possible intracranial hemorrhage. Neuro checks every 4 hours. Telemetry monitoring rule out any arrhythmia Nephrology and urology on case for hydronephrosis, possible UTI, acute kidney injury. Patient on ceftriaxone. PT, OT, speech therapy B12 837, folate 5.5, TSH 0.945, RPR nonreactive. Ammonia is <9. We will start folic acid 1 mg daily. EEG was performed, will review the results. DVT prophylaxis: Hold heparin. SCDs.
--- NOTE | 2023-07-05 11:09 | P.PN ---
Subjective Patient is seen for follow-up for acute kidney injury. Maintained on IV fluids. Renal function has improved. Serum creatinine decreased to 1.2 from peak of 2.1 but increased back up to 1.6 today. Urine output charted at 800 mL for 24 hours. Blood pressure was low yesterday with systolic in the 90s. No significant complaints today. Objective - Vital Signs Vital signs: Vital Signs Temp 98.0 F 07/05/23 09:12 Pulse 89 07/05/23 09:12 Resp 18 07/05/23 09:12 BP 107/50 07/05/23 09:12 Pulse Ox 98 07/05/23 09:12 FiO2 Intake & Output 07/04/23 07/05/23 07/05/23 18:59 06:59 18:59 Output Total 200 600 Balance -200 -600 Output: Urine 200 600 Other: Voiding Method Indwelling Catheter Indwelling Catheter Indwelling Catheter - Exam Patient is comfortable. She is not in any acute distress. Patient does not communicate much. Answers to simple questions. Examination of the heart S1 and S2 Examination of the lungs decreased breath sounds at the bases no crackles or wheezing is heard Abdomen is soft nontender Examination of lower extremities showed no evidence of edema - Labs CBC & Chem 7: 07/05/23 06:56 07/05/23 06:56 Labs: Abnormal Lab Results - Last 24 Hours (Table) 07/04/23 07/04/23 07/05/23 Range/Units 10:56 10:56 06:56 WBC 12.7 H (3.8-10.6) k/uL RBC 2.91 L 2.49 L (3.80-5.40) m/uL Hgb 8.4 L 7.4 L (11.4-16.0) gm/dL Hct 27.3 L 23.1 L (34.0-46.0) % MCHC 30.8 L (31.0-37.0) g/dL RDW 17.9 H 18.6 H (11.5-15.5) % Sodium (137-145) mmol/L Chloride 111 H (98-107) mmol/L Carbon Dioxide 20 L (22-30) mmol/L BUN 38 H (7-17) mg/dL Creatinine 1.28 H (0.52-1.04) mg/dL Glucose 106 H (74-99) mg/dL Calcium 7.8 L (8.4-10.2) mg/dL Total Protein 5.3 L (6.3-8.2) g/dL Albumin 2.6 L (3.5-5.0) g/dL 07/05/23 Range/Units 06:56 WBC (3.8-10.6) k/uL RBC (3.80-5.40) m/uL Hgb (11.4-16.0) gm/dL Hct (34.0-46.0) % MCHC (31.0-37.0) g/dL RDW (11.5-15.5) % Sodium 135 L (137-145) mmol/L Chloride (98-107) mmol/L Carbon Dioxide 21 L (22-30) mmol/L BUN 37 H (7-17) mg/dL Creatinine 1.62 H (0.52-1.04) mg/dL Glucose (74-99) mg/dL Calcium 7.5 L (8.4-10.2) mg/dL Total Protein 5.0 L (6.3-8.2) g/dL Albumin 2.4 L (3.5-5.0) g/dL Assessment and Plan Assessment: 1. Acute kidney injury, prerenal with possible component of obstructive uropathy as well. Renal function has improved with IV hydration. Diuretics and angiotensin receptor blockers currently on hold. Urine micro shows WBCs and RBC s more than 182 urine analysis was otherwise not available. CT of the abdomen shows moderate right hydronephrosis with no obstructive calculus. Renal function worsened over the last day possibly secondary to hypotension. Jonas catheter will be flush and small dose of midodrine will be added. Continue IV hydration. 2. Mental status changes possibly related to underlying UTI 3. Pyuria rule out UTI 4. Right hydronephrosis status post evaluation by urology with no plans for intervention as patient was reluctant and would like to monitor for now. 5. History of CVA 6. Hypertension, controlled. Cozaar on hold. 7. Hypernatremia associated with free water deficit currently improved post ch marie of IV fluids to half-normal saline. 8. Anemia rule out iron deficiency. Stool for occult blood was positive. Plan: Continue IV fluids. Change to normal saline. Flush Jonas catheter Add small dose of midodrine Repeat labs in a.m. Continue IV iron Encourage increase oral intake.
[2023-07-05] MEDS: FOLIC ACID 1 MG TAB PO SCH (11:51)
--- NOTE | 2023-07-05 12:22 | P.PN ---
Subjective Progress Note Date: 07/05/23 patient is 82-year-old lady with past medical history significant for dementia, CVA, hypertension who presented to the ER for change in mental status from shelter. Patient history of baseline dementia. Nursing staff has noted the patient was having a right-sided eye gaze and twitching. No complaint of jerking movements of any extremity. No complain of slurred speech or facial droop. There was no complain of recent fall. Patient history of A. fib and on blood thinners. Because of altered mental status, patient was brought to ER Initial lab work done in the ER showed WBC 9.9, hemoglobin 10.1, platelet count 228, sodium 143, potassium 5, BUN 67, creatinine 2.17, glucose 109, alk phos 141 Urine drug screen not detected UA done showed hematuria WBC is 182, urine WBC 182 Influenza A not detected Influenza B not detected RSV not detected COVID-19 not detected EKG done in the ER showed heart rate of 96, irregular in rhythm, no P wave, no ST segment elevation or depression seen, no T-wave inversions seen. Chest x-ray done in the ER showed no acute cardiopulmonary process CT head done showed age indeterminate injury to left temporal lobe new from 05/19/20 CT abdominal and showed right hydroureteronephrosis, no obstructing calculus generalized. Left adrenal nodule Patient admitted to internal medicine service 07/03. Patient seen and examined. Does not look in acute distress. Still having hematuria denies abdominal pain. No nausea or vomiting. 07/04. Patient seen and examined. Patient underwent Cystoscopy, clot evacuation, TURBT on 07/03. Hematuria has improved. Denies any abdominal pain. 07/05. Patient seen and examined. Labs done this morning showed WBC 12.7, hemoglobin 7.4, sodium 135, BUN 37, creatinine 1.62. CT brain done on 07/04 showed hypodensity with slight hyperintensity centrally may be some hemorrhage within the white matter changes left temporal lobe. Patient is currently alert to self and place. No complaint of slurred speech. Moving all extremities. REVIEW OF SYSTEMS: CONSTITUTIONAL: No fever, no malaise,. CARDIOVASCULAR: No chest pain, no palpitations, no syncope. PULMONARY: No shortness of breath, no cough, GASTROINTESTINAL: No diarrhea,, no abdominal pain. NEUROLOGICAL: No headaches, no weakness, PHYSICAL EXAMINATION: Alert and oriented to self HEENT: Pupils are round and equally reacting to light. EOMI. No scleral icterus. No conjunctival pallor. Normocephalic, atraumatic. No pharyngeal erythema. No thyromegaly. CARDIOVASCULAR: S1 and S2 present. No murmurs, rubs, or gallops. PULMONARY: Chest is clear to auscultation, no wheezing or crackles. ABDOMEN: Soft, nontender, nondistended, normoactive bowel sounds. No palpable organomegaly. MUSCULOSKELETAL: No joint swelling or deformity. EXTREMITIES: No cyanosis, clubbing, or pedal edema. NEUROLOGICAL: Gross neurological examination did not reveal any focal deficits. Moving all extremities, cranial nerves II through XII intact SKIN: No rashes. Assessment and plan Acute metabolic encephalopathy Acute CVA Acute kidney injury Hematuria Bladder mass UTI Right hydroureteronephrosis Left adrenal nodule Hypertension Hyperlipidemia History of chronic atrial fibrillation Monitor vital signs Monitor CBC Monitor CMP Continue telemetry monitoring Avoid nephrotoxic agents S/p Cystoscopy, clot evacuation, TURBT on 07/03 Continue IV Rocephin Start midodrine ultrasound of carotids less than 50% stenosis bilateral carotid arteries EEG negative for seizure like activity CT brain done on 07/04 showed hypodensity with slight hyperintensity centrally may be some hemorrhage within the white matter changes left temporal lobe. 2-D echo showed normal LV function, moderate mitral and tricuspid regurg, moderate to severe pulmonary hypertension Neurology following, recommended repeating CT head Urology following Nephrology following Labs and medication were reviewed.. Continue same treatment. Continue with symptomatic treatment. Resume home medication. Monitor labs and vitals. DVT and GI prophylaxis. Further recommendations as per clinical course of the patient Dictation was produced using [employer] dictation software. please excuse any gra mmatical, word or spelling errors. Objective - Vital Signs Vital signs: Vital Signs Temp 98.0 F 07/05/23 09:12 Pulse 89 07/05/23 09:12 Resp 18 07/05/23 09:12 BP 107/50 07/05/23 09:12 Pulse Ox 98 07/05/23 09:12 FiO2 Intake & Output 07/04/23 07/05/23 07/05/23 18:59 06:59 18:59 Output Total 200 600 Balance -200 -600 Output: Urine 200 600 Other: Voiding Method Indwelling Catheter Indwelling Catheter Indwelling Catheter - Labs CBC & Chem 7: 01/28/24 06:56 07/05/23 06:56 Labs: Abnormal Lab Results - Last 24 Hours (Table) 07/04/23 07/04/23 07/05/23 Range/Units 10:56 10:56 06:56 WBC 12.7 H (3.8-10.6) k/uL RBC 2.91 L 2.49 L (3.80-5.40) m/uL Hgb 8.4 L 7.4 L (11.4-16.0) gm/dL Hct 27.3 L 23.1 L (34.0-46.0) % MCHC 30.8 L (31.0-37.0) g/dL RDW 17.9 H 18.6 H (11.5-15.5) % Sodium (137-145) mmol/L Chloride 111 H (98-107) mmol/L Carbon Dioxide 20 L (22-30) mmol/L BUN 38 H (7-17) mg/dL Creatinine 1.28 H (0.52-1.04) mg/dL Glucose 106 H (74-99) mg/dL Calcium 7.8 L (8.4-10.2) mg/dL Total Protein 5.3 L (6.3-8.2) g/dL Albumin 2.6 L (3.5-5.0) g/dL 07/05/23 Range/Units 06:56 WBC (3.8-10.6) k/uL RBC (3.80-5.40) m/uL Hgb (11.4-16.0) gm/dL Hct (34.0-46.0) % MCHC (31.0-37.0) g/dL RDW (11.5-15.5) % Sodium 135 L (137-145) mmol/L Chloride (98-107) mmol/L Carbon Dioxide 21 L (22-30) mmol/L BUN 37 H (7-17) mg/dL Creatinine 1.62 H (0.52-1.04) mg/dL Glucose (74-99) mg/dL Calcium 7.5 L (8.4-10.2) mg/dL Total Protein 5.0 L (6.3-8.2) g/dL Albumin 2.4 L (3.5-5.0) g/dL
--- NOTE | 2023-07-05 13:50 | P.PN ---
Subjective Urine is clearing up this morning. Objective - Vital Signs Vital signs: Vital Signs Temp 98.0 F 07/05/23 09:12 Pulse 89 07/05/23 09:12 Resp 18 07/05/23 09:12 BP 107/50 07/05/23 09:12 Pulse Ox 98 07/05/23 09:12 FiO2 Intake & Output 07/04/23 07/05/23 07/05/23 18:59 06:59 18:59 Output Total 200 600 Balance -200 -600 Output: Urine 200 600 Other: Voiding Method Indwelling Catheter Indwelling Catheter Indwelling Catheter - Constitutional General appearance: Present: no acute distress - Gastrointestinal General gastrointestinal: Present: soft. Absent: distended, tenderness - Labs CBC & Chem 7: 07/05/23 06:56 07/05/23 06:56 Labs: Abnormal Lab Results - Last 24 Hours (Table) 07/05/23 07/05/23 Range/Units 06:56 06:56 WBC 12.7 H (3.8-10.6) k/uL RBC 2.49 L (3.80-5.40) m/uL Hgb 7.4 L (11.4-16.0) gm/dL Hct 23.1 L (34.0-46.0) % RDW 18.6 H (11.5-15.5) % Sodium 135 L (137-145) mmol/L Carbon Dioxide 21 L (22-30) mmol/L BUN 37 H (7-17) mg/dL Creatinine 1.62 H (0.52-1.04) mg/dL Calcium 7.5 L (8.4-10.2) mg/dL Total Protein 5.0 L (6.3-8.2) g/dL Albumin 2.4 L (3.5-5.0) g/dL Assessment and Plan Assessment: 82-year-old female with history of gross hematuria and right-sided hydronephrosis, underwent TURBT 06/02. Urine is clearing up this morning -catheter can be irrigated as needed -She is okay to return back to subacute rehab from urology standpoint -Will need to keep Jonas catheter for 10 days
[2023-07-05 16:46] LABS: Glucose,Whole Blood 110 mg/dL (70-110)
[2023-07-05 19:36] LABS: Glucose,Whole Blood 136 mg/dL (70-110)
[2023-07-05] MEDS: ATORVASTATIN 80 MG TAB PO SCH (20:41)
[2023-07-05] MEDS: MELATONIN 5 MG TABLET PO SCH (20:41)
--- NOTE | 2023-07-05 23:13 | P.PN ---
Subjective Progress Note Date: 07/05/23 Patient was seen for a follow-up. Patient is doing remarkably better today. Patient states she feels "tired". Patient's speech is much improved, as mentioned below. Offers no new complaints. Objective - Vital Signs Vital signs: Vital Signs Temp 98.0 F 07/05/23 09:12 Pulse 89 07/05/23 09:12 Resp 18 07/05/23 09:12 BP 107/50 07/05/23 09:12 Pulse Ox 98 07/05/23 09:12 FiO2 Intake & Output 07/04/23 07/05/23 07/05/23 18:59 06:59 18:59 Output Total 200 600 225 Balance -200 -600 -225 Output: Urine 200 600 225 Other: Voiding Method Indwelling Catheter Indwelling Catheter Indwelling Catheter - Exam Patient is alert and awake, much improved. Patient speaking spontaneous sentences making sense as mentioned below. Patient was able to name simple objects like pencil. For eyeglasses patient says "spatial earrings". For knuckles, patient says "muscle". For the ear lobes, patient says "earrings". Patient able to repeat very well. Patient was able to point to the ceiling, and to the door on her left side. When I asked her to point the window (on her right side), patient says "I don't know where the window is". 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 Cranial nerves significant for normal face. Patient has right upper quadrant visual field defect noted. On muscle strength testing there is no pronator drift. Patient has equal strength of the arms and moves legs equally. Patient was much more cooperative today. 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 Patient's symptoms started about 2 or [address] of the head revealed an area of subacute to chronic ischemic infarction in the left temporal lobe, now with slight hemorrhagic conversion. * Abnormal CT head, with evidence of encephalomalacia in the left temporal lobe, which is new since the CT head from 05/19/2020. It is possible subacute CVA. * Acute kidney injury, improving * Abnormal UA, rule out UTI. Cultures pending. * Acute hydronephrosis, right side with hematuria. This is probably the cause of low back pain. 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 * Hyperlipidemia * Hypertension * Pacemaker Plan: CT head without contrast 07/04/2023 revealed hypodensity with slight hyperdensity centrally may be some hemorrhage within the white matter changes left temporal lobe. This appears to be acute. Additional chronic appearing periventricular white matter ischemic changes. I personally reviewed CT head, agree with the findings. Repeat CT head this morning 07/05/2023 revealed small area of stable appearing acute hemorrhage left temporal lobe with adjacent ischemic type changes. Chronic appearing periventricular deep white matter ischemic type changes. Stable atrophy. No significant interval change. Initial CT head 07/01/2023 was abnormal with evidence of abnormal signal in the left temporal lobe. Suspect subacute to chronic stroke. Patient cannot have MRI of the brain because of presence of pacemaker. Consider repeating CT head on 07/07/2023. 2-D echo revealed normal left ventricular systolic function. Transcatheter aortic valve with a mean gradient of 45 mmHg. Moderate mitral and tricuspid regurgitation. Moderate to severe pulmonary hypertension. Severely increased left atrial volume. Carotid Doppler, revealed less than 50% stenosis of bilateral carotid bifurcations. Antegrade flow in both vertebral arteries. Fasting a.m. lipid panel cholesterol 91, LDL 24, HDL 36, triglycerides 150. Continue Lipitor 80 mg daily. Hemoglobin A1c 5.6 Optimize control of blood pressure. Resume Eliquis 5 mg twice daily, when medically cleared. Currently Eliquis on hold because of GI bleed, hematuria and anemia, and now has to be helped because of mild hemorrhagic conversion of CVA. Stop aspirin because of possible intracranial hemorrhage. Neuro checks every 4 hours. Telemetry monitoring rule out any arrhythmia Nephrology and urology on case for hydronephrosis, possible UTI, acute kidney injury. Patient on ceftriaxone. PT, OT, speech therapy B12 837, folate 5.5, TSH 0.945, RPR nonreactive. Ammonia is <9. We will start folic acid 1 mg daily. EEG was normal awake and drowsy. No focal, lateralized or epileptiform activity was seen. DVT prophylaxis: Hold heparin. SCDs. Dr. Carlton Russell to resume neurology service from the morning.
[2023-07-06 06:03] LABS: Glucose,Whole Blood 107 mg/dL (70-110)
[2023-07-06] MEDS: PANTOPRAZOLE 40 MG TABLET PO SCH (06:33)
--- NOTE | 2023-07-06 08:09 | P.PN ---
Subjective Progress Note Date: 07/06/23 The patient underwent a TURBT recently. She is admitted with gross hematuria. She is found to have right-sided hydronephrosis. Her urine is cleared. She is asymptomatic. Objective - Vital Signs Vital signs: Vital Signs Temp 97.7 F 07/06/23 02:00 Pulse 75 07/06/23 02:00 Resp 16 07/06/23 02:00 BP 119/71 07/06/23 02:00 Pulse Ox 95 07/06/23 02:00 FiO2 Intake & Output 07/05/23 07/06/23 07/06/23 18:59 06:59 18:59 Intake Total 10 Output Total 775 1550 Balance -075 1540 Intake: IV 10 Invasive Line 5 10 Output: Urine 775 1550 Other: Voiding Method Indwelling Catheter Indwelling Catheter - Labs CBC & Chem 7: 07/05/23 06:56 07/05/23 06:56 Labs: Abnormal Lab Results - Last 24 Hours (Table) 07/05/23 07/05/23 07/05/23 Range/Units 06:56 06:56 19:31 WBC 12.7 H (3.8-10.6) k/uL RBC 2.49 L (3.80-5.40) m/uL Hgb 7.4 L (11.4-16.0) gm/dL Hct 23.1 L (34.0-46.0) % RDW 18.6 H (11.5-15.5) % Sodium 135 L (137-145) mmol/L Carbon Dioxide 21 L (22-30) mmol/L BUN 37 H (7-17) mg/dL Creatinine 1.62 H (0.52-1.04) mg/dL POC Glucose (mg/dL) 136 H (70-110) mg/dL Calcium 7.5 L (8.4-10.2) mg/dL Total Protein 5.0 L (6.3-8.2) g/dL Albumin 2.4 L (3.5-5.0) g/dL Assessment and Plan Assessment: Impression: Bladder cancer. Right hydronephrosis. Recommendations: Urine is clear. From a urologic standpoint she can be discharged home with the Jonas catheter. This will need to stay in 10 days. She can be followed by in the office for catheter removal and pathology report as well as future treatment options.
[2023-07-06] MEDS: SODIUM FERRIC GLUCONAT-SUCROSE 125 MG in SODIUM CHLORIDE 0.9% 100 ML IVPB SCH (09:00)
[2023-07-06] MEDS: SODIUM CHLORIDE 0.45% 1,000 ML IV SCH (09:00)
[2023-07-06] MEDS: NYSTATIN 100,000 UNIT/GM POWD 15 GM TOPICAL SCH ×2 (09:00→21:03)
[2023-07-06] MEDS: METOPROLOL TARTRATE 50 MG TAB PO SCH ×2 (09:02→21:03)
[2023-07-06] MEDS: ACETAMINOPHEN TAB 325 MG TAB PO SCH (09:02)
[2023-07-06] MEDS: FOLIC ACID 1 MG TAB PO SCH (09:02)
[2023-07-06] MEDS: FERROUS SULFATE 325 MG TAB PO SCH (09:03)
[2023-07-06] MEDS: SIMETHICONE 80 MG CHEWABLE PO SCH ×4 (09:04→21:04)
--- NOTE | 2023-07-06 09:45 | P.PN ---
Subjective Patient is seen in follow-up for acute kidney injury. Creatinine 2.17 on admission and improved to 1.1 on July 03, 2023. Last creatinine 1.62 from yesterday. Has a Jonas catheter. Nonoliguric. On IV fluids. Denies chest pain or shortness of breath. Vital signs are stable. General: No acute distress. HEENT: Head exam is unremarkable. LUNGS: No audible rhonchi or wheezes. HEART: Rate and Rhythm are regular. ABDOMEN: Nontender. EXTREMITITES: No edema. Objective - Vital Signs Vital signs: Vital Signs Temp 97.4 F L 07/06/23 08:54 Pulse 81 07/06/23 08:54 Resp 20 07/06/23 08:54 BP 135/70 07/06/23 08:54 Pulse Ox 96 07/06/23 08:54 FiO2 Intake & Output 07/05/23 07/06/23 07/06/23 18:59 06:59 18:59 Intake Total 10 Output Total 775 1550 Balance -775 -1540 Intake: IV 10 Invasive Line 5 10 Output: Urine 775 1550 Other: Voiding Method Indwelling Catheter Indwelling Catheter Indwelling Catheter - Labs CBC & Chem 7: 07/05/23 06:56 07/05/23 06:56 Labs: Abnormal Lab Results - Last 24 Hours (Table) 07/05/23 Range/Units 19:31 POC Glucose (mg/dL) 136 H (70-110) mg/dL Assessment and Plan Plan: Assessment: 1. Acute kidney injury secondary to vasomotor nephropathy and obstructive uropathy. Creatinine 2.17 on admission and down to 1.62 dated July 05, 2023. It was down to as low as 1.1 on July 03, 2023. 2. Bladder cancer with right-sided hydronephrosis status post TURBT July 05, 2023. Urology following. 3. UTI on antibiotics. 4. Benign hypertension. Currently stable. 5. Hypernatremia from lack of oral water intake. Improved with hypotonic fluid infusion. 6. Anemia with iron deficiency. Receiving IV iron. Plan: Change fluids to normal saline at 50 cc an hour. Avoid nephrotoxins. Check labs today. Jonas catheter per urology recommendations.
[2023-07-06] MEDS: SODIUM CHLORIDE 0.9% 1,000 ML IV SCH (10:11)
[2023-07-06 11:10] LABS: African American GFR (CKD) 56 (>60 ml/min/1.73 sqM); Anion Gap 5 mmol/L; Blood Urea Nitrogen 27 mg/dL (7-17); Calcium 7.8 mg/dL (8.4-10.2); Carbon Dioxide 21 mmol/L (22-30); Chloride 110 mmol/L (98-107); Glucose 97 mg/dL (74-99); Magnesium 2.3 mg/dL (1.6-2.3); Non-African American GFR(CKD) 49 (>60 ml/min/1.73 sqM); Potassium 3.5 mmol/L (3.5-5.1); Sodium 136 mmol/L (137-145)
--- NOTE | 2023-07-06 11:53 | P.PN ---
Subjective Progress Note Date: 07/06/23 * 82-year-old lady with past medical history significant for dementia, CVA, hypertension who [facility] the [facility] Patient history of baseline dementia. Nursing staff has noted the patient was having a right-sided eye gaze and twitching. No complaint of jerking movements of any extremity. No complain of slurred speech or facial droop. There was no complain of recent fall. Patient history of A. fib and on blood thinners. Because of altered mental status, patient was brought to ER * Initial lab work done in the ER showed WBC 9.9, hemoglobin 10.1, platelet count 228, sodium 143, potassium 5, BUN 67, creatinine 2.17, glucose 109, alk phos 141 * Urine drug screen not detected * UA done showed hematuria WBC is 182, urine WBC 182 Influenza A not detectedInfluenza B not detected RSV not detectedCOVID-19 not detected * EKG done in the ER showed heart rate of 96, irregular in rhythm, no P wave, no ST segment elevation or depression seen, no T-wave inversions seen. * Chest x-ray done in the ER showed no acute cardiopulmonary process * CT head done showed age indeterminate injury to left temporal lobe new from 05/19/20 * CT abdominal and showed right hydroureteronephrosis, no obstructing calculus generalized. Left adrenal nodule * 07/03. Patient seen and examined. Does not look in acute distress. Still having hematuria denies abdominal pain. No nausea or vomiting. * 07/04. Patient seen and examined. Patient underwent Cystoscopy, clot evacuation, TURBT on 07/03. Hematuria has improved. Denies any abdominal pain. * 07/05. Patient seen and examined. Labs done this morning showed WBC 12.7, hemoglobin 7.4, sodium 135, BUN 37, creatinine 1.62. CT brain done on 07/04 showed hypodensity with slight hyperintensity centrally may be some hemorrhage within the white matter changes left temporal lobe. Patient is currently alert to self and place. No complaint of slurred speech. Moving all extremities. * 07/06/23 : Patient seen and evaluated bedside, on my evaluation patient is sleeping however easily arousable, patient being treated for urinary tract infection as well as CVA. Blood work reviewed including basic metabolic panel showed sodium of 136 potassium 3.5 BUN of 27 creatinine 1.06 calcium of 7.8. Continue patient on current antibiotic regimen. Patient is followed up by multiple specialities including nephrology, urology, neurology. PHYSICAL EXAMINATION: GENERAL: The patient is alert and oriented x 0 , ill appearance, lethargic easily arousable however goes back to sleep HEENT: Pupils are round and equally reacting to light. CARDIOVASCULAR: S1 and S2 present. No murmurs, rubs, or gallops. PULMONARY: Chest is clear to auscultation, no wheezing or crackles. ABDOMEN: Soft, nontender, nondistended, Jonas catheter in place MUSCULOSKELETAL: No joint swelling or deformity. EXTREMITIES: No cyanosis, clubbing, or pedal edema. NEUROLOGICAL: Exam limited secondary to mentation as well as lack of cooperation. Patient moving bilateral upper and lower extremities no acute focal deficit noted Objective - Vital Signs Vital signs: Vital Signs Temp 97.4 F L 07/06/23 08:54 Pulse 75 07/06/23 11:31 Resp 16 07/06/23 11:31 BP 135/80 07/06/23 11:31 Pulse Ox 95 07/06/23 11:31 FiO2 Intake & Output 07/05/23 07/06/23 07/06/23 18:59 06:59 18:59 Intake Total 10 Output Total 775 1550 280 Balance -775 -1540 -280 Intake: IV 10 Invasive Line 5 10 Output: Urine 775 1550 280 Other: Voiding Method Indwelling Catheter Indwelling Catheter Indwelling Catheter - Labs CBC & Chem 7: 07/05/23 06:56 07/06/23 10:24 Labs: Abnormal Lab Results - Last 24 Hours (Table) 07/05/23 07/06/23 Range/Units 19:31 10:24 Sodium 136 L (137-145) mmol/L Chloride 110 H (98-107) mmol/L Carbon Dioxide 21 L (22-30) mmol/L BUN 27 H (7-17) mg/dL Creatinine 1.06 H (0.52-1.04) mg/dL POC Glucose (mg/dL) 136 H (70-110) mg/dL Calcium 7.8 L (8.4-10.2) mg/dL Assessment and Plan Assessment: Assessment and plan * Acute metabolic, ischemic encephalopathy with subacute CVA involving left temporal lobe * Hemorrhagic transformation noted left temporal lobe * Urinary tract infection * Acute kidney injury * Bladder mass with acute hydronephrosis s/p TURBT * Blood loss anemia genitourinary * History of atrial fibrillation on anticoagulation prior to hospitalization with [facility] * Hyperlipidemia * Hypertension * S/p pacemaker in place * In regards to encephalopathy multifactorial likely secondary to CVA, metabolic encephalopathy. Follow-up CT head will be done on 07/07/2023. Continue to hold antiplatelet, anticoagulation secondary to concern for hemorrhagic transformation, continue patient on statin. In regards to CVA CT brain obtained 07/04hypodensity with slight hyperintensity due to concern for hemorrhage, CT brain obtained 07/05 that showed concern for hemorrhagic transformation neurology aware and following * In regards to bladder mass patient followed up by urology, s/p transurethral resection of bladder tumor, pathology pending, Jonas catheter remain in place, no hematuria noted patient to be discharged with Jonas with outpatient follow- up with urology * In regards to urinary tract infection, continue IV Rocephin, day 6 of 10 * In regards to history of atrial fibrillation continue rate control medications with metoprolol, anticoagulation on hold secondary to hemorrhagic transformation * In regards to history of hypertension continue patient on metoprolol * CODE STATUS is no core, patient remains ill with guarded prognosis secondary to multiple comorbidities Time with Patient: Greater than 30
[2023-07-06 11:57] LABS: Glucose,Whole Blood 125 mg/dL (70-110)
[2023-07-06] MEDS ORDERED: POTASSIUM CHLORIDE ER 20 MEQ TAB.ER PO STA (14:42)
[2023-07-06 16:20] LABS: Glucose,Whole Blood 102 mg/dL (70-110)
--- NOTE | 2023-07-06 17:08 | P.PN ---
Subjective Progress Note Date: 07/06/23 I'm seeing the patient for the for some during this admission. Please refer to Dr. Hernandez's note for further details. The patient has subacute stroke over the left temporal with slight hemorrhagic conversion. The patient cannot obtain MRI the brain because of the presence of a pacemaker. She denied of any headaches to me. She has hematuria Objective - Vital Signs Vital signs: Vital Signs Temp 97.6 F 07/06/23 15:19 Pulse 72 07/06/23 15:19 Resp 16 07/06/23 15:19 BP 138/67 07/06/23 15:19 Pulse Ox 98 07/06/23 15:19 FiO2 Intake & Output 07/05/23 07/06/23 07/06/23 18:59 06:59 18:59 Intake Total 10 Output Total 775 1550 280 Balance -201 -5990 280 Intake: IV 10 Invasive Line 5 10 Output: Urine 775 1550 280 Other: Voiding Method Indwelling Catheter Indwelling Catheter Indwelling Catheter - Exam General: Lying in bed and is not in acute distress. Neuro: The patient to be covered and blanket close her eyes and sleep. But with motivation she'll cooperates for a limited time then was to be left alone. Oriented to self and stated she is in the [facility]. She could not tell me if she is in the hospital. She tripped over the current throat. She was following some simple commands and I had to repeat some commands to her to follow. With a limited examination no aphasia. The pupils are round equal about 4 mm bilaterally and reactive to light. No facial weakness. No dysarthria. Motor: Hard to assess individual muscle strength but was able to lift up all extremities above gravity. 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 Patient's symptoms started about 2 or [address] of the head revealed an area of subacute to chronic ischemic infarction in the left temporal lobe, now with slight hemorrhagic conversion. * Abnormal CT head, with evidence of encephalomalacia in the left temporal lobe, which is new since the CT head from 05/19/2020. It is possible subacute CVA. * Acute kidney injury, improving * Abnormal UA, rule out UTI. Cultures pending. * Acute hydronephrosis, right side with hematuria. This is probably the cause of low back pain. 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 * Hyperlipidemia * Hypertension * Pacemaker Plan: CT head without contrast 07/04/2023 revealed hypodensity with slight hyperdensi ty centrally may be some hemorrhage within the white matter changes left temporal lobe. This appears to be acute. Additional chronic appearing periventricular white matter ischemic changes. I personally reviewed CT head, agree with the findings. Repeat CT head this morning 07/05/2023 revealed small area of stable appearing acute hemorrhage left temporal lobe with adjacent ischemic type changes. Chronic appearing periventricular deep white matter ischemic type changes. Stable atrophy. No significant interval change. Initial CT head 07/01/2023 was abnormal with evidence of abnormal signal in the left temporal lobe. Suspect subacute to chronic stroke. Patient cannot have MRI of the brain because of presence of pacemaker. Per Dr. Hernandez Consider repeating CT head on 07/07/2023 and will get repeat study for tomorrow. 2-D echo revealed normal left ventricular systolic function. Transcatheter aortic valve with a mean gradient of 45 mmHg. Moderate mitral and tricuspid regurgitation. Moderate to severe pulmonary hypertension. Severely increased left atrial volume. Carotid Doppler, revealed less than 50% stenosis of bilateral carotid bifurcations. Antegrade flow in both vertebral arteries. Fasting a.m. lipid panel cholesterol 91, LDL 24, HDL 36, triglycerides 150. Continue Lipitor 80 mg daily. B12 837, folate 5.5, TSH 0.945, RPR nonreactive. Ammonia is <9. We will start folic acid 1 mg daily. EEG was normal awake and drowsy. No focal, lateralized or epileptiform activity was seen. PT, OT, speech therapy Hemoglobin A1c 5.6 Resume Eliquis 5 mg twice daily, when medically cleared. Currently Eliquis on hold because of GI bleed, hematuria and anemia, and now has to be helped because of mild hemorrhagic conversion of CVA. Per Dr. Silva Stop aspirin because of possible intracranial hemorrhage. Recommend normotensive. Neuro checks every 4 hours. Telemetry monitoring rule out any arrhythmia Nephrology and urology on case for hydronephrosis, possible UTI, acute kidney injury. Patient on ceftriaxone. DVT prophylaxis: Hold heparin. SCDs. The plan is discussed with the nurse. Time with Patient: Less than 30
[2023-07-06 20:35] LABS: Glucose,Whole Blood 105 mg/dL (70-110)
[2023-07-06] MEDS: ATORVASTATIN 80 MG TAB PO SCH (21:03)
[2023-07-06] MEDS: MELATONIN 5 MG TABLET PO SCH (21:03)
[2023-07-07] MEDS: SODIUM CHLORIDE 0.9% 1,000 ML IV SCH (03:48)
[2023-07-07] MEDS: PANTOPRAZOLE 40 MG TABLET PO SCH (05:36)
[2023-07-07 05:56] LABS: Glucose,Whole Blood 100 mg/dL (70-110)
--- NOTE | 2023-07-07 08:06 | CT ---
EXAMINATION TYPE: CT brain wo con CT DLP: 1138.4 mGycm, Automated exposure control for dose reduction was used. DATE OF EXAM: 07/07/2023 7:36 AM COMPARISON: Prior CT Brain from 07/05/2023, 07/04/2023 . CLINICAL INDICATION:Female, 82 years old with history of AMS, Follow up on Intracranial Hemorrhage, a ms/ post hemorrhage TECHNIQUE: Brain: Multiple axial CT images of the brain were obtained without IV contrast. . Coronal and sagitta l reformats reviewed. FINDINGS: Brain: Extra-axial spaces: No abnormal extra-axial fluid collections. Ventricular system: Within normal limits Cerebral parenchyma: Cerebral atrophy. No significant mass effect. Similar hypodense region within th e left temporal lobe with loss of calvin-white matter differentiation. Questionable effacement of the s urrounding peripheral sulci. Previously seen hemorrhage in this region is not well-visualized on toda y's exam. The remaining calvin-white junction is well differentiated. Scattered hypoattenuating areas a re seen within the white matter. Bilateral basal ganglia nonspecific calcifications. Cerebellum: Unremarkable. Mass effect: No evidence of midline shift. Intracranial vasculature: Atherosclerotic calcifications of the intracranial vessels. Soft tissues: Normal. Calvarium/osseous structures: No depressed skull fracture. Paranasal sinuses and mastoid air cells: The mastoid air cells are clear. Left maxillary sinus likely mucous retention cyst measuring up to 1.4 cm. Visualized orbits: The lenses are surgically removed from the globes. IMPRESSION: 1. Redemonstration of age-indeterminate left temporal lobe suspected ischemic injury. Consider furth er evaluation with MRI. 2. Previously seen hemorrhage in the left temporal lobe is not well delineated on today's exam.
[2023-07-07 08:18] LABS: Anisocytosis Slight; HCT 24.2 % (34.0-46.0); HGB 7.7 gm/dL (11.4-16.0); Hypochromasia Marked; MCH 29.3 pg (25.0-35.0); MCHC 31.7 g/dL (31.0-37.0); MCV 92.5 fL (80.0-100.0); Mean Platelet Volume 8.4; Platelet Count 167 k/uL (150-450); RBC 2.61 m/uL (3.80-5.40); RDW 18.5 % (11.5-15.5); WBC 7.9 k/uL (3.8-10.6)
[2023-07-07 08:46] LABS: African American GFR (CKD) 67 (>60 ml/min/1.73 sqM); Anion Gap 5 mmol/L; Blood Urea Nitrogen 19 mg/dL (7-17); Calcium 7.8 mg/dL (8.4-10.2); Carbon Dioxide 23 mmol/L (22-30); Chloride 110 mmol/L (98-107); Glucose 88 mg/dL (74-99); Non-African American GFR(CKD) 58 (>60 ml/min/1.73 sqM); Potassium 3.9 mmol/L (3.5-5.1); Sodium 138 mmol/L (137-145)
[2023-07-07] MEDS: METOPROLOL TARTRATE 50 MG TAB PO SCH ×2 (09:23→20:05)
[2023-07-07] MEDS: FOLIC ACID 1 MG TAB PO SCH (09:23)
[2023-07-07] MEDS: NYSTATIN 100,000 UNIT/GM POWD 15 GM TOPICAL SCH ×2 (09:24→20:05)
[2023-07-07] MEDS: FERROUS SULFATE 325 MG TAB PO SCH (09:24)
[2023-07-07] MEDS: SIMETHICONE 80 MG CHEWABLE PO SCH ×4 (09:24→20:03)
--- NOTE | 2023-07-07 10:53 | P.PN ---
Subjective Patient is seen in follow-up for acute kidney injury. Renal function improving. Has a Jonas catheter. Nonoliguric. On IV fluids. Denies chest pain or shortness of breath. Hemodynamically stable. Vital signs are stable. General: No acute distress. HEENT: Head exam is unremarkable. On room air. LUNGS: No audible rhonchi or wheezes. HEART: Rate and Rhythm are regular. ABDOMEN: Nontender. EXTREMITITES: No edema. Objective - Vital Signs Vital signs: Vital Signs Temp 98.0 F 07/07/23 03:54 Pulse 93 07/07/23 03:54 Resp 16 07/07/23 03:54 BP 126/42 07/07/23 03:54 Pulse Ox 96 07/07/23 03:54 FiO2 Intake & Output 07/06/23 07/07/23 07/07/23 18:59 06:59 18:59 Intake Total 240 Output Total 780 700 Balance -780 -700 240 Intake: Oral 240 Output: Urine 780 700 Other: Voiding Method Indwelling Catheter Indwelling Catheter - Labs CBC & Chem 7: 07/07/23 07:45 07/07/23 07:45 Labs: Abnormal Lab Results - Last 24 Hours (Table) 07/06/23 07/06/23 07/07/23 Range/Units 10:24 11:56 07:45 RBC (3.80-5.40) m/uL Hgb (11.4-16.0) gm/dL Hct (34.0-46.0) % RDW (11.5-15.5) % Sodium 136 L (137-145) mmol/L Chloride 110 H 110 H (98-107) mmol/L Carbon Dioxide 21 L (22-30) mmol/L BUN 27 H 19 H (7-17) mg/dL Creatinine 1.06 H (0.52-1.04) mg/dL POC Glucose (mg/dL) 125 H (70-110) mg/dL Calcium 7.8 L 7.8 L (8.4-10.2) mg/dL 07/07/23 Range/Units 07:45 RBC 2.61 L (3.80-5.40) m/uL Hgb 7.7 L (11.4-16.0) gm/dL Hct 24.2 L (34.0-46.0) % RDW 18.5 H (11.5-15.5) % Sodium (137-145) mmol/L Chloride (98-107) mmol/L Carbon Dioxide (22-30) mmol/L BUN (7-17) mg/dL Creatinine (0.52-1.04) mg/dL POC Glucose (mg/dL) (70-110) mg/dL Calcium (8.4-10.2) mg/dL Assessment and Plan Plan: Assessment: 1. Acute kidney injury secondary to vasomotor nephropathy and obstructive uropathy. Creatinine 2.17 on admission and is down to 0.92 today. 2. Bladder cancer with right-sided hydronephrosis status post TURBT July 05, 2023. Urology following. 3. UTI on antibiotics. 4. Benign hypertension. Currently stable. 5. Hypernatremia from lack of oral water intake. Improved with hypotonic fluid infusion. 6. Anemia with iron deficiency. s/p IV iron. Plan: Maintain normal saline at 50 cc an hour. Avoid nephrotoxins. Jonas catheter per urology recommendations.
[2023-07-07 11:40] LABS: Glucose,Whole Blood 128 mg/dL (70-110)
--- NOTE | 2023-07-07 12:16 | P.PN ---
Subjective Progress Note Date: 07/07/23 * 82-year-old lady with past medical history significant for dementia, CVA, hypertension who presented to the ER for change in mental status from senior care. Patient history of baseline dementia. Nursing staff has noted the patient was having a right-sided eye gaze and twitching. No complaint of jerking movements of any extremity. No complain of slurred speech or facial droop. There was no complain of recent fall. Patient history of A. fib and on blood thinners. Because of altered mental status, patient was brought to ER * Initial lab work done in the ER showed WBC 9.9, hemoglobin 10.1, platelet count 228, sodium 143, potassium 5, BUN 67, creatinine 2.17, glucose 109, alk phos 141 * Urine drug screen not detected * UA done showed hematuria WBC is 182, urine WBC 182 Influenza A not detectedInfluenza B not detected RSV not detectedCOVID-19 not detected * EKG done in the ER showed heart rate of 96, irregular in rhythm, no P wave, no ST segment elevation or depression seen, no T-wave inversions seen. * Chest x-ray done in the ER showed no acute cardiopulmonary process * CT head done showed age indeterminate injury to left temporal lobe new from 05/19/20 * CT abdominal and showed right hydroureteronephrosis, no obstructing calculus generalized. Left adrenal nodule * 07/03. Patient seen and examined. Does not look in acute distress. Still having hematuria denies abdominal pain. No nausea or vomiting. * 07/04. Patient seen and examined. Patient underwent Cystoscopy, clot evacuation, TURBT on 07/03. Hematuria has improved. Denies any abdominal pain. * 07/05. Patient seen and examined. Labs done this morning showed WBC 12.7, hemoglobin 7.4, sodium 135, BUN 37, creatinine 1.62. CT brain done on 07/04 showed hypodensity with slight hyperintensity centrally may be some hemorrhage within the white matter changes left temporal lobe. Patient is currently alert to self and place. No complaint of slurred speech. Moving all extremities. * 07/06/23 : Patient seen and evaluated bedside, on my evaluation patient is sleeping however easily arousable, patient being treated for urinary tract infection as well as CVA. Blood work reviewed including basic metabolic panel showed sodium of 136 potassium 3.5 BUN of 27 creatinine 1.06 calcium of 7.8. Continue patient on current antibiotic regimen. Patient is followed up by multiple specialities including nephrology, urology, neurology. * 07/07/23: Patient seen and evaluated bedside, mentation has improved patient is alert to person and situation., Repeat CT head reviewed. Blood pressure noted, blood work reviewed. Will need discharge to subacute rehab once mentation improved. Will complete course of antibiotic total 7-day course PHYSICAL EXAMINATION: GENERAL: The patient is alert and oriented x 2 , ill appearance, easily arousable HEENT: Pupils are round and equally reacting to light. CARDIOVASCULAR: S1 and S2 present. No murmurs, rubs, or gallops. PULMONARY: Chest is clear to auscultation, no wheezing or crackles. ABDOMEN: Soft, nontender, nondistended, Jonas catheter in place MUSCULOSKELETAL: No joint swelling or deformity. EXTREMITIES: No cyanosis, clubbing, or pedal edema. NEUROLOGICAL: Alert to person and situation, moving bilateral upper and lower extremities does get confused during conversation Objective - Vital Signs Vital signs: Vital Signs Temp 97.5 F L 07/07/23 09:20 Pulse 103 H 07/07/23 09:20 Resp 18 07/07/23 09:20 BP 152/72 07/07/23 09:20 Pulse Ox 97 07/07/23 09:20 FiO2 Intake & Output 07/06/23 07/07/23 07/07/23 18:59 06:59 18:59 Intake Total 240 Output Total 780 700 Balance -780 -700 240 Intake: Oral 240 Output: Urine 780 700 Other: Voiding Method Indwelling Catheter Indwelling Catheter Indwelling Catheter - Labs CBC & Chem 7: 07/07/23 07:45 07/07/23 07:45 Labs: Abnormal Lab Results - Last 24 Hours (Table) 07/07/23 07/07/23 07/07/23 Range/Units 07:45 07:45 11:39 RBC 2.61 L (3.80-5.40) m/uL Hgb 7.7 L (11.4-16.0) gm/dL Hct 24.2 L (34.0-46.0) % RDW 18.5 H (11.5-15.5) % Chloride 110 H (98-107) mmol/L BUN 19 H (7-17) mg/dL POC Glucose (mg/dL) 128 H (70-110) mg/dL Calcium 7.8 L (8.4-10.2) mg/dL Assessment and Plan Assessment: Assessment and plan * Acute metabolic, 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 Follow-up CT head will be done on 07/07/2023. Continue to hold antiplatelet, anticoagulation secondary to concern for hemorrhagic transformation, continue patient on statin. In regards to CVA CT brain ob tained 07/04hypodensity with slight hyperintensity due to concern for hemorrhage, CT brain obtained 07/05 that showed concern for hemorrhagic transformation neurology aware and following, follow-up CT obtained 07/07 shows left temporal lobe hemorrhagic transformation not well-seen no worsening noted * In regards to bladder mass patient followed up by urology, s/p transurethral resection of bladder tumor, pathology pending, Jonas catheter remain in place, no hematuria noted patient to be discharged with Jonas with outpatient follow- up with urology * In regards to urinary tract infection, continue IV Rocephin, day 12/12 * In regards to history of atrial fibrillation continue rate control medications with metoprolol, anticoagulation on hold secondary to hemorrhagic transformation * In regards to history of hypertension continue patient on metoprolol * CODE STATUS is no code , patient remains ill with guarded prognosis secondary to multiple comorbidities Time with Patient: Greater than 30
[2023-07-07 16:43] LABS: Glucose,Whole Blood 126 mg/dL (70-110)
[2023-07-07] MEDS: ATORVASTATIN 80 MG TAB PO SCH (20:05)
[2023-07-07] MEDS: MELATONIN 5 MG TABLET PO SCH (20:05)
[2023-07-07 20:30] LABS: Glucose,Whole Blood 104 mg/dL (70-110)
[2023-07-08] MEDS: SODIUM CHLORIDE 0.9% 1,000 ML IV SCH ×3 (05:34→23:09)
[2023-07-08] MEDS: PANTOPRAZOLE 40 MG TABLET PO SCH (05:56)
[2023-07-08 05:57] LABS: Glucose,Whole Blood 116 mg/dL (70-110)
[2023-07-08 09:01] LABS: Anisocytosis Slight; HCT 22.8 % (34.0-46.0); HGB 7.3 gm/dL (11.4-16.0); Hypochromasia Marked; MCH 29.8 pg (25.0-35.0); MCHC 32.1 g/dL (31.0-37.0); MCV 92.9 fL (80.0-100.0); Platelet Count 176 k/uL (150-450); RBC 2.45 m/uL (3.80-5.40); WBC 7.1 k/uL (3.8-10.6)
[2023-07-08] MEDS: FERROUS SULFATE 325 MG TAB PO SCH (09:03)
[2023-07-08] MEDS: METOPROLOL TARTRATE 50 MG TAB PO SCH ×2 (09:03→20:21)
[2023-07-08] MEDS: FOLIC ACID 1 MG TAB PO SCH (09:03)
[2023-07-08] MEDS: SIMETHICONE 80 MG CHEWABLE PO SCH ×4 (09:03→20:21)
[2023-07-08] MEDS: NYSTATIN 100,000 UNIT/GM POWD 15 GM TOPICAL SCH ×2 (09:03→20:22)
[2023-07-08 09:32] LABS: African American GFR (CKD) 69 (>60 ml/min/1.73 sqM); Anion Gap 4 mmol/L; Blood Urea Nitrogen 14 mg/dL (7-17); Calcium 7.9 mg/dL (8.4-10.2); Carbon Dioxide 21 mmol/L (22-30); Chloride 111 mmol/L (98-107); Glucose 99 mg/dL (74-99); Non-African American GFR(CKD) 60 (>60 ml/min/1.73 sqM); Potassium 3.8 mmol/L (3.5-5.1); Sodium 136 mmol/L (137-145)
--- NOTE | 2023-07-08 11:04 | P.PN ---
Subjective Patient is seen in follow-up for acute kidney injury. Renal function near baseline. Has a Jonas catheter. Nonoliguric. Denies chest pain or shortness of breath. Hemodynamically stable. Sitting up in chair. No active complaints. Vital signs are stable. General: No acute distress. HEENT: Head exam is unremarkable. On room air. LUNGS: No audible rhonchi or wheezes. HEART: Rate and Rhythm are regular. ABDOMEN: Nontender. EXTREMITITES: No edema. Objective - Vital Signs Vital signs: Vital Signs Temp 98.2 F 07/08/23 09:05 Pulse 103 H 07/08/23 09:05 Resp 17 07/08/23 09:05 BP 145/71 07/08/23 09:05 Pulse Ox 97 07/08/23 09:05 FiO2 Intake & Output 07/07/23 07/08/23 07/08/23 18:59 06:59 18:59 Intake Total 240 0 Output Total 650 Balance 240 -650 0 Intake: Oral 240 0 Output: Urine 650 Other: Voiding Method Indwelling Catheter Indwelling Catheter Indwelling Catheter # Bowel Movements 1 1 - Labs CBC & Chem 7: 07/08/23 08:26 07/08/23 08:26 Labs: Abnormal Lab Results - Last 24 Hours (Table) 07/07/23 07/07/23 07/07/23 Range/Units 11:39 16:42 20:31 RBC (3.80-5.40) m/uL Hgb (11.4-16.0) gm/dL Hct (34.0-46.0) % RDW (11.5-15.5) % Sodium (137-145) mmol/L Chloride (98-107) mmol/L Carbon Dioxide (22-30) mmol/L POC Glucose (mg/dL) 128 H 126 H (70-110) mg/dL Calcium (8.4-10.2) mg/dL Stool Occult Blood Positive H (Negative) 07/08/23 07/08/23 07/08/23 Range/Units 05:55 08:26 08:26 RBC 2.45 L (3.80-5.40) m/uL Hgb 7.3 L (11.4-16.0) gm/dL Hct 22.8 L (34.0-46.0) % RDW 19.0 H (11.5-15.5) % Sodium 136 L (137-145) mmol/L Chloride 111 H (98-107) mmol/L Carbon Dioxide 21 L (22-30) mmol/L POC Glucose (mg/dL) 116 H (70-110) mg/dL Calcium 7.9 L (8.4-10.2) mg/dL Stool Occult Blood (Negative) Assessment and Plan Plan: Assessment: 1. Acute kidney injury secondary to vasomotor nephropathy and obstructive uropathy. Creatinine 2.17 on admission and is down to 0.92 today. 2. Bladder cancer with right-sided hydronephrosis status post TURBT July 05, 2023. Urology following. 3. UTI s/p antibiotics. 4. Benign hypertension. Currently stable. 5. Hypernatremia from lack of oral water intake. Improved with hypotonic fluid infusion. 6. Anemia with iron deficiency. s/p IV iron. Plan: Maintain normal saline at 50 cc an hour. Avoid nephrotoxins. Jonsa catheter per urology recommendations. Follow-up outpatient 1-2 weeks postdischarge.
[2023-07-08 11:21] LABS: Glucose,Whole Blood 135 mg/dL (70-110)
[2023-07-08 11:27] VITALS: BMI 30.4
--- NOTE | 2023-07-08 11:56 | P.PN ---
Subjective Progress Note Date: 07/08/23 * 82-year-old lady with past medical history significant for dementia, CVA, hypertension who presented to the ER for change in mental status from group home. Patient history of baseline dementia. Nursing staff has noted the patient was having a right-sided eye gaze and twitching. No complaint of jerking movements of any extremity. No complain of slurred speech or facial droop. There was no complain of recent fall. Patient history of A. fib and on blood thinners. Because of altered mental status, patient was brought to ER * Initial lab work done in the ER showed WBC 9.9, hemoglobin 10.1, platelet count 228, sodium 143, potassium 5, BUN 67, creatinine 2.17, glucose 109, alk phos 141 * Urine drug screen not detected * UA done showed hematuria WBC is 182, urine WBC 182 Influenza A not detectedInfluenza B not detected RSV not detectedCOVID-19 not detected * EKG done in the ER showed heart rate of 96, irregular in rhythm, no P wave, no ST segment elevation or depression seen, no T-wave inversions seen. * Chest x-ray done in the ER showed no acute cardiopulmonary process * CT head done showed age indeterminate injury to left temporal lobe new from 05/19/20 * CT abdominal and showed right hydroureteronephrosis, no obstructing calculus generalized. Left adrenal nodule * 07/03. Patient seen and examined. Does not look in acute distress. Still having hematuria denies abdominal pain. No nausea or vomiting. * 07/04. Patient seen and examined. Patient underwent Cystoscopy, clot evacuation, TURBT on 07/03. Hematuria has improved. Denies any abdominal pain. * 07/05. Patient seen and examined. Labs done this morning showed WBC 12.7, hemoglobin 7.4, sodium 135, BUN 37, creatinine 1.62. CT brain done on 07/04 showed hypodensity with slight hyperintensity centrally may be some hemorrhage within the white matter changes left temporal lobe. Patient is currently alert to self and place. No complaint of slurred speech. Moving all extremities. * 07/06/23 : Patient seen and evaluated bedside, on my evaluation patient is sleeping however easily arousable, patient being treated for urinary tract infection as well as CVA. Blood work reviewed including basic metabolic panel showed sodium of 136 potassium 3.5 BUN of 27 creatinine 1.06 calcium of 7.8. Continue patient on current antibiotic regimen. Patient is followed up by multiple specialities including nephrology, urology, neurology. * 07/07/23: Patient seen and evaluated bedside, mentation has improved patient is alert to person and situation., Repeat CT head reviewed. Blood pressure noted, blood work reviewed. Will need discharge to subacute rehab once mentation improved. Will complete course of antibiotic total 7-day course * 07/08/2023: Patient seen and evaluated at bedside, mentation has improved significantly. Patient had 1 episode of black stool, follow-up CBC ordered. Patient is following commands moving upper and lower extremity. Pathology from bladder is back showing invasive urothelial cancer will need outpatient follow-up with urology continue to maintain Jonas catheter expected discharge in the next 24 hours if remains stable PHYSICAL EXAMINATION: GENERAL: The patient is alert and oriented x 2 , ill appearance, easily arousable HEENT: Pupils are round and equally reacting to light. CARDIOVASCULAR: S1 and S2 present. No murmurs, rubs, or gallops. PULMONARY: Chest is clear to auscultation, no wheezing or crackles. ABDOMEN: Soft, nontender, nondistended, Jonas catheter in place MUSCULOSKELETAL: No joint swelling or deformity. EXTREMITIES: No cyanosis, clubbing, or pedal edema. NEUROLOGICAL: Alert to person and situation, moving bilateral upper and lower extremities does get confused during conversation Objective - Vital Signs Vital signs: Vital Signs Temp 98.2 F 07/08/23 09:05 Pulse 103 H 07/08/23 09:05 Resp 17 07/08/23 09:05 BP 145/71 07/08/23 09:05 Pulse Ox 97 07/08/23 09:05 FiO2 Intake & Output 07/07/23 07/08/23 07/08/23 18:59 06:59 18:59 Intake Total 240 0 Output Total 650 Balance 240 -650 0 Weight 90.718 kg Intake: Oral 240 0 Output: Urine 650 Other: Voiding Method Indwelling Catheter Indwelling Catheter Indwelling Catheter # Bowel Movements 1 1 - Labs CBC & Chem 7: 07/08/23 08:26 07/08/23 08:26 Labs: Abnormal Lab Results - Last 24 Hours (Table) 07/07/23 07/07/23 07/08/23 Range/Units 16:42 20:31 05:55 RBC (3.80-5.40) m/uL Hgb (11.4-16.0) gm/dL Hct (34.0-46.0) % RDW (11.5-15.5) % Sodium (137-145) mmol/L Chloride (98-107) mmol/L Carbon Dioxide (22-30) mmol/L POC Glucose (mg/dL) 126 H 116 H (70-110) mg/dL Calcium (8.4-10.2) mg/dL Stool Occult Blood Positive H (Negative) 07/08/23 07/08/23 07/08/23 Range/Units 08:26 08:26 11:16 RBC 2.45 L (3.80-5.40) m/uL Hgb 7.3 L (11.4-16.0) gm/dL Hct 22.8 L (34.0-46.0) % RDW 19.0 H (11.5-15.5) % Sodium 136 L (137-145) mmol/L Chloride 111 H (98-107) mmol/L Carbon Dioxide 21 L (22-30) mmol/L POC Glucose (mg/dL) 135 H (70-110) mg/dL Calcium 7.9 L (8.4-10.2) mg/dL Stool Occult Blood (Negative) Assessment and Plan Assessment: Assessment and plan * Acute metabolic, 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 Continue to hold antiplatelet, anticoagulation secondary to concern for hemorrhagic transformation, continue patient on statin. In regards to CVA CT brain obtained 07/04hypodensity with slight hyperintensity due to concern for hemorrhage, CT brain obtained 07/05 that showed concern for hemorrhagic transformation neurology aware and following, follow-up CT obtained 07/07 shows left temporal lobe hemorrhagic transformation not well- seen no worsening noted * In regards to bladder mass patient followed up by urology, s/p transurethral resection of bladder tumor, pathology RESULTED, Jonas catheter remain in place, no hematuria noted patient to be discharged with Jonas with outpatient follow-up with urology * In regards to urinary tract infection, continue IV Rocephin, day 12/12 completed * In regards to history of atrial fibrillation continue rate control medications with metoprolol, anticoagulation on hold secondary to hemorrhagic transformation * In regards to history of hypertension continue patient on metoprolol * CODE STATUS is no code , patient remains ill with guarded prognosis secondary to multiple comorbidities
[2023-07-08 12:18] LABS: Anisocytosis Slight; Hypochromasia Marked; MCH 29.3 pg (25.0-35.0); MCHC 30.7 g/dL (31.0-37.0); MCV 95.5 fL (80.0-100.0); Macrocytosis Slight; Mean Platelet Volume 8.6; Platelet Count 199 k/uL (150-450); RBC 2.72 m/uL (3.80-5.40); RDW 18.8 % (11.5-15.5); WBC 8.4 k/uL (3.8-10.6)
[2023-07-08 16:14] LABS: Glucose,Whole Blood 140 mg/dL (70-110)
--- NOTE | 2023-07-08 17:42 | P.PN ---
Subjective Progress Note Date: 07/08/23 I am following-up with patient and she is accompanied by her niece (Renae). Patient feel she is doing better and her niece agree. Denies of any headache. Is more awake and responding and less confused. Objective - Vital Signs Vital signs: Vital Signs Temp 98.2 F 07/08/23 09:05 Pulse 95 07/08/23 16:00 Resp 17 07/08/23 16:00 BP 143/76 07/08/23 16:00 Pulse Ox 100 07/08/23 16:00 FiO2 Intake & Output 07/07/23 07/08/23 07/08/23 18:59 06:59 18:59 Intake Total 240 0 Output Total 650 Balance 240 -650 0 Weight 90.718 kg Intake: Oral 240 0 Output: Urine 650 Other: Voiding Method Indwelling Catheter Indwelling Catheter Indwelling Catheter # Bowel Movements 1 1 - Exam General: Sitting up in a chair and is not in acute distress. Neuro: The patient is awake, alert, oriented to self abd stated she is in the hospital. She is following simple commands. Having some word finding difficulty. No neglect. The pupils are round equal about 4 mm bilaterally and reactive to light. No facial weakness. No dysarthria. Motor: Moving all extremities above gravity and seems equal. - Labs CBC & Chem 7: 07/08/23 12:02 07/08/23 08:26 Labs: Abnormal Lab Results - Last 24 Hours (Table) 07/07/23 07/08/23 07/08/23 Range/Units 20:31 05:55 08:26 RBC (3.80-5.40) m/uL Hgb (11.4-16.0) gm/dL Hct (34.0-46.0) % MCHC (31.0-37.0) g/dL RDW (11.5-15.5) % Sodium 136 L (137-145) mmol/L Chloride 111 H (98-107) mmol/L Carbon Dioxide 21 L (22-30) mmol/L POC Glucose (mg/dL) 116 H (70-110) mg/dL Calcium 7.9 L (8.4-10.2) mg/dL Stool Occult Blood Positive H (Negative) 07/08/23 07/08/23 07/08/23 Range/Units 08:26 11:16 12:02 RBC 2.45 L 2.72 L (3.80-5.40) m/uL Hgb 7.3 L 8.0 L (11.4-16.0) gm/dL Hct 22.8 L 26.0 L (34.0-46.0) % MCHC 30.7 L (31.0-37.0) g/dL RDW 19.0 H 18.8 H (11.5-15.5) % Sodium (137-145) mmol/L Chloride (98-107) mmol/L Carbon Dioxide (22-30) mmol/L POC Glucose (mg/dL) 135 H (70-110) mg/dL Calcium (8.4-10.2) mg/dL Stool Occult Blood (Negative) 07/08/23 Range/Units 16:10 RBC (3.80-5.40) m/uL Hgb (11.4-16.0) gm/dL Hct (34.0-46.0) % MCHC (31.0-37.0) g/dL RDW (11.5-15.5) % Sodium (137-145) mmol/L Chloride (98-107) mmol/L Carbon Dioxide (22-30) mmol/L POC Glucose (mg/dL) 140 H (70-110) mg/dL Calcium (8.4-10.2) mg/dL Stool Occult Blood (Negative) Assessment and Plan Assessment: * Subacute CVA involving the left temporal lobe. Patient's symptoms started about 2 or [address] of the head revealed an area of subacute to chronic ischemic infarction in the left temporal lobe, now with slight hemorrhagic conversion--improving. ON examination has subtle aphasia but otherwise mentation is improving. * Abnormal CT head, with evidence of encephalomalacia in the left temporal lobe, which is new since the CT head from 05/19/2020. It is possible subacute CVA. * Acute kidney injury, improving * Abnormal UA, rule out UTI. Cultures pending. * Acute hydronephrosis, right side with hematuria. This is probably the cause of low back pain. 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 * Hyperlipidemia * Hypertension * Pacemaker Plan: Initial CT head 07/01/2023 was abnormal with evidence of abnormal signal in the left temporal lobe. Suspect subacute to chronic stroke. Patient cannot have MRI of the brain because of presence of pacemaker. Then had multiple repeat CT head's. Most recent CT head is 07/07/2023: There is redemonstration of an indeterminate left temporal lobe suspect ischemic injury. Consider further eval she with MRI. Previously seen hemorrhage in the left temporal lobe is not well the lead on today's exam. 2-D echo revealed normal left ventricular systolic function. Transcatheter aortic valve with a mean gradient of 45 mmHg. Moderate mitral and tricuspid regurgitation. Moderate to severe pulmonary hypertension. Severely increased left atrial volume. Carotid Doppler, revealed less than 50% stenosis of bilateral carotid bifurcations. Antegrade flow in both vertebral arteries. Fasting a.m. lipid panel cholesterol 91, LDL 24, HDL 36, triglycerides 150. Continue Lipitor 80 mg daily. B12 837, folate 5.5, TSH 0.945, RPR nonreactive. Ammonia is <9. We will start folic acid 1 mg daily. EEG was normal awake and drowsy. No focal, lateralized or epileptiform activity was seen. PT, OT, speech therapy Hemoglobin A1c 5.6 Resume Eliquis 5 mg twice daily, when medically cleared. Currently Eliquis on hold because of GI bleed, hematuria and anemia, and now has to be helped because of mild hemorrhagic conversion of CVA. Per Dr. Hernandez Stop aspirin because of possible intracranial hemorrhage. Can consider ASA if clear from other team members to be safe. Recommend normotensive. Neuro checks every 4 hours. Telemetry monitoring rule out any arrhythmia Nephrology and urology on case for hydronephrosis, possible UTI, acute kidney injury. Patient on ceftriaxone. DVT prophylaxis: Hold heparin. SCDs. The plan is discussed with the patient and her niece (Renae) who is at bedside. Time with Patient: Less than 30
[2023-07-08] MEDS: MELATONIN 5 MG TABLET PO SCH (20:21)
[2023-07-08] MEDS: ATORVASTATIN 80 MG TAB PO SCH (20:21)
[2023-07-08 20:26] LABS: Glucose,Whole Blood 113 mg/dL (70-110)
[2023-07-09 06:09] LABS: Glucose,Whole Blood 103 mg/dL (70-110)
[2023-07-09] MEDS: PANTOPRAZOLE 40 MG TABLET PO SCH (06:38)
[2023-07-09] MEDS: SODIUM CHLORIDE 0.9% 1,000 ML IV SCH (06:44)
[2023-07-09] MEDS: METOPROLOL TARTRATE 50 MG TAB PO SCH (08:16)
[2023-07-09] MEDS: SIMETHICONE 80 MG CHEWABLE PO SCH ×2 (08:16→13:47)
[2023-07-09] MEDS: NYSTATIN 100,000 UNIT/GM POWD 15 GM TOPICAL SCH (08:17)
[2023-07-09] MEDS: FERROUS SULFATE 325 MG TAB PO SCH (08:17)
[2023-07-09] MEDS: FOLIC ACID 1 MG TAB PO SCH (08:17)
[2023-07-09 08:20] VITALS: PULSE 95; RESP 18
[2023-07-09 10:44] LABS: Anisocytosis Slight; HCT 23.1 % (34.0-46.0); HGB 7.1 gm/dL (11.4-16.0); Hypochromasia Marked; MCH 28.9 pg (25.0-35.0); MCHC 30.9 g/dL (31.0-37.0); MCV 93.5 fL (80.0-100.0); Macrocytosis Slight; Mean Platelet Volume 9.1; Platelet Count 184 k/uL (150-450); RBC 2.47 m/uL (3.80-5.40); RDW 19.4 % (11.5-15.5); WBC 7.6 k/uL (3.8-10.6)
[2023-07-09] MEDS ORDERED: amLODIPine 5 MG TAB PO SCH ×2 (11:00→21:00)
[2023-07-09 11:02] LABS: ALT 14 U/L (4-34); AST 23 U/L (14-36); African American GFR (CKD) 74 (>60 ml/min/1.73 sqM); Albumin 2.5 g/dL (3.5-5.0); Alkaline Phosphatase 122 U/L (38-126); Anion Gap 7 mmol/L; Blood Urea Nitrogen 9 mg/dL (7-17); Calcium 7.8 mg/dL (8.4-10.2); Carbon Dioxide 20 mmol/L (22-30); Chloride 111 mmol/L (98-107); Glucose 111 mg/dL (74-99); Non-African American GFR(CKD) 64 (>60 ml/min/1.73 sqM); Potassium 3.9 mmol/L (3.5-5.1); Sodium 138 mmol/L (137-145); Total Bilirubin 0.3 mg/dL (0.2-1.3); Total Protein 5.2 g/dL (6.3-8.2)
[2023-07-09 11:24] LABS: Glucose,Whole Blood 122 mg/dL (70-110)
--- NOTE | 2023-07-09 11:43 | P.PN ---
Subjective Patient is seen in follow-up for acute kidney injury. Renal function at baseline. Has a Jonas catheter. Nonoliguric. Denies chest pain or shortness of breath. Hemodynamically stable. Sitting up in chair. No active complaints. Vital signs are stable. General: No acute distress. HEENT: Head exam is unremarkable. On room air. LUNGS: No audible rhonchi or wheezes. HEART: Rate and Rhythm are regular. ABDOMEN: Nontender. EXTREMITITES: No edema. Objective - Vital Signs Vital signs: Vital Signs Temp 98.2 F 07/09/23 08:00 Pulse 95 07/09/23 08:00 Resp 18 07/09/23 08:00 BP 148/69 07/09/23 08:00 Pulse Ox 98 07/09/23 08:00 FiO2 Intake & Output 07/08/23 07/09/23 07/09/23 18:59 06:59 18:59 Intake Total 0 110 Output Total 250 Balance 0 -250 110 Weight 90.718 kg Intake: Oral 0 110 Output: Urine 250 Other: Voiding Method Indwelling Catheter Indwelling Catheter Indwelling Catheter # Bowel Movements 1 - Labs CBC & Chem 7: 07/09/23 10:00 07/09/23 10:00 Labs: Abnormal Lab Results - Last 24 Hours (Table) 07/08/23 07/08/23 07/08/23 Range/Units 12:02 16:10 20:25 RBC 2.72 L (3.80-5.40) m/uL Hgb 8.0 L (11.4-16.0) gm/dL Hct 26.0 L (34.0-46.0) % MCHC 30.7 L (31.0-37.0) g/dL RDW 18.8 H (11.5-15.5) % Chloride (98-107) mmol/L Carbon Dioxide (22-30) mmol/L Glucose (74-99) mg/dL POC Glucose (mg/dL) 140 H 113 H (70-110) mg/dL Calcium (8.4-10.2) mg/dL Total Protein (6.3-8.2) g/dL Albumin (3.5-5.0) g/dL 07/09/23 07/09/23 07/09/23 Range/Units 10:00 10:00 11:22 RBC 2.47 L (3.80-5.40) m/uL Hgb 7.1 L (11.4-16.0) gm/dL Hct 23.1 L (34.0-46.0) % MCHC 30.9 L (31.0-37.0) g/dL RDW 19.4 H (11.5-15.5) % Chloride 111 H (98-107) mmol/L Carbon Dioxide 20 L (22-30) mmol/L Glucose 111 H (74-99) mg/dL POC Glucose (mg/dL) 122 H (70-110) mg/dL Calcium 7.8 L (8.4-10.2) mg/dL Total Protein 5.2 L (6.3-8.2) g/dL Albumin 2.5 L (3.5-5.0) g/dL Assessment and Plan Plan: Assessment: 1. Acute kidney injury secondary to vasomotor nephropathy and obstructive uropathy. Creatinine 2.17 on admission and is down to 0.84 today. 2. Bladder cancer with right-sided hydronephrosis status post TURBT July 05, 2023. Urology following. 3. UTI s/p antibiotics. 4. Benign hypertension. Currently stable. 5. Hypernatremia from lack of oral water intake. Improved with hypotonic fluid infusion. 6. Anemia with iron deficiency. s/p IV iron. Plan: Hep-Lock IV fluids. Avoid nephrotoxins. Jonas catheter per urology recommendations. Follow-up outpatient 1-2 weeks postdischarge.
--- NOTE | 2023-07-09 12:16 | P.DS ---
Providers Date of admission: 07/01/23 19:21 Expected date of discharge: 07/09/23 Attending physician: Maximus Ashley Consults: 07/01/23 19:19 Consult Physician Routine Consulting Provider: Rafi Hernandez Consult Reason/Comments: age indeterminate finding on ct, no obvious deficits Do you want consulting provider notified?: Yes Consult Physician Routine Consulting Provider: Vignesh Frye Consult Reason/Comments: right hydronephrosis, dany, uti Do you want consulting provider notified?: Yes 07/02/23 10:02 Consult Physician Routine Consulting Provider: Vijay Olvera Consult Reason/Comments: DANY Do you want consulting provider notified?: Yes Primary care physician: Ahmet Bee [facility] Course: * 82-year-old lady with past medical history significant for dementia, CVA, hypertension who presented to the ER for change in mental status from correction. Patient history of baseline dementia. Nursing staff has noted the patient was having a right-sided eye gaze and twitching. No complaint of jerking movements of any extremity. No complain of slurred speech or facial droop. There was no complain of recent fall. Patient history of A. fib and on blood thinners. Because of altered mental status, patient was brought to ER * Initial lab work done in the ER showed WBC 9.9, hemoglobin 10.1, platelet count 228, sodium 143, potassium 5, BUN 67, creatinine 2.17, glucose 109, alk phos 141 * Urine drug screen not detected * UA done showed hematuria WBC is 182, urine WBC 182 Influenza A not detectedInfluenza B not detected RSV not detectedCOVID-19 not detected * EKG done in the ER showed heart rate of 96, irregular in rhythm, no P wave, no ST segment elevation or depression seen, no T-wave inversions seen. * Chest x-ray done in the ER showed no acute cardiopulmonary process * CT head done showed age indeterminate injury to left temporal lobe new from 05/19/20 * CT abdominal and showed right hydroureteronephrosis, no obstructing calculus generalized. Left adrenal nodule * 07/03. Patient seen and examined. Does not look in acute distress. Still having hematuria denies abdominal pain. No nausea or vomiting. * 07/04. Patient seen and examined. Patient underwent Cystoscopy, clot evacuation, TURBT on 07/03. Hematuria has improved. Denies any abdominal pain. * 07/05. Patient seen and examined. Labs done this morning showed WBC 12.7, hemoglobin 7.4, sodium 135, BUN 37, creatinine 1.62. CT brain done on 07/04 showed hypodensity with slight hyperintensity centrally may be some hemorrhage within the white matter changes left temporal lobe. Patient is currently alert to self and place. No complaint of slurred speech. Moving all extremities. * 07/06/23 : Patient seen and evaluated bedside, on my evaluation patient is sleeping however easily arousable, patient being treated for urinary tract infection as well as CVA. Blood work reviewed including basic metabolic panel showed sodium of 136 potassium 3.5 BUN of 27 creatinine 1.06 calcium of 7.8. Continue patient on current antibiotic regimen. Patient is followed up by multiple specialities including nephrology, urology, neurology. * 07/07/23: Patient seen and evaluated bedside, mentation has improved patient is alert to person and situation., Repeat CT head reviewed. Blood pressure noted, blood work reviewed. Will need discharge to subacute rehab once mentation improved. Will complete course of antibiotic total 7-day course * 07/08/2023: Patient seen and evaluated at bedside, mentation has improved significantly. Patient had 1 episode of black stool, follow-up CBC ordered. Patient is following commands moving upper and lower extremity. Pathology from bladder is back showing invasive urothelial cancer will need outpatient follow-up with urology continue to maintain Jonas catheter expected discharge in the next 24 hours if remains stable * 07/09/2023: Patient seen and evaluated bedside, mentation has improved, care plan discussed with patient randolph Macdonald. Explained that Eliquis can increase risk of bleeding discussed pathology results that patient has urothelial cancer. Continue to hold anticoagulation. Hemoglobin 7.1. Patient completed course of antibiotic patient to be discharged back to facility PHYSICAL EXAMINATION: GENERAL: The patient is alert and oriented x 2 , ill appearance, easily arousable HEENT: Pupils are round and equally reacting to light. CARDIOVASCULAR: S1 and S2 present. No murmurs, rubs, or gallops. PULMONARY: Chest is clear to auscultation, no wheezing or crackles. ABDOMEN: Soft, nontender, nondistended, Jonas catheter in place MUSCULOSKELETAL: No joint swelling or deformity. EXTREMITIES: No cyanosis, clubbing, or pedal edema. NEUROLOGICAL: Alert to person and situation, moving bilateral upper and lower extremities Assessment and plan * Acute metabolic, ischemic encephalopathy with subacute CVA involving left temp oral lobe * Hemorrhagic transformation noted left temporal lobe * Urinary tract infection * Acute kidney injury * Bladder mass with acute hydronephrosis s/p TURBT>> invasive urothelial cancer * Blood loss anemia genitourinary * History of atrial fibrillation on anticoagulation prior to hospitalization with Eliquis * Hyperlipidemia * Hypertension * S/p pacemaker in place * In regards to encephalopathy multifactorial likely secondary to CVA, metabolic encephalopathy. Continue to hold antiplatelet, anticoagulation secondary to concern for hemorrhagic transformation, continue patient on statin. In regards to CVA CT brain obtained 07/04hypodensity with slight hyperintensity due to concern for hemorrhage, CT brain obtained 07/05 that showed concern for hemorrhagic transformation neurology aware and following, follow-up CT obtained 07/07 shows left temporal lobe hemorrhagic transformation not well- seen no worsening noted>> Eliquis discontinued due to high risk of bleeding as well as bleeding from bladder mass * In regards to bladder mass patient followed up by urology, s/p transurethral resection of bladder tumor, pathology RESULTED, Jonas catheter remain in place, no hematuria noted patient to be discharged with Jonas with outpatient follow-up with urology * In regards to urinary tract infection, continue IV Rocephin, day 12/12 completed * In regards to history of atrial fibrillation continue rate control medications with metoprolol, anticoagulation on hold secondary to hemorrhagic transformation, continue to hold Eliquis upon discharge due to risk of bleeding and symptomatic anemia * In regards to history of hypertension continue patient on metoprolol * CODE STATUS is no code , patient remains ill with guarded prognosis secondary to multiple comorbidities Patient Condition at Discharge: Fair Plan - Discharge Summary Discharge Rx Participant: No New Discharge Prescriptions: New Folic Acid 1 mg PO DAILY 30 Days #30 tab amLODIPine [Norvasc] 5 mg PO DAILY 30 Days #30 tab Continue Atorvastatin [Lipitor] 80 mg PO HS Ferrous Sulfate [Iron (65 MG Elemental)] 325 mg PO DAILY Omeprazole Magnesium [PriLOSEC OTC] 20 mg PO DAILY Metoprolol Tartrate [Lopressor] 50 mg PO BID Cholecalciferol [Vitamin D3 (25 Mcg = 1000 Iu)] 25 mcg PO DAILY Ondansetron [Zofran] 4 mg PO Q6H PRN PRN Reason: Nausea And Vomiting Magnesium Hydroxide [Milk of Magnesia Concentrate] 7,200 mg PO DAILY PRN PRN Reason: Constipation polyethylene glycoL 3350 [Miralax] 17 gm PO DAILY Vit C/E/Zn/Coppr/Lutein/Zeaxan [Preservision Areds 2 Softgel] 1 cap PO DAILY Mag Hydrox/Aluminum Hyd/Simeth [Mylanta Maximum Strength Liq] 30 ml PO Q4H PRN PRN Reason: Indigestion Muscle Rub Ultra Strength Cream 4-10-30% 1 applic TOPICAL Q8H PRN PRN Reason: Pain Melatonin 5 mg PO HS Na Phos,M-B/Na Phos,Di-Ba [Fleet Adult] 133 ml RECTAL Q72H PRN PRN Reason: Constipation Estradiol Cream [Estrace Cream 0.01%] 2 mg VAGINAL HS Estradiol Cream [Estrace Cream 0.01%] 1 mg VAGINAL DIRECTED Acetaminophen [Tylenol] 650 mg PO Q4H PRN PRN Reason: GENERAL DISCOMFORT Simethicone [Gas-X] 125 mg PO PCHS Discontinued Apixaban [Eliquis] 5 mg PO BID Acetaminophen [Tylenol] 650 mg PO TID hydroCHLOROthiazide [Hydrodiuril] 25 mg PO DAILY Losartan Potassium [Cozaar] 100 mg PO DAILY Discharge Medication List Atorvastatin [Lipitor] 80 mg PO HS 11/06/19 [History] Ferrous Sulfate [Iron (65 MG Elemental)] 325 mg PO DAILY 05/19/20 [History] Omeprazole Magnesium [PriLOSEC OTC] 20 mg PO DAILY 11/27/20 [History] polyethylene glycoL 3350 [Miralax] 17 gm PO DAILY 11/27/20 [History] Cholecalciferol [Vitamin D3 (25 Mcg = 1000 Iu)] 25 mcg PO DAILY 04/15/23 [History] Mag Hydrox/Aluminum Hyd/Simeth [Mylanta Maximum Strength Liq] 30 ml PO Q4H PRN 04/15/23 [History] Metoprolol Tartrate [Lopressor] 50 mg PO BID 04/15/23 [History] Vit C/E/Zn/Coppr/Lutein/Zeaxan [Preservision Areds 2 Softgel] 1 cap PO DAILY 04/15/23 [History] Acetaminophen [Tylenol] 650 mg PO Q4H PRN 07/01/23 [History] Estradiol Cream [Estrace Cream 0.01%] 1 mg VAGINAL DIRECTED 07/01/23 [History] Estradiol Cream [Estrace Cream 0.01%] 2 mg VAGINAL HS 07/01/23 [History] Magnesium Hydroxide [Milk of Magnesia Concentrate] 7,200 mg PO DAILY PRN 07/01/23 [History] Melatonin 5 mg PO HS 07/01/23 [History] Muscle Rub Ultra Strength Cream 4-10-30% 1 applic TOPICAL Q8H PRN 07/01/23 [History] Na Phos,M-B/Na Phos,Di-Ba [Fleet Adult] 133 ml RECTAL Q72H PRN 07/01/23 [History] Ondansetron [Zofran] 4 mg PO Q6H PRN 07/01/23 [History] Simethicone [Gas-X] 125 mg PO PCHS 07/01/23 [History] Folic Acid 1 mg PO DAILY 30 Days #30 tab 07/09/23 [Rx] amLODIPine [Norvasc] 5 mg PO DAILY 30 Days #30 tab 07/09/23 [Rx] Follow up Appointment(s)/Referral(s): Vignesh Frye MD [STAFF PHYSICIAN] - 1 Week Ahmet Bee MD [Primary Care Provider] - 1-2 days Kimberly May MD [REFERRING] - 1 Week [facility], [NON-STAFF] - 1 Week Activity/Diet/Wound Care/Special Instructions: Return to [facility] for long-term correction care. Discharge Disposition: TRANSFER TO SNF/ECF
[2023-07-09 13:02] VITALS: BP 145/70; TEMP 98.7
== END 2023-07-09 14:35 | DRG 668 ==
LOC: EC 13:55 → 4SSUR 19:21 → 1SOBS 07-02 16:29 → 5NMEDONC 07-03 18:42 → 3SCARD 07-04 18:10
PROVIDERS: ADMIT Hospitalist; ATTEND Hospitalist
PROC: 0TBB8ZZ Excision of Bladder, Via Natural or Artificial Opening Endoscopic (ICD-10-PCS; principal; 2023-07-03 13:45)
DX: C67.0 Malignant neoplasm of trigone of bladder (principal); G93.41 Metabolic encephalopathy; I61.1 Nontraumatic intracerebral hemorrhage in hemisphere, cortical; N17.0 Acute kidney failure with tubular necrosis; I63.89 Other cerebral infarction; E87.0 Hyperosmolality and hypernatremia; N13.6 Pyonephrosis; D62 Acute posthemorrhagic anemia; I67.82 Cerebral ischemia; R47.01 Aphasia; I48.20 Chronic atrial fibrillation, unspecified; N18.4 Chronic kidney disease, stage 4 (severe); I27.20 Pulmonary hypertension, unspecified; E27.8 Other specified disorders of adrenal gland; G93.89 Other specified disorders of brain; F01.A0 Vascular dementia, mild, without behavioral disturbance, psychotic disturbance, mood disturbance, and anxiety; G25.81 Restless legs syndrome; D50.9 Iron deficiency anemia, unspecified; I12.9 Hypertensive chronic kidney disease with stage 1 through stage 4 chronic kidney disease, or unspecified chronic kidney disease; I08.1 Rheumatic disorders of both mitral and tricuspid valves; Z66 Do not resuscitate; N20.0 Calculus of kidney; R31.0 Gross hematuria; R25.3 Fasciculation; R29.700 NIHSS score 0; E78.5 Hyperlipidemia, unspecified; Z96.641 Presence of right artificial hip joint; Z86.73 Personal history of transient ischemic attack (TIA), and cerebral infarction without residual deficits; Z79.01 Long term (current) use of anticoagulants; Z79.899 Other long term (current) drug therapy; Z88.1 Allergy status to other antibiotic agents; Z91.81 History of falling; Z11.52 Encounter for screening for COVID-19; Z95.0 Presence of cardiac pacemaker; Z87.19 Personal history of other diseases of the digestive system
CPT/HCPCS: 36410; 36415; 70450; 71046; 74176; 76937; 80048; 80053; 80061; 80306; 80320; 81001; 82140; 82272; 82607; 82746; 83036; 83540; 83550; 83605; 83735; 84443; 84484; 85025; 85027; 85610; 85730; 86780; 87086; 87636; 88307; 93005; 93306; 93880; 95816; 96361; 96365; 99285